=== PATIENT | female | born 1955 | race Caucasian/White ===

== ENCOUNTER 2017-09-28 03:12 | Inpatient (IN) | payer MEDICARE, MEDICAID ==
[2017-09-28] MEDS ORDERED: Acetaminophen 650 MG Supp RECTAL ONE (03:44)
--- NOTE | 2017-09-28 03:50 | EDM.PDOC ---
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, MR, kyphoscoliosis, staisis edema/legs, GERD, functionally blind with cataracts b/l, hypothyroid, postmenopausal, SK R cheek, progressibve flexion c-spine, flexion contractures hands and knees, hypotension , DJD, femur fx with deformity, osteoporosis, seizures, acne, septic shock PSH: T&A meds: vit E, MVI, omeprazole 20 mg, carb/levo 25/100 2.5 QID, divalproex 125 3 caps qid, amitriptyline 10 mg 2 tabs qhs, levothyr 75 qd, Z-Berhane x 5d 09/23 to for bronchitis, mucinex ER 600 mg bid for bronchitis, )2 2 l/min NC qhs all: nka PCP Kanwla Bacon [employer] - Related Data Allergies Allergy/AdvReac Type Severity Reaction Status Date / Time No Known Allergies Allergy Verified 09/28/17 03:59 Home Meds: Home Meds Bisacodyl [Dulcolax] 10 mg RC Q72H PRN 12/11/15 [History] Divalproex Sodium [Depakote Sprinkle] 375 mg PO QID 12/11/15 [History] Levothyroxine 75 mcg PO BEDTIME 12/11/15 [History] Multivitamins with Iron [Daily Nery with Iron] 1 tab PO DAILY 12/11/15 [History] Omeprazole 20 mg PO ACBREAKFAST 12/11/15 [History] Vitamin E 400 units PO DAILY 12/11/15 [History] Carbidopa/Levodopa [Carbidopa-Levodopa 25-100 Tab] 2.5 tab PO QID 02/04/16 [ History] Acetaminophen 2 tab PO Q4H PRN 09/28/17 [History] Dextromethorphan/guaiFENesin [Robitussin DM] 10 mg PO Q4H PRN 09/28/17 [History] Nystatin [Nystatin Crm] 15 gm TOP BID PRN 09/28/17 [History] guaiFENesin [Mucinex] 600 mg PO BID 09/28/17 [History] Past Medical History HEENT History: Reports: Cataract, Other (See Below) Other HEENT History: Functionally blind with cataracts, mild perioral dematitis , gingivitis. Cardiovascular History: Reports: Other (See Below) Other Cardiovascular History: Stasis Edema/Legs Respiratory History: Reports: Pneumonia, Recurrent, Other (See Below) Other Respiratory History: History of aspiration pneumonia. Gastrointestinal History: Reports: GERD, Other (See Below) Other Gastrointestinal History: History of positive stool guaiac, septic shock, possible small bowl obstruction, GI bleed, mild duodenitis, possible small bowel obstruction. 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: Reports: Other (See Below) Other OB/BYN History: Post Menopausal Musculoskeletal History: Reports: Other (See Below) Other Musculoskeletal History: Kyphoscoliosis, Right Thoracic Scoliosis, 1/4 Inch Right Leg Discrepency, Mild Pes Planus, Progressive Flexic C-Spine, Flexic contractures of hands and feet, S/O left hand fracture Neurological History: Reports: Seizure Psychiatric History: Reports: Other (See Below) Other Psychiatric History: Profound ID, disruptive D/O, Organic Affective D/O, Sleep/Wake D/O, Complex Partial Seizure D/O, Mild Microcephaly Endocrine/Metabolic History: Reports: Hypothyroidism Hematologic History: Reports: None Dermatologic History: Reports: Other (See Below) Other Dermatologic History: Seborrheic Keratosis Right Cheek, Acne - Infectious Disease History Infectious Disease History: Reports: Other (See Below) Other Infectious Disease History: patient unable to answer questions - Past Surgical History HEENT Surgical History: Reports: Oral Surgery, Other (See Below) Social & Family History - Family History Family Medical History: Unobtainable - Tobacco Use Smoking Status *Q: Never Smoker Second Hand Smoke Exposure: No - Alcohol Use Days Per Week of Alcohol Use: 0 - Recreational Drug Use Recreational Drug Use: No ED ROS GENERAL - Review of Systems Review Of Systems: See Below Constitutional: Reports: Fever HEENT: Reports: No Symptoms Respiratory: Reports: Cough Cardiovascular: Reports: No Symptoms Endocrine: Reports: No Symptoms GI/Abdominal: Reports: No Symptoms : Reports: No Symptoms Musculoskeletal: Reports: No Symptoms Skin: Reports: No Symptoms Neurological: Reports: No Symptoms Psychiatric: Reports: No Symptoms Hematologic/Lymphatic: Reports: No Symptoms Immunologic: Reports: No Symptoms ED EXAM, GENERAL - Physical Exam Exam: See Below Exam Limited By: Altered Mental Status General Appearance: WD/WN, Lethargic Nose: Normal Inspection, Normal Mucosa, No Blood Throat/Mouth: Normal Inspection, No Airway Compromise Head: Atraumatic, Normocephalic Neck: Normal Inspection, Supple, Non-Tender Respiratory/Chest: No Respiratory Distress, Lungs Clear, Normal Breath Sounds, No Accessory Muscle Use Cardiovascular: Regular Rate, Rhythm, No Edema, No Gallop, No JVD, No Rub, Other (2/6 MARCELO at [facility]) GI/Abdominal: Soft, Non-Tender, No Organomegaly, No Distention Extremities: Non-Tender, No Pedal Edema, Other (flexion contraction wrists b/l, red across MCPs c/w hands in mouth) Skin Exam: Warm, Dry, Intact Course - Vital Signs Last Recorded V/S: Last Vital Signs Temp 38.4 C H 09/28/17 03:20 Pulse 129 H 09/28/17 03:20 Resp 18 09/28/17 03:20 BP 121/75 09/28/17 03:20 Pulse Ox 96 09/28/17 03:25 - Orders/Labs/Meds Orders: Active Orders 24 hr Category Date Time Status Urinary Catheter Insertion [Insert Urinary Catheter] [ Care 09/28/17 03:45 Ordered OM.PC] Q24H Chest 1V Frontal [CR] Stat Exams 09/28/17 03:48 Ordered CULTURE BLOOD [BC] Urgent Lab 09/28/17 03:46 Ordered CULTURE BLOOD [BC] Urgent Lab 09/28/17 03:46 Ordered Blood Culture x2 Reflex Set [OM.PC] Urgent Oth 09/28/17 03:45 Ordered Labs: Laboratory Tests 09/28/17 09/28/17 09/28/17 Range/Units 03:50 04:05 04:05 WBC 12.0 (4.5-12.0) X10-3/uL RBC 5.04 (3.23-5.20) x10(6)uL Hgb 14.8 D (11.5-15.5) g/dL Hct 45.7 D (30.0-51.3) % MCV 90.7 (80-96) fL MCH 29.5 (27.7-33.6) pg MCHC 32.5 (32.2-35.4) g/dL RDW 14.7 (11.5-15.5) % Plt Count 254 (125-369) X10(3)uL MPV 7.7 (7.4-10.4) fL Neut % (Auto) 76.0 (46-82) % Lymph % (Auto) 16.5 (13-37) % [place] % (Auto) 7.2 (4-12) % Eos % (Auto) 0 L (1.0-5.0) % Baso % (Auto) 0 (0-2) % Neut # (Auto) 9.1 H (1.6-8.3) # Lymph # (Auto) 2.0 (0.6-5.0) # [place] # (Auto) 0.9 (0.0-1.3) # Eos # (Auto) 0.0 (0.0-0.8) # Baso # (Auto) 0.0 (0.0-0.2) # VBG pH (7.32-7.42) VBG pCO2 VBG pO2 VBG HCO3 mmol/L VBG O2 Saturation VBG Base Excess O2 Delivery Device Oxygen Flow Rate L Sodium 138 (135-145) mmol/L Potassium 3.7 (3.5-5.3) mmol/L Chloride 98 L (100-110) mmol/L Carbon Dioxide 25 (23-29) mmol/L BUN 41 H D (8-23) mg/dL Creatinine 1.0 (0.6-1.3) mg/dL Est Cr Clr Drug Dosing 43.45 mL/min Estimated GFR (MDRD) 56 L (>60) BUN/Creatinine Ratio 41.0 H (9-20) Glucose 124 H (80-116) mg/dL Lactic Acid (0.5-2.2) mmol/L Calcium 9.5 (8.6-10.2) mg/dL Total Bilirubin 0.6 (0.1-1.3) mg/dL AST 33 H (5-27) IU/L ALT 17 D (14-26) IU/L Alkaline Phosphatase 84 (56-112) IU/L C-Reactive Protein 1.2 H (0.0-1.0) mg/dL Total Protein 9.3 H (6.0-8.0) g/dL Albumin 4.0 (3.2-4.6) g/dL Globulin 5.3 g/dL Albumin/Globulin Ratio 0.8 Urine Color Yellow (YELLOW) Urine Appearance Clear (CLEAR) Urine pH 5.0 (5.0-6.5) Ur Specific [place] 1.025 (1.010-1.025) Urine Protein Negative (NEGATIVE) mg/dL Urine Glucose (UA) Normal (NEGATIVE) mg/dL Urine Ketones 15 H (NEGATIVE) mg/dL Urine Occult Blood Negative (NEGATIVE) Urine Nitrite Negative (NEGATIVE) Urine Bilirubin Negative (NEGATIVE) Urine Urobilinogen Normal (NEGATIVE) mg/dL Ur Leukocyte Esterase Negative (NEGATIVE) Urine RBC 0-5 (0) Urine WBC 0-5 (0) Ur Squamous Epith Cells Occasional (NS,R,O) Urine Bacteria Few H (NS) 09/28/17 09/28/17 Range/Units 04:05 04:05 WBC (4.5-12.0) X10-3/uL RBC (3.23-5.20) x10(6)uL Hgb (11.5-15.5) g/dL Hct (30.0-51.3) % MCV (80-96) fL MCH (27.7-33.6) pg MCHC (32.2-35.4) g/dL RDW (11.5-15.5) % Plt Count (125-369) X10(3)uL MPV (7.4-10.4) fL Neut % (Auto) (46-82) % Lymph % (Auto) (13-37) % [place] % (Auto) (4-12) % Eos % (Auto) (1.0-5.0) % Baso % (Auto) (0-2) % Neut # (Auto) (1.6-8.3) # Lymph # (Auto) (0.6-5.0) # [place] # (Auto) (0.0-1.3) # Eos # (Auto) (0.0-0.8) # Baso # (Auto) (0.0-0.2) # VBG pH 7.484 H (7.32-7.42) VBG pCO2 38.1 VBG pO2 132 VBG HCO3 29 mmol/L VBG O2 Saturation 99 VBG Base Excess 5.0 O2 Delivery Device Nasal cannula Oxygen Flow Rate 2 L Sodium (135-145) mmol/L Potassium (3.5-5.3) mmol/L Chloride (100-110) mmol/L Carbon Dioxide (23-29) mmol/L BUN (8-23) mg/dL Creatinine (0.6-1.3) mg/dL Est Cr Clr Drug Dosing mL/min Estimated GFR (MDRD) (>60) BUN/Creatinine Ratio (9-20) Glucose (80-116) mg/dL Lactic Acid 1.3 (0.5-2.2) mmol/L Calcium (8.6-10.2) mg/dL Total Bilirubin (0.1-1.3) mg/dL AST (5-27) IU/L ALT (14-26) IU/L Alkaline Phosphatase (56-112) IU/L C-Reactive Protein (0.0-1.0) mg/dL Total Protein (6.0-8.0) g/dL Albumin (3.2-4.6) g/dL Globulin g/dL Albumin/Globulin Ratio Urine Color (YELLOW) Urine Appearance (CLEAR) Urine pH (5.0-6.5) Ur Specific [place] (1.010-1.025) Urine Protein (NEGATIVE) mg/dL Urine Glucose (UA) (NEGATIVE) mg/dL Urine Ketones (NEGATIVE) mg/dL Urine Occult Blood (NEGATIVE) Urine Nitrite (NEGATIVE) Urine Bilirubin (NEGATIVE) Urine Urobilinogen (NEGATIVE) mg/dL Ur Leukocyte Esterase (NEGATIVE) Urine RBC (0) Urine WBC (0) Ur Squamous Epith Cells (NS,R,O) Urine Bacteria (NS) Meds: Medications Discontinued Medications Generic Name Dose Route Start Last Admin Trade Name Freq PRN Reason Stop Dose Admin Acetaminophen 650 mg 09/28/17 03:44 09/28/17 03:50 Tylenol RECTAL 09/28/17 03:45 650 mg NOW ONE Administration - Re-Assessments/Exams Free Text/Narrative Re-Assessment/Exam: 09/28/17 05:14 CxR with inc'd markings at RLL, however these appear old, is moderately dehydrated with BUN/creat 41/1.0 c/w 8/0.4 1.5y ago, CRP inc'd 1.2, urine concentrated with SG 1.025 and ketones 15. Pt with dehydration and persistent fever despite azithro. Nursing notes at home indicate fever and hypoxia x 5d, however PO 91% on RA tonight in ED and no retention of CO2 (pCO2 38 c/w 62 1.5y ago, serum CO2 25 now c/w 36 1.5y ago). Fever may be viral, pt does not appear acutely ill and it is not clear that there is a change in baseline now c/w the last 3d. However, dehydration is concerning and it is possible that pt may have aspirated. Will add ceftriaxone altho will defer on additional anaerobe coverage which is no longer routinely recommended for aspiration pneumonitis/ pneumonia. Departure - Departure Time of Disposition: 05:21 Disposition: Admitted As Inpatient 65 Condition: Fair Clinical Impression: Acute bronchitis, Dehydration, Ketonuria, Acute renal failure, Elevated C- reactive protein (CRP) - Discharge Information Referrals: Kanwal Bacon NP [Primary Care Provider] - - My Orders Last 24 Hours: My Active Orders 09/28/17 03:45 Urinary Catheter Insertion [Insert Urinary Catheter] [OM.PC] Q24H Blood Culture x2 Reflex Set [OM.PC] Urgent 09/28/17 03:46 CULTURE BLOOD [BC] Urgent CULTURE BLOOD [BC] Urgent 09/28/17 03:48 Chest 1V Frontal [CR] Stat - Assessment/Plan Last 24 Hours: My Active Orders 09/28/17 03:45 Urinary Catheter Insertion [Insert Urinary Catheter] [OM.PC] Q24H Blood Culture x2 Reflex Set [OM.PC] Urgent 09/28/17 03:46 CULTURE BLOOD [BC] Urgent CULTURE BLOOD [BC] Urgent 09/28/17 03:48 Chest 1V Frontal [CR] Stat
[2017-09-28] MEDS ORDERED: cefTRIAXone 1,000 MG in Sodium Chloride 0.9% 50 ML IV ONE (05:22)
[2017-09-28] MEDS ORDERED: Acetaminophen 650 MG Tab.ER PO PRN (06:52)
[2017-09-28] MEDS ORDERED: Sodium Chloride 0.45% with KCl 1,000 ML IV SCH (07:00)
[2017-09-28] MEDS: Sodium Chloride 0.45% with KCl 1,000 ML IV SCH ×2 (07:03→20:12)
[2017-09-28] MEDS ORDERED: Non-Formulary Medication 1 Each (Omeprazole [Omeprazole] 20 MG) PO SCH (07:30)
[2017-09-28] MEDS: Sodium Chloride 0.9% 10 ML Syringe FLUSH PRN (08:30)
[2017-09-28] MEDS ORDERED: Non-Formulary Medication 1 Each (Vitamin E [Vitamin E] 400 UNITS) PO SCH (09:00)
[2017-09-28] MEDS ORDERED: Vitamin E (dl-alpha-tocopherol acetate) 400 Unit Cap PO ONE (09:00)
[2017-09-28] MEDS ORDERED: Pantoprazole 40 MG Tab.CR PO ONE (09:45)
[2017-09-28] MEDS: Enoxaparin 30 MG/0.3 ML Syringe SUBCUT SCH (10:06)
[2017-09-28] MEDS: guaiFENesin 600 MG Tab.ER PO SCH ×2 (10:06→22:04)
[2017-09-28] MEDS: Divalproex Sodium Delayed-Release 125 MG Cap.Sprink PO SCH ×4 (10:07→22:00)
[2017-09-28] MEDS: Carbidopa/Levodopa 25-100 MG Tab PO SCH ×4 (10:10→21:59)
[2017-09-28] MEDS: Acetaminophen 325 MG Tab PO PRN (10:21)
[2017-09-28] MEDS ORDERED: Albuterol 0.083% 2.5 MG/3 ML Neb Soln NEB PRN (11:13)
[2017-09-28] MEDS ORDERED: Zolpidem 5 MG Tab PO PRN (11:13)
[2017-09-28] MEDS ORDERED: Bisacodyl 10 MG Supp RECTAL PRN (11:52)
--- NOTE | 2017-09-28 13:59 | PCM.HP ---
H&P History of Present Illness - General Date of Service: 09/28/17 Admit Problem/Dx: Admission Diagnosis/Problem Admission Diagnosis/Problem Acute pneumonia Pleasant 62-year-old female currently manic care in a detention for several years secondary to cognitive delay. She is nonverbal, unable to feed herself, nonambulatory. Staff noted she was having elevated temperatures up to 100 101 Fahrenheit. Taken to outpatient clinic due to cough and congestion started on azithromycin which she did complete 5 day course. Her status did not improve. She continued to decline with regards to alertness, oral intake and was at one time found unresponsive with some sort of evidence of possible aspiration. She does have a known history of frequently sticking her fingers down her throat and chewing on her hands and fingers. This could give her predisposition for type of aspiration. Certainly with her history of epilepsy this was a concern as well. She was given IV hydration and started on IV antibiotics appropriately. Laboratory values have been obtained and reviewed. She still remains lethargic this morning but is cooperative with my examination and quite pleasant. Likes to grab my stethoscope and make sure and at times gets agitated with use of the stethoscope. She is easily calmed. I do not have any staff currently present in order to assess her baseline but will be getting a hold of them regarding the above presentation. Home Meds prior to admission: Bisacodyl [Dulcolax] 10 mg RC Q72H PRN 12/11/15 [History] Divalproex Sodium [Depakote Sprinkle] 375 mg PO QID 12/11/15 [History] Levothyroxine 75 mcg PO BEDTIME 12/11/15 [History] Multivitamins with Iron [Daily Nery with Iron] 1 tab PO DAILY 12/11/15 [History] Omeprazole 20 mg PO ACBREAKFAST 12/11/15 [History] Vitamin E 400 units PO DAILY 12/11/15 [History] Carbidopa/Levodopa [Carbidopa-Levodopa 25-100 Tab] 2.5 tab PO QID 02/04/16 [ History] Acetaminophen 2 tab PO Q4H PRN 09/28/17 [History] Dextromethorphan/guaiFENesin [Robitussin DM] 10 mg PO Q4H PRN 09/28/17 [History] Nystatin [Nystatin Crm] 15 gm TOP BID PRN 09/28/17 [History] guaiFENesin [Mucinex] 600 mg PO BID 09/28/17 [History] - Related Data Allergies/Adverse Reactions: Allergies Allergy/AdvReac Type Severity Reaction Status Date / Time No Known Allergies Allergy Verified 09/28/17 03:59 Home Medications: Home Meds Bisacodyl [Dulcolax] 10 mg RC Q72H PRN 12/11/15 [History] Divalproex Sodium [Depakote Sprinkle] 375 mg PO QID 12/11/15 [History] Levothyroxine 75 mcg PO BEDTIME 12/11/15 [History] Multivitamins with Iron [Daily Nery with Iron] 1 tab PO DAILY 12/11/15 [History] Omeprazole 20 mg PO ACBREAKFAST 12/11/15 [History] Vitamin E 400 units PO DAILY 12/11/15 [History] Carbidopa/Levodopa [Carbidopa-Levodopa 25-100 Tab] 2.5 tab PO QID 02/04/16 [ History] Dextromethorphan/guaiFENesin [Robitussin DM] 10 ml PO Q4H PRN 09/28/17 [History] Nystatin [Nystatin Crm] 1 applic TOP BID PRN 09/28/17 [History] Amitriptyline [Elavil] 20 mg PO BEDTIME 09/29/17 [History] Acetaminophen [Tylenol] 650 mg PO Q4H PRN tablet 10/01/17 [Rx] Amoxicillin/Clavulanate K [Augmentin 500-125 MG] 1 tab PO Q8H 4 Days tablet [Rx] Magnesium Hydroxide [Milk of Magnesia] 30 ml PO BID 5 Days cup 10/01/17 [Rx] guaiFENesin [Mucinex] 600 mg PO BID tab.er 10/01/17 [Rx] Past Medical History HEENT History: Reports: Cataract, Other (See Below) Other HEENT History: Functionally blind with cataracts, mild perioral dematitis , gingivitis. Cardiovascular History: Reports: Other (See Below) Other Cardiovascular History: Stasis Edema/Legs Respiratory History: Reports: Pneumonia, Recurrent, Other (See Below) Other Respiratory History: History of aspiration pneumonia. Gastrointestinal History: Reports: GERD, Other (See Below) Other Gastrointestinal History: History of positive stool guaiac, septic shock, possible small bowl obstruction, GI bleed, mild duodenitis, possible small bowel obstruction. Genitourinary History: Reports: UTI, Recurrent [employer]OR [employer] History: Reports: Other (See Below) Other OB/BYN History: Post Menopausal Musculoskeletal History: Reports: Other (See Below) Other Musculoskeletal History: Kyphoscoliosis, Right Thoracic Scoliosis, 1/4 Inch Right Leg Discrepency, Mild Pes Planus, Progressive Flexic C-Spine, Flexic contractures of hands and feet, S/O left hand fracture Neurological History: Reports: Seizure Psychiatric History: Reports: Other (See Below) Other Psychiatric History: Profound ID, disruptive D/O, Organic Affective D/O, Sleep/Wake D/O, Complex Partial Seizure D/O, Mild Microcephaly Endocrine/Metabolic History: Reports: Hypothyroidism Hematologic History: Reports: None Other Hematologic History: Mild leukocytosis. Dermatologic History: Reports: Other (See Below) Other Dermatologic History: Seborrheic Keratosis Right Cheek, Acne - Infectious Disease History Infectious Disease History: Reports: Other (See Below) Other Infectious Disease History: patient unable to answer questions - Past Surgical History HEENT Surgical History: Reports: Oral Surgery, Other (See Below) Social & Family History - Family History Family Medical History: Unobtainable HEENT: Reports: None Cardiac: Reports: None Respiratory: Reports: None GI: Reports: None : Reports: None OBGYN: Reports: None Musculoskeletal: Reports: None Neurological: Reports: None Psychiatric: Reports: Learning Disability, Other (See Below) Other Psychiatric Family History: SEIZURE DISORDER Endocrine/Metabolic: Reports: Hypothyroidism Hematologic: Reports: None Immunologic: Reports: None Dermatologic: Reports: None Oncologic: Reports: None - Tobacco Use Smoking Status *Q: Never Smoker Second Hand Smoke Exposure: No - Caffeine Use Caffeine Use: Reports: None - Alcohol Use Days Per Week of Alcohol Use: 0 - Recreational Drug Use Recreational Drug Use: No H&P Review of Systems - Review of Systems: Review Of Systems: ROS reveals no pertinent complaints other than HPI. Exam - Exam Exam: See Below - Vital Signs Vital Signs: Last Vital Signs Temp 99.2 F 09/28/17 08:30 Pulse 100 09/28/17 08:30 Resp 24 H 09/28/17 08:30 BP 130/70 09/28/17 08:30 Pulse Ox 95 09/28/17 08:30 Weight: 47.582 kg - Exam Quality Assessment: Supplemental Oxygen (chornic in 2l at night via nc.), DVT Prophylaxis General: Cooperative, Lethargic HEENT: PERRLA. No: Mucosa Moist & [place] Neck: Supple, Trachea Midline. No: Lymphadenopathy Lungs: Decreased Breath Sounds, Rhonchi (right and left lower) Cardiovascular: Regular Rate, Regular Rhythm GI/Abdominal Exam: Distended, Guarding, Abnormal Bowel Sounds (deminished throughout but present). No: Rigid (Female) Exam: Normal External Exam Rectal (Female) Exam: Normal Rectal Tone Back Exam: Normal Inspection Extremities: Normal Capillary Refill Skin: No: Rash Psychiatric: Agitated - Patient Data Lab Results Last 24 hrs: Laboratory Tests 09/28/17 09/28/17 09/28/17 Range/Units 03:50 04:05 04:05 WBC 12.0 (4.5-12.0) X10-3/uL RBC 5.04 (3.23-5.20) x10(6)uL Hgb 14.8 D (11.5-15.5) g/dL Hct 45.7 D (30.0-51.3) % MCV 90.7 (80-96) fL MCH 29.5 (27.7-33.6) pg MCHC 32.5 (32.2-35.4) g/dL RDW 14.7 (11.5-15.5) % Plt Count 254 (125-369) X10(3)uL MPV 7.7 (7.4-10.4) fL Neut % (Auto) 76.0 (46-82) % Lymph % (Auto) 16.5 (13-37) % Gray % (Auto) 7.2 (4-12) % Eos % (Auto) 0 L (1.0-5.0) % Baso % (Auto) 0 (0-2) % Neut # (Auto) 9.1 H (1.6-8.3) # Lymph # (Auto) 2.0 (0.6-5.0) # Gray # (Auto) 0.9 (0.0-1.3) # Eos # (Auto) 0.0 (0.0-0.8) # Baso # (Auto) 0.0 (0.0-0.2) # Add Manual Diff Neutrophils % (Manual) (46-82) % Lymphocytes % (Manual) (13-37) % Monocytes % (Manual) (4-12) % Eosinophils % (Manual) (0-5) % VBG pH (7.32-7.42) VBG pCO2 VBG pO2 VBG HCO3 mmol/L VBG O2 Saturation VBG Base Excess O2 Delivery Device Oxygen Flow Rate L Sodium 138 (135-145) mmol/L Potassium 3.7 (3.5-5.3) mmol/L Chloride 98 L (100-110) mmol/L Carbon Dioxide 25 (23-29) mmol/L BUN 41 H D (8-23) mg/dL Creatinine 1.0 (0.6-1.3) mg/dL Est Cr Clr Drug Dosing 43.45 mL/min Estimated GFR (MDRD) 56 L (>60) BUN/Creatinine Ratio 41.0 H (9-20) Glucose 124 H (80-116) mg/dL Lactic Acid (0.5-2.2) mmol/L Calcium 9.5 (8.6-10.2) mg/dL Total Bilirubin 0.6 (0.1-1.3) mg/dL AST 33 H (5-27) IU/L ALT 17 D (14-26) IU/L Alkaline Phosphatase 84 (56-112) IU/L C-Reactive Protein 1.2 H (0.0-1.0) mg/dL Total Protein 9.3 H (6.0-8.0) g/dL Albumin 4.0 (3.2-4.6) g/dL Globulin 5.3 g/dL Albumin/Globulin Ratio 0.8 Urine Color Yellow (YELLOW) Urine Appearance Clear (CLEAR) Urine pH 5.0 (5.0-6.5) Ur Specific [place] 1.025 (1.010-1.025) Urine Protein Negative (NEGATIVE) mg/dL Urine Glucose (UA) Normal (NEGATIVE) mg/dL Urine Ketones 15 H (NEGATIVE) mg/dL Urine Occult Blood Negative (NEGATIVE) Urine Nitrite Negative (NEGATIVE) Urine Bilirubin Negative (NEGATIVE) Urine Urobilinogen Normal (NEGATIVE) mg/dL Ur Leukocyte Esterase Negative (NEGATIVE) Urine RBC 0-5 (0) Urine WBC 0-5 (0) Ur Squamous Epith Cells Occasional (NS,R,O) Urine Bacteria Few H (NS) 09/28/17 09/28/17 09/29/17 Range/Units 04:05 04:05 06:55 WBC 6.7 (4.5-12.0) X10-3/uL RBC 3.85 (3.23-5.20) x10(6)uL Hgb 11.7 D (11.5-15.5) g/dL Hct 35.4 D (30.0-51.3) % MCV 91.9 (80-96) fL MCH 30.5 (27.7-33.6) pg MCHC 33.1 (32.2-35.4) g/dL RDW 14.6 (11.5-15.5) % Plt Count 182 (125-369) X10(3)uL MPV 7.4 (7.4-10.4) fL Neut % (Auto) (46-82) % Lymph % (Auto) (13-37) % Gray % (Auto) (4-12) % Eos % (Auto) (1.0-5.0) % Baso % (Auto) (0-2) % Neut # (Auto) (1.6-8.3) # Lymph # (Auto) (0.6-5.0) # Gray # (Auto) (0.0-1.3) # Eos # (Auto) (0.0-0.8) # Baso # (Auto) (0.0-0.2) # Add Manual Diff Yes Neutrophils % (Manual) 51 (46-82) % Lymphocytes % (Manual) 37 (13-37) % Monocytes % (Manual) 11 (4-12) % Eosinophils % (Manual) 1 (0-5) % VBG pH 7.484 H (7.32-7.42) VBG pCO2 38.1 VBG pO2 132 VBG HCO3 29 mmol/L VBG O2 Saturation 99 VBG Base Excess 5.0 O2 Delivery Device Nasal cannula Oxygen Flow Rate 2 L Sodium (135-145) mmol/L Potassium (3.5-5.3) mmol/L Chloride (100-110) mmol/L Carbon Dioxide (23-29) mmol/L BUN (8-23) mg/dL Creatinine (0.6-1.3) mg/dL Est Cr Clr Drug Dosing mL/min Estimated GFR (MDRD) (>60) BUN/Creatinine Ratio (9-20) Glucose (80-116) mg/dL Lactic Acid 1.3 (0.5-2.2) mmol/L Calcium (8.6-10.2) mg/dL Total Bilirubin (0.1-1.3) mg/dL AST (5-27) IU/L ALT (14-26) IU/L Alkaline Phosphatase (56-112) IU/L C-Reactive Protein (0.0-1.0) mg/dL Total Protein (6.0-8.0) g/dL Albumin (3.2-4.6) g/dL Globulin g/dL Albumin/Globulin Ratio Urine Color (YELLOW) Urine Appearance (CLEAR) Urine pH (5.0-6.5) Ur Specific [place] (1.010-1.025) Urine Protein (NEGATIVE) mg/dL Urine Glucose (UA) (NEGATIVE) mg/dL Urine Ketones (NEGATIVE) mg/dL Urine Occult Blood (NEGATIVE) Urine Nitrite (NEGATIVE) Urine Bilirubin (NEGATIVE) Urine Urobilinogen (NEGATIVE) mg/dL Ur Leukocyte Esterase (NEGATIVE) Urine RBC (0) Urine WBC (0) Ur Squamous Epith Cells (NS,R,O) Urine Bacteria (NS) Result Diagrams: 10/01/17 06:05 10/01/17 06:05 Willie Results Last 24 hrs: Microbiology 09/28/17 12:45 Influenza Type A Antigen Screen - Final Nasopharyngeal Swab - Nare, Right NEGATIVE INFLUENZA A VIRUS AG Influenza Type B Antigen Screen - Final NEGATIVE INFLUENZA B VIRUS AG *Q Meaningful Use (ADM) - VTE *Q VTE Criteria *Q: - Stroke *Q Stroke Criteria *Q: - AMI *Q AMI Criteria *Q: - Problem List (1) Aspiration pneumonia SNOMED Code(s): 251069523 ICD Code: J69.0 - PNEUMONITIS DUE TO INHALATION OF FOOD AND VOMIT Status: Suspected Qualifiers: Aspiration pneumonia type: due to vomit (2) Acute bronchitis SNOMED Code(s): 00223842 ICD Code: J20.9 - ACUTE BRONCHITIS, UNSPECIFIED Status: Acute (3) Dehydration SNOMED Code(s): 18204189 ICD Code: E86.0 - DEHYDRATION Status: Acute (4) Acute renal insufficiency SNOMED Code(s): 208437915 ICD Code: N28.9 - DISORDER OF KIDNEY AND URETER, UNSPECIFIED Status: Acute (5) Elevated C-reactive protein (CRP) SNOMED Code(s): 743464760 ICD Code: R79.82 - ELEVATED C-REACTIVE PROTEIN (CRP) Status: Acute (6) Ketonuria SNOMED Code(s): 103348305 ICD Code: R82.4 - ACETONURIA Status: Acute (7) DNI (do not intubate) SNOMED Code(s): 881895098 ICD Code: Z78.9 - OTHER SPECIFIED HEALTH STATUS Status: Acute (8) Lives in detention SNOMED Code(s): 151590807 ICD Code: Z59.3 - PROBLEMS RELATED TO LIVING IN RESIDENTIAL INSTITUTION Status: Chronic (9) Mental retardation SNOMED Code(s): 90261504 ICD Code: F79 - UNSPECIFIED INTELLECTUAL DISABILITIES Status: Chronic (10) Hypothyroidism SNOMED Code(s): 43090803 ICD Code: E03.9 - HYPOTHYROIDISM, UNSPECIFIED Status: Chronic Problem Details: Stable (11) Parkinson's disease SNOMED Code(s): 09378944 ICD Code: G20 - PARKINSON'S DISEASE Status: Chronic (12) Intermittent explosive disorder SNOMED Code(s): 10820274 ICD Code: [id number] - Status: Chronic (13) Seizure disorder SNOMED Code(s): 735555150 ICD Code: G40.909 - EPILEPSY, UNSP, NOT INTRACTABLE, WITHOUT STATUS EPILEPTICUS Status: Chronic (14) DNR (do not resuscitate) Status: Chronic Problem List Initiated/Reviewed/Updated: Yes Orders Last 24hrs: Active Orders 24 hr Category Date Time Status Aspiration Precautions [RC] ASDIRECTED Care 09/28/17 13:57 Ordered Bedrest Bedside Commode [RC] ASDIRECTED Care 09/28/17 11:13 Active Height and Weight [RC] DAILY Care 09/28/17 11:13 Active Intake and Output [RC] Q4H Care 09/28/17 11:15 Active Notify Provider Vital Signs [RC] ASDIRECTED Care 09/28/17 11:15 Active Oxygen Therapy Adult [Oxygen Therapy, ED] [RC] Care 09/28/17 03:45 Active ASDIRECTED Oxygen Therapy [RC] PRN Care 09/28/17 06:40 Active RT Aerosol Therapy [RC] ASDIRECTED Care 09/28/17 11:19 Active Urinary Catheter Assessment [RC] QSHIFT Care 09/28/17 11:13 Active VTE/DVT Education [RC] Per Unit Routine Care 09/28/17 06:40 Active Vital Signs [RC] Q4H Care 09/28/17 06:40 Active Consult to Work Order Detailer [CONS] Routine Cons 09/28/17 11:13 Active Respiratory Care Assess and Treatment [CONS] Routine Cons 09/28/17 11:13 Active Mechanical Soft Diet [DIET] Diet 09/28/17 Breakfast Active BASIC METABOLIC PANEL,BMP [CHEM] AM Lab 09/30/17 05:11 Ordered BASIC METABOLIC PANEL,BMP [CHEM] AM Lab 10/01/17 05:11 Ordered BASIC METABOLIC PANEL,BMP [CHEM] AM Lab 10/02/17 05:11 Ordered BASIC METABOLIC PANEL,BMP [CHEM] AM Lab 10/03/17 05:11 Ordered CBC WITH AUTO DIFF [HEME] DAILY Lab 09/29/17 06:00 Ordered CBC WITH AUTO DIFF [HEME] DAILY Lab 09/30/17 06:00 Ordered CBC WITH AUTO DIFF [HEME] DAILY Lab 10/01/17 06:00 Ordered CBC WITH AUTO DIFF [HEME] DAILY Lab 10/02/17 06:00 Ordered CBC WITH AUTO DIFF [HEME] DAILY Lab 10/03/17 06:00 Ordered Acetaminophen [Tylenol Arthritis Pain] Med 09/28/17 06:52 Pending 650 mg PO Q4HR PRN Acetaminophen [Tylenol] Med 09/28/17 06:52 Active 650 mg PO Q4H PRN Albuterol [Proventil Neb Soln] Med 09/28/17 11:13 Active 2.5 mg NEB Q2H PRN Bisacodyl [Dulcolax] Med 09/28/17 11:52 Active 10 mg RECTAL Q72H PRN Carbidopa/Levodopa [Sinemet 25-100 mg] Med 09/28/17 09:00 Active 2.5 tab PO QID Divalproex Sodium [Depakote Sprinkle] Med 09/28/17 09:00 Active 375 mg PO QID Enoxaparin [Lovenox] Med 09/28/17 09:00 Active 30 mg SUBCUT DAILY Levothyroxine Med 09/28/17 21:00 Active 75 mcg PO BEDTIME Multivitamins with Iron [Daily Nery with Iron] Med 09/29/17 09:00 Active 1 tab PO DAILY Pantoprazole [ProTONIX] Med 09/29/17 07:30 Active 40 mg PO ACBREAKFAST Sodium Chloride 0.9% [Saline Flush] Med 09/28/17 10:22 Active 10 ml FLUSH ASDIRECTED PRN Vitamin E [Vitamin E] Med 09/28/17 09:00 Active 400 units PO DAILY Zolpidem [Ambien] Med 09/28/17 11:13 Active 5 mg PO BEDTIME PRN cefTRIAXone [Rocephin] 1,000 mg Med 09/29/17 07:00 Active Sodium Chloride 0.9% [Normal Saline] 50 ml IV Q24H guaiFENesin [Mucinex] Med 09/28/17 09:00 Active 600 mg PO BID Blood Culture x2 Reflex Set [OM.PC] Urgent Oth 09/28/17 11:14 Ordered Give supplemental Oxygen PRN [COMM] Routine Oth 09/28/17 11:14 Ordered Seizure Precautions [OM.PC] Routine Oth 09/28/17 13:57 Ordered Resuscitation Status Routine Resus Stat 09/28/17 06:40 Ordered Medication Orders Acetaminophen (Tylenol Arthritis Pain) 650 mg PO Q4HR PRN PRN Reason: Fever Stop: 10/03/17 06:00 Acetaminophen (Tylenol) 650 mg PO Q4H PRN PRN Reason: Fever Last Admin: 09/28/17 10:21 Dose: 650 mg Albuterol (Proventil Neb Soln) 2.5 mg NEB Q2H PRN PRN Reason: Shortness Of Breath/wheezing Bisacodyl (Dulcolax) 10 mg RECTAL Q72H PRN PRN Reason: Constipation Carbidopa/Levodopa (Sinemet 25-100 Mg) 2.5 tab PO QID [facility] Last Admin: 09/28/17 13:38 Dose: 2.5 tab Admin: 09/28/17 10:10 Dose: 2.5 tab Divalproex Sodium (Depakote Sprinkle) 375 mg PO QID [facility] Last Admin: 09/28/17 13:39 Dose: 375 mg Admin: 09/28/17 10:07 Dose: 375 mg Enoxaparin Sodium (Lovenox) 30 mg SUBCUT DAILY [facility] Last Admin: 09/28/17 10:06 Dose: 30 mg Guaifenesin (Mucinex) 600 mg PO BID [facility] Last Admin: 09/28/17 10:06 Dose: 600 mg Potassium Chloride/Sodium Chloride (1/2 Ns With 20 Meq Kcl) 1,000 mls @ 75 mls/ hr IV ASDIRECTED [facility] Last Admin: 09/28/17 07:03 Dose: 75 mls/hr Ceftriaxone Sodium 1,000 mg/ (Sodium Chloride) 50 mls @ 100 mls/hr IV Q24H [facility] Levothyroxine Sodium (Levothyroxine) 75 mcg PO BEDTIME [facility] Non-Formulary Medication (Multivitamins With Iron [Daily Nery With Iron]) 1 tab PO DAILY [facility] Non-Formulary Medication (Vitamin E [Vitamin E]) 400 units PO DAILY [facility] Last Admin: 09/28/17 10:06 Dose: 400 units Pantoprazole Sodium (Protonix) 40 mg PO ACBREAKFAST [facility] Sodium Chloride (Saline Flush) 10 ml FLUSH ASDIRECTED PRN PRN Reason: IV Use Last Admin: 09/28/17 08:30 Dose: 10 ml Zolpidem Tartrate (Ambien) 5 mg PO BEDTIME PRN PRN Reason: Sleep Assessment/Plan Comment:: Plan get her hydrated, treat pneumonia appropriately. Continue Rocephin. Monitor intake and output. We'll try to get a urine specimen for culture. Influenza swabs are negative. Respiratory for O2 monitoring and ABGs. We'll need to consider some sort of covering barrier as she may pull her IV out. We' ll have aspiration and seizure precautions. Remove her back panel padder to the nurses station for closer monitoring. Repeat a chest x-ray once hydrated. Continue home medications as she is continuing to take orals. We'll see how her abdominal exam changes with hydration as well. May need to consider abdominal films. Anticipate discharge in the next 48-72 hours pending improvement with above treatment plan.
[2017-09-28] MEDS: Levothyroxine 75 MCG Tab PO SCH (22:04)
[2017-09-29] MEDS: LORazepam 2 MG/ML MDV IVPUSH PRN (00:39)
[2017-09-29] MEDS ORDERED: cefTRIAXone 1,000 MG in Sodium Chloride 0.9% 50 ML IV SCH (07:00)
[2017-09-29] MEDS: Enoxaparin 30 MG/0.3 ML Syringe SUBCUT SCH (09:19)
[2017-09-29] MEDS: Multivitamins with Iron/Calcium/Folic Acid/Minerals Tab PO SCH (09:19)
[2017-09-29] MEDS: Carbidopa/Levodopa 25-100 MG Tab PO SCH ×4 (09:19→21:27)
[2017-09-29] MEDS: Divalproex Sodium Delayed-Release 125 MG Cap.Sprink PO SCH ×4 (09:20→21:25)
[2017-09-29] MEDS: Pantoprazole 40 MG Tab.CR PO SCH (09:20)
[2017-09-29] MEDS: guaiFENesin 600 MG Tab.ER PO SCH ×2 (09:21→21:26)
[2017-09-29] MEDS: Vitamin E (dl-alpha-tocopherol acetate) 400 Unit Cap PO SCH (09:21)
[2017-09-29] MEDS: Sodium Chloride 0.45% with KCl 1,000 ML IV SCH (10:21)
--- NOTE | 2017-09-29 11:05 | CR ---
INDICATION: Fever. CHEST: AP portable upright view of the chest 09/28/2017, compared with 2015 and 02/19/2016, revealed an appearance of a rounded density in the area of the right hilum. Etiology is indeterminate. The possibility of a neoplastic process cannot be excluded. Finding may simply represent a vessel on end, which should be correlated clinically. Additional chest x-ray with angulation off the true AP position - to the right and possibly left, may be helpful for further evaluation, as well as CT. There are some parenchymal changes at the left lung base, possibly with some minimal pleural changes. Atelectasis, pneumonia, and fibrosis may be present, possibly minimal pleuritis. Certainly, there appears to be fibrosis since the appearance is very similar to 01/28/2016 examination. The heart did not appear grossly enlarged. A moderately severe dextroconvex rotoscoliosis of the thoracic spine is noted. IMPRESSION: 1. Parenchymal and possibly minimal pleural changes at the left lung base may represent fibrosis. The possibility of atelectasis and pneumonia with pleuritis cannot be excluded in that area. 2. Nodular density approximately 1.5 cm perihilar on the right of questionable etiology could represent a vessel on end or more likely a nodular mass. Follow- up recommended. [facility]
--- NOTE | 2017-09-29 11:09 | CR ---
INDICATION: Question bowel obstruction. ABDOMEN: Supine and two decubitus views of the abdomen were obtained portable, and revealed a moderately large amount of stool scattered about the colon, but especially in the area of the rectum, raising question of a fecal impaction. A definite mechanically obstructive process due to the impaction is not visible at this time, since no definite air-fluid levels are seen. However, the possibility of fecal impaction with impending obstruction or intermittent obstruction, cannot be excluded. Dextroconcave rotoscoliosis of the lumbar spine is moderately severe. No gross organomegaly or mass lesions were identified. IMPRESSION: Cannot exclude a fecal impaction, although no gross air-fluid levels or gross distention of the bowel is identified at this time. [facility]
--- NOTE | 2017-09-29 12:57 | PCM.PN ---
- General Info Date of Service: 09/29/17 Functional Status: Reports: Tolerating Diet (minimal. no vomiting), Urinating ( incontinent but making more urine. no sample collected yet.) - Review of Systems Systems Review Comment:: Afebrile overnight, no fluctuations in vital signs or concerns from nursing. She 's had no bowel movements. She does continue to get somewhat agitated and at times combative. - Patient Data Vitals - Most Recent: Last Vital Signs Temp 98.0 F 09/29/17 11:00 Pulse 69 09/29/17 11:00 Resp 24 H 09/29/17 11:00 BP 119/68 09/29/17 11:00 Pulse Ox 96 09/29/17 11:00 Weight - Most Recent: 49.623 kg I&O - Last 24 Hours: Intake & Output 09/28/17 09/29/17 22:59 06:59 Intake Total 0 Output Total 0 Balance 0 Lab Results Last 24 Hours: Laboratory Results - last 24 hr 09/29/17 Range/Units 06:55 WBC 6.7 (4.5-12.0) X10-3/uL RBC 3.85 (3.23-5.20) x10(6)uL Hgb 11.7 D (11.5-15.5) g/dL Hct 35.4 D (30.0-51.3) % MCV 91.9 (80-96) fL MCH 30.5 (27.7-33.6) pg MCHC 33.1 (32.2-35.4) g/dL RDW 14.6 (11.5-15.5) % Plt Count 182 (125-369) X10(3)uL MPV 7.4 (7.4-10.4) fL Add Manual Diff Yes Neutrophils % (Manual) 51 (46-82) % Lymphocytes % (Manual) 37 (13-37) % Monocytes % (Manual) 11 (4-12) % Eosinophils % (Manual) 1 (0-5) % Willie Results Last 24 Hours: Microbiology 09/28/17 12:45 Influenza Type A Antigen Screen - Final Nasopharyngeal Swab - Nare, Right NEGATIVE INFLUENZA A VIRUS AG Influenza Type B Antigen Screen - Final NEGATIVE INFLUENZA B VIRUS AG Med Orders - Current: Current Medications Acetaminophen (Tylenol) 650 mg PO Q4H PRN PRN Reason: Fever Last Admin: 09/28/17 10:21 Dose: 650 mg Albuterol (Proventil Neb Soln) 2.5 mg NEB Q2H PRN PRN Reason: Shortness Of Breath/wheezing Last Admin: 09/28/17 14:28 Dose: 2.5 mg Bisacodyl (Dulcolax) 10 mg RECTAL Q72H PRN PRN Reason: Constipation Carbidopa/Levodopa (Sinemet 25-100 Mg) 2.5 tab PO QID [facility] Last Admin: 09/29/17 09:19 Dose: 2.5 tab Divalproex Sodium (Depakote Sprinkle) 375 mg PO QID [facility] Last Admin: 09/29/17 09:20 Dose: 375 mg Enoxaparin Sodium (Lovenox) 30 mg SUBCUT DAILY [facility] Last Admin: 09/29/17 09:19 Dose: 30 mg Guaifenesin (Mucinex) 600 mg PO BID [facility] Last Admin: 09/29/17 09:21 Dose: 600 mg Potassium Chloride/Sodium Chloride (1/2 Ns With 20 Meq Kcl) 1,000 mls @ 75 mls/ hr IV ASDIRECTED [facility] Last Admin: 09/29/17 10:21 Dose: 75 mls/hr Ceftriaxone Sodium 1,000 mg/ (Sodium Chloride) 50 mls @ 100 mls/hr IV Q24H [facility] Last Admin: 09/29/17 06:41 Dose: 100 mls/hr Levothyroxine Sodium (Levothyroxine) 75 mcg PO BEDTIME [facility] Last Admin: 09/28/17 22:04 Dose: 75 mcg Lorazepam (Ativan) 0.5 mg IVPUSH Q6H PRN PRN Reason: restlessness;aggitation. Last Admin: 09/29/17 00:39 Dose: 0.5 mg Multivitamins/Minerals (Thera M Plus) 1 tab PO DAILY [facility] Last Admin: 09/29/17 09:19 Dose: 1 tab Pantoprazole Sodium (Protonix) 40 mg PO ACBREAKFAST [facility] Last Admin: 09/29/17 09:20 Dose: 40 mg Sodium Chloride (Saline Flush) 10 ml FLUSH ASDIRECTED PRN PRN Reason: IV Use Last Admin: 09/28/17 08:30 Dose: 10 ml Vitamin E (Vitamin E) 400 units PO DAILY [facility] Last Admin: 09/29/17 09:21 Dose: 400 units Discontinued Medications Acetaminophen (Tylenol) 650 mg RECTAL NOW ONE Stop: 09/28/17 03:45 Last Admin: 09/28/17 03:50 Dose: 650 mg Ceftriaxone Sodium 1,000 mg/ (Sodium Chloride) 50 mls @ 100 mls/hr IV ONETIME ONE Stop: 09/28/17 05:51 Last Admin: 09/28/17 06:09 Dose: 100 mls/hr Potassium Chloride/Sodium Chloride (1/2 Ns With 20 Meq Kcl) 1,000 mls @ 75 mls/ hr IV ASDIRECTED [facility] Non-Formulary Medication (Omeprazole [Omeprazole]) 20 mg PO ACBREAKFAST [facility] Last Admin: 09/28/17 11:16 Dose: Not Given Non-Formulary Medication (Vitamin E [Vitamin E]) 400 units PO DAILY [facility] Last Admin: 09/28/17 10:06 Dose: 400 units Pantoprazole Sodium (Protonix) 40 mg PO ONETIME ONE Stop: 09/28/17 09:46 Last Admin: 09/28/17 10:06 Dose: 40 mg Vitamin E (Vitamin E) 400 units PO .STK-MED ONE Stop: 09/28/17 09:01 Zolpidem Tartrate (Ambien) 5 mg PO BEDTIME PRN PRN Reason: Sleep - Exam Quality Assessment: Supplemental Oxygen, DVT Prophylaxis General: Cooperative (for the most part. two people needed to assess properly.) , Lethargic HEENT: Pupils Reactive Neck: Supple Lungs: Decreased Breath Sounds, Rhonchi (bilateral bases minimal). No: Wheezing Cardiovascular: Regular Rate, Regular Rhythm GI/Abdominal Exam: Distended, Abnormal Bowel Sounds (much more reduced and acts as if guarding.) Extremities: No: Pedal Edema Skin: No: Rash Neurological: No New Focal Deficit Psy/Mental Status: Anxious, Agitated - Problem List Review Problem List Initiated/Reviewed/Updated: Yes - My Orders Last 24 Hours: My Active Orders 09/28/17 13:57 Aspiration Precautions [RC] ASDIRECTED Seizure Precautions [OM.PC] Routine 09/28/17 16:20 LORazepam [Ativan] 0.5 mg IVPUSH Q6H PRN 09/29/17 11:13 CULTURE URINE [RM] Routine UA W/MICROSCOPIC [URIN] Routine - Assessment Assessment:: (1) Aspiration pneumonia SNOMED Code(s): 899513961 ICD Code: J69.0 - PNEUMONITIS DUE TO INHALATION OF FOOD AND VOMIT Status: Suspected Qualifiers: Aspiration pneumonia type: due to vomit (2) Acute bronchitis SNOMED Code(s): 40038880 ICD Code: J20.9 - ACUTE BRONCHITIS, UNSPECIFIED Status: Acute (3) Dehydration SNOMED Code(s): 01404634 ICD Code: E86.0 - DEHYDRATION Status: Acute (4) Acute renal insufficiency SNOMED Code(s): 860723833 ICD Code: N28.9 - DISORDER OF KIDNEY AND URETER, UNSPECIFIED Status: Acute (5) Elevated C-reactive protein (CRP) SNOMED Code(s): 508059546 ICD Code: R79.82 - ELEVATED C-REACTIVE PROTEIN (CRP) Status: Acute (6) Ketonuria SNOMED Code(s): 258682954 ICD Code: R82.4 - ACETONURIA Status: Acute (7) DNI (do not intubate) SNOMED Code(s): 404309423 ICD Code: Z78.9 - OTHER SPECIFIED HEALTH STATUS Status: Acute (8) Lives in care home SNOMED Code(s): 865351473 ICD Code: Z59.3 - PROBLEMS RELATED TO LIVING IN RESIDENTIAL INSTITUTION Status: Chronic (9) Mental retardation SNOMED Code(s): 87184590 ICD Code: F79 - UNSPECIFIED INTELLECTUAL DISABILITIES Status: Chronic (10) Hypothyroidism SNOMED Code(s): 85139833 ICD Code: E03.9 - HYPOTHYROIDISM, UNSPECIFIED Status: Chronic Problem Details: Stable (11) Parkinson's disease SNOMED Code(s): 46743068 ICD Code: G20 - PARKINSON'S DISEASE Status: Chronic (12) Intermittent explosive disorder SNOMED Code(s): 10050751 ICD Code: QMU5801 - Status: Chronic (13) Seizure disorder SNOMED Code(s): 081288136 ICD Code: G40.909 - EPILEPSY, UNSP, NOT INTRACTABLE, WITHOUT STATUS EPILEPTICUS Status: Chronic (14) DNR (do not resuscitate) Status: Chronic Problem List Initiated/Reviewed/Updated: Yes - Plan Plan:: We'll continue with hydration. Repeat chest x-ray. Continue IV antibiotics until afebrile 48 hours. Still trying to get a urine culture. Will get repeat chest x-ray flat and left lateral decubitus of the abdomen to rule out ileus obstruction which could have been responsible for nausea vomiting possible aspiration. This will be quite difficult due to her anxiety and intermittent agitation Sobo and add IV lorazepam intermittently for agitation/restlessness and also to be given 30 minutes prior to any procedures or imaging. Renal status improving. All other cares to continue at this time. Anticipate discharge within the next 48-72 hours pending above.
[2017-09-29] MEDS: Levothyroxine 75 MCG Tab PO SCH (21:22)
[2017-09-29] MEDS: Acetaminophen 325 MG Tab PO PRN (21:30)
[2017-09-30] MEDS: cefTRIAXone 1,000 MG VIAL IVPUSH SCH (06:25)
[2017-09-30] MEDS: LORazepam 2 MG/ML MDV IVPUSH PRN (07:55)
[2017-09-30] MEDS: Pantoprazole 40 MG Tab.CR PO SCH (08:01)
[2017-09-30] MEDS: Divalproex Sodium Delayed-Release 125 MG Cap.Sprink PO SCH ×4 (08:22→20:15)
[2017-09-30] MEDS: guaiFENesin 600 MG Tab.ER PO SCH ×2 (08:23→20:15)
[2017-09-30] MEDS: Carbidopa/Levodopa 25-100 MG Tab PO SCH ×4 (08:23→20:15)
[2017-09-30] MEDS: Multivitamins with Iron/Calcium/Folic Acid/Minerals Tab PO SCH (08:24)
[2017-09-30] MEDS: Vitamin E (dl-alpha-tocopherol acetate) 400 Unit Cap PO SCH (08:24)
[2017-09-30] MEDS: Enoxaparin 30 MG/0.3 ML Syringe SUBCUT SCH (08:25)
[2017-09-30] MEDS: D5 1/2 NS w/ 20 mEq/L KCl 1,000 ML IV SCH ×2 (09:57)
--- NOTE | 2017-09-30 13:33 | PCM.PN ---
- General Info Date of Service: 09/30/17 Subjective Update: Nursing without concerns overnight. Functional Status: Reports: Tolerating Diet, Urinating. Denies: New Symptoms - Review of Systems General: Denies: Fever Pulmonary: Reports: Cough. Denies: Wheezing Gastrointestinal: Denies: Vomiting Genitourinary: Reports: Incontinence Skin: Denies: Cyanosis, Rash Psychiatric: Reports: Anxiety, Agitation - Patient Data Vitals - Most Recent: Last Vital Signs Temp 97.5 F 09/30/17 12:00 Pulse 69 09/30/17 12:00 Resp 16 09/30/17 12:00 BP 125/57 L 09/30/17 12:00 Pulse Ox 100 09/30/17 12:00 Weight - Most Recent: 51.528 kg I&O - Last 24 Hours: Intake & Output 09/29/17 09/30/17 09/30/17 22:59 06:59 14:59 Intake Total 340 2058 Output Total 0 Balance 340 2058 Lab Results Last 24 Hours: Laboratory Results - last 24 hr 09/30/17 09/30/17 Range/Units 06:40 06:40 WBC 6.5 (4.5-12.0) X10-3/uL RBC 3.68 (3.23-5.20) x10(6)uL Hgb 11.1 L (11.5-15.5) g/dL Hct 33.7 (30.0-51.3) % MCV 91.5 (80-96) fL MCH 30.0 (27.7-33.6) pg MCHC 32.8 (32.2-35.4) g/dL RDW 14.3 (11.5-15.5) % Plt Count 187 (125-369) X10(3)uL MPV 7.7 (7.4-10.4) fL Neut % (Auto) 47.7 (46-82) % Lymph % (Auto) 35.6 (13-37) % [place] % (Auto) 13.3 H (4-12) % Eos % (Auto) 3 (1.0-5.0) % Baso % (Auto) 1 (0-2) % Neut # (Auto) 3.1 (1.6-8.3) # Lymph # (Auto) 2.3 (0.6-5.0) # [place] # (Auto) 0.9 (0.0-1.3) # Eos # (Auto) 0.2 (0.0-0.8) # Baso # (Auto) 0.0 (0.0-0.2) # Sodium 137 (135-145) mmol/L Potassium 4.3 (3.5-5.3) mmol/L Chloride 105 D (100-110) mmol/L Carbon Dioxide 26 (23-29) mmol/L BUN 15 D (8-23) mg/dL Creatinine 0.4 L (0.6-1.3) mg/dL Est Cr Clr Drug Dosing 108.63 mL/min Estimated GFR (MDRD) > 60 (>60) BUN/Creatinine Ratio 37.5 H (9-20) Glucose 108 (80-116) mg/dL Calcium 8.5 L (8.6-10.2) mg/dL Willie Results Last 24 Hours: Microbiology 09/29/17 12:50 Urine Culture - Preliminary Urine, Quick Cath (In-Out) No Growth Med Orders - Current: Current Medications Acetaminophen (Tylenol) 650 mg PO Q4H PRN PRN Reason: Fever Last Admin: 09/29/17 21:30 Dose: 650 mg Albuterol (Proventil Neb Soln) 2.5 mg NEB Q2H PRN PRN Reason: Shortness Of Breath/wheezing Last Admin: 09/28/17 14:28 Dose: 2.5 mg Bisacodyl (Dulcolax) 10 mg RECTAL Q72H PRN PRN Reason: Constipation Carbidopa/Levodopa (Sinemet 25-100 Mg) 2.5 tab PO QID [facility] Last Admin: 09/30/17 08:23 Dose: 2.5 tab Ceftriaxone Sodium (Rocephin) 1,000 mg IVPUSH Q24H [facility] Last Admin: 09/30/17 06:25 Dose: 1,000 mg Divalproex Sodium (Depakote Sprinkle) 375 mg PO QID [facility] Last Admin: 09/30/17 08:22 Dose: 375 mg Enoxaparin Sodium (Lovenox) 30 mg SUBCUT DAILY [facility] Last Admin: 09/30/17 08:25 Dose: 30 mg Guaifenesin (Mucinex) 600 mg PO BID [facility] Last Admin: 09/30/17 08:23 Dose: 600 mg Potassium Chloride/Dextrose/Sod Cl (D5 1/2 Ns W/ 20 Meq/L Kcl) 1,000 mls @ 50 mls/hr IV ASDIRECTED [facility] Last Admin: 09/30/17 09:57 Dose: 50 mls/hr Levothyroxine Sodium (Levothyroxine) 75 mcg PO BEDTIME [facility] Last Admin: 09/29/17 21:22 Dose: 75 mcg Lorazepam (Ativan) 0.5 mg IVPUSH Q6H PRN PRN Reason: restlessness;aggitation. Last Admin: 09/30/17 07:55 Dose: 0.5 mg Multivitamins/Minerals (Thera M Plus) 1 tab PO DAILY [facility] Last Admin: 09/30/17 08:24 Dose: 1 tab Pantoprazole Sodium (Protonix) 40 mg PO ACBREAKFAST [facility] Last Admin: 09/30/17 08:01 Dose: 40 mg Sodium Chloride (Saline Flush) 10 ml FLUSH ASDIRECTED PRN PRN Reason: IV Use Last Admin: 09/28/17 08:30 Dose: 10 ml Vitamin E (Vitamin E) 400 units PO DAILY [facility] Last Admin: 09/30/17 08:24 Dose: 400 units Discontinued Medications Acetaminophen (Tylenol) 650 mg RECTAL NOW ONE Stop: 09/28/17 03:45 Last Admin: 09/28/17 03:50 Dose: 650 mg Ceftriaxone Sodium 1,000 mg/ (Sodium Chloride) 50 mls @ 100 mls/hr IV ONETIME ONE Stop: 09/28/17 05:51 Last Admin: 09/28/17 06:09 Dose: 100 mls/hr Potassium Chloride/Sodium Chloride (1/2 Ns With 20 Meq Kcl) 1,000 mls @ 75 mls/ hr IV ASDIRECTED [facility] Last Admin: 09/29/17 10:21 Dose: 75 mls/hr Ceftriaxone Sodium 1,000 mg/ (Sodium Chloride) 50 mls @ 100 mls/hr IV Q24H [facility] Last Admin: 09/29/17 06:41 Dose: 100 mls/hr Potassium Chloride/Sodium Chloride (1/2 Ns With 20 Meq Kcl) 1,000 mls @ 75 mls/ hr IV ASDIRECTED [facility] Non-Formulary Medication (Omeprazole [Omeprazole]) 20 mg PO ACBREAKFAST [facility] Last Admin: 09/28/17 11:16 Dose: Not Given Non-Formulary Medication (Vitamin E [Vitamin E]) 400 units PO DAILY [facility] Last Admin: 09/28/17 10:06 Dose: 400 units Pantoprazole Sodium (Protonix) 40 mg PO ONETIME ONE Stop: 09/28/17 09:46 Last Admin: 09/28/17 10:06 Dose: 40 mg Vitamin E (Vitamin E) 400 units PO .STK-MED ONE Stop: 09/28/17 09:01 Zolpidem Tartrate (Ambien) 5 mg PO BEDTIME PRN PRN Reason: Sleep - Exam Quality Assessment: DVT Prophylaxis General: Lethargic HEENT: Pupils Reactive Neck: Supple Lungs: Decreased Breath Sounds, Rales. No: Rhonchi, Wheezing Cardiovascular: Regular Rate, Regular Rhythm GI/Abdominal Exam: Distended, Abnormal Bowel Sounds (deminished). No: Rigid Extremities: Pedal Edema (trace to 1+) Skin: Warm Neurological: No New Focal Deficit Physical Findings Comments:: JODIE was performed along with soapsuds enema did show a large amount of stool in the rectal vault. She was able to Valsalva and evacuate the rectum for a large amount of soft stool. No BRBR. No melena. No fissures or hemorrhoids. No mass palpated. Do believe this will help move things along better. - Problem List & Annotations (1) Fecal impaction in rectum SNOMED Code(s): 80296774 Code(s): K56.41 - FECAL IMPACTION Status: Acute - Problem List Review Problem List Initiated/Reviewed/Updated: Yes - My Orders Last 24 Hours: My Active Orders 09/29/17 12:50 CULTURE URINE [RM] Routine 09/29/17 14:30 D5 1/2 NS w/ 20 mEq/L KCl 1,000 ml IV ASDIRECTED 09/30/17 06:00 cefTRIAXone [Rocephin] 1,000 mg IVPUSH Q24H 09/30/17 13:27 Enema [RC] ASDIRECTED - Assessment Assessment:: Assessment:: (1) Aspiration pneumonia SNOMED Code(s): 406570189 ICD Code: J69.0 - PNEUMONITIS DUE TO INHALATION OF FOOD AND VOMIT Status: Suspected Qualifiers: Aspiration pneumonia type: due to vomit (2) Acute bronchitis SNOMED Code(s): 39916630 ICD Code: J20.9 - ACUTE BRONCHITIS, UNSPECIFIED Status: Acute (3) Dehydration SNOMED Code(s): 21773310 ICD Code: E86.0 - DEHYDRATION Status: Acute (4) Acute renal insufficiency SNOMED Code(s): 350204155 ICD Code: N28.9 - DISORDER OF KIDNEY AND URETER, UNSPECIFIED Status: Acute (5) Elevated C-reactive protein (CRP) SNOMED Code(s): 890543765 ICD Code: R79.82 - ELEVATED C-REACTIVE PROTEIN (CRP) Status: Acute (6) Ketonuria SNOMED Code(s): 981832329 ICD Code: R82.4 - ACETONURIA Status: Acute (7) DNI (do not intubate) SNOMED Code(s): 304530434 ICD Code: Z78.9 - OTHER SPECIFIED HEALTH STATUS Status: Acute (8) [facility] SNOMED Code(s): 269532422 ICD Code: Z59.3 - PROBLEMS RELATED TO LIVING IN RESIDENTIAL INSTITUTION Status: Chronic (9) Mental retardation SNOMED Code(s): 32109586 ICD Code: F79 - UNSPECIFIED INTELLECTUAL DISABILITIES Status: Chronic (10) Hypothyroidism SNOMED Code(s): 30016974 ICD Code: E03.9 - HYPOTHYROIDISM, UNSPECIFIED Status: Chronic Problem Details: Stable (11) Parkinson's disease SNOMED Code(s): 35096565 ICD Code: G20 - PARKINSON'S DISEASE Status: Chronic (12) Intermittent explosive disorder SNOMED Code(s): 78323141 ICD Code: FKG2857 - Status: Chronic (13) Seizure disorder SNOMED Code(s): 635013482 ICD Code: G40.909 - EPILEPSY, UNSP, NOT INTRACTABLE, WITHOUT STATUS EPILEPTICUS Status: Chronic (14) DNR (do not resuscitate) Status: Chronic Problem List Initiated/Reviewed/Updated: Yes - Plan Plan:: Repeat films in the morning. chemical and Hematologic studies are improving. Vitals along with intake output improving. She did have a large clear urine output during exam. We'll convert her over to orals if she does well overnight and consider discharge within the next 24-48 hours. I will of course have one of her caregivers come over to assess her status with regards to her usual baseline to confirm that she is in fact improved and ready for discharge.
[2017-09-30] MEDS ORDERED: Furosemide 40 MG/4 ML VIAL IVPUSH ONE (17:36)
[2017-09-30] MEDS: Sodium Chloride 0.9% 10 ML Syringe FLUSH PRN (18:31)
[2017-09-30] MEDS: Levothyroxine 75 MCG Tab PO SCH (20:15)
[2017-09-30] MEDS: Magnesium Hydroxide 400 MG/5 ML Susp 30 ML Cup PO SCH (20:15)
[2017-10-01] MEDS: Acetaminophen 325 MG Tab PO PRN (00:25)
[2017-10-01] MEDS: cefTRIAXone 1,000 MG VIAL IVPUSH SCH (05:41)
[2017-10-01] MEDS: Sodium Chloride 0.9% 10 ML Syringe FLUSH PRN (05:45)
[2017-10-01] MEDS: Pantoprazole 40 MG Tab.CR PO SCH (07:07)
[2017-10-01 07:50] VITALS: BP 144/83
[2017-10-01] MEDS: Divalproex Sodium Delayed-Release 125 MG Cap.Sprink PO SCH ×2 (08:31→12:55)
[2017-10-01] MEDS: Magnesium Hydroxide 400 MG/5 ML Susp 30 ML Cup PO SCH (08:33)
[2017-10-01] MEDS: Enoxaparin 30 MG/0.3 ML Syringe SUBCUT SCH (08:33)
[2017-10-01] MEDS: guaiFENesin 600 MG Tab.ER PO SCH (08:33)
[2017-10-01] MEDS: Multivitamins with Iron/Calcium/Folic Acid/Minerals Tab PO SCH (08:34)
[2017-10-01] MEDS: Carbidopa/Levodopa 25-100 MG Tab PO SCH (08:34)
[2017-10-01] MEDS: Vitamin E (dl-alpha-tocopherol acetate) 400 Unit Cap PO SCH (08:35)
--- NOTE | 2017-10-01 10:55 | CR ---
INDICATION: Low oxygen saturations. CHEST: An AP upright portable view of the chest 09/30/2017 was compared with and continued to reveal a 12-mm nodular density in the perihilar area on the right. This would be suspicious for a neoplastic process or possibly an early granuloma. It was not present on older studies such as 01/28/2016. It is difficult to exclude an area of pneumonia at the left lower lobe posteromedially. Atelectasis could also be present in that area. Fibrosis would also be a consideration with this appearance at the left lower lobe. The heart did not appear grossly enlarged, but it appears slightly prominent. This is emphasized by the AP positioning and poor inspiration. Severe dextroconvex scoliosis of the thoracic spine is again noted. IMPRESSION: 1. Possible apparent nodule in the perihilar area on the right could represent an early granuloma or a neoplasm. 2. ASHD. 3. Parenchymal changes at the left lower lobe. Fibrosis versus atelectasis and pneumonia. MTDD
--- NOTE | 2017-10-01 11:03 | CR ---
INDICATION: Follow-up pulmonary edema/pneumonia. ABDOMEN SERIES WITH CHEST: CHEST: An AP portable upright view of the chest obtained sitting in bed again revealed a 12-mm nodular density in the perihilar area on the right in the mid lung field. This would have to be considered to be neoplastic until proven otherwise, but may represent an early granuloma. Parenchymal changes are again noted at the left lower lobe and appear unchanged from the previous study. It may represent fibrosis, although pneumonia and atelectasis cannot be excluded in that area. No definite evidence of CHF is seen. The heart did not appear grossly enlarged. Dextroconvex scoliosis is again noted. IMPRESSION: Stable chest. Multiple findings as noted above. ABDOMEN: Supine and decubitus views of the abdomen were obtained, 10/01/2017, and compared with 09/29/2017. The amount of stool in the rectum is slightly decreased. Little overall change in the appearance of the bowel gas pattern is noted with no definite free air or definite obstructive process identified. Dextroconcave scoliosis of the upper middle lumbar spine is again noted. No definite organomegaly, mass lesions, or pathologic calcifications were seen. IMPRESSION: There appears to be slightly less stool in the area of the rectum. There remains a fairly large bolus there, however, which should be correlated clinically as to the possibility of a partially obstructive impaction. MTDD
--- NOTE | 2017-10-01 11:16 | PCM.DCSUM1 ---
Discharge Summary - Hospital Course Free Text/Narrative:: 62-year-old female admitted [facility] after concern for aspiration pneumonia, febrile illness, treated for bronchitis outpatient however not improving. Found to have bilateral lower lobe pneumonia acute renal insufficiency due to dehydration, lethargy, as well as fecal impaction. She was treated with IV antibiotics and has been afebrile greater than 48 hours. Repeat films of the chest and abdomen show improvement. This is secondary to hydration. She did a point show evidence of some fluid overload which was corrected with a dose of IV Lasix with good urine output. She has improved her overall affect and activity level. O2 saturations have been acceptable. Abdomen is much improved with regards to bowel sounds and no longer distended. She has had no episodes of vomiting. One of her caregivers has come over from the [facility] to also give us their opinion and assessment for which they state she is back to her baseline and agree that she is ready to come home on oral antibiotics as well as a prescribed bowel regimen. Signs and symptoms were worsening condition were discussed with the caregivers. She will follow-up on an outpatient basis with PCP. All questions were answered and she will be discharged to home. Home Meds prior to admission: Bisacodyl [Dulcolax] 10 mg RC Q72H PRN 12/11/15 [History] Divalproex Sodium [Depakote Sprinkle] 375 mg PO QID 12/11/15 [History] Levothyroxine 75 mcg PO BEDTIME 12/11/15 [History] Multivitamins with Iron [Daily Nery with Iron] 1 tab PO DAILY 12/11/15 [History] Omeprazole 20 mg PO ACBREAKFAST 12/11/15 [History] Vitamin E 400 units PO DAILY 12/11/15 [History] Carbidopa/Levodopa [Carbidopa-Levodopa 25-100 Tab] 2.5 tab PO QID 02/04/16 [ History] Acetaminophen 2 tab PO Q4H PRN 09/28/17 [History] Dextromethorphan/guaiFENesin [Robitussin DM] 10 mg PO Q4H PRN 09/28/17 [History] Nystatin [Nystatin Crm] 15 gm TOP BID PRN 09/28/17 [History] guaiFENesin [Mucinex] 600 mg PO BID 09/28/17 [History] - Related Data Allergies/Adverse Reactions: Allergies Allergy/AdvReac Type Severity Reaction Status Date / Time No Known Allergies Allergy Verified 09/28/17 03:59 - Discharge Data Discharge Date: 10/01/17 Discharge Disposition: DC/Tfer to Intermediate Care 62 Condition: Good - Discharge Diagnosis/Problem(s) (1) Aspiration pneumonia SNOMED Code(s): 653355764 ICD Code: J69.0 - PNEUMONITIS DUE TO INHALATION OF FOOD AND VOMIT Status: Suspected Qualifiers: Aspiration pneumonia type: due to vomit (2) Acute bronchitis SNOMED Code(s): 58653794 ICD Code: J20.9 - ACUTE BRONCHITIS, UNSPECIFIED Status: Acute (3) Dehydration SNOMED Code(s): 09529444 ICD Code: E86.0 - DEHYDRATION Status: Acute (4) Acute renal insufficiency SNOMED Code(s): 208620194 ICD Code: N28.9 - DISORDER OF KIDNEY AND URETER, UNSPECIFIED Status: Acute (5) Elevated C-reactive protein (CRP) SNOMED Code(s): 259084114 ICD Code: R79.82 - ELEVATED C-REACTIVE PROTEIN (CRP) Status: Acute (6) Fecal impaction in rectum SNOMED Code(s): 88024728 ICD Code: K56.41 - FECAL IMPACTION Status: Acute (7) Ketonuria SNOMED Code(s): 344932910 ICD Code: R82.4 - ACETONURIA Status: Acute (8) Hypothyroidism SNOMED Code(s): 37490550 ICD Code: E03.9 - HYPOTHYROIDISM, UNSPECIFIED Status: Chronic Problem Details: Stable (9) Lives in [facility] SNOMED Code(s): 540431601 ICD Code: Z59.3 - PROBLEMS RELATED TO LIVING IN RESIDENTIAL INSTITUTION Status: Chronic (10) Mental retardation SNOMED Code(s): 95893120 ICD Code: F79 - UNSPECIFIED INTELLECTUAL DISABILITIES Status: Chronic (11) Parkinson's disease SNOMED Code(s): 52352518 ICD Code: G20 - PARKINSON'S DISEASE Status: Chronic (12) Intermittent explosive disorder SNOMED Code(s): 70988457 ICD Code: EML1505 - Status: Chronic (13) Seizure disorder SNOMED Code(s): 145667752 ICD Code: G40.909 - EPILEPSY, UNSP, NOT INTRACTABLE, WITHOUT STATUS EPILEPTICUS Status: Chronic (14) DNR (do not resuscitate) Status: Chronic (15) DNI (do not intubate) SNOMED Code(s): 058356310 ICD Code: Z78.9 - OTHER SPECIFIED HEALTH STATUS Status: Acute - Patient Summary/Data Consults: Consultations 09/28/17 11:13 Consult to Mandrel Cleaner [CONS] Routine Comment: Physician Instructions: discharge planning Respiratory Care Assess and Treatment [CONS] Routine Comment: Physician Instructions: - Patient Instructions Diet: Pureed Activity: As Tolerated Activity, Other: elevate head of bed at night. aspiration percautions. Notify Provider of: Fever, Nausea and/or Vomiting - Discharge Plan Prescriptions/Med Rec: Amoxicillin/Clavulanate K [Augmentin 500-125 MG] 1 tab PO Q8H 4 Days tablet Home Medications: Home Meds Bisacodyl [Dulcolax] 10 mg RC Q72H PRN 12/11/15 [History] Divalproex Sodium [Depakote Sprinkle] 375 mg PO QID 12/11/15 [History] Levothyroxine 75 mcg PO BEDTIME 12/11/15 [History] Multivitamins with Iron [Daily Nery with Iron] 1 tab PO DAILY 12/11/15 [History] Omeprazole 20 mg PO ACBREAKFAST 12/11/15 [History] Vitamin E 400 units PO DAILY 12/11/15 [History] Carbidopa/Levodopa [Carbidopa-Levodopa 25-100 Tab] 2.5 tab PO QID 02/04/16 [ History] Dextromethorphan/guaiFENesin [Robitussin DM] 10 ml PO Q4H PRN 09/28/17 [History] Nystatin [Nystatin Crm] 1 applic TOP BID PRN 09/28/17 [History] Amitriptyline [Elavil] 20 mg PO BEDTIME 09/29/17 [History] Acetaminophen [Tylenol] 650 mg PO Q4H PRN tablet 10/01/17 [Rx] Amoxicillin/Clavulanate K [Augmentin 500-125 MG] 1 tab PO Q8H 4 Days tablet [Rx] Magnesium Hydroxide [Milk of Magnesia] 30 ml PO BID 5 Days cup 10/01/17 [Rx] guaiFENesin [Mucinex] 600 mg PO BID tab.er 10/01/17 [Rx] Referrals: Kanwal Bacon, [facility] [employer] [Primary Care Provider] - (to be seen by pcp in 2 wks and again in 6-8 wks for repeat cxr (right mid chest nodule) and med rec. ) - Discharge Summary/Plan Comment DC Time >30 min.: Yes Discharge Summary/Plan Comment: please see above as well as med rec for outpt comparison. - General Info Functional Status: Reports: Tolerating Diet, Urinating. Denies: New Symptoms - Review of Systems Pulmonary: Reports: Cough. Denies: Wheezing Gastrointestinal: Denies: Diarrhea, Vomiting Genitourinary: Denies: Hematuria Skin: Denies: Rash Neurological: Denies: Seizure, Tremors Psychiatric: Reports: Anxiety, Agitation (only with exams.) - Patient Data Vitals - Most Recent: Last Vital Signs Temp 97.8 F 10/01/17 07:49 Pulse 74 10/01/17 07:49 Resp 18 10/01/17 07:49 BP 144/83 H 10/01/17 07:49 Pulse Ox 96 10/01/17 07:49 Weight - Most Recent: 49.527 kg I&O - Last 24 hours: Intake & Output 09/30/17 10/01/17 10/01/17 22:59 06:59 14:59 Intake Total 710 200 125 Balance 710 200 125 Lab Results - Last 24 hrs: Laboratory Tests 09/28/17 09/28/17 09/28/17 Range/Units 03:50 04:05 04:05 WBC 12.0 (4.5-12.0) X10-3/uL RBC 5.04 (3.23-5.20) x10(6)uL Hgb 14.8 D (11.5-15.5) g/dL Hct 45.7 D (30.0-51.3) % MCV 90.7 (80-96) fL MCH 29.5 (27.7-33.6) pg MCHC 32.5 (32.2-35.4) g/dL RDW 14.7 (11.5-15.5) % Plt Count 254 (125-369) X10(3)uL MPV 7.7 (7.4-10.4) fL Neut % (Auto) 76.0 (46-82) % Lymph % (Auto) 16.5 (13-37) % [place] % (Auto) 7.2 (4-12) % Eos % (Auto) 0 L (1.0-5.0) % Baso % (Auto) 0 (0-2) % Neut # (Auto) 9.1 H (1.6-8.3) # Lymph # (Auto) 2.0 (0.6-5.0) # [place] # (Auto) 0.9 (0.0-1.3) # Eos # (Auto) 0.0 (0.0-0.8) # Baso # (Auto) 0.0 (0.0-0.2) # Add Manual Diff Neutrophils % (Manual) (46-82) % Lymphocytes % (Manual) (13-37) % Monocytes % (Manual) (4-12) % Eosinophils % (Manual) (0-5) % VBG pH (7.32-7.42) VBG pCO2 VBG pO2 VBG HCO3 mmol/L VBG O2 Saturation VBG Base Excess O2 Delivery Device Oxygen Flow Rate L Sodium 138 (135-145) mmol/L Potassium 3.7 (3.5-5.3) mmol/L Chloride 98 L (100-110) mmol/L Carbon Dioxide 25 (23-29) mmol/L BUN 41 H D (8-23) mg/dL Creatinine 1.0 (0.6-1.3) mg/dL Est Cr Clr Drug Dosing 43.45 mL/min Estimated GFR (MDRD) 56 L (>60) BUN/Creatinine Ratio 41.0 H (9-20) Glucose 124 H (80-116) mg/dL Lactic Acid (0.5-2.2) mmol/L Calcium 9.5 (8.6-10.2) mg/dL Total Bilirubin 0.6 (0.1-1.3) mg/dL AST 33 H (5-27) IU/L ALT 17 D (14-26) IU/L Alkaline Phosphatase 84 (56-112) IU/L C-Reactive Protein 1.2 H (0.0-1.0) mg/dL Total Protein 9.3 H (6.0-8.0) g/dL Albumin 4.0 (3.2-4.6) g/dL Globulin 5.3 g/dL Albumin/Globulin Ratio 0.8 Urine Color Yellow (YELLOW) Urine Appearance Clear (CLEAR) Urine pH 5.0 (5.0-6.5) Ur Specific Mobile 1.025 (1.010-1.025) Urine Protein Negative (NEGATIVE) mg/dL Urine Glucose (UA) Normal (NEGATIVE) mg/dL Urine Ketones 15 H (NEGATIVE) mg/dL Urine Occult Blood Negative (NEGATIVE) Urine Nitrite Negative (NEGATIVE) Urine Bilirubin Negative (NEGATIVE) Urine Urobilinogen Normal (NEGATIVE) mg/dL Ur Leukocyte Esterase Negative (NEGATIVE) Urine RBC 0-5 (0) Urine WBC 0-5 (0) Ur Squamous Epith Cells Occasional (NS,R,O) Urine Bacteria Few H (NS) 09/28/17 09/28/17 09/29/17 Range/Units 04:05 04:05 06:55 WBC 6.7 (4.5-12.0) X10-3/uL RBC 3.85 (3.23-5.20) x10(6)uL Hgb 11.7 D (11.5-15.5) g/dL Hct 35.4 D (30.0-51.3) % MCV 91.9 (80-96) fL MCH 30.5 (27.7-33.6) pg MCHC 33.1 (32.2-35.4) g/dL RDW 14.6 (11.5-15.5) % Plt Count 182 (125-369) X10(3)uL MPV 7.4 (7.4-10.4) fL Neut % (Auto) (46-82) % Lymph % (Auto) (13-37) % [place] % (Auto) (4-12) % Eos % (Auto) (1.0-5.0) % Baso % (Auto) (0-2) % Neut # (Auto) (1.6-8.3) # Lymph # (Auto) (0.6-5.0) # [place] # (Auto) (0.0-1.3) # Eos # (Auto) (0.0-0.8) # Baso # (Auto) (0.0-0.2) # Add Manual Diff Yes Neutrophils % (Manual) 51 (46-82) % Lymphocytes % (Manual) 37 (13-37) % Monocytes % (Manual) 11 (4-12) % Eosinophils % (Manual) 1 (0-5) % VBG pH 7.484 H (7.32-7.42) VBG pCO2 38.1 VBG pO2 132 VBG HCO3 29 mmol/L VBG O2 Saturation 99 VBG Base Excess 5.0 O2 Delivery Device Nasal cannula Oxygen Flow Rate 2 L Sodium (135-145) mmol/L Potassium (3.5-5.3) mmol/L Chloride (100-110) mmol/L Carbon Dioxide (23-29) mmol/L BUN (8-23) mg/dL Creatinine (0.6-1.3) mg/dL Est Cr Clr Drug Dosing mL/min Estimated GFR (MDRD) (>60) BUN/Creatinine Ratio (9-20) Glucose (80-116) mg/dL Lactic Acid 1.3 (0.5-2.2) mmol/L Calcium (8.6-10.2) mg/dL Total Bilirubin (0.1-1.3) mg/dL AST (5-27) IU/L ALT (14-26) IU/L Alkaline Phosphatase (56-112) IU/L C-Reactive Protein (0.0-1.0) mg/dL Total Protein (6.0-8.0) g/dL Albumin (3.2-4.6) g/dL Globulin g/dL Albumin/Globulin Ratio Urine Color (YELLOW) Urine Appearance (CLEAR) Urine pH (5.0-6.5) Ur Specific Mobile (1.010-1.025) Urine Protein (NEGATIVE) mg/dL Urine Glucose (UA) (NEGATIVE) mg/dL Urine Ketones (NEGATIVE) mg/dL Urine Occult Blood (NEGATIVE) Urine Nitrite (NEGATIVE) Urine Bilirubin (NEGATIVE) Urine Urobilinogen (NEGATIVE) mg/dL Ur Leukocyte Esterase (NEGATIVE) Urine RBC (0) Urine WBC (0) Ur Squamous Epith Cells (NS,R,O) Urine Bacteria (NS) 09/29/17 09/30/17 09/30/17 Range/Units 12:50 06:40 06:40 WBC 6.5 (4.5-12.0) X10-3/uL RBC 3.68 (3.23-5.20) x10(6)uL Hgb 11.1 L (11.5-15.5) g/dL Hct 33.7 (30.0-51.3) % MCV 91.5 (80-96) fL MCH 30.0 (27.7-33.6) pg MCHC 32.8 (32.2-35.4) g/dL RDW 14.3 (11.5-15.5) % Plt Count 187 (125-369) X10(3)uL MPV 7.7 (7.4-10.4) fL Neut % (Auto) 47.7 (46-82) % Lymph % (Auto) 35.6 (13-37) % [place] % (Auto) 13.3 H (4-12) % Eos % (Auto) 3 (1.0-5.0) % Baso % (Auto) 1 (0-2) % Neut # (Auto) 3.1 (1.6-8.3) # Lymph # (Auto) 2.3 (0.6-5.0) # [place] # (Auto) 0.9 (0.0-1.3) # Eos # (Auto) 0.2 (0.0-0.8) # Baso # (Auto) 0.0 (0.0-0.2) # Add Manual Diff Neutrophils % (Manual) (46-82) % Lymphocytes % (Manual) (13-37) % Monocytes % (Manual) (4-12) % Eosinophils % (Manual) (0-5) % VBG pH (7.32-7.42) VBG pCO2 VBG pO2 VBG HCO3 mmol/L VBG O2 Saturation VBG Base Excess O2 Delivery Device Oxygen Flow Rate L Sodium 137 (135-145) mmol/L Potassium 4.3 (3.5-5.3) mmol/L Chloride 105 D (100-110) mmol/L Carbon Dioxide 26 (23-29) mmol/L BUN 15 D (8-23) mg/dL Creatinine 0.4 L (0.6-1.3) mg/dL Est Cr Clr Drug Dosing 108.63 mL/min Estimated GFR (MDRD) > 60 (>60) BUN/Creatinine Ratio 37.5 H (9-20) Glucose 108 (80-116) mg/dL Lactic Acid (0.5-2.2) mmol/L Calcium 8.5 L (8.6-10.2) mg/dL Total Bilirubin (0.1-1.3) mg/dL AST (5-27) IU/L ALT (14-26) IU/L Alkaline Phosphatase (56-112) IU/L C-Reactive Protein (0.0-1.0) mg/dL Total Protein (6.0-8.0) g/dL Albumin (3.2-4.6) g/dL Globulin g/dL Albumin/Globulin Ratio Urine Color Yellow (YELLOW) Urine Appearance Slightly cloudy (CLEAR) Urine pH 5.0 (5.0-6.5) Ur Specific Mobile 1.020 (1.010-1.025) Urine Protein Negative (NEGATIVE) mg/dL Urine Glucose (UA) Normal (NEGATIVE) mg/dL Urine Ketones 15 H (NEGATIVE) mg/dL Urine Occult Blood Large H (NEGATIVE) Urine Nitrite Negative (NEGATIVE) Urine Bilirubin Negative (NEGATIVE) Urine Urobilinogen Normal (NEGATIVE) mg/dL Ur Leukocyte Esterase Negative (NEGATIVE) Urine RBC 40-50 H (0) Urine WBC 0-5 (0) Ur Squamous Epith Cells Few H (NS,R,O) Urine Bacteria Few H (NS) 10/01/17 10/01/17 10/01/17 Range/Units 06:05 06:05 06:05 WBC 7.3 (4.5-12.0) X10-3/uL RBC 4.16 (3.23-5.20) x10(6)uL Hgb 12.1 (11.5-15.5) g/dL Hct 38.3 (30.0-51.3) % MCV 92.0 (80-96) fL MCH 29.1 (27.7-33.6) pg MCHC 31.7 L (32.2-35.4) g/dL RDW 14.3 (11.5-15.5) % Plt Count 212 (125-369) X10(3)uL MPV 8.1 (7.4-10.4) fL Neut % (Auto) 52.2 (46-82) % Lymph % (Auto) 31.1 (13-37) % [place] % (Auto) 13.7 H (4-12) % Eos % (Auto) 2 (1.0-5.0) % Baso % (Auto) 1 (0-2) % Neut # (Auto) 3.7 (1.6-8.3) # Lymph # (Auto) 2.3 (0.6-5.0) # [place] # (Auto) 1.0 (0.0-1.3) # Eos # (Auto) 0.2 (0.0-0.8) # Baso # (Auto) 0.1 (0.0-0.2) # Add Manual Diff Neutrophils % (Manual) (46-82) % Lymphocytes % (Manual) (13-37) % Monocytes % (Manual) (4-12) % Eosinophils % (Manual) (0-5) % VBG pH (7.32-7.42) VBG pCO2 VBG pO2 VBG HCO3 mmol/L VBG O2 Saturation VBG Base Excess O2 Delivery Device Oxygen Flow Rate L Sodium 139 (135-145) mmol/L Potassium 4.1 (3.5-5.3) mmol/L Chloride 99 L D (100-110) mmol/L Carbon Dioxide 33 H (23-29) mmol/L BUN 15 (8-23) mg/dL Creatinine 0.5 L (0.6-1.3) mg/dL Est Cr Clr Drug Dosing 86.90 mL/min Estimated GFR (MDRD) > 60 (>60) BUN/Creatinine Ratio 30.0 H (9-20) Glucose 95 (80-116) mg/dL Lactic Acid (0.5-2.2) mmol/L Calcium 9.0 (8.6-10.2) mg/dL Total Bilirubin (0.1-1.3) mg/dL AST (5-27) IU/L ALT (14-26) IU/L Alkaline Phosphatase (56-112) IU/L C-Reactive Protein < 0.5 (0.0-1.0) mg/dL Total Protein (6.0-8.0) g/dL Albumin (3.2-4.6) g/dL Globulin g/dL Albumin/Globulin Ratio Urine Color (YELLOW) Urine Appearance (CLEAR) Urine pH (5.0-6.5) Ur Specific Mobile (1.010-1.025) Urine Protein (NEGATIVE) mg/dL Urine Glucose (UA) (NEGATIVE) mg/dL Urine Ketones (NEGATIVE) mg/dL Urine Occult Blood (NEGATIVE) Urine Nitrite (NEGATIVE) Urine Bilirubin (NEGATIVE) Urine Urobilinogen (NEGATIVE) mg/dL Ur Leukocyte Esterase (NEGATIVE) Urine RBC (0) Urine WBC (0) Ur Squamous Epith Cells (NS,R,O) Urine Bacteria (NS) [facility] Results - Last 24 hrs: Microbiology 09/29/17 12:50 Urine Culture - Preliminary Urine, Quick Cath (In-Out) No Growth Med Orders - Current: Current Medications Amoxicillin/Clavulanate Potassium (Augmentin 500 Mg\125 Mg) 1 tab PO Q8H [facility] Stop: 10/03/17 08:01 Divalproex Sodium (Depakote Sprinkle) 375 mg PO QID [facility] Last Admin: 10/01/17 08:31 Dose: 375 mg Magnesium Hydroxide (Milk Of Magnesia) 30 ml PO BID [facility] Last Admin: 10/01/17 08:33 Dose: 30 ml Discontinued Medications Acetaminophen (Tylenol) 650 mg RECTAL NOW ONE Stop: 09/28/17 03:45 Last Admin: 09/28/17 03:50 Dose: 650 mg Acetaminophen (Tylenol) 650 mg PO Q4H PRN PRN Reason: Fever Last Admin: 09/29/17 21:30 Dose: 650 mg Albuterol (Proventil Neb Soln) 2.5 mg NEB Q2H PRN PRN Reason: Shortness Of Breath/wheezing Last Admin: 09/28/17 14:28 Dose: 2.5 mg Bisacodyl (Dulcolax) 10 mg RECTAL Q72H PRN PRN Reason: Constipation Carbidopa/Levodopa (Sinemet 25-100 Mg) 2.5 tab PO QID [facility] Last Admin: 10/01/17 08:34 Dose: 2.5 tab Ceftriaxone Sodium (Rocephin) 1,000 mg IVPUSH Q24H [facility] Last Admin: 10/01/17 05:41 Dose: 1,000 mg Enoxaparin Sodium (Lovenox) 30 mg SUBCUT DAILY [facility] Last Admin: 10/01/17 08:33 Dose: 30 mg Furosemide (Lasix) 40 mg IVPUSH NOW ONE Stop: 09/30/17 17:37 Last Admin: 09/30/17 18:21 Dose: 40 mg Guaifenesin (Mucinex) 600 mg PO BID [facility] Last Admin: 10/01/17 08:33 Dose: 600 mg Ceftriaxone Sodium 1,000 mg/ (Sodium Chloride) 50 mls @ 100 mls/hr IV ONETIME ONE Stop: 09/28/17 05:51 Last Admin: 09/28/17 06:09 Dose: 100 mls/hr Potassium Chloride/Sodium Chloride (1/2 Ns With 20 Meq Kcl) 1,000 mls @ 75 mls/ hr IV ASDIRECTED [facility] Last Admin: 09/29/17 10:21 Dose: 75 mls/hr Ceftriaxone Sodium 1,000 mg/ (Sodium Chloride) 50 mls @ 100 mls/hr IV Q24H [facility] Last Admin: 09/29/17 06:41 Dose: 100 mls/hr Potassium Chloride/Sodium Chloride (1/2 Ns With 20 Meq Kcl) 1,000 mls @ 75 mls/ hr IV ASDIRECTED [facility] Potassium Chloride/Dextrose/Sod Cl (D5 1/2 Ns W/ 20 Meq/L Kcl) 1,000 mls @ 50 mls/hr IV ASDIRECTED [facility] Last Admin: 09/30/17 09:57 Dose: 50 mls/hr Levothyroxine Sodium (Levothyroxine) 75 mcg PO BEDTIME [facility] Last Admin: 09/30/17 20:15 Dose: 75 mcg Lorazepam (Ativan) 0.5 mg IVPUSH Q6H PRN PRN Reason: restlessness;aggitation. Last Admin: 09/30/17 07:55 Dose: 0.5 mg Multivitamins/Minerals (Thera M Plus) 1 tab PO DAILY [facility] Last Admin: 10/01/17 08:34 Dose: 1 tab Non-Formulary Medication (Omeprazole [Omeprazole]) 20 mg PO ACBREAKFAST [facility] Last Admin: 09/28/17 11:16 Dose: Not Given Non-Formulary Medication (Vitamin E [Vitamin E]) 400 units PO DAILY [facility] Last Admin: 09/28/17 10:06 Dose: 400 units Pantoprazole Sodium (Protonix) 40 mg PO ACBREAKFAST [facility] Last Admin: 10/01/17 07:07 Dose: 40 mg Pantoprazole Sodium (Protonix) 40 mg PO ONETIME ONE Stop: 09/28/17 09:46 Last Admin: 09/28/17 10:06 Dose: 40 mg Sodium Chloride (Saline Flush) 10 ml FLUSH ASDIRECTED PRN PRN Reason: IV Use Last Admin: 10/01/17 05:45 Dose: 10 ml Vitamin E (Vitamin E) 400 units PO DAILY [facility] Last Admin: 10/01/17 08:35 Dose: 400 units Vitamin E (Vitamin E) 400 units PO .STK-MED ONE Stop: 09/28/17 09:01 Zolpidem Tartrate (Ambien) 5 mg PO BEDTIME PRN PRN Reason: Sleep - Exam Physical Findings Comments:: Quality Assessment: DVT Prophylaxis General: much more alert and smiling. HEENT: Pupils Reactive Neck: Supple Lungs: Decreased Breath Sounds, Rales bilat lower lobe, but improving aeration throughout. No: Rhonchi, Wheezing Cardiovascular: Regular Rate, Regular Rhythm GI/Abdominal Exam: no longer distended, normal bowel sounds throughout. No: Rigid Extremities: Pedal Edema trace Skin: Warm Neurological: No New Focal Deficit Physical Findings Comments:: *Q Meaningful Use (DIS) - VTE *Q VTE Criteria *Q: - Stroke *Q Stroke Criteria *Q: - AMI *Q AMI Criteria *Q:
[2017-10-02] MEDS ORDERED: Amoxicillin/Clavulanate K 500-125 MG Tab PO SCH (08:00)
== END 2017-10-01 13:11 | DRG 179 ==
LOC: FB.ED 03:12 → FB.MS 05:25
PROVIDERS: ADMIT Emergency Medicine; ATTEND Family Medicine
DX: J69.0 Pneumonitis due to inhalation of food and vomit (principal); J20.9 Acute bronchitis, unspecified; F79 Unspecified intellectual disabilities; E86.0 Dehydration; G40.909 Epilepsy, unspecified, not intractable, without status epilepticus; Z66 Do not resuscitate; E03.9 Hypothyroidism, unspecified; R79.82 Elevated C-reactive protein (CRP); R82.4 Acetonuria; G20 Parkinson's disease; K56.41 Fecal impaction; F41.9 Anxiety disorder, unspecified; R45.1 Restlessness and agitation; K21.9 Gastro-esophageal reflux disease without esophagitis; Z87.01 Personal history of pneumonia (recurrent); Z87.440 Personal history of urinary (tract) infections; N28.9 Disorder of kidney and ureter, unspecified
CPT/HCPCS: 36415; 71010; 80053; 81001; 82803; 83605; 85025; 86140; 87040 ×2; 99283; 99285; A9270; 74020; 74022; 80048; 87086; 87804; 94640; J0696; J1650; J1940; J2060; J3480; J7050

== ENCOUNTER 2017-10-13 06:43 | Observation (INO) | payer MEDICARE, MEDICAID ==
--- NOTE | 2017-10-13 07:38 | EDM.PDOC ---
ED HPI GENERAL MEDICAL PROBLEM - General Chief Complaint: Gastrointestinal Problem Stated Complaint: FEVER VOMITING Time Seen by Provider: 10/13/17 07:08 Source of Information: Reports: Patient, Family, RN History Limitations: Reports: Physical Impairment, Other (mental retardation) - History of Present Illness INITIAL COMMENTS - FREE TEXT/NARRATIVE: 62 y.o.w.f with a history of mental retardation, non ambulatory, came to the nurse with her caregiver due to N/V and a temp of 104 F. 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 Pt is not able to give a HPI due to her underlying medical issue. BP 146/ 82 pulse 117 temp 38.2 pulse ox 93 on RA Onset: Today Onset Date: 10/13/17 Onset Time: 06:00 Duration: Minutes:, Intermittent Location: Reports: Abdomen Quality: Reports: Ache, Dull Severity: Mild Improves with: Reports: Rest Worsens with: Reports: Eating Associated Symptoms: Reports: Fever/Chills (fever 104 F) - Related Data Allergies Allergy/AdvReac Type Severity Reaction Status Date / Time No Known Allergies Allergy Verified 10/13/17 07:07 Home Meds: Home Meds Bisacodyl [Dulcolax] 10 mg RC Q72H PRN 12/11/15 [History] Divalproex Sodium [Depakote Sprinkle] 375 mg PO QID 12/11/15 [History] Levothyroxine 75 mcg PO BEDTIME 12/11/15 [History] Multivitamins with Iron [Daily Nery with Iron] 1 tab PO DAILY 12/11/15 [History] Omeprazole 20 mg PO ACBREAKFAST 12/11/15 [History] Vitamin E 400 units PO DAILY 12/11/15 [History] Carbidopa/Levodopa [Carbidopa-Levodopa 25-100 Tab] 2.5 tab PO QID 02/04/16 [ History] Dextromethorphan/guaiFENesin [Robitussin DM] 10 ml PO Q4H PRN 09/28/17 [History] Nystatin [Nystatin Crm] 1 applic TOP BID PRN 09/28/17 [History] Amitriptyline [Elavil] 20 mg PO BEDTIME 09/29/17 [History] Acetaminophen [Tylenol] 650 mg PO Q4H PRN tablet 10/01/17 [Rx] Past Medical History HEENT History: Reports: Cataract, Other (See Below) Other HEENT History: Functionally blind with cataracts, mild perioral dematitis , gingivitis. Cardiovascular History: Reports: Other (See Below) Other Cardiovascular History: Stasis Edema/Legs Respiratory History: Reports: Pneumonia, Recurrent, Other (See Below) Other Respiratory History: History of aspiration pneumonia. Gastrointestinal History: Reports: GERD, Other (See Below) Other Gastrointestinal History: History of positive stool guaiac, septic shock, possible small bowl obstruction, GI bleed, mild duodenitis, possible small bowel obstruction. Genitourinary History: Reports: UTI, Recurrent DATA REVIEWER History: Reports: Other (See Below) Other OB/BYN History: Post Menopausal Musculoskeletal History: Reports: Other (See Below) Other Musculoskeletal History: Kyphoscoliosis, Right Thoracic Scoliosis, 1/4 Inch Right Leg Discrepency, Mild Pes Planus, Progressive Flexic C-Spine, Flexic contractures of hands and feet, S/O left hand fracture Neurological History: Reports: Seizure Psychiatric History: Reports: Other (See Below) Other Psychiatric History: Profound ID, disruptive D/O, Organic Affective D/O, Sleep/Wake D/O, Complex Partial Seizure D/O, Mild Microcephaly Endocrine/Metabolic History: Reports: Hypothyroidism Hematologic History: Reports: None Other Hematologic History: Mild leukocytosis. Dermatologic History: Reports: Other (See Below) Other Dermatologic History: Seborrheic Keratosis Right Cheek, Acne - Infectious Disease History Infectious Disease History: Reports: Other (See Below) Other Infectious Disease History: patient unable to answer questions - Past Surgical History HEENT Surgical History: Reports: Oral Surgery, Other (See Below) Social & Family History - Family History Family Medical History: Unobtainable HEENT: Reports: None Cardiac: Reports: None Respiratory: Reports: None GI: Reports: None : Reports: None OBGYN: Reports: None Musculoskeletal: Reports: None Neurological: Reports: None Psychiatric: Reports: Learning Disability, Other (See Below) Other Psychiatric Family History: SEIZURE DISORDER Endocrine/Metabolic: Reports: Hypothyroidism Hematologic: Reports: None Immunologic: Reports: None Dermatologic: Reports: None Other Dermatologic Family History: home resident, nonverbalgroup Oncologic: Reports: None - Tobacco Use Smoking Status *Q: Never Smoker Second Hand Smoke Exposure: No - Caffeine Use Caffeine Use: Reports: None - Alcohol Use Days Per Week of Alcohol Use: 0 - Recreational Drug Use Recreational Drug Use: No ED ROS GENERAL - Review of Systems Review Of Systems: Unable To Obtain ED EXAM, GI/ABD - Physical Exam Exam: See Below Exam Limited By: Physical Impairment General Appearance: Alert, Cachetic, Other (interm vomiting) Eyes: Bilateral: Normal Appearance Ears: Normal External Exam Nose: Normal Inspection, Normal Mucosa Throat/Mouth: Normal Lips, No Airway Compromise, Other (dry mucosal membrane) Head: Atraumatic, Normocephalic Neck: Normal Inspection, Supple, Non-Tender, Full Range of Motion Respiratory/Chest: No Respiratory Distress, Lungs Clear, Normal Breath Sounds ( with poor insp effort) Cardiovascular: Normal Peripheral Pulses, Regular Rate, Rhythm, No Edema, No Gallop GI/Abdominal Exam: Normal Bowel Sounds, Tender (mild epigastric tendeness) (Female) Exam: Deferred Rectal (Female) Exam: Deferred Back Exam: Normal Inspection, Full Range of Motion Extremities: Normal Inspection, Other (pt is nonambulatory, wheelchair bound) Neurological: Alert, CN II-XII Intact, Other (nonambulatory) Psychiatric: Normal Affect, Normal Mood Skin Exam: Warm, Dry, No Rash Lymphatic: No Adenopathy Course - Vital Signs Text/Narrative:: 62 y.o.w.f with a history of mental retardation, non ambulatory, came to the nurse with her caregiver due to N/V and a temp of 104 F. 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 Pt is not able to give a HPI due to her underlying medical issue. BP 146/ 82 pulse 117 temp 38.2 pulse ox 93 on RA PE: Thin 62 y.o.w.f with mental retardation, interm. vomiting temp improved Labs: Imaging: CXR NAD, official report is pending Labs: CBC was nl, Na 134 K 3.7 BUN 26 Cr 0.5 GFR > 60 Impression: Mental retardation, gastritis, dehydration Tx: NS, Zofran Protronix Reexam: Temp improved to 36.4 Pulse 75 pt was inititially keeping her water/ meds down but started vomiting again Consultation: Dr. Degroot, Hospitalist: Accepted the patient for admission. Plan: Admit to [facility] for obs. Last Recorded V/S: Last Vital Signs Temp 36.1 C 10/14/17 04:00 Pulse 83 10/14/17 04:00 Resp 18 10/14/17 04:00 BP 108/63 10/13/17 19:51 Pulse Ox 86 L 10/14/17 04:00 - Orders/Labs/Meds Orders: Medication Orders Carbidopa/Levodopa (Sinemet 25-100 Mg) 2.5 tab PO 1000,1300,1700,2000 [facility] Last Admin: 10/13/17 21:14 Dose: 2.5 tab Admin: 10/13/17 18:25 Dose: 2.5 tab Admin: 10/13/17 14:29 Dose: 2.5 tab Divalproex Sodium (Depakote Sprinkle) 375 mg PO 1000,1300,1700,2000 [facility] Last Admin: 10/13/17 21:11 Dose: 375 mg Admin: 10/13/17 17:15 Dose: 375 mg Admin: 10/13/17 14:29 Dose: 375 mg Docusate Sodium (Colace) 100 mg PO BID PRN PRN Reason: Constipation Enoxaparin Sodium (Lovenox) 30 mg SUBCUT Q24H [facility] Last Admin: 10/13/17 18:26 Dose: 30 mg Lactated Ringer's (Ringers, Lactated) 1,000 mls @ 125 mls/hr IV ASDIRECTED [facility] Last Admin: 10/14/17 05:47 Dose: 125 mls/hr Infusion: 10/14/17 05:23 Dose: 125 mls/hr Admin: 10/13/17 21:23 Dose: 125 mls/hr Infusion: 10/13/17 19:38 Dose: 125 mls/hr Admin: 10/13/17 11:38 Dose: 125 mls/hr Levofloxacin/Dextrose 500 mg/ (Premix) 100 mls @ 100 mls/hr IV Q24H [facility] Last Admin: 10/13/17 18:22 Dose: 100 mls/hr Ondansetron HCl (Zofran) 4 mg IV Q4H PRN PRN Reason: Nausea/Vomiting Sodium Chloride (Saline Flush) 10 ml FLUSH ASDIRECTED PRN PRN Reason: Keep Vein Open Last Admin: 10/13/17 07:54 Dose: 10 ml Labs: Laboratory Tests 10/13/17 10/13/17 Range/Units 08:02 08:02 WBC 8.9 (4.5-12.0) X10-3/uL RBC 4.14 (3.23-5.20) x10(6)uL Hgb 13.2 (11.5-15.5) g/dL Hct 37.8 (30.0-51.3) % MCV 91.5 (80-96) fL MCH 31.8 (27.7-33.6) pg MCHC 34.8 (32.2-35.4) g/dL RDW 14.2 (11.5-15.5) % Plt Count 284 (125-369) X10(3)uL MPV 8.2 (7.4-10.4) fL Add Manual Diff Yes Neutrophils % (Manual) 91 H (46-82) % Band Neutrophils % 2 (0-6) % Lymphocytes % (Manual) 4 L (13-37) % Monocytes % (Manual) 3 L (4-12) % Sodium 134 L (135-145) mmol/L Potassium 3.7 (3.5-5.3) mmol/L Chloride 98 L (100-110) mmol/L Carbon Dioxide 27 (23-29) mmol/L BUN 26 H D (8-23) mg/dL Creatinine 0.5 L (0.6-1.3) mg/dL Est Cr Clr Drug Dosing TNP Estimated GFR (MDRD) > 60 (>60) BUN/Creatinine Ratio 52.0 H (9-20) Glucose 147 H (80-116) mg/dL Calcium 8.9 (8.6-10.2) mg/dL NT-Pro-B Natriuret Pep 306 H (5-125) pg/mL Meds: Medications Generic Name Dose Route Start Last Admin Trade Name Freq PRN Reason Stop Dose Admin Carbidopa/Levodopa 2.5 tab 10/13/17 13:30 10/13/17 21:14 Sinemet 25-100 Mg PO 2.5 tab 1000,1300,1700,2000 [facility] Administration Divalproex Sodium 375 mg 10/13/17 13:30 10/13/17 21:11 Depakote Sprinkle PO 375 mg 1000,1300,1700,2000 [facility] Administration Docusate Sodium 100 mg 10/13/17 10:05 Colace PO BID PRN Constipation Enoxaparin Sodium 30 mg 10/13/17 17:45 10/13/17 18:26 Lovenox SUBCUT 30 mg Q24H [facility] Administration Lactated Ringer's 1,000 mls @ 125 mls/hr 10/13/17 10:15 10/14/17 05:47 Ringers, Lactated IV 125 mls/hr ASDIRECTED [facility] Administration Levofloxacin/Dextrose 500 mg/ 100 mls @ 100 mls/hr 10/13/17 17:45 10/13/17 18 :22 Premix IV 100 mls/hr Q24H [facility] Administration Ondansetron HCl 4 mg 10/13/17 10:05 Zofran IV Q4H PRN Nausea/Vomiting Sodium Chloride 10 ml 10/13/17 07:39 10/13/17 07:54 Saline Flush FLUSH 10 ml ASDIRECTED PRN Administration Keep Vein Open Discontinued Medications Generic Name Dose Route Start Last Admin Trade Name Freq PRN Reason Stop Dose Admin Haloperidol Lactate 2 mg 10/14/17 01:49 10/14/17 02:12 Haldol IM 10/14/17 01:50 2 mg ONETIME ONE Administration Sodium Chloride 1,000 mls @ 999 mls/hr 10/13/17 07:39 10/13/17 07:54 Normal Saline IV 10/13/17 08:39 999 mls/hr .BOLUS ONE Administration Promethazine HCl 12.5 mg/ 50.5 mls @ 200 mls/hr 10/13/17 09:45 10/13/17 10:02 Sodium Chloride IV 10/13/17 10:00 200 mls/hr ONETIME STA Administration Ondansetron HCl 8 mg 10/13/17 07:39 10/13/17 07:58 Zofran IVPUSH 10/13/17 07:40 8 mg ONETIME ONE Administration Pneumococcal Polyvalent Vaccine 0.5 ml 10/13/17 11:55 Pneumovax 23 IM 10/13/17 11:56 .ONCE ONE Departure - Departure Time of Disposition: 16:00 Disposition: Refer to Observation Condition: Fair Clinical Impression: Dehydration Gastritis Qualifiers: Chronicity: acute Gastritis bleeding: without bleeding - Discharge Information
[2017-10-13] MEDS ORDERED: Ondansetron 4 MG/2 ML SDV IVPUSH ONE (07:39)
[2017-10-13] MEDS ORDERED: Sodium Chloride 0.9% 1,000 ML IV ONE (07:39)
[2017-10-13] MEDS: Sodium Chloride 0.9% 10 ML Syringe FLUSH PRN (07:54)
[2017-10-13] MEDS ORDERED: Promethazine 12.5 MG in Sodium Chloride 0.9% 50 ML IV STA (09:45)
[2017-10-13] MEDS ORDERED: Ondansetron 4 MG/2 ML SDV IV PRN (10:05)
[2017-10-13] MEDS ORDERED: Docusate Sodium 100 MG Cap PO PRN (10:05)
[2017-10-13] MEDS: Lactated Ringers 1,000 ML IV SCH ×2 (11:38→21:23)
[2017-10-13] MEDS ORDERED: Pneumococcal Polyvalent-23 Vaccine 0.5 ML SDV IM ONE (11:55)
--- NOTE | 2017-10-13 13:28 | CR ---
INDICATION: Fever. COMPARISON: 10/01/2017. CHEST, AP UPRIGHT: Very poor inspiration. This accentuates the heart size and the pulmonary vasculature. There is some density retrocardiac region which suggests focal infiltrative process. This is similar to previous examination. Otherwise, no focal consolidative processes. Nodule lateral to the right hilum. Scoliotic curvature thoracic spine to the right and thoracolumbar spine to the left. IMPRESSION: 1. Poor inspiration. 2. Still feel that there are infiltrative changes in the left lung base retrocardiac region. Difficult to totally rule out some underlying failure, although this may just be accentuated vasculature due to the poor inspiration. 3. Nodular density is stable lateral to the right hilum. MTDD
[2017-10-13] MEDS: Carbidopa/Levodopa 25-100 MG Tab *PTOM PO SCH ×3 (14:29→21:14)
[2017-10-13] MEDS: DIVALPROEX SODIUM 125 MG PO SCH ×3 (14:29→21:11)
--- NOTE | 2017-10-13 17:39 | PCM.HP ---
H&P History of Present Illness - General Date of Service: 10/13/17 Admit Problem/Dx: Admission Diagnosis/Problem Admission Diagnosis/Problem Gastritis Source of Information: Old Records, Other (long-term staff) History Limitations: Reports: Altered Mental Status - History of Present Illness Initial Comments - Free Text/Narative: This is a 62-year-old female patient with severe mental retardation. She is at the senior care and they found her very lethargic today and had a fever. She vomited 1. So the prior to the ER and she was admitted for observation. There is no other history on her from her caregivers or anybody else. She has no diarrhea, cough that we know of. She was not eating and drinking well either. - Related Data Allergies/Adverse Reactions: Allergies Allergy/AdvReac Type Severity Reaction Status Date / Time No Known Allergies Allergy Verified 10/13/17 07:07 Home Medications: Home Meds Bisacodyl [Dulcolax] 10 mg RC Q72H PRN 12/11/15 [History] Divalproex Sodium [Depakote Sprinkle] 375 mg PO QID 12/11/15 [History] Levothyroxine 75 mcg PO BEDTIME 12/11/15 [History] Multivitamins with Iron [Daily Nery with Iron] 1 tab PO DAILY 12/11/15 [History] Omeprazole 20 mg PO ACBREAKFAST 12/11/15 [History] Vitamin E 400 units PO DAILY 12/11/15 [History] Carbidopa/Levodopa [Carbidopa-Levodopa 25-100 Tab] 2.5 tab PO QID 02/04/16 [ History] Dextromethorphan/guaiFENesin [Robitussin DM] 10 ml PO Q4H PRN 09/28/17 [History] Nystatin [Nystatin Crm] 1 applic TOP BID PRN 09/28/17 [History] Amitriptyline [Elavil] 20 mg PO BEDTIME 09/29/17 [History] Acetaminophen [Tylenol] 650 mg PO Q4H PRN tablet 10/01/17 [Rx] Past Medical History HEENT History: Reports: Cataract, Other (See Below) Other HEENT History: Functionally blind with cataracts, mild perioral dematitis , gingivitis. Cardiovascular History: Reports: Other (See Below) Other Cardiovascular History: Stasis Edema/Legs Respiratory History: Reports: Pneumonia, Recurrent, Other (See Below) Other Respiratory History: History of aspiration pneumonia. Gastrointestinal History: Reports: GERD, Other (See Below) Other Gastrointestinal History: History of positive stool guaiac, septic shock, possible small bowl obstruction, GI bleed, mild duodenitis, possible small bowel obstruction. 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: Other (See Below) Other OB/BYN History: Post Menopausal Musculoskeletal History: Reports: Other (See Below) Other Musculoskeletal History: Kyphoscoliosis, Right Thoracic Scoliosis, 1/4 Inch Right Leg Discrepency, Mild Pes Planus, Progressive Flexic C-Spine, Flexic contractures of hands and feet, S/O left hand fracture Neurological History: Reports: Seizure Psychiatric History: Reports: Other (See Below) Other Psychiatric History: Profound ID, disruptive D/O, Organic Affective D/O, Sleep/Wake D/O, Complex Partial Seizure D/O, Mild Microcephaly Endocrine/Metabolic History: Reports: Hypothyroidism Hematologic History: Reports: None Other Hematologic History: Mild leukocytosis. Dermatologic History: Reports: Other (See Below) Other Dermatologic History: Seborrheic Keratosis Right Cheek, Acne - Infectious Disease History Infectious Disease History: Reports: Other (See Below) Other Infectious Disease History: patient unable to answer questions - Past Surgical History HEENT Surgical History: Reports: Oral Surgery, Other (See Below) Social & Family History - Family History Family Medical History: Unobtainable HEENT: Reports: None Cardiac: Reports: None Respiratory: Reports: None GI: Reports: None : Reports: None OBGYN: Reports: None Musculoskeletal: Reports: None Neurological: Reports: None Psychiatric: Reports: Learning Disability, Other (See Below) Other Psychiatric Family History: SEIZURE DISORDER Endocrine/Metabolic: Reports: Hypothyroidism Hematologic: Reports: None Immunologic: Reports: None Dermatologic: Reports: None Other Dermatologic Family History: home resident, nonverbalgroup Oncologic: Reports: None - Tobacco Use Smoking Status *Q: Never Smoker Second Hand Smoke Exposure: No - Caffeine Use Caffeine Use: Reports: None - Alcohol Use Days Per Week of Alcohol Use: 0 - Recreational Drug Use Recreational Drug Use: No H&P Review of Systems - Review of Systems: Review Of Systems: Unable To Obtain Exam - Exam Exam: See Below - Vital Signs Vital Signs: Last Vital Signs Temp 98.0 F 10/13/17 15:59 Pulse 78 10/13/17 15:59 Resp 15 10/13/17 15:59 BP 155/76 H 10/13/17 15:59 Pulse Ox 92 L 10/13/17 15:59 Weight: 109 lb 14.4 oz - Exam General: Alert. No: Oriented, Cooperative, Mild Distress HEENT: Posterior Pharynx Clear, TMs Clear Neck: Supple, Trachea Midline Lungs: Clear to Auscultation, Normal Respiratory Effort. No: Crackles, Rales, Rhonchi Cardiovascular: Regular Rate, Regular Rhythm. No: Systolic Murmur GI/Abdominal Exam: Normal Bowel Sounds, Soft, Distended (Mild), Tender (Diffuse) Back Exam: Normal Inspection Extremities: No Pedal Edema Skin: Warm, Dry, Intact Neurological: Reflexes Equal Bilateral, Normal Tone. No: Normal Speech Neuro Extensive - Mental Status: Alert. No: Oriented x3, Normal Mood/Affect, Normal Cognition, Memory Intact Neuro Extensive - Motor, Sensory, Reflexes: No: Normal Gait Psychiatric: Alert. No: Normal Affect, Normal Mood - Patient Data Lab Results Last 24 hrs: Laboratory Results - last 24 hr 10/13/17 Range/Units 13:20 Urine Color Yellow (YELLOW) Urine Appearance Clear (CLEAR) Urine pH 6.5 (5.0-6.5) Ur Specific [place] 1.015 (1.010-1.025) Urine Protein Negative (NEGATIVE) mg/dL Urine Glucose (UA) Normal (NEGATIVE) mg/dL Urine Ketones 15 H (NEGATIVE) mg/dL Urine Occult Blood Negative (NEGATIVE) Urine Nitrite Negative (NEGATIVE) Urine Bilirubin Negative (NEGATIVE) Urine Urobilinogen Normal (NEGATIVE) mg/dL Ur Leukocyte Esterase Negative (NEGATIVE) Urine RBC 0-5 (0) Urine WBC 0-5 (0) Ur Squamous Epith Cells Few H (NS,R,O) Urine Bacteria Rare H (NS) Urine Mucus Few H (NS) Result Diagrams: 10/13/17 08:02 10/13/17 08:02 *Q Meaningful Use (ADM) - VTE *Q VTE Criteria *Q: - Stroke *Q Stroke Criteria *Q: - AMI *Q AMI Criteria *Q: - Problem List (1) Pneumonia SNOMED Code(s): 787049154 ICD Code: J18.9 - PNEUMONIA, UNSPECIFIED ORGANISM Status: Acute Current Visit: Yes Qualifiers: Laterality: left Lung location: lower lobe of lung (2) Palliative care status SNOMED Code(s): 958607859 ICD Code: Z51.5 - ENCOUNTER FOR PALLIATIVE CARE Status: Acute Current Visit: Yes (3) Dehydration SNOMED Code(s): 42809554 ICD Code: E86.0 - DEHYDRATION Status: Acute Current Visit: No (4) Lives in senior care SNOMED Code(s): 622065981 ICD Code: Z59.3 - PROBLEMS RELATED TO LIVING IN RESIDENTIAL INSTITUTION Status: Chronic Current Visit: No (5) Mental retardation SNOMED Code(s): 18913350 ICD Code: F79 - UNSPECIFIED INTELLECTUAL DISABILITIES Status: Chronic Current Visit: No (6) Seizure disorder SNOMED Code(s): 814775943 ICD Code: G40.909 - EPILEPSY, UNSP, NOT INTRACTABLE, WITHOUT STATUS EPILEPTICUS Status: Chronic Current Visit: No Problem List Initiated/Reviewed/Updated: Yes Orders Last 24hrs: Active Orders 24 hr Category Date Time Status Patient Status [ADT] Routine ADT 10/13/17 10:05 Active Oxygen Therapy [RC] 21 Care 10/13/17 10:05 Active Up With Assistance [RC] ASDIRECTED Care 10/13/17 10:05 Active Vital Signs [RC] 00,04,08,12,16,20 Care 10/13/17 10:05 Active Pureed Diet [DIET] Diet 10/13/17 Dinner Active Thickened Liquids [DIET] Diet 10/13/17 Dinner Active CBC WITH AUTO DIFF [HEME] AM Lab 10/14/17 05:11 Ordered COMPREHENSIVE METABOLIC PN,CMP [CHEM] AM Lab 10/14/17 05:11 Ordered CULTURE BLOOD [BC] Urgent Lab 10/13/17 17:33 Ordered CULTURE BLOOD [BC] Urgent Lab 10/13/17 17:33 Ordered CULTURE SPUTUM + SMEAR [RM] Routine Lab 10/13/17 17:32 Uncollected Carbidopa/Levodopa [Sinemet 25-100 mg] Med 10/13/17 13:30 Active 2.5 tab PO 1000,1300,1700,2000 Divalproex Sodium [Depakote Sprinkle] Med 10/13/17 13:30 Active 375 mg PO 1000,1300,1700,2000 Docusate Sodium [Colace] Med 10/13/17 10:05 Active 100 mg PO BID PRN Enoxaparin [Lovenox] Med 10/13/17 17:45 Ordered 30 mg SUBCUT Q24H Lactated Ringers [Ringers, Lactated] 1,000 ml [facility] 10/13/17 10:15 Active IV ASDIRECTED Levofloxacin/Dextrose 5%-Water [Levaquin in D5W 500 MG/ Med 10/13/17 17:45 Ordered 100 ML] 500 mg Premix Bag 1 bag IV Q24H Ondansetron [Zofran] Med 10/13/17 10:05 Active 4 mg IV Q4H PRN Blood Culture x2 Reflex Set [OM.PC] Urgent Oth 10/13/17 17:33 Ordered Resuscitation Status Routine Resus Stat 10/13/17 10:05 Ordered Medication Orders Carbidopa/Levodopa (Sinemet 25-100 Mg) 2.5 tab PO 1000,1300,1700,2000 [facility] Last Admin: 10/13/17 14:29 Dose: 2.5 tab Divalproex Sodium (Depakote Sprinkle) 375 mg PO 1000,1300,1700,2000 [facility] Last Admin: 10/13/17 17:15 Dose: 375 mg Admin: 10/13/17 14:29 Dose: 375 mg Docusate Sodium (Colace) 100 mg PO BID PRN PRN Reason: Constipation Enoxaparin Sodium (Lovenox) 30 mg SUBCUT Q24H [facility] Lactated Ringer's (Ringers, Lactated) 1,000 mls @ 125 mls/hr IV ASDIRECTED [facility] Last Admin: 10/13/17 11:38 Dose: 125 mls/hr Levofloxacin/Dextrose 500 mg/ (Premix) 100 mls @ 100 mls/hr IV Q24H [facility] Ondansetron HCl (Zofran) 4 mg IV Q4H PRN PRN Reason: Nausea/Vomiting Sodium Chloride (Saline Flush) 10 ml FLUSH ASDIRECTED PRN PRN Reason: Keep Vein Open Last Admin: 10/13/17 07:54 Dose: 10 ml Assessment/Plan Comment:: 1. Admit for observation. 2. IV fluids. 3. Lovenox 30 mg subcutaneous today. 4. Regular diet. 5. Blood cultures 2, sputum cultures. 6. Levaquin 500 mg IV once a day. 7. Up in chair as per staff.
[2017-10-13] MEDS: Levofloxacin/Dextrose 5%-Water 500 MG in Premix Bag 1 BAG IV SCH (18:22)
[2017-10-13] MEDS: Enoxaparin 30 MG/0.3 ML Syringe SUBCUT SCH (18:26)
[2017-10-14] MEDS ORDERED: Haloperidol Lactate 5 MG/ML SDV IM ONE (01:49)
[2017-10-14] MEDS: Lactated Ringers 1,000 ML IV SCH (05:47)
[2017-10-14] MEDS ORDERED: guaiFENesin/Dextromethorphan 100-10 MG/5 ML Soln 5 ML Cup PO PRN (09:28)
[2017-10-14] MEDS ORDERED: Bisacodyl 10 MG Supp RECTAL PRN (09:28)
[2017-10-14] MEDS ORDERED: Nystatin Crm 15 GM Tube TOP PRN (09:28)
[2017-10-14] MEDS ORDERED: Acetaminophen 325 MG Tab PO PRN (09:28)
--- NOTE | 2017-10-14 09:28 | PCM.PN ---
- General Info Date of Service: 10/14/17 Admission Dx/Problem (Free Text): Patient is alert when I speak to her. She is nonverbal normally. His report that she's had no fever, is eating well. Having problems awaiting and had to catheter last night. - Patient Data Vitals - Most Recent: Last Vital Signs Temp 97.0 F 10/14/17 04:00 Pulse 83 10/14/17 04:00 Resp 18 10/14/17 04:00 BP 108/63 10/13/17 19:51 Pulse Ox 86 L 10/14/17 04:00 Weight - Most Recent: 109 lb 14.4 oz I&O - Last 24 Hours: Intake & Output 10/13/17 10/14/17 10/14/17 22:59 06:59 14:59 Intake Total 1250 1014 Output Total 550 Balance 1250 464 Lab Results Last 24 Hours: Laboratory Results - last 24 hr 10/13/17 10/14/17 10/14/17 Range/Units 13:20 06:33 06:33 WBC 5.6 (4.5-12.0) X10-3/uL RBC 3.37 (3.23-5.20) x10(6)uL Hgb 10.4 L (11.5-15.5) g/dL Hct 30.8 (30.0-51.3) % MCV 91.4 (80-96) fL MCH 30.7 (27.7-33.6) pg MCHC 33.6 (32.2-35.4) g/dL RDW 14.5 (11.5-15.5) % Plt Count 150 (125-369) X10(3)uL MPV 8.6 (7.4-10.4) fL Neut % (Auto) 51.5 (46-82) % Lymph % (Auto) 37.2 H (13-37) % [place] % (Auto) 10.1 (4-12) % Eos % (Auto) 0 L (1.0-5.0) % Baso % (Auto) 1 (0-2) % Neut # (Auto) 2.8 (1.6-8.3) # Lymph # (Auto) 2.1 (0.6-5.0) # [place] # (Auto) 0.6 (0.0-1.3) # Eos # (Auto) 0.0 (0.0-0.8) # Baso # (Auto) 0.1 (0.0-0.2) # Sodium 140 (135-145) mmol/L Potassium 3.8 (3.5-5.3) mmol/L Chloride 104 (100-110) mmol/L Carbon Dioxide 31 (21-32) mmol/L BUN 19 H (7-18) mg/dL Creatinine 0.5 L (0.55-1.02) mg/dL Est Cr Clr Drug Dosing 86.90 mL/min Estimated GFR (MDRD) > 60 (>60) BUN/Creatinine Ratio 38.0 H (9-20) Glucose 87 (80-116) mg/dL Calcium 8.3 L (8.6-10.2) mg/dL Total Bilirubin 0.2 (0.1-1.3) mg/dL AST 21 (5-25) IU/L ALT 9 L (12-36) U/L Alkaline Phosphatase 71 (56-112) IU/L Total Protein 5.8 L (6.0-8.0) g/dL Albumin 2.4 L (3.2-4.6) g/dL Globulin 3.4 g/dL Albumin/Globulin Ratio 0.7 Urine Color Yellow (YELLOW) Urine Appearance Clear (CLEAR) Urine pH 6.5 (5.0-6.5) Ur Specific [place] 1.015 (1.010-1.025) Urine Protein Negative (NEGATIVE) mg/dL Urine Glucose (UA) Normal (NEGATIVE) mg/dL Urine Ketones 15 H (NEGATIVE) mg/dL Urine Occult Blood Negative (NEGATIVE) Urine Nitrite Negative (NEGATIVE) Urine Bilirubin Negative (NEGATIVE) Urine Urobilinogen Normal (NEGATIVE) mg/dL Ur Leukocyte Esterase Negative (NEGATIVE) Urine RBC 0-5 (0) Urine WBC 0-5 (0) Ur Squamous Epith Cells Few H (NS,R,O) Urine Bacteria Rare H (NS) Urine Mucus Few H (NS) Med Orders - Current: Current Medications Carbidopa/Levodopa (Sinemet 25-100 Mg) 2.5 tab PO 1000,1300,1700,2000 [facility] Last Admin: 10/13/17 21:14 Dose: 2.5 tab Divalproex Sodium (Depakote Sprinkle) 375 mg PO 1000,1300,1700,2000 [facility] Last Admin: 10/13/17 21:11 Dose: 375 mg Docusate Sodium (Colace) 100 mg PO BID PRN PRN Reason: Constipation Enoxaparin Sodium (Lovenox) 30 mg SUBCUT Q24H [facility] Last Admin: 10/13/17 18:26 Dose: 30 mg Lactated Ringer's (Ringers, Lactated) 1,000 mls @ 125 mls/hr IV ASDIRECTED [facility] Last Admin: 10/14/17 05:47 Dose: 125 mls/hr Levofloxacin/Dextrose 500 mg/ (Premix) 100 mls @ 100 mls/hr IV Q24H [facility] Last Admin: 10/13/17 18:22 Dose: 100 mls/hr Ondansetron HCl (Zofran) 4 mg IV Q4H PRN PRN Reason: Nausea/Vomiting Sodium Chloride (Saline Flush) 10 ml FLUSH ASDIRECTED PRN PRN Reason: Keep Vein Open Last Admin: 10/13/17 07:54 Dose: 10 ml Discontinued Medications Haloperidol Lactate (Haldol) 2 mg IM ONETIME ONE Stop: 10/14/17 01:50 Last Admin: 10/14/17 02:12 Dose: 2 mg Sodium Chloride (Normal Saline) 1,000 mls @ 999 mls/hr IV .BOLUS ONE Stop: 10/13/17 08:39 Last Admin: 10/13/17 07:54 Dose: 999 mls/hr Promethazine HCl 12.5 mg/ (Sodium Chloride) 50.5 mls @ 200 mls/hr IV ONETIME STA Stop: 10/13/17 10:00 Last Admin: 10/13/17 10:02 Dose: 200 mls/hr Ondansetron HCl (Zofran) 8 mg IVPUSH ONETIME ONE Stop: 10/13/17 07:40 Last Admin: 10/13/17 07:58 Dose: 8 mg Pneumococcal Polyvalent Vaccine (Pneumovax 23) 0.5 ml IM .ONCE ONE Stop: 10/13/17 11:56 - Exam General: Alert, Cooperative. No: Oriented Lungs: Clear to Auscultation, Normal Respiratory Effort. No: Crackles, Rales, Rhonchi Cardiovascular: Regular Rate, Regular Rhythm, No Murmurs GI/Abdominal Exam: No Distention Extremities: No Pedal Edema - Problem List & Annotations (1) Pneumonia SNOMED Code(s): 787326866 Code(s): J18.9 - PNEUMONIA, UNSPECIFIED ORGANISM Status: Acute Current Visit: Yes Qualifiers: Laterality: left Lung location: lower lobe of lung (2) Palliative care status SNOMED Code(s): 357480866 Code(s): Z51.5 - ENCOUNTER FOR PALLIATIVE CARE Status: Acute Current Visit: Yes (3) Dehydration SNOMED Code(s): 16858005 Code(s): E86.0 - DEHYDRATION Status: Acute Current Visit: Yes (4) [facility] SNOMED Code(s): 169045792 Code(s): Z59.3 - PROBLEMS RELATED TO LIVING IN RESIDENTIAL INSTITUTION Status: Chronic Current Visit: No (5) Mental retardation SNOMED Code(s): 51023150 Code(s): F79 - UNSPECIFIED INTELLECTUAL DISABILITIES Status: Chronic Current Visit: No (6) Seizure disorder SNOMED Code(s): 312965177 Code(s): G40.909 - EPILEPSY, UNSP, NOT INTRACTABLE, WITHOUT STATUS EPILEPTICUS Status: Chronic Current Visit: No - Problem List Review Problem List Initiated/Reviewed/Updated: Yes - My Orders Last 24 Hours: My Active Orders 10/13/17 13:30 Carbidopa/Levodopa [Sinemet 25-100 mg] 2.5 tab PO 1000,1300,1700,2000 Divalproex Sodium [Depakote Sprinkle] 375 mg PO 1000,1300,1700,2000 10/13/17 17:32 CULTURE SPUTUM + SMEAR [RM] Routine 10/13/17 17:33 Blood Culture x2 Reflex Set [OM.PC] Urgent 10/13/17 17:45 Enoxaparin [Lovenox] 30 mg SUBCUT Q24H Levofloxacin/Dextrose 5%-Water [Levaquin in D5W 500 MG/100 ML] 500 mg Premix Bag 1 bag IV Q24H 10/13/17 18:10 CULTURE BLOOD [BC] Urgent 10/13/17 18:15 CULTURE BLOOD [BC] Urgent 10/13/17 Dinner Pureed Diet [DIET] Thickened Liquids [DIET] - Plan Plan:: 1. 1. DC IV fluids and saline lock IV. 2. Up in the chair 3. Continue to observe her urination and behavior. 4. Continue observation care
[2017-10-14] MEDS ORDERED: Carbidopa/Levodopa 25-100 MG Tab PO SCH (13:00)
[2017-10-14] MEDS ORDERED: Divalproex Sodium Delayed-Release 125 MG Cap.Sprink PO SCH (13:00)
[2017-10-14] MEDS: IRON PO SCH (13:04)
[2017-10-14] MEDS: MULTIVITAMIN PO SCH (13:04)
[2017-10-14] MEDS: Carbidopa/Levodopa 25-100 MG Tab *PTOM PO SCH ×3 (13:04→21:32)
[2017-10-14] MEDS: DIVALPROEX SODIUM 125 MG PO SCH ×3 (13:04→21:32)
[2017-10-14] MEDS: OMEPRAZOLE 20MG *PTOM PO SCH (13:04)
[2017-10-14] MEDS: VITAMIN E 400 UNIT PO SCH (13:05)
[2017-10-14] MEDS: Sodium Chloride 0.9% 10 ML Syringe FLUSH PRN (14:07)
[2017-10-14] MEDS ORDERED: Dextrose 5%-0.45% NaCl 1,000 ML IV SCH (17:45)
[2017-10-14] MEDS: Levofloxacin/Dextrose 5%-Water 500 MG in Premix Bag 1 BAG IV SCH (18:46)
[2017-10-14] MEDS: Enoxaparin 30 MG/0.3 ML Syringe SUBCUT SCH (18:47)
[2017-10-14] MEDS ORDERED: Levothyroxine 75 MCG Tab *PTOM PO SCH (21:00)
[2017-10-14] MEDS ORDERED: Amitriptyline 10 MG Tab *PTOM PO SCH (21:00)
[2017-10-15] MEDS: OMEPRAZOLE 20MG *PTOM PO SCH (07:08)
[2017-10-15 07:44] VITALS: BP 121/82
[2017-10-15] MEDS: MULTIVITAMIN PO SCH (08:31)
[2017-10-15] MEDS: IRON PO SCH (08:31)
[2017-10-15] MEDS: VITAMIN E 400 UNIT PO SCH (08:32)
--- NOTE | 2017-10-15 09:25 | PCM.PN ---
- General Info Date of Service: 10/15/17 Admission Dx/Problem (Free Text): Not able to get subjective from this patient because of her mental deficits. Nurses report she is alert not coughing and eating - Patient Data Vitals - Most Recent: Last Vital Signs Temp 97.1 F 10/15/17 07:35 Pulse 70 10/15/17 07:35 Resp 18 10/15/17 07:35 BP 121/82 10/15/17 07:35 Pulse Ox 95 10/15/17 07:35 Weight - Most Recent: 109 lb 14.4 oz I&O - Last 24 Hours: Intake & Output 10/14/17 10/15/17 10/15/17 22:59 06:59 14:59 Intake Total 375 745 Balance 375 745 Willie Results Last 24 Hours: Microbiology 10/13/17 18:15 Aerobic Blood Culture - Preliminary Blood - Venous - Lab Draw NO GROWTH AFTER 1 DAY Anaerobic Blood Culture - Preliminary NO GROWTH AFTER 1 DAY 10/13/17 18:10 Aerobic Blood Culture - Preliminary Blood - Venous NO GROWTH AFTER 1 DAY Anaerobic Blood Culture - Preliminary NO GROWTH AFTER 1 DAY Med Orders - Current: Current Medications Acetaminophen (Tylenol) 650 mg PO Q4H PRN PRN Reason: fever >100.4F; discomfort Amitriptyline HCl (Elavil) 20 mg PO BEDTIME [facility] Last Admin: 10/14/17 21:32 Dose: 20 mg Bisacodyl (Dulcolax) 10 mg RECTAL Q72H PRN PRN Reason: Constipation Carbidopa/Levodopa (Sinemet 25-100 Mg) 2.5 tab PO 1000,1300,1700,2000 [facility] Last Admin: 10/14/17 21:32 Dose: 2.5 tab Divalproex Sodium (Depakote Sprinkle) 375 mg PO 1000,1300,1700,2000 [facility] Last Admin: 10/14/17 21:32 Dose: 375 mg Docusate Sodium (Colace) 100 mg PO BID PRN PRN Reason: Constipation Enoxaparin Sodium (Lovenox) 30 mg SUBCUT Q24H [facility] Last Admin: 10/14/17 18:47 Dose: 30 mg Guaifenesin/Phenylephrine HCl (Robitussin Dm) 10 ml PO Q4H PRN PRN Reason: Cough Levofloxacin/Dextrose 500 mg/ (Premix) 100 mls @ 100 mls/hr IV Q24H [facility] Last Admin: 10/14/17 18:46 Dose: 100 mls/hr Dextrose/Sodium Chloride (Dextrose 5%-1/2 Ns) 1,000 mls @ 100 mls/hr IV ASDIRECTED [facility] Last Admin: 10/15/17 06:09 Dose: 100 mls/hr Levothyroxine Sodium (Levothyroxine) 75 mcg PO BEDTIME [facility] Last Admin: 10/14/17 21:32 Dose: 75 mcg Multivitamin W/Iron (*Ptom) 1 tab PO DAILY [facility] Last Admin: 10/15/17 08:31 Dose: 1 tab Omeprazole 20mg * (Ptom) 0 mg PO ACBREAKFAST [facility] Last Admin: 10/15/17 07:08 Dose: 20 mg Vitamin E 400 Units 0 units PO DAILY [facility] Last Admin: 10/15/17 08:32 Dose: 400 units Nystatin (Nystatin Crm) 0 gm TOP BID PRN PRN Reason: Rash Ondansetron HCl (Zofran) 4 mg IV Q4H PRN PRN Reason: Nausea/Vomiting Sodium Chloride (Saline Flush) 10 ml FLUSH ASDIRECTED PRN PRN Reason: Keep Vein Open Last Admin: 10/14/17 14:07 Dose: 10 ml Discontinued Medications Haloperidol Lactate (Haldol) 2 mg IM ONETIME ONE Stop: 10/14/17 01:50 Last Admin: 10/14/17 02:12 Dose: 2 mg Sodium Chloride (Normal Saline) 1,000 mls @ 999 mls/hr IV .BOLUS ONE Stop: 10/13/17 08:39 Last Admin: 10/13/17 07:54 Dose: 999 mls/hr Promethazine HCl 12.5 mg/ (Sodium Chloride) 50.5 mls @ 200 mls/hr IV ONETIME STA Stop: 10/13/17 10:00 Last Admin: 10/13/17 10:02 Dose: 200 mls/hr Lactated Ringer's (Ringers, Lactated) 1,000 mls @ 125 mls/hr IV ASDIRECTED [facility] Last Admin: 10/14/17 05:47 Dose: 125 mls/hr Ondansetron HCl (Zofran) 8 mg IVPUSH ONETIME ONE Stop: 10/13/17 07:40 Last Admin: 10/13/17 07:58 Dose: 8 mg Pneumococcal Polyvalent Vaccine (Pneumovax 23) 0.5 ml IM .ONCE ONE Stop: 10/13/17 11:56 - Exam General: Alert, Cooperative. No: Oriented Lungs: Clear to Auscultation, Normal Respiratory Effort. No: Crackles, Rales, Rhonchi Cardiovascular: Regular Rate, Regular Rhythm, No Murmurs Extremities: No Pedal Edema - Problem List & Annotations (1) Pneumonia SNOMED Code(s): 473376033 Code(s): J18.9 - PNEUMONIA, UNSPECIFIED ORGANISM Status: Acute Current Visit: Yes Qualifiers: Laterality: left Lung location: lower lobe of lung (2) Palliative care status SNOMED Code(s): 106184790 Code(s): Z51.5 - ENCOUNTER FOR PALLIATIVE CARE Status: Acute Current Visit: Yes (3) Dehydration SNOMED Code(s): 42539381 Code(s): E86.0 - DEHYDRATION Status: Acute Current Visit: Yes (4) Lives in correction SNOMED Code(s): 875412222 Code(s): Z59.3 - PROBLEMS RELATED TO LIVING IN RESIDENTIAL INSTITUTION Status: Chronic Current Visit: No (5) Mental retardation SNOMED Code(s): 58598583 Code(s): F79 - UNSPECIFIED INTELLECTUAL DISABILITIES Status: Chronic Current Visit: No (6) Seizure disorder SNOMED Code(s): 464057901 Code(s): G40.909 - EPILEPSY, UNSP, NOT INTRACTABLE, WITHOUT STATUS EPILEPTICUS Status: Chronic Current Visit: No - Problem List Review Problem List Initiated/Reviewed/Updated: Yes - My Orders Last 24 Hours: My Active Orders 10/14/17 09:28 Activity as Tolerated [RC] .Routine Acetaminophen [Tylenol] 650 mg PO Q4H PRN Bisacodyl [Dulcolax] 10 mg RECTAL Q72H PRN Dextromethorphan/guaiFENesin [Robitussin DM] 10 ml PO Q4H PRN Nystatin [Nystatin Crm] 0 gm TOP BID PRN 10/14/17 10:00 Multivitamins with Iron [Daily Nery with Iron] 1 tab PO DAILY Omeprazole [Omeprazole] 0 mg PO ACBREAKFAST Vitamin E [Vitamin E] 0 units PO DAILY 10/14/17 17:45 Dextrose 5%-0.45% NaCl [Dextrose 5%-1/2 NS] 1,000 ml IV ASDIRECTED 10/14/17 21:00 Amitriptyline [Elavil] 20 mg PO BEDTIME Levothyroxine 75 mcg PO BEDTIME - Assessment Assessment:: 1. Discharge to home on oral Levaquin. - Plan Plan:: 1. 1. DC IV fluids and saline lock IV. 2. Up in the chair 3. Continue to observe her urination and behavior. 4. Continue observation care
--- NOTE | 2017-10-15 09:30 | PCM.DCSUM1 ---
Discharge Summary - Hospital Course Free Text/Narrative:: Hospital course-patient was admitted for observation. Start Levaquin 500 milligrams a day. Chest x-ray showed left lower lobe pneumonia. Patient had one episode when they tried to do a catheter to get a urine that she has some behaviors. Was given Haldol. After that she slept all day. Other than that she did well and she continued to eat and drink. No fevers and her account was normal. We'll discharge her home on Levaquin by mouth once a day for 8 days. Brief History: This is a 62-year-old female patient with severe mental retardation. [facility] and they found her very lethargic today and had a fever. She vomited 1. So the prior to the ER and she was admitted for observation. There is no other history on her from her caregivers or anybody else. She has no diarrhea, cough that we know of. She was not eating and drinking well either. - Discharge Data Discharge Date: 10/15/17 Discharge Disposition: [place] [facility] [id number] Condition: Fair - Discharge Diagnosis/Problem(s) (1) Pneumonia SNOMED Code(s): 283366087 ICD Code: J18.9 - PNEUMONIA, UNSPECIFIED ORGANISM Status: Acute Current Visit: Yes Qualifiers: Laterality: left Lung location: lower lobe of lung (2) Palliative care status SNOMED Code(s): 282067794 ICD Code: Z51.5 - ENCOUNTER FOR PALLIATIVE CARE Status: Acute Current Visit: Yes (3) Dehydration SNOMED Code(s): 82289358 ICD Code: E86.0 - DEHYDRATION Status: Acute Current Visit: Yes (4) Lives in detention SNOMED Code(s): 036367987 ICD Code: Z59.3 - PROBLEMS RELATED TO LIVING IN RESIDENTIAL INSTITUTION Status: Chronic Current Visit: No (5) Mental retardation SNOMED Code(s): 99664263 ICD Code: F79 - UNSPECIFIED INTELLECTUAL DISABILITIES Status: Chronic Current Visit: No (6) Seizure disorder SNOMED Code(s): 853555456 ICD Code: G40.909 - EPILEPSY, UNSP, NOT INTRACTABLE, WITHOUT STATUS EPILEPTICUS Status: Chronic Current Visit: No - Patient Instructions Diet: Regular Diet as Tolerated Activity: As Tolerated Driving: Do Not Drive Showering/Bathing: May Shower Notify Provider of: Fever, Nausea and/or Vomiting Other/Special Instructions: 1. Recheck with Minnie Taylor 7-10 days - Discharge Plan Prescriptions/Med Rec: Levofloxacin [Levaquin] 500 mg PO Q24H #8 tablet Home Medications: Home Meds Bisacodyl [Dulcolax] 10 mg RC Q72H PRN 12/11/15 [History] Divalproex Sodium [Depakote Sprinkle] 375 mg PO QID 12/11/15 [History] Levothyroxine 75 mcg PO BEDTIME 12/11/15 [History] Multivitamins with Iron [Daily Nery with Iron] 1 tab PO DAILY 12/11/15 [History] Omeprazole 20 mg PO ACBREAKFAST 12/11/15 [History] Vitamin E 400 units PO DAILY 12/11/15 [History] Carbidopa/Levodopa [Carbidopa-Levodopa 25-100 Tab] 2.5 tab PO QID 02/04/16 [ History] Dextromethorphan/guaiFENesin [Robitussin DM] 10 ml PO Q4H PRN 09/28/17 [History] Nystatin [Nystatin Crm] 1 applic TOP BID PRN 09/28/17 [History] Amitriptyline [Elavil] 20 mg PO BEDTIME 09/29/17 [History] Acetaminophen [Tylenol] 650 mg PO Q4H PRN tablet 10/01/17 [Rx] Levofloxacin [Levaquin] 500 mg PO Q24H #8 tablet 10/15/17 [Rx] Forms: ED Department Discharge Referrals: Kanwal Bacon, [facility] [Primary Care Provider] - - Discharge Summary/Plan Comment DC Time >30 min.: No - Patient Data Vitals - Most Recent: Last Vital Signs Temp 97.1 F 10/15/17 07:35 Pulse 70 10/15/17 07:35 Resp 18 10/15/17 07:35 BP 121/82 10/15/17 07:35 Pulse Ox 95 10/15/17 07:35 Weight - Most Recent: 109 lb 14.4 oz I&O - Last 24 hours: Intake & Output 10/14/17 10/15/17 10/15/17 22:59 06:59 14:59 Intake Total 375 745 Balance 375 745 [place] Results - Last 24 hrs: Microbiology 10/13/17 18:15 Aerobic Blood Culture - Preliminary Blood - Venous - Lab Draw NO GROWTH AFTER 1 DAY Anaerobic Blood Culture - Preliminary NO GROWTH AFTER 1 DAY 10/13/17 18:10 Aerobic Blood Culture - Preliminary Blood - Venous NO GROWTH AFTER 1 DAY Anaerobic Blood Culture - Preliminary NO GROWTH AFTER 1 DAY Med Orders - Current: Current Medications Acetaminophen (Tylenol) 650 mg PO Q4H PRN PRN Reason: fever >100.4F; discomfort Amitriptyline HCl (Elavil) 20 mg PO BEDTIME [facility] Last Admin: 10/14/17 21:32 Dose: 20 mg Bisacodyl (Dulcolax) 10 mg RECTAL Q72H PRN PRN Reason: Constipation Carbidopa/Levodopa (Sinemet 25-100 Mg) 2.5 tab PO 1000,1300,1700,2000 [facility] Last Admin: 10/14/17 21:32 Dose: 2.5 tab Divalproex Sodium (Depakote Sprinkle) 375 mg PO 1000,1300,1700,2000 [facility] Last Admin: 10/14/17 21:32 Dose: 375 mg Docusate Sodium (Colace) 100 mg PO BID PRN PRN Reason: Constipation Enoxaparin Sodium (Lovenox) 30 mg SUBCUT Q24H [facility] Last Admin: 10/14/17 18:47 Dose: 30 mg Guaifenesin/Phenylephrine HCl (Robitussin Dm) 10 ml PO Q4H PRN PRN Reason: Cough Levofloxacin/Dextrose 500 mg/ (Premix) 100 mls @ 100 mls/hr IV Q24H [facility] Last Admin: 10/14/17 18:46 Dose: 100 mls/hr Dextrose/Sodium Chloride (Dextrose 5%-1/2 Ns) 1,000 mls @ 100 mls/hr IV ASDIRECTED [facility] Last Admin: 10/15/17 06:09 Dose: 100 mls/hr Levothyroxine Sodium (Levothyroxine) 75 mcg PO BEDTIME [facility] Last Admin: 10/14/17 21:32 Dose: 75 mcg Multivitamin W/Iron (*Ptom) 1 tab PO DAILY [facility] Last Admin: 10/15/17 08:31 Dose: 1 tab Omeprazole 20mg * (Ptom) 0 mg PO ACBREAKFAST [facility] Last Admin: 10/15/17 07:08 Dose: 20 mg Vitamin E 400 Units 0 units PO DAILY [facility] Last Admin: 10/15/17 08:32 Dose: 400 units Nystatin (Nystatin Crm) 0 gm TOP BID PRN PRN Reason: Rash Ondansetron HCl (Zofran) 4 mg IV Q4H PRN PRN Reason: Nausea/Vomiting Sodium Chloride (Saline Flush) 10 ml FLUSH ASDIRECTED PRN PRN Reason: Keep Vein Open Last Admin: 10/14/17 14:07 Dose: 10 ml Discontinued Medications Haloperidol Lactate (Haldol) 2 mg IM ONETIME ONE Stop: 10/14/17 01:50 Last Admin: 10/14/17 02:12 Dose: 2 mg Sodium Chloride (Normal Saline) 1,000 mls @ 999 mls/hr IV .BOLUS ONE Stop: 10/13/17 08:39 Last Admin: 10/13/17 07:54 Dose: 999 mls/hr Promethazine HCl 12.5 mg/ (Sodium Chloride) 50.5 mls @ 200 mls/hr IV ONETIME STA Stop: 10/13/17 10:00 Last Admin: 10/13/17 10:02 Dose: 200 mls/hr Lactated Ringer's (Ringers, Lactated) 1,000 mls @ 125 mls/hr IV ASDIRECTED [facility] Last Admin: 10/14/17 05:47 Dose: 125 mls/hr Ondansetron HCl (Zofran) 8 mg IVPUSH ONETIME ONE Stop: 10/13/17 07:40 Last Admin: 10/13/17 07:58 Dose: 8 mg Pneumococcal Polyvalent Vaccine (Pneumovax 23) 0.5 ml IM .ONCE ONE Stop: 10/13/17 11:56 *Q Meaningful Use (DIS) - VTE *Q VTE Criteria *Q: - Stroke *Q Stroke Criteria *Q: - AMI *Q AMI Criteria *Q:
[2017-10-15] MEDS: DIVALPROEX SODIUM 125 MG PO SCH ×2 (10:34→16:59)
[2017-10-15] MEDS: Carbidopa/Levodopa 25-100 MG Tab *PTOM PO SCH ×2 (10:35→16:59)
== END 2017-10-15 13:45 ==
LOC: FB.ED 06:43 → UNDOADMOB 10:04 → FB.MS 10:04 → UNDODISOB 10-15 13:45
PROVIDERS: ADMIT Family Medicine; ATTEND Family Medicine
DX: J18.9 Pneumonia, unspecified organism (principal); F72 Severe intellectual disabilities; E86.0 Dehydration; G40.909 Epilepsy, unspecified, not intractable, without status epilepticus; H26.9 Unspecified cataract; L71.0 Perioral dermatitis; K05.10 Chronic gingivitis, plaque induced; L82.1 Other seborrheic keratosis; K21.9 Gastro-esophageal reflux disease without esophagitis; M41.9 Scoliosis, unspecified; E03.9 Hypothyroidism, unspecified; Z87.01 Personal history of pneumonia (recurrent); Z87.440 Personal history of urinary (tract) infections; Z79.899 Other long term (current) drug therapy
CPT/HCPCS: 36415; 71010; 80048; 80053; 81001; 83880; 85025; 87040; 96361; 96365; 96372; 96375; 99285; A9270; G0378; J1630; J1650; J1956; J2405; J2550; J7040; J7050; J7120; 96374; 99217; 99219; 99224; 99284

== ENCOUNTER 2017-12-21 10:05 | Inpatient (IN) | payer MEDICARE, MEDICAID ==
[2017-12-21] MEDS ORDERED: Albuterol/Ipratropium 3.0-0.5 MG/3 ML Neb Soln NEB ONE (10:24)
[2017-12-21] MEDS ORDERED: Docusate Sodium 100 MG Cap PO PRN (11:25)
[2017-12-21] MEDS ORDERED: Ondansetron 4 MG/2 ML SDV IV PRN (11:25)
[2017-12-21] MEDS ORDERED: Albuterol/Ipratropium 3.0-0.5 MG/3 ML Neb Soln INH PRN (11:25)
--- NOTE | 2017-12-21 11:25 | EDM.PDOC ---
ED HPI GENERAL MEDICAL PROBLEM - General Chief Complaint: Respiratory Problem Stated Complaint: LOW O2 SATS Time Seen by Provider: 12/21/17 10:05 Source of Information: Reports: Patient, RN, Other (caregiver) History Limitations: Reports: Altered Mental Status, Physical Impairment - History of Present Illness INITIAL COMMENTS - FREE TEXT/NARRATIVE: 62 y.o.w.f with H/O Mental retardation, H/O Pneumonia, came from long term to the ED [place] SOB, Pulse oc was 90 on 4 liters O2 by NC. Pt is lethargic , a poor historian and no Family is present. BP 117/73 Pulse 76 RR 16 Pulse ox 93 0n 4 liters. Temp 36.6 Onset: Gradual Onset Date: 12/26/17 Onset Time: 06:00 Duration: Day(s):, Getting Worse Location: Reports: Chest Quality: Reports: Same as Previous Episode Severity: Moderate - Related Data Allergies Allergy/AdvReac Type Severity Reaction Status Date / Time No Known Allergies Allergy Verified 10/13/17 07:07 Home Meds: Home Meds Bisacodyl [Dulcolax] 10 mg RC Q72H PRN 12/11/15 [History] Divalproex Sodium [Depakote Sprinkle] 375 mg PO QID 12/11/15 [History] Levothyroxine 75 mcg PO BEDTIME 12/11/15 [History] Multivitamins with Iron [Daily Nery with Iron] 1 tab PO DAILY 12/11/15 [History] Omeprazole 20 mg PO ACBREAKFAST 12/11/15 [History] Vitamin E 400 units PO DAILY 12/11/15 [History] Carbidopa/Levodopa [Carbidopa-Levodopa 25-100 Tab] 2.5 tab PO QID 02/04/16 [ History] Nystatin [Nystatin Crm] 1 applic TOP BID PRN 09/28/17 [History] Acetaminophen [Tylenol] 650 mg PO Q4H PRN tablet 10/01/17 [Rx] Petrolatum,White [Vaseline] 1 applic TOP DAILY PRN 12/21/17 [History] Petrolatum,White/Zinc Oxide [Sensi-Care Protective Ointment] 1 applic TOP DAILY PRN 12/21/17 [History] QUEtiapine Fumarate [Quetiapine Fumarate] 25 mg PO BEDTIME 12/21/17 [History] Past Medical History HEENT History: Reports: Cataract, Other (See Below) Other HEENT History: Functionally blind with cataracts, mild perioral dematitis , gingivitis. Cardiovascular History: Reports: Other (See Below) Other Cardiovascular History: Stasis Edema/Legs Respiratory History: Reports: Pneumonia, Recurrent, Other (See Below) Other Respiratory History: History of aspiration pneumonia. Gastrointestinal History: Reports: GERD, Other (See Below) Other Gastrointestinal History: History of positive stool guaiac, septic shock, possible small bowl obstruction, GI bleed, mild duodenitis, possible small bowel obstruction. 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 (See Below) Other OB/BYN History: Post Menopausal Musculoskeletal History: Reports: Other (See Below) Other Musculoskeletal History: Kyphoscoliosis, Right Thoracic Scoliosis, 1/4 Inch Right Leg Discrepency, Mild Pes Planus, Progressive Flexic C-Spine, Flexic contractures of hands and feet, S/O left hand fracture Neurological History: Reports: Seizure Psychiatric History: Reports: Other (See Below) Other Psychiatric History: Profound ID, disruptive D/O, Organic Affective D/O, Sleep/Wake D/O, Complex Partial Seizure D/O, Mild Microcephaly Endocrine/Metabolic History: Reports: Hypothyroidism Hematologic History: Reports: None Other Hematologic History: Mild leukocytosis. Dermatologic History: Reports: Other (See Below) Other Dermatologic History: Seborrheic Keratosis Right Cheek, Acne - Infectious Disease History Infectious Disease History: Reports: Other (See Below) Other Infectious Disease History: patient unable to answer questions - Past Surgical History HEENT Surgical History: Reports: Oral Surgery, Other (See Below) Social & Family History - Family History Family Medical History: Unobtainable HEENT: Reports: None Cardiac: Reports: None Respiratory: Reports: None GI: Reports: None : Reports: None OBGYN: Reports: None Musculoskeletal: Reports: None Neurological: Reports: None Psychiatric: Reports: Learning Disability, Other (See Below) Other Psychiatric Family History: SEIZURE DISORDER Endocrine/Metabolic: Reports: Hypothyroidism Hematologic: Reports: None Immunologic: Reports: None Dermatologic: Reports: None Other Dermatologic Family History: home resident, nonverbalgroup Oncologic: Reports: None - Tobacco Use Smoking Status *Q: Never Smoker Second Hand Smoke Exposure: No - Caffeine Use Caffeine Use: Reports: None - Alcohol Use Days Per Week of Alcohol Use: 0 - Recreational Drug Use Recreational Drug Use: No ED ROS GENERAL - Review of Systems Review Of Systems: Unable To Obtain ED EXAM, GENERAL - Physical Exam Exam: See Below Exam Limited By: Altered Mental Status General Appearance: WD/WN, Lethargic Eye Exam: Bilateral Eye: Normal Inspection Ears: Normal External Exam Ear Exam: Bilateral Ear: Auricle Normal Nose: Normal Inspection, Normal Mucosa Throat/Mouth: Normal Inspection, Normal Lips Head: Atraumatic, Normocephalic Neck: Normal Inspection, Supple, Non-Tender, Full Range of Motion Respiratory/Chest: Respiratory Distress, Decreased Breath Sounds, Rales, Rhonchi , Prolonged Expiration Cardiovascular: Normal Peripheral Pulses, Regular Rate, Rhythm Peripheral Pulses: 1+: Brachial (L) GI/Abdominal: Normal Bowel Sounds, Soft, Non-Tender (Female) Exam: Deferred Rectal (Female) Exam: Deferred Back Exam: Normal Inspection, Full Range of Motion Extremities: Normal Inspection, Non-Tender, No Pedal Edema, Normal Capillary Refill Neurological: Inattentive Psychiatric: Depressed Mood Skin Exam: Warm, Dry, Intact, Normal Color, No Rash Lymphatic: No Adenopathy Course - Vital Signs Text/Narrative:: 62 y.o.w.f with H/O Mental retardation, H/O Pneumonia, came from long term to the ED [place] of SOB, Pulse oc was 90 on 4 liters O2 by NC. Pt is lethargic , a poor historian and no Family is present. BP 117/73 Pulse 76 RR 16 Pulse ox 93 0n 4 liters. Temp 36.6 PE: [age] y.o.w.f in resp distress unattentive, H/O MR ImagingL CXR RML infilatrate Labs: WBC 16.5 Lactic acid 2.5 Na 131 BNP 954 Impression: RML pneymonia, Mental retartdation, DNR/DNI Tx: Levoquine, Duoneb Reexam: Improved Consultation: Dr. Hernandez: Accepted the patient for admission Plan: Admit to med/surge in patient Last Recorded V/S: Last Vital Signs Temp 35.6 C 12/21/17 12:35 Pulse 82 12/21/17 12:35 Resp 16 12/21/17 12:35 BP 117/83 12/21/17 12:35 Pulse Ox 93 L 12/21/17 12:35 - Orders/Labs/Meds Orders: Active Orders 24 hr Category Date Time Status RT Aerosol Therapy [RC] ASDIRECTED Care 12/21/17 10:25 Active Chest 1V Frontal [CR] Stat Exams 12/21/17 10:24 Taken CULTURE BLOOD [BC] Urgent Lab 12/21/17 11:05 Received CULTURE BLOOD [BC] Urgent Lab 12/21/17 11:10 Received Blood Culture x2 Reflex Set [OM.PC] Urgent Oth 12/21/17 10:56 Ordered Medication Orders Acetaminophen (Tylenol) 650 mg PO Q4H PRN PRN Reason: fever >100.4F; discomfort Albuterol/Ipratropium (Duoneb 3.0-0.5 Mg/3 Ml) 3 ml INH ONETIME PRN PRN Reason: Shortness Of Breath/wheezing Carbidopa/Levodopa (Sinemet 25-100 Mg) 2.5 tab PO QID [facility] Divalproex Sodium (Depakote Sprinkle) 375 mg PO QID [facility] Docusate Sodium (Colace) 100 mg PO BID PRN PRN Reason: Constipation Lactated Ringer's (Ringers, Lactated) 1,000 mls @ 125 mls/hr IV ASDIRECTED [facility] Last Admin: 12/21/17 12:14 Dose: 125 mls/hr Levofloxacin/Dextrose 500 mg/ (Premix) 100 mls @ 100 mls/hr IV Q24H [facility] Last Admin: 12/21/17 12:14 Dose: 100 mls/hr Clindamycin in 0.9 % Sod Chlor (Cleocin In Ns) 600 mg in 50 mls @ 100 mls/hr IV Q8H [facility] Last Admin: 12/21/17 14:26 Dose: 100 mls/hr Levothyroxine Sodium (Levothyroxine) 75 mcg PO BEDTIME [facility] Multivitamins (Thera) 1 each PO DAILY [facility] Non-Formulary Medication (Petrolatum,White/Zinc Oxide [Sensi-Care Protective Ointment]) 1 applic TOP DAILY PRN PRN Reason: Other Nystatin (Nystatin Crm) 0 gm TOP BID PRN PRN Reason: Rash Ondansetron HCl (Zofran) 4 mg IV Q4H PRN PRN Reason: Nausea/Vomiting Last Admin: 12/21/17 13:47 Dose: 4 mg Pantoprazole Sodium (Protonix) 40 mg PO ACBREAKFAST [facility] Petrolatum (Vaseline) 0 gm TOP DAILY PRN PRN Reason: Dryness Sodium Chloride (Saline Flush) 10 ml FLUSH ASDIRECTED PRN PRN Reason: Keep Vein Open Last Admin: 12/21/17 12:27 Dose: 10 ml Labs: Laboratory Tests 12/21/17 12/21/17 12/21/17 Range/Units 10:32 10:32 10:32 WBC 16.4 H (4.5-12.0) X10-3/uL RBC 4.36 (3.23-5.20) x10(6)uL Hgb 13.4 D (11.5-15.5) g/dL Hct 39.4 (30.0-51.3) % MCV 90.3 (80-96) fL MCH 30.7 (27.7-33.6) pg MCHC 34.0 (32.2-35.4) g/dL RDW 14.1 (11.5-15.5) % Plt Count 239 (125-369) X10(3)uL MPV 8.1 (7.4-10.4) fL Add Manual Diff Yes Neutrophils % (Manual) 71 (46-82) % Band Neutrophils % 6 (0-6) % Lymphocytes % (Manual) 7 L (13-37) % Monocytes % (Manual) 16 H (4-12) % Sodium 132 L (135-145) mmol/L Potassium 3.6 (3.5-5.3) mmol/L Chloride 93 L D (100-110) mmol/L Carbon Dioxide 28 (21-32) mmol/L BUN 29 H D (7-18) mg/dL Creatinine 0.9 (0.55-1.02) mg/dL Est Cr Clr Drug Dosing TNP Estimated GFR (MDRD) > 60 (>60) BUN/Creatinine Ratio 32.2 H (9-20) Glucose 154 H (80-116) mg/dL Lactic Acid (0.4-2.2) mmol/L Calcium 9.5 (8.6-10.2) mg/dL NT-Pro-B Natriuret Pep 916 H (<=125) pg/mL 02/04/18 Range/Units 11:10 WBC (4.5-12.0) X10-3/uL RBC (3.23-5.20) x10(6)uL Hgb (11.5-15.5) g/dL Hct (30.0-51.3) % MCV (80-96) fL MCH (27.7-33.6) pg MCHC (32.2-35.4) g/dL RDW (11.5-15.5) % Plt Count (125-369) X10(3)uL MPV (7.4-10.4) fL Add Manual Diff Neutrophils % (Manual) (46-82) % Band Neutrophils % (0-6) % Lymphocytes % (Manual) (13-37) % Monocytes % (Manual) (4-12) % Sodium (135-145) mmol/L Potassium (3.5-5.3) mmol/L Chloride (100-110) mmol/L Carbon Dioxide (21-32) mmol/L BUN (7-18) mg/dL Creatinine (0.55-1.02) mg/dL Est Cr Clr Drug Dosing Estimated GFR (MDRD) (>60) BUN/Creatinine Ratio (9-20) Glucose (80-116) mg/dL Lactic Acid 2.5 H (0.4-2.2) mmol/L Calcium (8.6-10.2) mg/dL NT-Pro-B Natriuret Pep (<=125) pg/mL Meds: Medications Generic Name Dose Route Start Last Admin Trade Name Freq PRN Reason Stop Dose Admin Acetaminophen 650 mg 12/21/17 11:32 Tylenol PO Q4H PRN fever >100.4F; discomfort Albuterol/Ipratropium 3 ml 12/21/17 11:25 Duoneb 3.0-0.5 Mg/3 Ml INH ONETIME PRN Shortness Of Breath/wheezing Carbidopa/Levodopa 2.5 tab 12/21/17 17:00 Sinemet 25-100 Mg PO QID [facility] Divalproex Sodium 375 mg 12/21/17 17:00 Depakote Sprinkle PO QID [facility] Docusate Sodium 100 mg 12/21/17 11:25 Colace PO BID PRN Constipation Lactated Ringer's 1,000 mls @ 125 mls/hr 12/21/17 11:30 12/21/17 12:14 Ringers, Lactated IV 125 mls/hr ASDIRECTED [facility] Administration Levofloxacin/Dextrose 500 mg/ 100 mls @ 100 mls/hr 12/21/17 11:30 12/21/17 12 :14 Premix IV 100 mls/hr Q24H [facility] Administration Clindamycin in 0.9 % Sod Chlor 600 mg in 50 mls @ 100 mls/hr 12/21/17 15:00 12/21/17 14:26 Cleocin In Ns IV 100 mls/hr Q8H [facility] Administration Levothyroxine Sodium 75 mcg 12/21/17 21:00 Levothyroxine PO BEDTIME [facility] Multivitamins 1 each 12/22/17 09:00 Thera PO DAILY [facility] Non-Formulary Medication 1 applic 12/21/17 13:27 Petrolatum,White/Zinc Oxide [Sensi-Care Protective Ointment] TOP DAILY PRN Other Nystatin 0 gm 12/21/17 13:27 Nystatin Crm TOP BID PRN Rash Ondansetron HCl 4 mg 12/21/17 11:25 12/21/17 13:47 Zofran IV 4 mg Q4H PRN Administration Nausea/Vomiting Pantoprazole Sodium 40 mg 12/22/17 07:30 Protonix PO ACBREAKFAST [facility] Petrolatum 0 gm 12/21/17 13:27 Vaseline TOP DAILY PRN Dryness Sodium Chloride 10 ml 12/21/17 11:25 12/21/17 12:27 Saline Flush FLUSH 10 ml ASDIRECTED PRN Administration Keep Vein Open Discontinued Medications Generic Name Dose Route Start Last Admin Trade Name Freq PRN Reason Stop Dose Admin Albuterol/Ipratropium 3 ml 12/21/17 10:24 12/21/17 10:47 Duoneb 3.0-0.5 Mg/3 Ml NEB 12/21/17 10:25 3 ml ONETIME ONE Administration Clindamycin Phosphate 600 mg/ 54 mls @ 150 mls/hr 12/21/17 13:30 Dextrose/Water IV Q8H [facility] Clindamycin Phosphate 600 mg/ 54 mls @ 162 mls/hr 12/21/17 14:00 Sodium Chloride IV Q8H [facility] Departure - Departure Time of Disposition: 11:25 Disposition: Admitted As Inpatient 65 Condition: Fair Clinical Impression: Pneumonia Qualifiers: Laterality: left Lung location: lower lobe of lung - Discharge Information - My Orders Last 24 Hours: My Active Orders 12/21/17 10:24 Chest 1V Frontal [CR] Stat 12/21/17 10:25 RT Aerosol Therapy [RC] ASDIRECTED 12/21/17 10:56 Blood Culture x2 Reflex Set [OM.PC] Urgent 12/21/17 11:05 CULTURE BLOOD [BC] Urgent 12/21/17 11:10 CULTURE BLOOD [BC] Urgent - Assessment/Plan Last 24 Hours: My Active Orders 12/21/17 10:24 Chest 1V Frontal [CR] Stat 12/21/17 10:25 RT Aerosol Therapy [RC] ASDIRECTED 12/21/17 10:56 Blood Culture x2 Reflex Set [OM.PC] Urgent 12/21/17 11:05 CULTURE BLOOD [BC] Urgent 12/21/17 11:10 CULTURE BLOOD [BC] Urgent
[2017-12-21] MEDS ORDERED: Levofloxacin/Dextrose 5%-Water 500 MG in Premix Bag 1 BAG IV SCH (11:30)
[2017-12-21] MEDS ORDERED: Acetaminophen 325 MG Tab PO PRN (11:32)
[2017-12-21] MEDS: Lactated Ringers 1,000 ML IV SCH ×2 (12:14→22:45)
[2017-12-21] MEDS: Sodium Chloride 0.9% 10 ML Syringe FLUSH PRN (12:27)
[2017-12-21] MEDS ORDERED: [UNRECOGNIZED DRUG - OTHER] TOP PRN (13:27)
[2017-12-21] MEDS ORDERED: PETROLATUM WHITE TOP PRN (13:27)
[2017-12-21] MEDS ORDERED: ZINC OXIDE TOP PRN (13:27)
[2017-12-21] MEDS ORDERED: Nystatin Crm 15 GM Tube TOP PRN (13:27)
[2017-12-21] MEDS ORDERED: Petrolatum,White Jelly 30 GM Tube TOP PRN (13:27)
[2017-12-21] MEDS ORDERED: Clindamycin Phosphate 600 MG in Dextrose 5% in Water 50 ML IV SCH ×2 (13:30)
--- NOTE | 2017-12-21 13:34 | PCM.HP ---
H&P History of Present Illness - General Date of Service: 12/21/17 Admit Problem/Dx: Admission Diagnosis/Problem Admission Diagnosis/Problem Pneumonia Source of Information: Old Records, RN Notes Reviewed, Other (Residential staff) - History of Present Illness Initial Comments - Free Text/Narative: Liane is 62 years old. She lives in a shelter. She was brought in this morning because of hypoxia and fever. Her caregiver found her pale hypoxic and tachycardia. Oxygenation was at 52%. Temperature 102.5.She has a history of GERD , and is not certain whether she aspirated.Suspected that she might have because the bed was not elevated overnight as per the norm. She's been admitted at least 3 times in last 6 months for the same reason. Last admission over .Also she doesn't contact with group members with influenza A,but just finished,about one week ago, Tamiflu for prophylaxis. She has a history of parkinsonism, seizures, and severe mental retardation,all stable. - Related Data Allergies/Adverse Reactions: Allergies Allergy/AdvReac Type Severity Reaction Status Date / Time No Known Allergies Allergy Verified 10/13/17 07:07 Home Medications: Home Meds Bisacodyl [Dulcolax] 10 mg RC Q72H PRN 12/11/15 [History] Divalproex Sodium [Depakote Sprinkle] 375 mg PO QID 12/11/15 [History] Levothyroxine 75 mcg PO BEDTIME 12/11/15 [History] Multivitamins with Iron [Daily Nery with Iron] 1 tab PO DAILY 12/11/15 [History] Omeprazole 20 mg PO ACBREAKFAST 12/11/15 [History] Vitamin E 400 units PO DAILY 12/11/15 [History] Carbidopa/Levodopa [Carbidopa-Levodopa 25-100 Tab] 2.5 tab PO QID 02/04/16 [ History] Nystatin [Nystatin Crm] 1 applic TOP BID PRN 09/28/17 [History] Acetaminophen [Tylenol] 650 mg PO Q4H PRN tablet 10/01/17 [Rx] Petrolatum,White [Vaseline] 1 applic TOP DAILY PRN 12/21/17 [History] Petrolatum,White/Zinc Oxide [Sensi-Care Protective Ointment] 1 applic TOP DAILY PRN 12/21/17 [History] QUEtiapine Fumarate [Quetiapine Fumarate] 25 mg PO BEDTIME 12/21/17 [History] Past Medical History HEENT History: Reports: Cataract, Other (See Below) Other HEENT History: Functionally blind with cataracts, mild perioral dematitis , gingivitis. Cardiovascular History: Reports: Other (See Below) Other Cardiovascular History: Stasis Edema/Legs Respiratory History: Reports: Pneumonia, Recurrent, Other (See Below) Other Respiratory History: History of aspiration pneumonia. Gastrointestinal History: Reports: GERD, Other (See Below) Other Gastrointestinal History: History of positive stool guaiac, septic shock, possible small bowl obstruction, GI bleed, mild duodenitis, possible small bowel obstruction. 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 (See Below) Other OB/BYN History: Post Menopausal Musculoskeletal History: Reports: Other (See Below) Other Musculoskeletal History: Kyphoscoliosis, Right Thoracic Scoliosis, 1/4 Inch Right Leg Discrepency, Mild Pes Planus, Progressive Flexic C-Spine, Flexic contractures of hands and feet, S/O left hand fracture Neurological History: Reports: Seizure Psychiatric History: Reports: Other (See Below) Other Psychiatric History: Profound ID, disruptive D/O, Organic Affective D/O, Sleep/Wake D/O, Complex Partial Seizure D/O, Mild Microcephaly Endocrine/Metabolic History: Reports: Hypothyroidism Hematologic History: Reports: None Other Hematologic History: Mild leukocytosis. Dermatologic History: Reports: Other (See Below) Other Dermatologic History: Seborrheic Keratosis Right Cheek, Acne - Infectious Disease History Infectious Disease History: Reports: Other (See Below) Other Infectious Disease History: patient unable to answer questions - Past Surgical History HEENT Surgical History: Reports: Oral Surgery, Other (See Below) Social & Family History - Family History Family Medical History: Unobtainable HEENT: Reports: None Cardiac: Reports: None Respiratory: Reports: None GI: Reports: None : Reports: None OBGYN: Reports: None Musculoskeletal: Reports: None Neurological: Reports: None Psychiatric: Reports: Learning Disability, Other (See Below) Other Psychiatric Family History: SEIZURE DISORDER Endocrine/Metabolic: Reports: Hypothyroidism Hematologic: Reports: None Immunologic: Reports: None Dermatologic: Reports: None Other Dermatologic Family History: home resident, nonverbalgroup Oncologic: Reports: None - Tobacco Use Smoking Status *Q: Never Smoker Second Hand Smoke Exposure: No - Caffeine Use Caffeine Use: Reports: Coffee - Alcohol Use Days Per Week of Alcohol Use: 0 - Recreational Drug Use Recreational Drug Use: No H&P Review of Systems - Review of Systems: Review Of Systems: ROS reveals no pertinent complaints other than HPI. Exam - Exam Exam: See Below - Vital Signs Vital Signs: Last Vital Signs Temp 96.1 F 12/21/17 12:35 Pulse 82 12/21/17 12:35 Resp 16 12/21/17 12:35 BP 117/83 12/21/17 12:35 Pulse Ox 93 L 12/21/17 12:35 Weight: 50.122 kg - Exam General: Alert HEENT: PERRLA Neck: Supple Lungs: Decreased Breath Sounds, Crackles, Rales Cardiovascular: Regular Rate GI/Abdominal Exam: Normal Bowel Sounds (Female) Exam: Deferred Rectal (Female) Exam: Deferred Skin: Warm Neurological: Cranial Nerves Intact Neuro Extensive - Mental Status: No: Oriented x3, Normal Cognition Neuro Extensive - Motor, Sensory, Reflexes: CN II-XII Intact Psychiatric: Alert, Labile Mood. No: Normal Mood - Patient Data Result Diagrams: 12/21/17 10:32 12/21/17 10:32 Imaging Impressions Last 24 hrs: CXR-? infiltrate on the left *Q Meaningful Use (ADM) - VTE *Q VTE Criteria *Q: - Stroke *Q Stroke Criteria *Q: - AMI *Q AMI Criteria *Q: - Problem List (1) Pneumonia SNOMED Code(s): 957030153 ICD Code: J18.9 - PNEUMONIA, UNSPECIFIED ORGANISM Status: Acute Current Visit: Yes Qualifiers: Laterality: left Lung location: lower lobe of lung (2) Dehydration SNOMED Code(s): 23804150 ICD Code: E86.0 - DEHYDRATION Status: Acute Current Visit: No (3) Palliative care status SNOMED Code(s): 354607455 ICD Code: Z51.5 - ENCOUNTER FOR PALLIATIVE CARE Status: Acute Current Visit: No (4) Hypothyroidism SNOMED Code(s): 56117855 ICD Code: E03.9 - HYPOTHYROIDISM, UNSPECIFIED Status: Chronic Current Visit: No Problem Details: Stable (5) Intermittent explosive disorder SNOMED Code(s): 12475314 ICD Code: [id number] - Status: Chronic Current Visit: No (6) Mental retardation SNOMED Code(s): 59164846 ICD Code: F79 - UNSPECIFIED INTELLECTUAL DISABILITIES Status: Chronic Current Visit: No (7) Parkinson's disease SNOMED Code(s): 95247565 ICD Code: G20 - PARKINSON'S DISEASE Status: Chronic Current Visit: No (8) Seizure disorder SNOMED Code(s): 285431168 ICD Code: G40.909 - EPILEPSY, UNSP, NOT INTRACTABLE, WITHOUT STATUS EPILEPTICUS Status: Chronic Current Visit: No (9) GERD (gastroesophageal reflux disease) SNOMED Code(s): 389804530 ICD Code: K21.9 - GASTRO-ESOPHAGEAL REFLUX DISEASE WITHOUT ESOPHAGITIS Status: Acute Current Visit: Yes Qualifiers: Esophagitis presence: esophagitis presence not specified Qualified Code(s) : K21.9 - Gastro-esophageal reflux disease without esophagitis Problem List Initiated/Reviewed/Updated: Yes Orders Last 24hrs: Active Orders 24 hr Category Date Time Status Head of Bed Elevation [RC] ASDIRECTED Care 12/21/17 11:31 Active CBC WITH AUTO DIFF [HEME] AM Lab 12/22/17 05:11 Ordered COMPREHENSIVE METABOLIC PN,CMP [CHEM] AM Lab 12/22/17 05:11 Ordered INFLUENZA A+B AG SCREEN [RM] Stat Lab 12/21/17 13:27 Uncollected Acetaminophen [Tylenol] Med 12/21/17 11:32 Active 650 mg PO Q4H PRN Carbidopa/Levodopa [Sinemet 25-100 mg] Med 12/21/17 17:00 Ordered 2.5 tab PO QID Clindamycin Phosphate [Cleocin] 600 mg Med 12/21/17 13:30 Ordered Dextrose 5% in Water 50 ml IV Q8H Divalproex Sodium [Depakote Sprinkle] Med 12/21/17 17:00 Ordered 375 mg PO QID Levofloxacin/Dextrose 5%-Water [Levaquin in D5W 500 MG/ Med 12/21/17 11:30 Active 100 ML] 500 mg Premix Bag 1 bag IV Q24H Levothyroxine Med 12/21/17 21:00 Ordered 75 mcg PO BEDTIME Multivitamins with Iron [Daily Nery with Iron] Med 12/22/17 09:00 Ordered 1 tab PO DAILY Nystatin [Nystatin Crm] Med 12/21/17 13:27 Ordered 1 applic TOP BID PRN Omeprazole [Omeprazole] Med 12/22/17 07:30 Ordered 20 mg PO ACBREAKFAST Petrolatum,White [Vaseline] Med 12/21/17 13:27 Ordered 1 applic TOP DAILY PRN Petrolatum,White/Zinc Oxide [Sensi-Care Protective Med 12/21/17 13:27 Ordered Ointment] 1 applic TOP DAILY PRN Medication Orders Acetaminophen (Tylenol) 650 mg PO Q4H PRN PRN Reason: fever >100.4F; discomfort Albuterol/Ipratropium (Duoneb 3.0-0.5 Mg/3 Ml) 3 ml INH ONETIME PRN PRN Reason: Shortness Of Breath/wheezing Carbidopa/Levodopa (Sinemet 25-100 Mg) 2.5 tab PO QID [facility] Docusate Sodium (Colace) 100 mg PO BID PRN PRN Reason: Constipation Lactated Ringer's (Ringers, Lactated) 1,000 mls @ 125 mls/hr IV ASDIRECTED [facility] Last Admin: 12/21/17 12:14 Dose: 125 mls/hr Levofloxacin/Dextrose 500 mg/ (Premix) 100 mls @ 100 mls/hr IV Q24H [facility] Last Admin: 12/21/17 12:14 Dose: 100 mls/hr Clindamycin Phosphate 600 mg/ (Dextrose/Water) 54 mls @ 150 mls/hr IV Q8H [facility] Ondansetron HCl (Zofran) 4 mg IV Q4H PRN PRN Reason: Nausea/Vomiting Sodium Chloride (Saline Flush) 10 ml FLUSH ASDIRECTED PRN PRN Reason: Keep Vein Open Last Admin: 12/21/17 12:27 Dose: 10 ml Assessment/Plan Comment:: I will start clindamycin in addition to Levaquin. Also IV fluid resuscitation, oxygen by nasal cannula as needed. I'll keep her nothing by mouth for now due to suspicion of aspiration, Except resume all her home medications. I'll repeat a CBC in the morning and an Influenza screen has been ordered, and so has blood cultures 2.
[2017-12-21] MEDS: Clindamycin in 0.9 % Sod Chlor 600 MG/50 ML BAG IV SCH ×2 (14:26→22:12)
[2017-12-21] MEDS: Carbidopa/Levodopa 25-100 MG Tab PO SCH ×2 (17:14→20:44)
[2017-12-21] MEDS: Divalproex Sodium Delayed-Release 125 MG Cap.Sprink PO SCH ×2 (17:14→20:43)
[2017-12-21] MEDS: Levothyroxine 75 MCG Tab PO SCH (20:44)
[2017-12-22] MEDS: Clindamycin in 0.9 % Sod Chlor 600 MG/50 ML BAG IV SCH (06:07)
[2017-12-22] MEDS: Pantoprazole 40 MG Tab.CR PO SCH ×2 (08:01→10:11)
[2017-12-22] MEDS: Carbidopa/Levodopa 25-100 MG Tab PO SCH ×5 (08:01→21:08)
[2017-12-22] MEDS: Multivitamins,Therapeutic Tab PO SCH ×2 (08:01→10:10)
[2017-12-22] MEDS: Divalproex Sodium Delayed-Release 125 MG Cap.Sprink PO SCH ×5 (08:01→21:08)
--- NOTE | 2017-12-22 08:49 | PCM.PN ---
- General Info Date of Service: 12/22/17 Admission Dx/Problem (Free Text): Admission Diagnosis/Problem Admission Diagnosis/Problem Pneumonia Subjective Update: Patient is still hypoxic (when not on oxygen)and has had constant coughing. No fevers been reported overnight. - Patient Data Vitals - Most Recent: Last Vital Signs Temp 97.4 F 12/22/17 08:00 Pulse 72 12/22/17 08:00 Resp 18 12/22/17 08:00 BP 103/79 12/22/17 08:00 Pulse Ox 90 L 12/22/17 08:25 Weight - Most Recent: 50.122 kg I&O - Last 24 Hours: Intake & Output 12/21/17 12/22/17 12/22/17 22:59 06:59 14:59 Intake Total 1100 892 Balance 1100 892 Lab Results Last 24 Hours: Laboratory Results - last 24 hr 12/22/17 12/22/17 Range/Units 06:30 06:30 WBC 18.6 H (4.5-12.0) X10-3/uL RBC 3.57 (3.23-5.20) x10(6)uL Hgb 11.0 L (11.5-15.5) g/dL Hct 32.4 (30.0-51.3) % MCV 91.0 (80-96) fL MCH 30.9 (27.7-33.6) pg MCHC 34.0 (32.2-35.4) g/dL RDW 14.1 (11.5-15.5) % Plt Count 181 (125-369) X10(3)uL MPV 7.9 (7.4-10.4) fL Add Manual Diff Yes Neutrophils % (Manual) 85 H (46-82) % Band Neutrophils % 4 (0-6) % Lymphocytes % (Manual) 7 L (13-37) % Monocytes % (Manual) 4 (4-12) % Sodium 134 L (135-145) mmol/L Potassium 4.1 (3.5-5.3) mmol/L Chloride 98 L D (100-110) mmol/L Carbon Dioxide 31 (21-32) mmol/L BUN 27 H (7-18) mg/dL Creatinine 0.5 L (0.55-1.02) mg/dL Est Cr Clr Drug Dosing 87.74 mL/min Estimated GFR (MDRD) > 60 (>60) BUN/Creatinine Ratio 54.0 H (9-20) Glucose 93 (80-116) mg/dL Calcium 9.2 (8.6-10.2) mg/dL Total Bilirubin 0.2 (0.1-1.3) mg/dL AST 44 H D (5-25) IU/L ALT 29 D (12-36) U/L Alkaline Phosphatase 64 (56-112) IU/L Total Protein 6.4 (6.0-8.0) g/dL Albumin 2.5 L (3.2-4.6) g/dL Globulin 3.9 g/dL Albumin/Globulin Ratio 0.6 Willie Results Last 24 Hours: Microbiology 12/21/17 13:50 Influenza Type A Antigen Screen - Final Nasopharyngeal Swab - Nare, Right NEGATIVE INFLUENZA A VIRUS AG Influenza Type B Antigen Screen - Final NEGATIVE INFLUENZA B VIRUS AG Med Orders - Current: Current Medications Acetaminophen (Tylenol) 650 mg PO Q4H PRN PRN Reason: fever >100.4F; discomfort Albuterol/Ipratropium (Duoneb 3.0-0.5 Mg/3 Ml) 3 ml INH ONETIME PRN PRN Reason: Shortness Of Breath/wheezing Last Admin: 12/22/17 08:24 Dose: 3 ml Carbidopa/Levodopa (Sinemet 25-100 Mg) 2.5 tab PO QID [facility] Last Admin: 12/22/17 08:01 Dose: Not Given Divalproex Sodium (Depakote Sprinkle) 375 mg PO QID [facility] Last Admin: 12/22/17 08:01 Dose: Not Given Docusate Sodium (Colace) 100 mg PO BID PRN PRN Reason: Constipation Lactated Ringer's (Ringers, Lactated) 1,000 mls @ 125 mls/hr IV ASDIRECTED [facility] Last Admin: 12/21/17 22:45 Dose: 125 mls/hr Ampicillin Sodium/Sulbactam (Sodium 3 gm/ Sodium Chloride) 100 mls @ 100 mls/ hr IV Q6HR [facility] Levothyroxine Sodium (Levothyroxine) 75 mcg PO BEDTIME [facility] Last Admin: 12/21/17 20:44 Dose: Not Given Multivitamins (Thera) 1 each PO DAILY [facility] Last Admin: 12/22/17 08:01 Dose: Not Given Non-Formulary Medication (Petrolatum,White/Zinc Oxide [Sensi-Care Protective Ointment]) 1 applic TOP DAILY PRN PRN Reason: Other Nystatin (Nystatin Crm) 0 gm TOP BID PRN PRN Reason: Rash Ondansetron HCl (Zofran) 4 mg IV Q4H PRN PRN Reason: Nausea/Vomiting Last Admin: 12/21/17 13:47 Dose: 4 mg Pantoprazole Sodium (Protonix) 40 mg PO ACBREAKFAST [facility] Last Admin: 12/22/17 08:01 Dose: Not Given Petrolatum (Vaseline) 0 gm TOP DAILY PRN PRN Reason: Dryness Sodium Chloride (Saline Flush) 10 ml FLUSH ASDIRECTED PRN PRN Reason: Keep Vein Open Last Admin: 12/21/17 12:27 Dose: 10 ml Discontinued Medications Albuterol/Ipratropium (Duoneb 3.0-0.5 Mg/3 Ml) 3 ml NEB ONETIME ONE Stop: 12/21/17 10:25 Last Admin: 12/21/17 10:47 Dose: 3 ml Levofloxacin/Dextrose 500 mg/ (Premix) 100 mls @ 100 mls/hr IV Q24H [facility] Last Admin: 12/21/17 12:14 Dose: 100 mls/hr Clindamycin Phosphate 600 mg/ (Dextrose/Water) 54 mls @ 150 mls/hr IV Q8H [facility] Last Admin: 12/21/17 23:34 Dose: Not Given Clindamycin Phosphate 600 mg/ (Sodium Chloride) 54 mls @ 162 mls/hr IV Q8H [facility] Last Admin: 12/21/17 23:36 Dose: Not Given Clindamycin in 0.9 % Sod Chlor (Cleocin In Ns) 600 mg in 50 mls @ 100 mls/hr IV Q8H [facility] Last Admin: 12/22/17 06:07 Dose: 100 mls/hr - Exam Quality Assessment: Supplemental Oxygen General: Alert, No Acute Distress. No: Oriented Neck: Supple Lungs: Clear to Auscultation (anteriorly) Extremities: No: Pedal Edema Skin: Warm Neurological: No New Focal Deficit - Problem List & Annotations (1) Hypoxia SNOMED Code(s): 219245396 Code(s): R09.02 - HYPOXEMIA Status: Acute Current Visit: Yes (2) Pneumonia SNOMED Code(s): 587615207 Code(s): J18.9 - PNEUMONIA, UNSPECIFIED ORGANISM Status: Acute Current Visit: Yes Qualifiers: Pneumonia type: aspiration pneumonia Laterality: left Lung location: lower lobe of lung (3) Dehydration SNOMED Code(s): 05515088 Code(s): E86.0 - DEHYDRATION Status: Acute Current Visit: No (4) Palliative care status SNOMED Code(s): 635182472 Code(s): Z51.5 - ENCOUNTER FOR PALLIATIVE CARE Status: Acute Current Visit: No (5) Hypothyroidism SNOMED Code(s): 70423195 Code(s): E03.9 - HYPOTHYROIDISM, UNSPECIFIED Status: Chronic Current Visit: No Annotation/Comment:: Stable (6) Intermittent explosive disorder SNOMED Code(s): 68815293 Code(s): ZCW2940 - Status: Chronic Current Visit: No (7) Mental retardation SNOMED Code(s): 67541693 Code(s): F79 - UNSPECIFIED INTELLECTUAL DISABILITIES Status: Chronic Current Visit: No (8) Parkinson's disease SNOMED Code(s): 61605663 Code(s): G20 - PARKINSON'S DISEASE Status: Chronic Current Visit: No (9) Seizure disorder SNOMED Code(s): 922879421 Code(s): G40.909 - EPILEPSY, UNSP, NOT INTRACTABLE, WITHOUT STATUS EPILEPTICUS Status: Chronic Current Visit: No (10) GERD (gastroesophageal reflux disease) SNOMED Code(s): 837287558 Code(s): K21.9 - GASTRO-ESOPHAGEAL REFLUX DISEASE WITHOUT ESOPHAGITIS Status: Acute Current Visit: Yes Qualifiers: Esophagitis presence: esophagitis presence not specified Qualified Code(s) : K21.9 - Gastro-esophageal reflux disease without esophagitis - Problem List Review Problem List Initiated/Reviewed/Updated: Yes - My Orders Last 24 Hours: My Active Orders 12/21/17 13:27 Nystatin [Nystatin Crm] 0 gm TOP BID PRN Petrolatum,White [Vaseline] 0 gm TOP DAILY PRN Petrolatum,White/Zinc Oxide [Sensi-Care Protective Ointment] 1 applic TOP DAILY PRN 12/21/17 17:00 Carbidopa/Levodopa [Sinemet 25-100 mg] 2.5 tab PO QID Divalproex Sodium [Depakote Sprinkle] 375 mg PO QID 12/21/17 21:00 Levothyroxine 75 mcg PO BEDTIME 12/22/17 07:30 Pantoprazole [ProTONIX] 40 mg PO ACBREAKFAST 12/22/17 08:44 D Dimer [D-DIMER QUANTITATIVE] [COAG] Routine 12/22/17 08:45 Ampicillin/Sulbactam Na [Unasyn] 3 gm Sodium Chloride 0.9% [Normal Saline] 100 ml IV Q6HR 12/22/17 09:00 Multivitamins,Therapeutic [Thera] 1 each PO DAILY 12/23/17 05:11 BASIC METABOLIC PANEL,BMP [CHEM] AM CBC WITH AUTO DIFF [HEME] AM PRO B-TYPE NATRIUR PEPT,BNPPRO [CHEM] DAILY - Plan Plan:: I have discontinued clindamycin and Levaquin in favor of Unasyn -for aspiration pneumonia. I'm also planning to obtain a BNP, a d-dimer today, and if this is high get a CT scan of the chest to r/o PE. We'll continue IV fluids at this time for rehydration and keep nothing by mouth except for Meds
[2017-12-22] MEDS: Lactated Ringers 1,000 ML IV SCH ×2 (10:40→21:15)
[2017-12-22] MEDS: Ampicillin/Sulbactam Na 3 GM in Sodium Chloride 0.9% 100 ML IV SCH ×3 (10:41→21:18)
--- NOTE | 2017-12-22 10:54 | CR ---
INDICATION: Short of breath. CHEST: An AP upright portable view of the chest, 12/21/2017, was compared with 10/13/2017 and 10/01/2017, again revealing a nodule perihilar on the right, unchanged in appearance. The heart did not appear enlarged. Severe dextroconvex rotoscoliosis of the thoracic spine is unchanged. Heavy markings are again noted at the left lung base and likely are fibrotic in nature, but do make it difficult to exclude patchy bronchopneumonia. No definite pulmonary vascular congestion is seen. IMPRESSION: 1. Cannot exclude pneumonia at the left lung base, although the appearance may be on the basis of fibrosis. 2. Scoliosis. 3. Stable nodule perihilar on the right. MTDD
[2017-12-22] MEDS: Levothyroxine 75 MCG Tab PO SCH (21:08)
[2017-12-23] MEDS: Ampicillin/Sulbactam Na 3 GM in Sodium Chloride 0.9% 100 ML IV SCH ×4 (03:28→20:55)
[2017-12-23] MEDS: Lactated Ringers 1,000 ML IV SCH (07:37)
[2017-12-23] MEDS: Pantoprazole 40 MG Tab.CR PO SCH (07:54)
--- NOTE | 2017-12-23 09:01 | PCM.PN ---
- General Info Date of Service: 12/23/17 Admission Dx/Problem (Free Text): Admission Diagnosis/Problem Admission Diagnosis/Problem Pneumonia Subjective Update: Patient is much better today. Off O2. No fevers been reported overnight. - Patient Data Vitals - Most Recent: Last Vital Signs Temp 99.1 F 12/23/17 01:00 Pulse 74 12/23/17 05:30 Resp 18 12/23/17 01:00 BP 141/81 H 12/23/17 05:30 Pulse Ox 100 12/23/17 07:58 Weight - Most Recent: 50.122 kg I&O - Last 24 Hours: Intake & Output 12/22/17 12/23/17 12/23/17 22:59 06:59 14:59 Intake Total 1485 1052 Balance 1485 1052 Lab Results Last 24 Hours: Laboratory Results - last 24 hr 12/22/17 12/23/17 12/23/17 Range/Units 06:30 06:20 06:20 WBC 11.3 (4.5-12.0) X10-3/uL RBC 3.71 (3.23-5.20) x10(6)uL Hgb 11.6 (11.5-15.5) g/dL Hct 33.8 (30.0-51.3) % MCV 91.2 (80-96) fL MCH 31.2 (27.7-33.6) pg MCHC 34.2 (32.2-35.4) g/dL RDW 14.2 (11.5-15.5) % Plt Count 154 (125-369) X10(3)uL MPV 8.1 (7.4-10.4) fL Neut % (Auto) 76.4 (46-82) % Lymph % (Auto) 15.8 (13-37) % [place] % (Auto) 7.2 (4-12) % Eos % (Auto) 0 L (1.0-5.0) % Baso % (Auto) 0 (0-2) % Neut # (Auto) 8.6 H (1.6-8.3) # Lymph # (Auto) 1.8 (0.6-5.0) # [place] # (Auto) 0.8 (0.0-1.3) # Eos # (Auto) 0.0 (0.0-0.8) # Baso # (Auto) 0.0 (0.0-0.2) # D-Dimer, Quantitative 322 (100-400) ng/mL Sodium 140 (135-145) mmol/L Potassium 3.8 (3.5-5.3) mmol/L Chloride 102 (100-110) mmol/L Carbon Dioxide 32 (21-32) mmol/L BUN 24 H (7-18) mg/dL Creatinine 0.5 L (0.55-1.02) mg/dL Est Cr Clr Drug Dosing 87.74 mL/min Estimated GFR (MDRD) > 60 (>60) BUN/Creatinine Ratio 48.0 H (9-20) Glucose 76 L (80-116) mg/dL Calcium 9.1 (8.6-10.2) mg/dL NT-Pro-B Natriuret Pep (<=125) pg/mL 12/23/17 Range/Units 06:20 WBC (4.5-12.0) X10-3/uL RBC (3.23-5.20) x10(6)uL Hgb (11.5-15.5) g/dL Hct (30.0-51.3) % MCV (80-96) fL MCH (27.7-33.6) pg MCHC (32.2-35.4) g/dL RDW (11.5-15.5) % Plt Count (125-369) X10(3)uL MPV (7.4-10.4) fL Neut % (Auto) (46-82) % Lymph % (Auto) (13-37) % [place] % (Auto) (4-12) % Eos % (Auto) (1.0-5.0) % Baso % (Auto) (0-2) % Neut # (Auto) (1.6-8.3) # Lymph # (Auto) (0.6-5.0) # [place] # (Auto) (0.0-1.3) # Eos # (Auto) (0.0-0.8) # Baso # (Auto) (0.0-0.2) # D-Dimer, Quantitative (100-400) ng/mL Sodium (135-145) mmol/L Potassium (3.5-5.3) mmol/L Chloride (100-110) mmol/L Carbon Dioxide (21-32) mmol/L BUN (7-18) mg/dL Creatinine (0.55-1.02) mg/dL Est Cr Clr Drug Dosing mL/min Estimated GFR (MDRD) (>60) BUN/Creatinine Ratio (9-20) Glucose (80-116) mg/dL Calcium (8.6-10.2) mg/dL NT-Pro-B Natriuret Pep 3652 H* (<=125) pg/mL Med Orders - Current: Current Medications Acetaminophen (Tylenol) 650 mg PO Q4H PRN PRN Reason: fever >100.4F; discomfort Albuterol/Ipratropium (Duoneb 3.0-0.5 Mg/3 Ml) 3 ml INH ONETIME PRN PRN Reason: Shortness Of Breath/wheezing Last Admin: 12/22/17 08:24 Dose: 3 ml Carbidopa/Levodopa (Sinemet 25-100 Mg) 2.5 tab PO QID [facility] Last Admin: 12/22/17 21:08 Dose: Not Given Divalproex Sodium (Depakote Sprinkle) 375 mg PO QID [facility] Last Admin: 12/22/17 21:08 Dose: Not Given Docusate Sodium (Colace) 100 mg PO BID PRN PRN Reason: Constipation Ampicillin Sodium/Sulbactam (Sodium 3 gm/ Sodium Chloride) 100 mls @ 100 mls/ hr IV Q6H [facility] Last Admin: 12/23/17 03:28 Dose: 100 mls/hr Levothyroxine Sodium (Levothyroxine) 75 mcg PO BEDTIME [facility] Last Admin: 12/22/17 21:08 Dose: Not Given Multivitamins (Thera) 1 each PO DAILY [facility] Last Admin: 12/22/17 10:10 Dose: 1 each Non-Formulary Medication (Petrolatum,White/Zinc Oxide [Sensi-Care Protective Ointment]) 1 applic TOP DAILY PRN PRN Reason: Other Nystatin (Nystatin Crm) 0 gm TOP BID PRN PRN Reason: Rash Ondansetron HCl (Zofran) 4 mg IV Q4H PRN PRN Reason: Nausea/Vomiting Last Admin: 12/21/17 13:47 Dose: 4 mg Pantoprazole Sodium (Protonix) 40 mg PO ACBREAKFAST [facility] Last Admin: 12/23/17 07:54 Dose: 40 mg Petrolatum (Vaseline) 0 gm TOP DAILY PRN PRN Reason: Dryness Sodium Chloride (Saline Flush) 10 ml FLUSH ASDIRECTED PRN PRN Reason: Keep Vein Open Last Admin: 12/21/17 12:27 Dose: 10 ml Discontinued Medications Albuterol/Ipratropium (Duoneb 3.0-0.5 Mg/3 Ml) 3 ml NEB ONETIME ONE Stop: 12/21/17 10:25 Last Admin: 12/21/17 10:47 Dose: 3 ml Lactated Ringer's (Ringers, Lactated) 1,000 mls @ 125 mls/hr IV ASDIRECTED [facility] Last Admin: 12/23/17 07:37 Dose: 125 mls/hr Levofloxacin/Dextrose 500 mg/ (Premix) 100 mls @ 100 mls/hr IV Q24H [facility] Last Admin: 12/21/17 12:14 Dose: 100 mls/hr Clindamycin Phosphate 600 mg/ (Dextrose/Water) 54 mls @ 150 mls/hr IV Q8H [facility] Last Admin: 12/21/17 23:34 Dose: Not Given Clindamycin Phosphate 600 mg/ (Sodium Chloride) 54 mls @ 162 mls/hr IV Q8H [facility] Last Admin: 12/21/17 23:36 Dose: Not Given Clindamycin in 0.9 % Sod Chlor (Cleocin In Ns) 600 mg in 50 mls @ 100 mls/hr IV Q8H [facility] Last Admin: 12/22/17 06:07 Dose: 100 mls/hr - Exam General: Alert HEENT: Pupils Equal Lungs: Clear to Auscultation Cardiovascular: Regular Rate - Problem List & Annotations (1) Hypoxia SNOMED Code(s): 762807422 Code(s): R09.02 - HYPOXEMIA Status: Acute Current Visit: Yes (2) Pneumonia SNOMED Code(s): 493566790 Code(s): J18.9 - PNEUMONIA, UNSPECIFIED ORGANISM Status: Acute Current Visit: Yes Qualifiers: Pneumonia type: aspiration pneumonia Laterality: left Lung location: lower lobe of lung (3) Dehydration SNOMED Code(s): 73936972 Code(s): E86.0 - DEHYDRATION Status: Acute Current Visit: No (4) Palliative care status SNOMED Code(s): 336752554 Code(s): Z51.5 - ENCOUNTER FOR PALLIATIVE CARE Status: Acute Current Visit: No (5) Hypothyroidism SNOMED Code(s): 23570169 Code(s): E03.9 - HYPOTHYROIDISM, UNSPECIFIED Status: Chronic Current Visit: No Annotation/Comment:: Stable (6) Intermittent explosive disorder SNOMED Code(s): 78213475 Code(s): EZB5407 - Status: Chronic Current Visit: No (7) Mental retardation SNOMED Code(s): 50881446 Code(s): F79 - UNSPECIFIED INTELLECTUAL DISABILITIES Status: Chronic Current Visit: No (8) Parkinson's disease SNOMED Code(s): 50226762 Code(s): G20 - PARKINSON'S DISEASE Status: Chronic Current Visit: No (9) Seizure disorder SNOMED Code(s): 098997951 Code(s): G40.909 - EPILEPSY, UNSP, NOT INTRACTABLE, WITHOUT STATUS EPILEPTICUS Status: Chronic Current Visit: No (10) GERD (gastroesophageal reflux disease) SNOMED Code(s): 134487151 Code(s): K21.9 - GASTRO-ESOPHAGEAL REFLUX DISEASE WITHOUT ESOPHAGITIS Status: Acute Current Visit: Yes Qualifiers: Esophagitis presence: esophagitis presence not specified Qualified Code(s) : K21.9 - Gastro-esophageal reflux disease without esophagitis - Problem List Review Problem List Initiated/Reviewed/Updated: Yes - My Orders Last 24 Hours: My Active Orders 12/22/17 09:00 Ampicillin/Sulbactam Na [Unasyn] 3 gm Sodium Chloride 0.9% [Normal Saline] 100 ml IV Q6H Multivitamins,Therapeutic [Thera] 1 each PO DAILY 12/23/17 Lunch Pureed Diet [DIET] 12/24/17 05:11 BASIC METABOLIC PANEL,BMP [CHEM] AM CBC WITH AUTO DIFF [HEME] AM - Plan Plan:: No evidence d-dimer was negative. She has shown marked improvement with Unasyn. I will discontinue IV fluids and encourage and advance her pured diet- usual diet. I plan for discharge tomorrow ,on Augmentin.
[2017-12-23] MEDS: Divalproex Sodium Delayed-Release 125 MG Cap.Sprink PO SCH ×4 (09:13→20:41)
[2017-12-23] MEDS: Carbidopa/Levodopa 25-100 MG Tab PO SCH ×4 (09:16→20:41)
[2017-12-23] MEDS: Levothyroxine 75 MCG Tab PO SCH (20:41)
[2017-12-23] MEDS: Sodium Chloride 0.9% 10 ML Syringe FLUSH PRN ×2 (20:52→22:00)
[2017-12-24] MEDS: Sodium Chloride 0.9% 10 ML Syringe FLUSH PRN ×4 (02:20→10:11)
[2017-12-24] MEDS: Ampicillin/Sulbactam Na 3 GM in Sodium Chloride 0.9% 100 ML IV SCH ×2 (03:09→08:51)
[2017-12-24 07:20] VITALS: BP 152/62
[2017-12-24] MEDS: Pantoprazole 40 MG Tab.CR PO SCH (07:36)
[2017-12-24] MEDS: Divalproex Sodium Delayed-Release 125 MG Cap.Sprink PO SCH (08:51)
[2017-12-24] MEDS: Carbidopa/Levodopa 25-100 MG Tab PO SCH (08:52)
--- NOTE | 2017-12-24 09:29 | PCM.PN ---
- General Info Date of Service: 12/24/17 Subjective Update: Patient is much better today she is off oxygen and Back to her baseline, in terms of mental status. There has been no reported fever, vomiting or aspiration Functional Status: Reports: Pain Controlled, Tolerating Diet - Review of Systems HEENT: Reports: Post Nasal Drip Pulmonary: Reports: No Symptoms Cardiovascular: Reports: No Symptoms - Patient Data Vitals - Most Recent: Last Vital Signs Temp 99.4 F 12/24/17 07:19 Pulse 76 12/24/17 07:19 Resp 20 12/24/17 07:19 BP 152/62 H 12/24/17 07:19 Pulse Ox 95 12/24/17 07:19 Weight - Most Recent: 50.122 kg I&O - Last 24 Hours: Intake & Output 12/23/17 12/24/17 12/24/17 22:59 06:59 14:59 Intake Total 221 100 Balance 221 100 Lab Results Last 24 Hours: Laboratory Results - last 24 hr 12/24/17 12/24/17 Range/Units 05:50 05:50 WBC 9.8 (4.5-12.0) X10-3/uL RBC 3.59 (3.23-5.20) x10(6)uL Hgb 11.0 L (11.5-15.5) g/dL Hct 33.0 (30.0-51.3) % MCV 91.8 (80-96) fL MCH 30.7 (27.7-33.6) pg MCHC 33.5 (32.2-35.4) g/dL RDW 14.5 (11.5-15.5) % Plt Count 157 (125-369) X10(3)uL MPV 8.7 (7.4-10.4) fL Neut % (Auto) 68.2 (46-82) % Lymph % (Auto) 21.9 (13-37) % [place] % (Auto) 8.8 (4-12) % Eos % (Auto) 1 (1.0-5.0) % Baso % (Auto) 1 (0-2) % Neut # (Auto) 6.6 (1.6-8.3) # Lymph # (Auto) 2.2 (0.6-5.0) # [place] # (Auto) 0.9 (0.0-1.3) # Eos # (Auto) 0.0 (0.0-0.8) # Baso # (Auto) 0.1 (0.0-0.2) # Sodium 142 (135-145) mmol/L Potassium 3.5 (3.5-5.3) mmol/L Chloride 104 (100-110) mmol/L Carbon Dioxide 32 (21-32) mmol/L BUN 13 D (7-18) mg/dL Creatinine 0.5 L (0.55-1.02) mg/dL Est Cr Clr Drug Dosing 87.74 mL/min Estimated GFR (MDRD) > 60 (>60) BUN/Creatinine Ratio 26.0 H (9-20) Glucose 88 (80-116) mg/dL Calcium 8.8 (8.6-10.2) mg/dL Med Orders - Current: Current Medications Acetaminophen (Tylenol) 650 mg PO Q4H PRN PRN Reason: fever >100.4F; discomfort Albuterol/Ipratropium (Duoneb 3.0-0.5 Mg/3 Ml) 3 ml INH ONETIME PRN PRN Reason: Shortness Of Breath/wheezing Last Admin: 12/22/17 08:24 Dose: 3 ml Carbidopa/Levodopa (Sinemet 25-100 Mg) 2.5 tab PO QID [facility] Last Admin: 12/24/17 08:52 Dose: 2.5 tab Divalproex Sodium (Depakote Sprinkle) 375 mg PO QID [facility] Last Admin: 12/24/17 08:51 Dose: 375 mg Docusate Sodium (Colace) 100 mg PO BID PRN PRN Reason: Constipation Ampicillin Sodium/Sulbactam (Sodium 3 gm/ Sodium Chloride) 100 mls @ 100 mls/ hr IV Q6H [facility] Last Admin: 12/24/17 08:51 Dose: 100 mls/hr Levothyroxine Sodium (Levothyroxine) 75 mcg PO BEDTIME [facility] Last Admin: 12/23/17 20:41 Dose: 75 mcg Multivitamins (Thera) 1 each PO DAILY [facility] Last Admin: 12/22/17 10:10 Dose: 1 each Nystatin (Nystatin Crm) 0 gm TOP BID PRN PRN Reason: Rash Ondansetron HCl (Zofran) 4 mg IV Q4H PRN PRN Reason: Nausea/Vomiting Last Admin: 12/21/17 13:47 Dose: 4 mg Pantoprazole Sodium (Protonix) 40 mg PO ACBREAKFAST [facility] Last Admin: 12/24/17 07:36 Dose: 40 mg Petrolatum (Vaseline) 0 gm TOP DAILY PRN PRN Reason: Dryness Sodium Chloride (Saline Flush) 10 ml FLUSH ASDIRECTED PRN PRN Reason: Keep Vein Open Last Admin: 12/24/17 04:20 Dose: 10 ml Discontinued Medications Albuterol/Ipratropium (Duoneb 3.0-0.5 Mg/3 Ml) 3 ml NEB ONETIME ONE Stop: 12/21/17 10:25 Last Admin: 12/21/17 10:47 Dose: 3 ml Lactated Ringer's (Ringers, Lactated) 1,000 mls @ 125 mls/hr IV ASDIRECTED [facility] Last Admin: 12/23/17 07:37 Dose: 125 mls/hr Levofloxacin/Dextrose 500 mg/ (Premix) 100 mls @ 100 mls/hr IV Q24H [facility] Last Admin: 12/21/17 12:14 Dose: 100 mls/hr Clindamycin Phosphate 600 mg/ (Dextrose/Water) 54 mls @ 150 mls/hr IV Q8H [facility] Last Admin: 12/21/17 23:34 Dose: Not Given Clindamycin Phosphate 600 mg/ (Sodium Chloride) 54 mls @ 162 mls/hr IV Q8H [facility] Last Admin: 12/21/17 23:36 Dose: Not Given Clindamycin in 0.9 % Sod Chlor (Cleocin In Ns) 600 mg in 50 mls @ 100 mls/hr IV Q8H [facility] Last Admin: 12/22/17 06:07 Dose: 100 mls/hr Non-Formulary Medication (Petrolatum,White/Zinc Oxide [Sensi-Care Protective Ointment]) 1 applic TOP DAILY PRN PRN Reason: Other - Exam Quality Assessment: No: Supplemental Oxygen General: Alert Lungs: Clear to Auscultation Cardiovascular: Regular Rate - Problem List & Annotations (1) Hypoxia SNOMED Code(s): 039928756 Code(s): R09.02 - HYPOXEMIA Status: Acute Current Visit: Yes (2) Pneumonia SNOMED Code(s): 750059538 Code(s): J18.9 - PNEUMONIA, UNSPECIFIED ORGANISM Status: Acute Current Visit: Yes Qualifiers: Pneumonia type: aspiration pneumonia Laterality: left Lung location: lower lobe of lung (3) Dehydration SNOMED Code(s): 33161397 Code(s): E86.0 - DEHYDRATION Status: Acute Current Visit: No (4) Palliative care status SNOMED Code(s): 516389766 Code(s): Z51.5 - ENCOUNTER FOR PALLIATIVE CARE Status: Acute Current Visit: No (5) Hypothyroidism SNOMED Code(s): 18424644 Code(s): E03.9 - HYPOTHYROIDISM, UNSPECIFIED Status: Chronic Current Visit: No Annotation/Comment:: Stable (6) Intermittent explosive disorder SNOMED Code(s): 51018425 Code(s): JAV3561 - Status: Chronic Current Visit: No (7) Mental retardation SNOMED Code(s): 66407173 Code(s): F79 - UNSPECIFIED INTELLECTUAL DISABILITIES Status: Chronic Current Visit: No (8) Parkinson's disease SNOMED Code(s): 64023662 Code(s): G20 - PARKINSON'S DISEASE Status: Chronic Current Visit: No (9) Seizure disorder SNOMED Code(s): 521135173 Code(s): G40.909 - EPILEPSY, UNSP, NOT INTRACTABLE, WITHOUT STATUS EPILEPTICUS Status: Chronic Current Visit: No (10) GERD (gastroesophageal reflux disease) SNOMED Code(s): 387025715 Code(s): K21.9 - GASTRO-ESOPHAGEAL REFLUX DISEASE WITHOUT ESOPHAGITIS Status: Acute Current Visit: Yes Qualifiers: Esophagitis presence: esophagitis presence not specified Qualified Code(s) : K21.9 - Gastro-esophageal reflux disease without esophagitis - Problem List Review Problem List Initiated/Reviewed/Updated: Yes - My Orders Last 24 Hours: My Active Orders 12/23/17 Lunch Pureed Diet [DIET] - Plan Plan:: Sodium has gone up to 150 I believe it's probably due to the normal saline and given when she first came in. I plan to discharge her home on Augmentin. F/U In the office within 1 week of discharge
--- NOTE | 2017-12-24 11:58 | DISCH ---
DISCHARGE DATE: 12/24/2017 REASON FOR ADMISSION: 1. Aspiration pneumonia. 2. Dehydration. 3. Mental retardation. 4. Hypothyroidism. 5. Parkinson disease. 6. GERD. 7. Seizure disorder. 8. Intermittent explosive disorder. DISCHARGE DIAGNOSES: 1. Aspiration pneumonia. 2. Dehydration. 3. Mental retardation. 4. Hypothyroidism. 5. Parkinson disease. 6. Gastroesophageal reflux disease. 7. Seizure disorder. 8. Intermittent explosive disorder. CONSULTATIONS: None. BRIEF HISTORY: This is a 62-year-old female who was admitted from the senior care because of hypoxia, cough, and initial white cell count of 16.4. A chest x- ray was suggestive of pneumonia. She was admitted initially on clindamycin and Rocephin, but later changed to Unasyn. She did very well. She was n.p.o. initially and also given IV fluids. She improved and was off oxygen 24 to 48 hours before discharge back to her baseline. She went home on Augmentin 875 mg b.i.d. for 1 week and will continue the regular home medications, none was changed. FOLLOWUP: Will see a physician in 1 week. Please note that I spent more than 35 minutes in the discharge of this patient. /[id number] JELLY/LANEY
== END 2017-12-24 11:10 | disposition home health service (06) | DRG 178 ==
LOC: FB.ED 10:05 → FB.MS 11:25
PROVIDERS: ADMIT Family Medicine; ATTEND Family Medicine
DX: J18.9 Pneumonia, unspecified organism (principal); J69.0 Pneumonitis due to inhalation of food and vomit; F72 Severe intellectual disabilities; E86.0 Dehydration; G20 Parkinson's disease; E03.9 Hypothyroidism, unspecified; Z66 Do not resuscitate; Z51.5 Encounter for palliative care; G40.909 Epilepsy, unspecified, not intractable, without status epilepticus; R06.02 Shortness of breath; F63.81 Intermittent explosive disorder; R50.9 Fever, unspecified; R09.02 Hypoxemia; Z87.440 Personal history of urinary (tract) infections; K21.9 Gastro-esophageal reflux disease without esophagitis; Z87.01 Personal history of pneumonia (recurrent)
CPT/HCPCS: 36415; 71045; 80048; 83605; 83880; 85025; 87040 ×2; 94640; 99283; J7620; 80053; 85379; 87804; A9270-GY; J0295; J1956; J2405; J3490; J7030; J7050; J7120

== ENCOUNTER 2018-11-30 15:50 | Inpatient (IN) | payer MEDICARE, MEDICAID ==
[2018-11-30] MEDS ORDERED: Acetaminophen 325 MG Tab PO PRN (15:54)
[2018-11-30] MEDS: Albuterol/Ipratropium 3.0-0.5 MG/3 ML Neb Soln NEB SCH ×2 (17:14→20:47)
--- NOTE | 2018-11-30 17:22 | PCM.HP ---
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 Over the last 5 days staff reported increasing shortness of breath, phlegm, and low- grade fevers. She normally uses oxygen at night but her sats have decreased during the day to where she is needed oxygen during the day as well. She has a history of recurrent aspiration pneumonia and was last hospitalized in August 2018 at which time she was treated with Levaquin. She's been more quiet making less noise and not eating well. When she presented to the clinic this morning she was evaluated and at that time mildly hypoxic on room air 88%. She had diminished lung sounds throughout and rhonchi on the left. She was given a prescription for oral Levaquin and sent home but this afternoon the provider was contacted saying that the patient's oxygenation had continued to decline and she was not taking by mouth intake and at that point I was contacted to admit the patient is a direct admission. The patient is DNR/comfort cares and no intubation per [facility] Code Status documentation. Past medical history: #1 history of recurrent aspiration pneumonia, most recent hospitalization in August 2018 here and treated with Levaquin #2 hypoxia nocturnally on oxygen 2 L #3 hypothyroidism #4 profound intellectual disability with mental retardation. #5 chronic gingivitis #6 parkinsonism #7 gastroesophageal reflux and history of peptic ulcer disease #8 history of seizures Social history: Patient is a nonsmoker, no alcohol use. She lives at a [facility]. Her primary care provider Kanwal Bacon from [facility]. Family history: Unable to be obtained as patient is nonverbal. She has a brother who is her power of energy attorney. - Related Data Allergies/Adverse Reactions: Allergies Allergy/AdvReac Type Severity Reaction Status Date / Time No Known Allergies Allergy Verified 09/04/18 21:02 Home Medications: Home Meds Divalproex Sodium [Depakote Sprinkle] 375 mg PO QID 12/11/15 [History] Levothyroxine 75 mcg PO BEDTIME 12/11/15 [History] Multivitamins with Iron [Daily Nery with Iron] 1 tab PO DAILY 12/11/15 [History] Omeprazole 20 mg PO ACBREAKFAST 12/11/15 [History] Vitamin E 400 units PO DAILY 12/11/15 [History] Carbidopa/Levodopa [Carbidopa-Levodopa 25-100 Tab] 2.5 tab PO QID 02/04/16 [ History] Nystatin [Nystatin Crm] 1 applic TOP DAILY 09/28/17 [History] Petrolatum,White/Zinc Oxide [Sensi-Care Protective Ointment] 1 applic TOP DAILY PRN 12/21/17 [History] Mirtazapine 7.5 mg PO QPM 09/05/18 [History] Polyethylene Glycol 3350 [Laxaclear] 17 gm PO DAILY 09/05/18 [History] Sennosides/Docusate Sodium [Senna Laxative Tablet] 1 tab PO DAILY 09/05/18 [ History] clonazePAM [Clonazepam] 1 mg PO BEDTIME 09/05/18 [History] Levofloxacin [Levaquin] 750 mg PO DAILY #5 tablet 09/07/18 [Rx] Past Medical History HEENT History: Reports: Cataract, Other (See Below) Other HEENT History: Functionally blind with cataracts, mild perioral dematitis , gingivitis. Cardiovascular History: Reports: Other (See Below) Other Cardiovascular History: Stasis Edema/Legs Respiratory History: Reports: Pneumonia, Recurrent, Other (See Below) Other Respiratory History: History of aspiration pneumonia. Gastrointestinal History: Reports: GERD, Other (See Below) Other Gastrointestinal History: History of positive stool guaiac, septic shock, possible small bowl obstruction, GI bleed, mild duodenitis, possible small bowel obstruction. Genitourinary History: Reports: Urinary Incontinence, UTI, Recurrent [employer] History: Reports: Other (See Below) Other OB/BYN History: Post Menopausal Musculoskeletal History: Reports: Other (See Below) Other Musculoskeletal History: Kyphoscoliosis, Right Thoracic Scoliosis, 1/4 Inch Right Leg Discrepency, Mild Pes Planus, Progressive Flexic C-Spine, Flexic contractures of hands and feet, S/O left hand fracture Neurological History: Reports: Seizure Psychiatric History: Reports: Other (See Below) Other Psychiatric History: Profound ID, disruptive D/O, Organic Affective D/O, Sleep/Wake D/O, Complex Partial Seizure D/O, Mild Microcephaly Endocrine/Metabolic History: Reports: Hypothyroidism Hematologic History: Reports: None Other Hematologic History: Mild leukocytosis. Dermatologic History: Reports: Other (See Below) Other Dermatologic History: Seborrheic Keratosis Right Cheek, Acne - Infectious Disease History Infectious Disease History: Reports: Other (See Below) Other Infectious Disease History: care advocate does not have this info - Past Surgical History HEENT Surgical History: Reports: Oral Surgery, Other (See Below) Social & Family History - Family History Family Medical History: Unobtainable HEENT: Reports: None Cardiac: Reports: None Respiratory: Reports: None GI: Reports: None : Reports: None OBGYN: Reports: None Musculoskeletal: Reports: None Neurological: Reports: None Psychiatric: Reports: Learning Disability, Other (See Below) Other Psychiatric Family History: SEIZURE DISORDER Endocrine/Metabolic: Reports: Hypothyroidism Hematologic: Reports: None Immunologic: Reports: None Dermatologic: Reports: None Other Dermatologic Family History: home resident, nonverbalgroup Oncologic: Reports: None - Caffeine Use Caffeine Use: Reports: None H&P Review of Systems - Review of Systems: Review Of Systems: ROS reveals no pertinent complaints other than HPI. Exam - Exam Exam: See Below - Exam General: Lethargic HEENT: PERRLA, EACs Clear, TMs Clear, Other (Unable to examine oropharynx. Large protruberant tongue.) Neck: Supple Lungs: Decreased Breath Sounds, Crackles, Rhonchi, Wheezing (has crackles in the right base and fine expiratory wheezing.) Cardiovascular: Regular Rate, Regular Rhythm, Normal S1, Normal S2 GI/Abdominal Exam: Normal Bowel Sounds, Soft, Non-Tender, No Distention Extremities: No Pedal Edema - Patient Data Lab Results Last 24 hrs: Labs are pending at this time. Result Diagrams: 11/30/18 17:15 11/30/18 17:15 Imaging Impressions Last 24 hrs: Chest x-ray to my reading shows a right lower lobe infiltrate, no evidence of fluid overload. - Problem List (1) Right lower lobe pneumonia SNOMED Code(s): 158238500 ICD Code: J18.1 - LOBAR PNEUMONIA, UNSPECIFIED ORGANISM Status: Acute Current Visit: Yes Problem Details: Likely aspiration given the patient's history. We'll start Zosyn IV. Continue aspiration precautions. DuoNeb's 4 times a day. (2) Hypothyroidism SNOMED Code(s): 69792866 ICD Code: E03.9 - HYPOTHYROIDISM, UNSPECIFIED Status: Chronic Current Visit: No Problem Details: Continue home meds. (3) Mental retardation SNOMED Code(s): 192558858 ICD Code: F79 - UNSPECIFIED INTELLECTUAL DISABILITIES Status: Chronic Current Visit: No Problem Details: Precautions. (4) Seizure disorder SNOMED Code(s): 575163968 ICD Code: G40.909 - EPILEPSY, UNSP, NOT INTRACTABLE, WITHOUT STATUS EPILEPTICUS Status: Chronic Current Visit: No Problem Details: Continue home meds. (5) DVT prophylaxis SNOMED Code(s): 788100556, 792040857 ICD Code: [id number] - Status: Acute Current Visit: Yes Problem Details: SCDs, lovenox. (6) Hyponatremia SNOMED Code(s): 38700122 ICD Code: E87.1 - HYPO-OSMOLALITY AND HYPONATREMIA Status: Acute Current Visit: Yes Problem Details: Unknown if acute or chronic. Gentle fluid resuscitation and recheck at midnight for adjustment of fluids. Problem List Initiated/Reviewed/Updated: Yes Orders Last 24hrs: Active Orders 24 hr Category Date Time Status Patient Status [ADT] Routine ADT 11/30/18 15:54 Active Height and Weight [RC] DAILY Care 11/30/18 15:54 Active Intake and Output [RC] QSHIFT Care 11/30/18 15:55 Active Notify Provider Vital Signs [RC] ASDIRECTED Care 11/30/18 15:55 Active Oxygen Therapy [RC] PRN Care 11/30/18 15:54 Active RT Aerosol Therapy [RC] ASDIRECTED Care 11/30/18 15:57 Active Up With Assistance [RC] ASDIRECTED Care 11/30/18 15:54 Active VTE/DVT Education [RC] Per Unit Routine Care 11/30/18 15:54 Active Vital Signs [RC] Q4H Care 11/30/18 15:54 Active Respiratory Care Assess and Treatment [CONS] Routine Cons 11/30/18 15:54 Active Chest 2V [CR] Stat Exams 11/30/18 15:54 Taken CBC WITH AUTO DIFF [HEME] Stat Lab 11/30/18 Ordered COMPREHENSIVE METABOLIC PN,CMP [CHEM] Stat Lab 11/30/18 Ordered Acetaminophen [Tylenol] Med 11/30/18 15:54 Active 650 mg PO Q4H PRN Albuterol/Ipratropium [DuoNeb 3.0-0.5 MG/3 ML] Med 11/30/18 16:00 Active 3 ml NEB QIDRT Enoxaparin [Lovenox] Med 11/30/18 16:15 Ordered 40 mg SUBCUT Q24H Piperacillin/Tazobactam [Zosyn] 3.375 gm Med 11/30/18 17:15 Ordered Sodium Chloride 0.9% [Normal Saline] 50 ml IV Q6H Saccharomyces Boulardii [Florastor] Med 11/30/18 21:00 Ordered 250 mg PO BID Sodium Chloride 0.9% [Saline Flush] Med 11/30/18 15:54 Active 10 ml FLUSH ASDIRECTED PRN Antiembolic Hose [OM.PC] Per Unit Routine Oth 11/30/18 15:56 Ordered Peripheral IV Insertion Adult [OM.PC] Routine Oth 11/30/18 15:54 Ordered Sequential Compression Device [OM.PC] Per Unit Routine Oth 11/30/18 15:56 Ordered Resuscitation Status Routine Resus Stat 11/30/18 15:54 Ordered Medication Orders Acetaminophen (Tylenol) 650 mg PO Q4H PRN PRN Reason: Pain (Mild 1-3)/fever Albuterol/Ipratropium (Duoneb 3.0-0.5 Mg/3 Ml) 3 ml NEB QIDRT [facility] Last Admin: 11/30/18 17:14 Dose: 3 ml Enoxaparin Sodium (Lovenox) 40 mg SUBCUT Q24H [facility] Piperacillin Sod/Tazobactam (Sod 3.375 gm/ Sodium Chloride) 50 mls @ 100 mls/ hr IV Q6H [facility] Saccharomyces Boulardii (Florastor) 250 mg PO BID [facility] Sodium Chloride (Saline Flush) 10 ml FLUSH ASDIRECTED PRN PRN Reason: Keep Vein Open Assessment/Plan Comment:: Per previously signed Code Status papers, DNR/Comfort measures. No intubation, no central lines, no pressors.
[2018-11-30] MEDS ORDERED: Sodium Chloride 0.9% 1,000 ML IV SCH (17:45)
[2018-11-30] MEDS: Piperacillin/Tazobactam 3.375 GM in Sodium Chloride 0.9% 50 ML IV SCH (18:00)
[2018-11-30] MEDS: Saccharomyces Boulardii (Probiotic) 250 MG Cap PO SCH (20:47)
[2018-11-30] MEDS: Enoxaparin 40 MG/0.4 ML Syringe SUBCUT SCH (20:47)
[2018-11-30] MEDS: Divalproex Sodium Delayed-Release 125 MG Cap.Sprink PO SCH (20:47)
[2018-11-30] MEDS: Carbidopa/Levodopa 25-100 MG Tab PO SCH (20:48)
[2018-11-30] MEDS: Levothyroxine 75 MCG Tab PO SCH (20:48)
[2018-11-30] MEDS: ClonazePAM 1 MG Tab PO SCH (20:48)
[2018-12-01] MEDS: Piperacillin/Tazobactam 3.375 GM in Sodium Chloride 0.9% 50 ML IV SCH ×5 (00:52→23:59)
[2018-12-01] MEDS: Albuterol/Ipratropium 3.0-0.5 MG/3 ML Neb Soln NEB SCH ×4 (07:07→20:13)
--- NOTE | 2018-12-01 08:43 | CR ---
INDICATION: Short of breath. CHEST TWO VIEWS: Frontal and lateral views of the chest were obtained 11/30/18 and compared with 12/21/17 and 10/13/17. The heart appears prominently but not grossly enlarged. There appears to be central infiltration which may be on the basis of acute pulmonary edema in a patient with CHF, as the pulmonary vasculature in the upper lung barbosa are slightly prominent. Findings may also be at least partly on the basis of aspiration pneumonia with some denser infiltrate and/or atelectasis at the right lower lung field. Linear atelectatic change and/or fibrosis is also seen at the left lower lobe. Dextroconvex scoliosis moderately severe is noted in the thoracic spine. Calcification is noted in the arch of the aorta. IMPRESSION: Cannot exclude pulmonary vascular congestion compatible with pulmonary edema. Pneumonia possibly due to aspiration would also be a consideration with this appearance as the findings are asymmetrical--more prominent on the right than left. Somewhat prominent upper lung field pulmonary vasculature does suggest pulmonary vascular congestion. MTDD
--- NOTE | 2018-12-01 10:45 | PCM.PN ---
- General Info Date of Service: 12/01/18 Subjective Update: Patient is a 63-year-old female from a local [place] [facility] with moderate mental retardation who is nonverbal currently on HD#2 for aspiration pneumonia and moderate hyponatremia. Responding well to Zosyn. Afebrile overnight. Vital signs been stable. White count trending down this morning. She's not had any cough. Very drowsy this morning but sounds like she doesn't normally get up this early at the [place] [facility]. Nonverbal so review of systems unable to be obtained from patient. Sodium 1 up from 123-127 at midnight and now is 126. IV fluids were locked this morning. - Patient Data Vitals - Most Recent: Last Vital Signs Temp 37.1 C 12/01/18 07:20 Pulse 90 12/01/18 07:20 Resp 20 12/01/18 07:20 BP 119/79 12/01/18 07:20 Pulse Ox 93 L 12/01/18 07:20 Weight - Most Recent: 61.416 kg I&O - Last 24 Hours: Intake & Output 11/30/18 12/01/18 12/01/18 22:59 06:59 14:59 Intake Total 467 863 80 Output Total 0 Balance 467 863 80 Lab Results Last 24 Hours: Laboratory Results - last 24 hr 11/30/18 11/30/18 12/01/18 Range/Units 17:15 17:15 00:20 WBC 16.9 H (4.5-12.0) X10-3/uL RBC 4.56 (3.23-5.20) x10(6)uL Hgb 13.6 (11.5-15.5) g/dL Hct 40.2 (30.0-51.3) % MCV 88.2 (80-96) fL MCH 29.7 (27.7-33.6) pg MCHC 33.7 (32.2-35.4) g/dL RDW 14.3 (11.5-15.5) % Plt Count 199 (125-369) X10(3)uL MPV 8.1 (7.4-10.4) fL Neut % (Auto) (46-82) % Lymph % (Auto) (13-37) % [place] % (Auto) (4-12) % Eos % (Auto) (1.0-5.0) % Baso % (Auto) (0-2) % Neut # (Auto) (1.6-8.3) # Lymph # (Auto) (0.6-5.0) # [place] # (Auto) (0.0-1.3) # Eos # (Auto) (0.0-0.8) # Baso # (Auto) (0.0-0.2) # Add Manual Diff Yes Neutrophils % (Manual) 82 (46-82) % Band Neutrophils % 2 (0-6) % Lymphocytes % (Manual) 8 L (13-37) % Monocytes % (Manual) 8 (4-12) % Sodium 123 L 127 L (135-145) mmol/L Potassium 3.9 (3.5-5.3) mmol/L Chloride 83 L* D (100-110) mmol/L Carbon Dioxide 32 (21-32) mmol/L BUN 18 (7-18) mg/dL Creatinine 0.6 (0.55-1.02) mg/dL Est Cr Clr Drug Dosing TNP Estimated GFR (MDRD) > 60 (>60) BUN/Creatinine Ratio 30.0 H (9-20) Glucose 85 (80-116) mg/dL Calcium 9.7 (8.6-10.2) mg/dL Total Bilirubin 0.3 (0.1-1.3) mg/dL AST 45 H D (5-25) IU/L ALT 14 D (12-36) U/L Alkaline Phosphatase 140 H (56-112) IU/L Total Protein 8.5 H (6.0-8.0) g/dL Albumin 2.7 L (3.2-4.6) g/dL Globulin 5.8 g/dL Albumin/Globulin Ratio 0.5 12/01/18 12/01/18 Range/Units 07:40 07:40 WBC 14.5 H (4.5-12.0) X10-3/uL RBC 4.20 (3.23-5.20) x10(6)uL Hgb 12.4 (11.5-15.5) g/dL Hct 37.8 (30.0-51.3) % MCV 90.0 (80-96) fL MCH 29.6 (27.7-33.6) pg MCHC 32.9 (32.2-35.4) g/dL RDW 14.6 (11.5-15.5) % Plt Count 209 (125-369) X10(3)uL MPV 7.8 (7.4-10.4) fL Neut % (Auto) 86.0 H (46-82) % Lymph % (Auto) 5.4 L (13-37) % [place] % (Auto) 8.5 (4-12) % Eos % (Auto) 0 L (1.0-5.0) % Baso % (Auto) 0 (0-2) % Neut # (Auto) 12.5 H (1.6-8.3) # Lymph # (Auto) 0.8 (0.6-5.0) # Sol[place] # (Auto) 1.2 (0.0-1.3) # Eos # (Auto) 0.0 (0.0-0.8) # Baso # (Auto) 0.0 (0.0-0.2) # Add Manual Diff Neutrophils % (Manual) (46-82) % Band Neutrophils % (0-6) % Lymphocytes % (Manual) (13-37) % Monocytes % (Manual) (4-12) % Sodium 126 L (135-145) mmol/L Potassium 4.3 (3.5-5.3) mmol/L Chloride 90 L D (100-110) mmol/L Carbon Dioxide 31 (21-32) mmol/L BUN 13 (7-18) mg/dL Creatinine 0.5 L (0.55-1.02) mg/dL Est Cr Clr Drug Dosing 94.03 Estimated GFR (MDRD) > 60 (>60) BUN/Creatinine Ratio 26.0 H (9-20) Glucose 91 (80-116) mg/dL Calcium 9.0 (8.6-10.2) mg/dL Total Bilirubin 0.3 (0.1-1.3) mg/dL AST 33 H D (5-25) IU/L ALT 10 L D (12-36) U/L Alkaline Phosphatase 116 H (56-112) IU/L Total Protein 7.2 (6.0-8.0) g/dL Albumin 2.2 L (3.2-4.6) g/dL Globulin 5.0 g/dL Albumin/Globulin Ratio 0.4 Med Orders - Current: Current Medications Acetaminophen (Tylenol) 650 mg PO Q4H PRN PRN Reason: Pain (Mild 1-3)/fever Albuterol/Ipratropium (Duoneb 3.0-0.5 Mg/3 Ml) 3 ml NEB QIDRT [facility] Last Admin: 12/01/18 07:07 Dose: 3 ml Carbidopa/Levodopa (Sinemet 25-100 Mg) 2.5 tab PO QID [facility] Last Admin: 11/30/18 20:48 Dose: 2.5 tab Clonazepam (Klonopin) 1 mg PO BEDTIME [facility] Last Admin: 11/30/18 20:48 Dose: 1 mg Divalproex Sodium (Depakote Sprinkle) 375 mg PO QID [facility] Last Admin: 11/30/18 20:47 Dose: 375 mg Enoxaparin Sodium (Lovenox) 40 mg SUBCUT Q24H [facility] Last Admin: 11/30/18 20:47 Dose: 40 mg Piperacillin Sod/Tazobactam (Sod 3.375 gm/ Sodium Chloride) 50 mls @ 100 mls/ hr IV Q6H [facility] Last Admin: 12/01/18 05:27 Dose: 100 mls/hr Sodium Chloride (Normal Saline) 1,000 mls @ 100 mls/hr IV ASDIRECTED [facility] Last Admin: 12/01/18 04:14 Dose: 100 mls/hr Sodium Chloride (Normal Saline) 1,000 mls @ 50 mls/hr IV ASDIRECTED [facility] Levothyroxine Sodium (Levothyroxine) 75 mcg PO BEDTIME [facility] Last Admin: 11/30/18 20:48 Dose: 75 mcg Mirtazapine (Remeron) 7.5 mg PO QPM [facility] Pantoprazole Sodium (Protonix) 40 mg PO ACBREAKFAST [facility] Polyethylene Glycol (Miralax) 17 gm PO DAILY [facility] Saccharomyces Boulardii (Florastor) 250 mg PO BID [facility] Last Admin: 11/30/18 20:47 Dose: 250 mg Senna/Docusate Sodium (Senna Plus) 1 tab PO DAILY [facility] Sodium Chloride (Saline Flush) 10 ml FLUSH ASDIRECTED PRN PRN Reason: Keep Vein Open - Exam General: Sedated HEENT: Pupils Equal, Pupils Reactive, EOMI Neck: Supple Lungs: Decreased Breath Sounds, Crackles (Improved from yesterday), Wheezing ( Occasional wheeze) Cardiovascular: Regular Rate, Regular Rhythm, No Murmurs GI/Abdominal Exam: Normal Bowel Sounds, Soft, Non-Tender, No Distention Extremities: No Pedal Edema - Problem List & Annotations (1) Right lower lobe pneumonia SNOMED Code(s): 532265300 Code(s): J18.1 - LOBAR PNEUMONIA, UNSPECIFIED ORGANISM Status: Acute Current Visit: Yes Annotation/Comment:: Likely aspiration given the patient's history. On Zosyn IV. Continue aspiration precautions. DuoNeb's 4 times a day. (2) Hyponatremia SNOMED Code(s): 15182929 Code(s): E87.1 - HYPO-OSMOLALITY AND HYPONATREMIA Status: Acute Current Visit: Yes Annotation/Comment:: Suspect secondary to hypovolemia. Patient's sodium up for over the last 12 hours. Restart IV fluids as the patient is not taking good by mouth intake at 50 mL per hour and recheck at 3 PM. (3) Hypothyroidism SNOMED Code(s): 92682969 Code(s): E03.9 - HYPOTHYROIDISM, UNSPECIFIED Status: Chronic Current Visit: No Annotation/Comment:: Continue home meds. (4) Mental retardation SNOMED Code(s): 274842899 Code(s): F79 - UNSPECIFIED INTELLECTUAL DISABILITIES Status: Chronic Current Visit: No Annotation/Comment:: Precautions. (5) Seizure disorder SNOMED Code(s): 838628292 Code(s): G40.909 - EPILEPSY, UNSP, NOT INTRACTABLE, WITHOUT STATUS EPILEPTICUS Status: Chronic Current Visit: No Annotation/Comment:: Continue home meds. (6) DVT prophylaxis SNOMED Code(s): 306534162, 834418299 Code(s): VJO7062 - Status: Acute Current Visit: Yes Annotation/Comment :: SCDs, lovenox. - Problem List Review Problem List Initiated/Reviewed/Updated: Yes - My Orders Last 24 Hours: My Active Orders 11/30/18 15:54 Patient Status [ADT] Routine Height and Weight [RC] 06 Oxygen Therapy [RC] PRN Up With Assistance [RC] ASDIRECTED Vital Signs [RC] 00,04,08,12,16,20 Respiratory Care Assess and Treatment [CONS] Routine Acetaminophen [Tylenol] 650 mg PO Q4H PRN Sodium Chloride 0.9% [Saline Flush] 10 ml FLUSH ASDIRECTED PRN Peripheral IV Insertion Adult [OM.PC] Routine Resuscitation Status Routine 11/30/18 15:55 Intake and Output [RC] 06,, Notify Provider Vital Signs [RC] ASDIRECTED 11/30/18 15:56 Antiembolic Hose [OM.PC] Per Unit Routine Sequential Compression Device [OM.PC] Per Unit Routine 11/30/18 15:57 RT Aerosol Therapy [RC] ASDIRECTED 11/30/18 16:00 Albuterol/Ipratropium [DuoNeb 3.0-0.5 MG/3 ML] 3 ml NEB QIDRT 11/30/18 17:45 Sodium Chloride 0.9% [Normal Saline] 1,000 ml IV ASDIRECTED 11/30/18 18:00 Piperacillin/Tazobactam [Zosyn] 3.375 gm Sodium Chloride 0.9% [Normal Saline] 50 ml IV Q6H 11/30/18 20:00 Enoxaparin [Lovenox] 40 mg SUBCUT Q24H 11/30/18 21:00 Carbidopa/Levodopa [Sinemet 25-100 mg] 2.5 tab PO QID ClonazePAM [KlonoPIN] 1 mg PO BEDTIME Divalproex Sodium [Depakote Sprinkle] 375 mg PO QID Levothyroxine 75 mcg PO BEDTIME Saccharomyces Boulardii [Florastor] 250 mg PO BID 12/01/18 07:30 Pantoprazole [ProTONIX] 40 mg PO ACBREAKFAST 12/01/18 09:00 Docusate Sodium/Sennosides [Senna Plus] 1 tab PO DAILY Polyethylene Glycol 3350 [MiraLAX] 17 gm PO DAILY 12/01/18 09:15 Sodium Chloride 0.9% [Normal Saline] 1,000 ml IV ASDIRECTED 12/01/18 17:00 Mirtazapine [Remeron] 7.5 mg PO QPM 12/01/18 Breakfast Pureed Diet [DIET] 12/01/18 Lunch Pureed Diet [DIET] - Plan Plan:: Per previously signed Code Status papers, DNR/Comfort measures. No intubation, no central lines, no pressors.
[2018-12-01] MEDS: Morphine 2 MG/ML Syringe IVPUSH PRN ×2 (11:35→12:35)
[2018-12-01] MEDS: Sodium Chloride 0.9% 10 ML Syringe FLUSH PRN ×4 (11:35→18:46)
--- NOTE | 2018-12-01 11:43 | CR ---
INDICATION: Short of breath, question aspiration. CHEST: AP upright view of the chest was obtained 12-01-18 and was compared with 11-30-18 and 12-21-17 again revealing infiltration bilaterally more prominently on the right with somewhat elevated right hemidiaphragm at least partly anatomic. Pneumonia and pleuritis could be present possibly on the basis of aspiration. The possibility of acute pulmonary edema in a patient with CHF is felt to be slightly less likely but cannot be excluded. Little interval change or new acute process was seen although slightly increased infiltrate may be present at the right lung base. The report was called to Dr. Cheek at 1115 hours. [facility]
[2018-12-01] MEDS ORDERED: Morphine 2 MG/ML Syringe IVPUSH SCH (14:30)
[2018-12-01] MEDS: Divalproex Sodium Delayed-Release 125 MG Cap.Sprink PO SCH ×3 (14:34→20:12)
[2018-12-01] MEDS: Pantoprazole 40 MG Tab.CR PO SCH (14:34)
[2018-12-01] MEDS: Saccharomyces Boulardii (Probiotic) 250 MG Cap PO SCH ×2 (14:35→20:12)
[2018-12-01] MEDS: Carbidopa/Levodopa 25-100 MG Tab PO SCH ×3 (14:35→20:13)
[2018-12-01] MEDS: Polyethylene Glycol 3350 Powder 17 GM Packet PO SCH (14:35)
[2018-12-01] MEDS: Mirtazapine 15 MG Tab PO SCH (18:01)
[2018-12-01] MEDS: Enoxaparin 40 MG/0.4 ML Syringe SUBCUT SCH (19:35)
[2018-12-01] MEDS: Levothyroxine 75 MCG Tab PO SCH (20:12)
[2018-12-01] MEDS: ClonazePAM 1 MG Tab PO SCH (20:12)
[2018-12-02] MEDS: LORazepam 2 MG/ML SDV IVPUSH PRN ×2 (01:47→11:42)
[2018-12-02] MEDS: Morphine 2 MG/ML Syringe IVPUSH PRN ×4 (03:55→22:25)
[2018-12-02] MEDS: Piperacillin/Tazobactam 3.375 GM in Sodium Chloride 0.9% 50 ML IV SCH ×3 (06:00→18:03)
[2018-12-02] MEDS: Albuterol/Ipratropium 3.0-0.5 MG/3 ML Neb Soln NEB SCH ×4 (07:03→22:25)
[2018-12-02] MEDS: Pantoprazole 40 MG Tab.CR PO SCH (07:12)
--- NOTE | 2018-12-02 08:44 | PCM.PN ---
- General Info Date of Service: 12/02/18 Subjective Update: Patient is a 63-year-old female from a local long term with moderate mental retardation who is nonverbal currently on HD#3 for aspiration pneumonia and moderate hyponatremia. Patient had severe episode of aspiration on either saliva or stomach contents yesterday (had not eaten yet) about 1050. She became severely tachypneic, dyspneic and hypoxic. Large amounts of phlegm and mucous were suctioned. CXR showed worsening infiltrate. She was given morphine for comfort and status improved. She had a comfortable night and vs/ labs have improved. Not rousable this am. - Patient Data Vitals - Most Recent: Last Vital Signs Temp 37.1 C 12/02/18 07:22 Pulse 102 H 12/02/18 07:22 Resp 20 12/02/18 07:22 BP 109/64 12/02/18 07:22 Pulse Ox 90 L 12/02/18 07:22 Weight - Most Recent: 60.838 kg I&O - Last 24 Hours: Intake & Output 12/01/18 12/02/18 12/02/18 22:59 06:59 14:59 Intake Total 50 Balance 50 Lab Results Last 24 Hours: Laboratory Results - last 24 hr 12/02/18 12/02/18 Range/Units 06:20 06:20 WBC 12.7 H (4.5-12.0) X10-3/uL RBC 4.04 (3.23-5.20) x10(6)uL Hgb 11.8 (11.5-15.5) g/dL Hct 36.2 (30.0-51.3) % MCV 89.7 (80-96) fL MCH 29.2 (27.7-33.6) pg MCHC 32.5 (32.2-35.4) g/dL RDW 14.8 (11.5-15.5) % Plt Count 236 (125-369) X10(3)uL MPV 7.7 (7.4-10.4) fL Neut % (Auto) 80.3 (46-82) % Lymph % (Auto) 7.9 L (13-37) % Thayer % (Auto) 11.4 (4-12) % Eos % (Auto) 0 L (1.0-5.0) % Baso % (Auto) 0 (0-2) % Neut # (Auto) 10.2 H (1.6-8.3) # Lymph # (Auto) 1.0 (0.6-5.0) # Thayer # (Auto) 1.4 H (0.0-1.3) # Eos # (Auto) 0.0 (0.0-0.8) # Baso # (Auto) 0.0 (0.0-0.2) # Sodium 132 L (135-145) mmol/L Potassium 4.4 (3.5-5.3) mmol/L Chloride 93 L (100-110) mmol/L Carbon Dioxide 37 H (21-32) mmol/L BUN 18 (7-18) mg/dL Creatinine 0.5 L (0.55-1.02) mg/dL Est Cr Clr Drug Dosing 94.03 mL/min Estimated GFR (MDRD) > 60 (>60) BUN/Creatinine Ratio 36.0 H (9-20) Glucose 83 (80-116) mg/dL Calcium 9.3 (8.6-10.2) mg/dL Total Bilirubin 0.3 (0.1-1.3) mg/dL AST 26 H D (5-25) IU/L ALT 27 D (12-36) U/L Alkaline Phosphatase 118 H (56-112) IU/L Total Protein 7.1 (6.0-8.0) g/dL Albumin 2.2 L (3.2-4.6) g/dL Globulin 4.9 g/dL Albumin/Globulin Ratio 0.5 Med Orders - Current: Current Medications Acetaminophen (Tylenol) 650 mg PO Q4H PRN PRN Reason: Pain (Mild 1-3)/fever Albuterol/Ipratropium (Duoneb 3.0-0.5 Mg/3 Ml) 3 ml NEB QIDRT [facility] Last Admin: 12/02/18 07:03 Dose: 3 ml Carbidopa/Levodopa (Sinemet 25-100 Mg) 2.5 tab PO QID [facility] Last Admin: 12/01/18 20:13 Dose: Not Given Clonazepam (Klonopin) 1 mg PO BEDTIME [facility] Last Admin: 12/01/18 20:12 Dose: Not Given Divalproex Sodium (Depakote Sprinkle) 375 mg PO QID [facility] Last Admin: 12/01/18 20:12 Dose: Not Given Enoxaparin Sodium (Lovenox) 40 mg SUBCUT Q24H [facility] Last Admin: 12/01/18 19:35 Dose: 40 mg Piperacillin Sod/Tazobactam (Sod 3.375 gm/ Sodium Chloride) 50 mls @ 100 mls/ hr IV Q6H [facility] Last Admin: 12/02/18 06:00 Dose: 100 mls/hr Sodium Chloride (Normal Saline) 1,000 mls @ 100 mls/hr IV ASDIRECTED [facility] Last Admin: 12/01/18 04:14 Dose: 100 mls/hr Sodium Chloride (Normal Saline) 1,000 mls @ 50 mls/hr IV ASDIRECTED [facility] Levothyroxine Sodium (Levothyroxine) 75 mcg PO BEDTIME [facility] Last Admin: 12/01/18 20:12 Dose: Not Given Lorazepam (Ativan) 1 mg IVPUSH Q4H PRN PRN Reason: agitation, SOB Last Admin: 12/02/18 01:47 Dose: 1 mg Mirtazapine (Remeron) 7.5 mg PO QPM [facility] Last Admin: 12/01/18 18:01 Dose: Not Given Morphine Sulfate (Morphine) 2 mg IVPUSH Q30M PRN PRN Reason: Shortness of Breath Last Admin: 12/02/18 03:55 Dose: 2 mg Pantoprazole Sodium (Protonix) 40 mg PO ACBREAKFAST [facility] Last Admin: 12/02/18 07:12 Dose: Not Given Polyethylene Glycol (Miralax) 17 gm PO DAILY [facility] Last Admin: 12/01/18 14:35 Dose: Not Given Saccharomyces Boulardii (Florastor) 250 mg PO BID [facility] Last Admin: 12/01/18 20:12 Dose: Not Given Senna/Docusate Sodium (Senna Plus) 1 tab PO DAILY [facility] Last Admin: 12/01/18 14:35 Dose: Not Given Sodium Chloride (Saline Flush) 10 ml FLUSH ASDIRECTED PRN PRN Reason: Keep Vein Open Last Admin: 12/01/18 18:46 Dose: 10 ml Discontinued Medications Morphine Sulfate (Morphine) 1 mg IVPUSH Q1H PRN PRN Reason: Shortness of Breath Last Admin: 12/01/18 12:35 Dose: 1 mg Morphine Sulfate (Morphine) 2 mg IVPUSH Q30M [facility] - Exam General: Sedated, Lethargic Lungs: Decreased Breath Sounds, Rhonchi (throughout, more diminished on the right than left.), Wheezing Cardiovascular: Regular Rate, Regular Rhythm, No Murmurs, Tachycardia ( intermittently) GI/Abdominal Exam: Normal Bowel Sounds, Soft, Non-Tender, No Distention Extremities: No Pedal Edema - Problem List & Annotations (1) Right lower lobe pneumonia SNOMED Code(s): 212930220 Code(s): J18.1 - LOBAR PNEUMONIA, UNSPECIFIED ORGANISM Status: Acute Current Visit: Yes Annotation/Comment:: With second episode of significant aspiration at 1050 on 12/02/18. Patient's situation is tenuous given continued aspiration on an empty stomach with last meal being > 16 hours. On discussion with POA, comfort care is paramount. Continue IV abx for now, NS, and palliative measures with comfort being first priority. (2) Hyponatremia SNOMED Code(s): 55920099 Code(s): E87.1 - HYPO-OSMOLALITY AND HYPONATREMIA Status: Acute Current Visit: Yes Annotation/Comment:: Now resolved with resolution of hypovolemia. (3) Hypothyroidism SNOMED Code(s): 05274811 Code(s): E03.9 - HYPOTHYROIDISM, UNSPECIFIED Status: Chronic Current Visit: No Annotation/Comment:: Continue home meds as able to take PO. (4) Mental retardation SNOMED Code(s): 516823503 Code(s): F79 - UNSPECIFIED INTELLECTUAL DISABILITIES Status: Chronic Current Visit: No Annotation/Comment:: Precautions. (5) Seizure disorder SNOMED Code(s): 560746714 Code(s): G40.909 - EPILEPSY, UNSP, NOT INTRACTABLE, WITHOUT STATUS EPILEPTICUS Status: Chronic Current Visit: No Annotation/Comment:: Continue home meds as able to take PO. (6) DVT prophylaxis SNOMED Code(s): 506413149, 903499285 Code(s): ZPF0707 - Status: Acute Current Visit: Yes Annotation/Comment :: SCDs, lovenox. (7) Palliative care status SNOMED Code(s): 131845986 Code(s): Z51.5 - ENCOUNTER FOR PALLIATIVE CARE Status: Acute Current Visit: No Annotation/Comment:: Morphine for air hunger. Ativan for restlessness/agitation. Monitor and if patient fails to improve, consider discontinuation of aggressive measures. - Problem List Review Problem List Initiated/Reviewed/Updated: Yes - My Orders Last 24 Hours: My Active Orders 12/01/18 09:00 Docusate Sodium/Sennosides [Senna Plus] 1 tab PO DAILY Polyethylene Glycol 3350 [MiraLAX] 17 gm PO DAILY 12/01/18 09:15 Sodium Chloride 0.9% [Normal Saline] 1,000 ml IV ASDIRECTED 12/01/18 14:21 LORazepam [Ativan] 1 mg IVPUSH Q4H PRN 12/01/18 14:30 Morphine 2 mg IVPUSH Q30M PRN 12/01/18 17:00 Mirtazapine [Remeron] 7.5 mg PO QPM 12/01/18 Lunch Pureed Diet [DIET] - Plan Plan:: Per previously signed Code Status papers, DNR/Comfort measures. No intubation, no central lines, no pressors.
[2018-12-02] MEDS ORDERED: Albuterol 0.083% 2.5 MG/3 ML Neb Soln NEB PRN (09:05)
[2018-12-02] MEDS: Divalproex Sodium Delayed-Release 125 MG Cap.Sprink PO SCH ×4 (10:18→21:26)
[2018-12-02] MEDS: Polyethylene Glycol 3350 Powder 17 GM Packet PO SCH (10:21)
[2018-12-02] MEDS: Carbidopa/Levodopa 25-100 MG Tab PO SCH ×4 (10:21→21:30)
[2018-12-02] MEDS: Saccharomyces Boulardii (Probiotic) 250 MG Cap PO SCH ×2 (10:21→21:27)
[2018-12-02] MEDS: Sodium Chloride 0.9% 1,000 ML IV SCH (10:26)
[2018-12-02] MEDS: Mirtazapine 15 MG Tab PO SCH (17:05)
[2018-12-02] MEDS: Enoxaparin 40 MG/0.4 ML Syringe SUBCUT SCH (20:04)
[2018-12-02] MEDS: ClonazePAM 1 MG Tab PO SCH (21:27)
[2018-12-02] MEDS: Levothyroxine 75 MCG Tab PO SCH (21:28)
[2018-12-03] MEDS: Piperacillin/Tazobactam 3.375 GM in Sodium Chloride 0.9% 50 ML IV SCH ×5 (00:35→23:54)
[2018-12-03] MEDS: Albuterol/Ipratropium 3.0-0.5 MG/3 ML Neb Soln NEB SCH ×4 (07:13→21:28)
[2018-12-03] MEDS: Sodium Chloride 0.9% 1,000 ML IV SCH (07:27)
--- NOTE | 2018-12-03 08:07 | PCM.PN ---
- General Info Date of Service: 12/03/18 Subjective Update: Patient is a 63-year-old female [place] a local jail with moderate mental retardation who is nonverbal currently on HD#4 for aspiration pneumonia and moderate hyponatremia, now resolved. Patient had a quiet night. Is awake this am. Wet cough. On 10L NRB mask. Does not appear in any distress. - Patient Data Vitals - Most Recent: Last Vital Signs Temp 36.6 C 12/03/18 04:00 Pulse 111 H 12/03/18 07:16 Resp 18 12/03/18 04:00 BP 117/78 12/03/18 04:00 Pulse Ox 93 L 12/03/18 07:42 Weight - Most Recent: 60.509 kg I&O - Last 24 Hours: Intake & Output 12/02/18 12/03/18 12/03/18 22:59 06:59 14:59 Intake Total 400 400 Balance 400 400 Med Orders - Current: Current Medications Acetaminophen (Tylenol) 650 mg PO Q4H PRN PRN Reason: Pain (Mild 1-3)/fever Albuterol (Proventil Neb Soln) 2.5 mg NEB Q2H PRN PRN Reason: Shortness of Breath Albuterol/Ipratropium (Duoneb 3.0-0.5 Mg/3 Ml) 3 ml NEB QIDRT [facility] Last Admin: 12/03/18 07:13 Dose: 3 ml Carbidopa/Levodopa (Sinemet 25-100 Mg) 2.5 tab PO QID [facility] Last Admin: 12/02/18 21:30 Dose: Not Given Clonazepam (Klonopin) 1 mg PO BEDTIME [facility] Last Admin: 12/02/18 21:27 Dose: Not Given Divalproex Sodium (Depakote Sprinkle) 375 mg PO QID [facility] Last Admin: 12/02/18 21:26 Dose: Not Given Enoxaparin Sodium (Lovenox) 40 mg SUBCUT Q24H [facility] Last Admin: 12/02/18 20:04 Dose: 40 mg Piperacillin Sod/Tazobactam (Sod 3.375 gm/ Sodium Chloride) 50 mls @ 100 mls/ hr IV Q6H [facility] Last Admin: 12/03/18 06:05 Dose: 100 mls/hr Sodium Chloride (Normal Saline) 1,000 mls @ 50 mls/hr IV ASDIRECTED [facility] Last Admin: 12/03/18 07:27 Dose: 50 mls/hr Levothyroxine Sodium (Levothyroxine) 75 mcg PO BEDTIME [facility] Last Admin: 12/02/18 21:28 Dose: Not Given Lorazepam (Ativan) 1 mg IVPUSH Q4H PRN PRN Reason: agitation, SOB Last Admin: 12/02/18 11:42 Dose: 1 mg Mirtazapine (Remeron) 7.5 mg PO QPM [facility] Last Admin: 12/02/18 17:05 Dose: Not Given Morphine Sulfate (Morphine) 2 mg IVPUSH Q30M PRN PRN Reason: Shortness of Breath Last Admin: 12/02/18 22:25 Dose: 2 mg Pantoprazole Sodium (Protonix) 40 mg PO ACBREAKFAST [facility] Last Admin: 12/02/18 07:12 Dose: Not Given Polyethylene Glycol (Miralax) 17 gm PO DAILY [facility] Last Admin: 12/02/18 10:21 Dose: Not Given Saccharomyces Boulardii (Florastor) 250 mg PO BID [facility] Last Admin: 12/02/18 21:27 Dose: Not Given Senna/Docusate Sodium (Senna Plus) 1 tab PO DAILY [facility] Last Admin: 12/02/18 10:21 Dose: Not Given Sodium Chloride (Saline Flush) 10 ml FLUSH ASDIRECTED PRN PRN Reason: Keep Vein Open Last Admin: 12/01/18 18:46 Dose: 10 ml Discontinued Medications Sodium Chloride (Normal Saline) 1,000 mls @ 100 mls/hr IV ASDIRECTED [facility] Last Admin: 12/01/18 04:14 Dose: 100 mls/hr Morphine Sulfate (Morphine) 1 mg IVPUSH Q1H PRN PRN Reason: Shortness of Breath Last Admin: 12/01/18 12:35 Dose: 1 mg Morphine Sulfate (Morphine) 2 mg IVPUSH Q30M [facility] - Exam General: Other (Eyes are open looking around intermittently. Patient nonverbal at baseline.) Neck: Supple Lungs: Decreased Breath Sounds, Crackles, Rhonchi, Wheezing GI/Abdominal Exam: Normal Bowel Sounds, Soft, Non-Tender, No Distention Extremities: No Pedal Edema - Problem List & Annotations (1) Right lower lobe pneumonia SNOMED Code(s): 104595352 Code(s): J18.1 - LOBAR PNEUMONIA, UNSPECIFIED ORGANISM Status: Acute Current Visit: Yes Annotation/Comment:: Has had a total of three aspiration events since admission. Continues on zosyn and maintenance IVF. Has been unable to take anything by mouth since the night of admission. Continues with ativan, morphine for easing respiratory distress. Discussed at length with POA yesterday (Jules Gerber) that the patient is unlikely to survive this hospitalization. [facility] to [facility] surrounded by people who know her. Jules and his feel strongly that Liane should remain in the hospital on IV antibiotics until she passes to " give her a chance." In asking about what they see as a reasonable timeline, they feel at least 2 weeks would be reasonable. (2) Hyponatremia SNOMED Code(s): 58322786 Code(s): E87.1 - HYPO-OSMOLALITY AND HYPONATREMIA Status: Acute Current Visit: Yes Annotation/Comment:: Now resolved with resolution of hypovolemia. (3) Hypothyroidism SNOMED Code(s): 56044827 Code(s): E03.9 - HYPOTHYROIDISM, UNSPECIFIED Status: Chronic Current Visit: No Annotation/Comment:: Continue home meds as able to take PO. (4) Mental retardation SNOMED Code(s): 199542389 Code(s): F79 - UNSPECIFIED INTELLECTUAL DISABILITIES Status: Chronic Current Visit: No Annotation/Comment:: Precautions. (5) Seizure disorder SNOMED Code(s): 856136967 Code(s): G40.909 - EPILEPSY, UNSP, NOT INTRACTABLE, WITHOUT STATUS EPILEPTICUS Status: Chronic Current Visit: No Annotation/Comment:: Unable to take PO. Receiving intermittent ativan which will provide seizure prophylaxis. (6) DVT prophylaxis SNOMED Code(s): 370973856, 170435721 Code(s): GOO1234 - Status: Acute Current Visit: Yes Annotation/Comment :: SCDs, lovenox. (7) Palliative care status SNOMED Code(s): 999067292 Code(s): Z51.5 - ENCOUNTER FOR PALLIATIVE CARE Status: Acute Current Visit: No Annotation/Comment:: Morphine for air hunger. Ativan for restlessness/agitation. - Problem List Review Problem List Initiated/Reviewed/Updated: Yes - My Orders Last 24 Hours: My Active Orders 12/02/18 09:05 RT Aerosol Therapy [RC] ASDIRECTED Albuterol [Proventil Neb Soln] 2.5 mg NEB Q2H PRN - Plan Plan:: Per previously signed Code Status papers, DNR/Comfort measures. No intubation, no central lines, no pressors.
[2018-12-03] MEDS: Pantoprazole 40 MG Tab.CR PO SCH (08:27)
[2018-12-03] MEDS: Divalproex Sodium Delayed-Release 125 MG Cap.Sprink PO SCH ×4 (08:28→20:47)
[2018-12-03] MEDS: Carbidopa/Levodopa 25-100 MG Tab PO SCH ×4 (08:31→20:55)
[2018-12-03] MEDS: Saccharomyces Boulardii (Probiotic) 250 MG Cap PO SCH ×2 (08:32→20:52)
[2018-12-03] MEDS: Polyethylene Glycol 3350 Powder 17 GM Packet PO SCH (08:47)
[2018-12-03] MEDS: Morphine 2 MG/ML Syringe IVPUSH PRN ×2 (16:14→21:40)
[2018-12-03] MEDS: Mirtazapine 15 MG Tab PO SCH (17:41)
[2018-12-03] MEDS: Enoxaparin 40 MG/0.4 ML Syringe SUBCUT SCH (20:20)
[2018-12-03] MEDS: ClonazePAM 1 MG Tab PO SCH (20:53)
[2018-12-03] MEDS: Levothyroxine 75 MCG Tab PO SCH (20:53)
[2018-12-04] MEDS: Sodium Chloride 0.9% 1,000 ML IV SCH (04:29)
[2018-12-04] MEDS: Piperacillin/Tazobactam 3.375 GM in Sodium Chloride 0.9% 50 ML IV SCH ×4 (05:26→23:54)
[2018-12-04] MEDS: Albuterol/Ipratropium 3.0-0.5 MG/3 ML Neb Soln NEB SCH ×4 (07:05→20:28)
[2018-12-04] MEDS: Pantoprazole 40 MG Tab.CR PO SCH (08:17)
[2018-12-04] MEDS: Divalproex Sodium Delayed-Release 125 MG Cap.Sprink PO SCH ×4 (08:17→20:28)
[2018-12-04] MEDS: Saccharomyces Boulardii (Probiotic) 250 MG Cap PO SCH ×2 (08:17→20:28)
[2018-12-04] MEDS: Carbidopa/Levodopa 25-100 MG Tab PO SCH ×4 (08:17→20:29)
[2018-12-04] MEDS: Polyethylene Glycol 3350 Powder 17 GM Packet PO SCH (08:18)
--- NOTE | 2018-12-04 10:25 | PCM.PN ---
- General Info Date of Service: 12/04/18 Subjective Update: Liane is much better. Oxygenation is around 8 L she is more alert and eating at least 57-7 5% of her diet. There has been no fever. She does have some bronchospasm and coughing spells Functional Status: Reports: Tolerating Diet - Review of Systems General: Reports: No Symptoms HEENT: Reports: No Symptoms Pulmonary: Reports: Cough Cardiovascular: Reports: No Symptoms - Patient Data Vitals - Most Recent: Last Vital Signs Temp 96.2 F 12/04/18 04:00 Pulse 88 12/04/18 04:00 Resp 20 12/04/18 04:00 BP 129/78 12/04/18 04:00 Pulse Ox 95 12/04/18 04:00 Weight - Most Recent: 60.192 kg I&O - Last 24 Hours: Intake & Output 12/03/18 12/04/18 12/04/18 22:59 06:59 14:59 Intake Total 387 425 Balance 387 425 Lab Results Last 24 Hours: Laboratory Results - last 24 hr 12/04/18 12/04/18 Range/Units 06:15 06:15 WBC 6.0 (4.5-12.0) X10-3/uL RBC 3.96 (3.23-5.20) x10(6)uL Hgb 11.8 (11.5-15.5) g/dL Hct 36.3 (30.0-51.3) % MCV 91.6 (80-96) fL MCH 29.9 (27.7-33.6) pg MCHC 32.6 (32.2-35.4) g/dL RDW 14.7 (11.5-15.5) % Plt Count 416 H (125-369) X10(3)uL MPV 7.1 L (7.4-10.4) fL Add Manual Diff Yes Neutrophils % (Manual) 48 (46-82) % Band Neutrophils % 5 (0-6) % Lymphocytes % (Manual) 35 (13-37) % Monocytes % (Manual) 9 (4-12) % Eosinophils % (Manual) 3 (0-5) % Hypochromasia Moderate H Poikilocytosis Moderate H Stomatocytes Moderate H Sodium 145 D (135-145) mmol/L Potassium 3.7 (3.5-5.3) mmol/L Chloride 104 D (100-110) mmol/L Carbon Dioxide 43 H* (21-32) mmol/L BUN 8 D (7-18) mg/dL Creatinine 0.5 L (0.55-1.02) mg/dL Est Cr Clr Drug Dosing 94.03 mL/min Estimated GFR (MDRD) > 60 (>60) BUN/Creatinine Ratio 16.0 (9-20) Glucose 102 (80-116) mg/dL Calcium 9.2 (8.6-10.2) mg/dL Med Orders - Current: Current Medications Acetaminophen (Tylenol) 650 mg PO Q4H PRN PRN Reason: Pain (Mild 1-3)/fever Albuterol (Proventil Neb Soln) 2.5 mg NEB Q2H PRN PRN Reason: Shortness of Breath Albuterol/Ipratropium (Duoneb 3.0-0.5 Mg/3 Ml) 3 ml NEB QIDRT [facility] Last Admin: 12/04/18 07:05 Dose: 3 ml Carbidopa/Levodopa (Sinemet 25-100 Mg) 2.5 tab PO QID [facility] Last Admin: 12/04/18 08:17 Dose: 2.5 tab Clonazepam (Klonopin) 1 mg PO BEDTIME [facility] Last Admin: 12/03/18 20:53 Dose: 1 mg Divalproex Sodium (Depakote Sprinkle) 375 mg PO QID [facility] Last Admin: 12/04/18 08:17 Dose: 375 mg Enoxaparin Sodium (Lovenox) 40 mg SUBCUT Q24H [facility] Last Admin: 12/03/18 20:20 Dose: 40 mg Piperacillin Sod/Tazobactam (Sod 3.375 gm/ Sodium Chloride) 50 mls @ 100 mls/ hr IV Q6H [facility] Last Admin: 12/04/18 05:26 Dose: 100 mls/hr Levothyroxine Sodium (Levothyroxine) 75 mcg PO BEDTIME [facility] Last Admin: 12/03/18 20:53 Dose: 75 mcg Lorazepam (Ativan) 1 mg IVPUSH Q4H PRN PRN Reason: agitation, SOB Last Admin: 12/02/18 11:42 Dose: 1 mg Mirtazapine (Remeron) 7.5 mg PO QPM [facility] Last Admin: 12/03/18 17:41 Dose: 7.5 mg Morphine Sulfate (Morphine) 2 mg IVPUSH Q30M PRN PRN Reason: Shortness of Breath Last Admin: 12/03/18 21:40 Dose: 2 mg Pantoprazole Sodium (Protonix) 40 mg PO ACBREAKFAST [facility] Last Admin: 12/04/18 08:17 Dose: 40 mg Polyethylene Glycol (Miralax) 17 gm PO DAILY [facility] Last Admin: 12/04/18 08:18 Dose: Not Given Saccharomyces Boulardii (Florastor) 250 mg PO BID [facility] Last Admin: 12/04/18 08:17 Dose: 250 mg Senna/Docusate Sodium (Senna Plus) 1 tab PO DAILY [facility] Last Admin: 12/04/18 08:17 Dose: 1 tab Sodium Chloride (Saline Flush) 10 ml FLUSH ASDIRECTED PRN PRN Reason: Keep Vein Open Last Admin: 12/01/18 18:46 Dose: 10 ml Discontinued Medications Sodium Chloride (Normal Saline) 1,000 mls @ 100 mls/hr IV ASDIRECTED [facility] Last Admin: 12/01/18 04:14 Dose: 100 mls/hr Sodium Chloride (Normal Saline) 1,000 mls @ 50 mls/hr IV ASDIRECTED [facility] Last Admin: 12/04/18 04:29 Dose: 50 mls/hr Morphine Sulfate (Morphine) 1 mg IVPUSH Q1H PRN PRN Reason: Shortness of Breath Last Admin: 12/01/18 12:35 Dose: 1 mg Morphine Sulfate (Morphine) 2 mg IVPUSH Q30M [facility] - Exam Quality Assessment: Supplemental Oxygen General: Alert Lungs: Normal Respiratory Effort, Crackles Cardiovascular: Regular Rate - Problem List & Annotations (1) Right lower lobe pneumonia SNOMED Code(s): 520561299 Code(s): J18.1 - LOBAR PNEUMONIA, UNSPECIFIED ORGANISM Status: Acute Current Visit: Yes Qualifiers: Pneumonia type: aspiration pneumonia Annotation/Comment:: Has had a total of three aspiration events since admission. Continues on zosyn and maintenance IVF. Has been unable to take anything by mouth since the night of admission. Continues with ativan, morphine for easing respiratory distress. Discussed at length with POA yesterday (Jules Gerber) that the patient is unlikely to survive this hospitalization. We could send her back to the shelter with hospice to pass away surrounded by people who know her. Jules and his feel strongly that Liane should remain in the hospital on IV antibiotics until she passes to " give her a chance." In asking about what they see as a reasonable timeline, they feel at least 2 weeks would be reasonable. (2) DNI (do not intubate) SNOMED Code(s): 299082604 Code(s): Z78.9 - OTHER SPECIFIED HEALTH STATUS Status: Acute Current Visit: No (3) GERD (gastroesophageal reflux disease) SNOMED Code(s): 146739316 Code(s): K21.9 - GASTRO-ESOPHAGEAL REFLUX DISEASE WITHOUT ESOPHAGITIS Status: Acute Current Visit: No Qualifiers: Esophagitis presence: esophagitis presence not specified (4) Hypoxia SNOMED Code(s): 078332262 Code(s): R09.02 - HYPOXEMIA Status: Acute Current Visit: No (5) Lives in shelter SNOMED Code(s): 082059113 Code(s): Z59.3 - PROBLEMS RELATED TO LIVING IN RESIDENTIAL INSTITUTION Status: Chronic Current Visit: No (6) Mental retardation SNOMED Code(s): 069443180 Code(s): F79 - UNSPECIFIED INTELLECTUAL DISABILITIES Status: Chronic Current Visit: No Annotation/Comment:: Precautions. - Problem List Review Problem List Initiated/Reviewed/Updated: Yes - My Orders Last 24 Hours: My Active Orders 12/04/18 10:18 CXR [Chest 1V Frontal] [CR] Routine 12/05/18 05:11 BASIC METABOLIC PANEL,BMP [CHEM] AM CBC WITH AUTO DIFF [HEME] AM 12/05/18 06:00 PRO B-TYPE NATRIUR PEPT,BNPPRO [CHEM] DAILY - Plan Plan:: Oxygenation is improved, and she is eating better. I've recommended to discontinue IV fluids continued IV Zosyn repeat labs in the morning. I also did a chest x-ray today,will see how it looks
--- NOTE | 2018-12-04 12:17 | CR ---
INDICATION: Cough. CHEST ONE VIEW: AP portable upright view of the chest 12/04/18 was compared with 11/30/18 and 12/01/18. The heart size is difficult to evaluated due rotation. It appears to be at the upper limits of normal to normal in size. Severe dextroconvex scoliosis of the thoracic spine is noted. At the right hilum there is an appearance of a nodular density, which was not definitely visualized on the previous examinations. Etiology is indeterminate. This nodular appears to be stable compared with previous study of 09/28/2017, and likely is of benign origin. May represent granuloma. Infiltration is noted in the lung bases and midlung field on the right, which may be on the basis of pneumonia with probable pleuritis on the right since the costophrenic angle is blunted. No definite CHF is seen at this time. There may be a minimal decrease in infiltration in the midlung field on the right and at the right lung base. This is difficult to determine however with the change in rotation of the chest. IMPRESSION: 1. Bilateral bibasilar infiltration and midlung field infiltration on the right, likely on the basis of pneumonia with pleuritis on the right. Findings may be slightly improved compared with the previous study. 2. 1.5 cm nodular density perihilar on the right unchanged compared with 2016, likely benign. 3. Severe dextroconvex scoliosis. 4. ASD aorta. MTDD
[2018-12-04] MEDS: Mirtazapine 15 MG Tab PO SCH (16:54)
[2018-12-04] MEDS: Enoxaparin 40 MG/0.4 ML Syringe SUBCUT SCH (19:42)
[2018-12-04] MEDS: Levothyroxine 75 MCG Tab PO SCH (20:29)
[2018-12-04] MEDS: ClonazePAM 1 MG Tab PO SCH (20:29)
[2018-12-04] MEDS: LORazepam 2 MG/ML SDV IVPUSH PRN (23:51)
[2018-12-05] MEDS: Sodium Chloride 0.9% 10 ML Syringe FLUSH PRN ×3 (00:18→18:08)
[2018-12-05] MEDS: Piperacillin/Tazobactam 3.375 GM in Sodium Chloride 0.9% 50 ML IV SCH ×3 (05:19→17:59)
[2018-12-05] MEDS: Albuterol/Ipratropium 3.0-0.5 MG/3 ML Neb Soln NEB SCH ×4 (07:05→20:32)
[2018-12-05] MEDS: Pantoprazole 40 MG Tab.CR PO SCH (07:34)
--- NOTE | 2018-12-05 09:02 | PCM.PN ---
- General Info Date of Service: 12/05/18 Subjective Update: Liane is much better. Oxygenation need is around 2 L now ,and she is more alert and eating at least 57-7 5% of her diet. There has been no fever. She does have some bronchospasm and coughing spells - Review of Systems Genitourinary: Reports: No Symptoms Musculoskeletal: Reports: No Symptoms - Patient Data Vitals - Most Recent: Last Vital Signs Temp 99.6 F 12/05/18 00:00 Pulse 93 12/05/18 00:00 Resp 21 H 12/05/18 00:00 BP 118/95 H 12/05/18 00:00 Pulse Ox 89 L 12/05/18 00:00 Weight - Most Recent: 59.466 kg I&O - Last 24 Hours: Intake & Output 12/04/18 12/05/18 12/05/18 22:59 06:59 14:59 Intake Total 200 143 Balance 200 143 Lab Results Last 24 Hours: Laboratory Results - last 24 hr 12/05/18 12/05/18 12/05/18 Range/Units 06:30 06:30 06:30 WBC 7.0 (4.5-12.0) X10-3/uL RBC 3.84 (3.23-5.20) x10(6)uL Hgb 11.4 L (11.5-15.5) g/dL Hct 35.0 (30.0-51.3) % MCV 91.1 (80-96) fL MCH 29.7 (27.7-33.6) pg MCHC 32.6 (32.2-35.4) g/dL RDW 15.0 (11.5-15.5) % Plt Count 488 H (125-369) X10(3)uL MPV 6.8 L (7.4-10.4) fL Neut % (Auto) 53.6 (46-82) % Lymph % (Auto) 25.0 (13-37) % [place] % (Auto) 19.4 H (4-12) % Eos % (Auto) 2 (1.0-5.0) % Baso % (Auto) 0 (0-2) % Neut # (Auto) 3.7 (1.6-8.3) # Lymph # (Auto) 1.8 (0.6-5.0) # [place] # (Auto) 1.4 H (0.0-1.3) # Eos # (Auto) 0.1 (0.0-0.8) # Baso # (Auto) 0.0 (0.0-0.2) # Sodium 153 H (135-145) mmol/L Potassium 3.2 L (3.5-5.3) mmol/L Chloride 106 (100-110) mmol/L Carbon Dioxide > 45 H* (21-32) mmol/L BUN 5 L (7-18) mg/dL Creatinine 0.5 L (0.55-1.02) mg/dL Est Cr Clr Drug Dosing 94.03 mL/min Estimated GFR (MDRD) > 60 (>60) BUN/Creatinine Ratio 10.0 (9-20) Glucose 92 (80-116) mg/dL Calcium 9.6 (8.6-10.2) mg/dL NT-Pro-B Natriuret Pep 3470 H* (<=125) pg/mL Med Orders - Current: Current Medications Acetaminophen (Tylenol) 650 mg PO Q4H PRN PRN Reason: Pain (Mild 1-3)/fever Albuterol (Proventil Neb Soln) 2.5 mg NEB Q2H PRN PRN Reason: Shortness of Breath Albuterol/Ipratropium (Duoneb 3.0-0.5 Mg/3 Ml) 3 ml NEB QIDRT [facility] Last Admin: 12/05/18 07:05 Dose: 3 ml Carbidopa/Levodopa (Sinemet 25-100 Mg) 2.5 tab PO QID [facility] Last Admin: 12/04/18 20:29 Dose: 2.5 tab Clonazepam (Klonopin) 1 mg PO BEDTIME [facility] Last Admin: 12/04/18 20:29 Dose: 1 mg Divalproex Sodium (Depakote Sprinkle) 375 mg PO QID [facility] Last Admin: 12/04/18 20:28 Dose: 375 mg Enoxaparin Sodium (Lovenox) 40 mg SUBCUT Q24H [facility] Last Admin: 12/04/18 19:42 Dose: 40 mg Piperacillin Sod/Tazobactam (Sod 3.375 gm/ Sodium Chloride) 50 mls @ 100 mls/ hr IV Q6H [facility] Last Admin: 12/05/18 05:19 Dose: 100 mls/hr Levothyroxine Sodium (Levothyroxine) 75 mcg PO BEDTIME [facility] Last Admin: 12/04/18 20:29 Dose: 75 mcg Lorazepam (Ativan) 1 mg IVPUSH Q4H PRN PRN Reason: agitation, SOB Last Admin: 12/04/18 23:51 Dose: 1 mg Mirtazapine (Remeron) 7.5 mg PO QPM [facility] Last Admin: 12/04/18 16:54 Dose: 7.5 mg Morphine Sulfate (Morphine) 2 mg IVPUSH Q30M PRN PRN Reason: Shortness of Breath Last Admin: 12/03/18 21:40 Dose: 2 mg Pantoprazole Sodium (Protonix) 40 mg PO ACBREAKFAST [facility] Last Admin: 12/05/18 07:34 Dose: 40 mg Polyethylene Glycol (Miralax) 17 gm PO DAILY [facility] Last Admin: 12/04/18 08:18 Dose: Not Given Saccharomyces Boulardii (Florastor) 250 mg PO BID [facility] Last Admin: 12/04/18 20:28 Dose: 250 mg Senna/Docusate Sodium (Senna Plus) 1 tab PO DAILY [facility] Last Admin: 12/04/18 08:17 Dose: 1 tab Sodium Chloride (Saline Flush) 10 ml FLUSH ASDIRECTED PRN PRN Reason: Keep Vein Open Last Admin: 12/05/18 00:18 Dose: 10 ml Discontinued Medications Sodium Chloride (Normal Saline) 1,000 mls @ 100 mls/hr IV ASDIRECTED [facility] Last Admin: 12/01/18 04:14 Dose: 100 mls/hr Sodium Chloride (Normal Saline) 1,000 mls @ 50 mls/hr IV ASDIRECTED [facility] Last Admin: 12/04/18 04:29 Dose: 50 mls/hr Morphine Sulfate (Morphine) 1 mg IVPUSH Q1H PRN PRN Reason: Shortness of Breath Last Admin: 12/01/18 12:35 Dose: 1 mg Morphine Sulfate (Morphine) 2 mg IVPUSH Q30M [facility] - Exam Quality Assessment: Supplemental Oxygen General: Alert, Oriented HEENT: Pupils Equal Neck: Supple Lungs: Clear to Auscultation Cardiovascular: Regular Rate - Problem List & Annotations (1) Right lower lobe pneumonia SNOMED Code(s): 573717683 Code(s): J18.1 - LOBAR PNEUMONIA, UNSPECIFIED ORGANISM Status: Acute Current Visit: Yes Qualifiers: Pneumonia type: aspiration pneumonia Annotation/Comment:: Has had a total of three aspiration events since admission. Continues on zosyn and maintenance IVF. Has been unable to take anything by mouth since the night of admission. Continues with ativan, morphine for easing respiratory distress. Discussed at length with POA yesterday (Jules Gerber) that the patient is unlikely to survive this hospitalization. We could send her back to the intermediate with hospice to pass away surrounded by people who know her. Jules and his feel strongly that Liane should remain in the hospital on IV antibiotics until she passes to " give her a chance." In asking about what they see as a reasonable timeline, they feel at least 2 weeks would be reasonable. (2) DNI (do not intubate) SNOMED Code(s): 138438141 Code(s): Z78.9 - OTHER SPECIFIED HEALTH STATUS Status: Acute Current Visit: No (3) GERD (gastroesophageal reflux disease) SNOMED Code(s): 576236536 Code(s): K21.9 - GASTRO-ESOPHAGEAL REFLUX DISEASE WITHOUT ESOPHAGITIS Status: Acute Current Visit: No Qualifiers: Esophagitis presence: esophagitis presence not specified (4) Hypoxia SNOMED Code(s): 682276701 Code(s): R09.02 - HYPOXEMIA Status: Acute Current Visit: No (5) Lives in intermediate SNOMED Code(s): 957140604 Code(s): Z59.3 - PROBLEMS RELATED TO LIVING IN RESIDENTIAL INSTITUTION Status: Chronic Current Visit: No (6) Mental retardation SNOMED Code(s): 287418378 Code(s): F79 - UNSPECIFIED INTELLECTUAL DISABILITIES Status: Chronic Current Visit: No Annotation/Comment:: Precautions. (7) Hypernatremia SNOMED Code(s): 97137250 Code(s): E87.0 - HYPEROSMOLALITY AND HYPERNATREMIA Status: Acute Current Visit: Yes - Problem List Review Problem List Initiated/Reviewed/Updated: Yes - Plan Plan:: Oxygenation is improved, and she is eating better. I've recommended to discontinue IV fluids continued IV Zosyn repeat labs in the morning. The sodium is pro due to recent IVF . I also did a chest x-ray yesterday,it looks looks slightly better.
[2018-12-05] MEDS: Divalproex Sodium Delayed-Release 125 MG Cap.Sprink PO SCH ×4 (09:04→20:36)
[2018-12-05] MEDS: Saccharomyces Boulardii (Probiotic) 250 MG Cap PO SCH ×2 (09:05→20:37)
[2018-12-05] MEDS: Polyethylene Glycol 3350 Powder 17 GM Packet PO SCH (09:05)
[2018-12-05] MEDS: Carbidopa/Levodopa 25-100 MG Tab PO SCH ×4 (09:06→20:39)
[2018-12-05] MEDS: Mirtazapine 15 MG Tab PO SCH (17:44)
[2018-12-05] MEDS: Enoxaparin 40 MG/0.4 ML Syringe SUBCUT SCH (19:52)
[2018-12-05] MEDS: Levothyroxine 75 MCG Tab PO SCH (20:38)
[2018-12-05] MEDS: ClonazePAM 1 MG Tab PO SCH (20:42)
[2018-12-06] MEDS: Piperacillin/Tazobactam 3.375 GM in Sodium Chloride 0.9% 50 ML IV SCH ×5 (00:08→23:31)
[2018-12-06] MEDS: LORazepam 2 MG/ML SDV IVPUSH PRN (00:44)
[2018-12-06] MEDS: Sodium Chloride 0.9% 10 ML Syringe FLUSH PRN ×5 (00:44→20:35)
[2018-12-06] MEDS: Albuterol/Ipratropium 3.0-0.5 MG/3 ML Neb Soln NEB SCH ×4 (07:04→20:15)
[2018-12-06] MEDS ORDERED: Pantoprazole 40 MG Tab.CR PO ONE (08:00)
[2018-12-06] MEDS: Divalproex Sodium Delayed-Release 125 MG Cap.Sprink PO SCH ×4 (08:26→20:15)
[2018-12-06] MEDS: Polyethylene Glycol 3350 Powder 17 GM Packet PO SCH (08:26)
[2018-12-06] MEDS: Saccharomyces Boulardii (Probiotic) 250 MG Cap PO SCH ×2 (08:26→20:16)
[2018-12-06] MEDS: Carbidopa/Levodopa 25-100 MG Tab PO SCH ×4 (08:26→20:16)
--- NOTE | 2018-12-06 09:04 | PCM.PN ---
- General Info Date of Service: 12/06/18 Subjective Update: Liane is much better. Oxygenation need is around 2 L now ,and she is more alert and eating at least 57-7 5% of her diet. There has been no fever. She does have some bronchospasm and coughing spells Functional Status: Reports: Pain Controlled - Review of Systems General: Reports: No Symptoms Pulmonary: Reports: Cough Cardiovascular: Reports: No Symptoms Gastrointestinal: Reports: No Symptoms - Patient Data Vitals - Most Recent: Last Vital Signs Temp 98.9 F 12/06/18 04:00 Pulse 98 12/06/18 04:00 Resp 20 12/06/18 04:00 BP 161/71 H 12/06/18 04:00 Pulse Ox 94 L 12/06/18 04:00 Weight - Most Recent: 59.466 kg I&O - Last 24 Hours: Intake & Output 12/05/18 12/06/18 12/06/18 22:59 06:59 14:59 Intake Total 950 50 Balance 950 50 Lab Results Last 24 Hours: Laboratory Results - last 24 hr 12/06/18 Range/Units 06:20 Sodium 154 H (135-145) mmol/L Potassium 3.4 L (3.5-5.3) mmol/L Chloride 106 (100-110) mmol/L Carbon Dioxide > 45 H* (21-32) mmol/L BUN 6 L (7-18) mg/dL Creatinine 0.6 (0.55-1.02) mg/dL Est Cr Clr Drug Dosing 78.36 mL/min Estimated GFR (MDRD) > 60 (>60) BUN/Creatinine Ratio 10.0 (9-20) Glucose 90 (80-116) mg/dL Calcium 9.1 (8.6-10.2) mg/dL Med Orders - Current: Current Medications Acetaminophen (Tylenol) 650 mg PO Q4H PRN PRN Reason: Pain (Mild 1-3)/fever Albuterol (Proventil Neb Soln) 2.5 mg NEB Q2H PRN PRN Reason: Shortness of Breath Albuterol/Ipratropium (Duoneb 3.0-0.5 Mg/3 Ml) 3 ml NEB QIDRT [facility] Last Admin: 12/06/18 07:04 Dose: 3 ml Carbidopa/Levodopa (Sinemet 25-100 Mg) 2.5 tab PO QID [facility] Last Admin: 12/06/18 08:26 Dose: 2.5 tab Clonazepam (Klonopin) 1 mg PO BEDTIME [facility] Last Admin: 12/05/18 20:42 Dose: 1 mg Divalproex Sodium (Depakote Sprinkle) 375 mg PO QID [facility] Last Admin: 12/06/18 08:26 Dose: 375 mg Enoxaparin Sodium (Lovenox) 40 mg SUBCUT Q24H [facility] Last Admin: 12/05/18 19:52 Dose: 40 mg Furosemide (Lasix) 20 mg IVPUSH BID [facility] Piperacillin Sod/Tazobactam (Sod 3.375 gm/ Sodium Chloride) 50 mls @ 100 mls/ hr IV Q6H [facility] Last Admin: 12/06/18 05:59 Dose: 100 mls/hr Levothyroxine Sodium (Levothyroxine) 75 mcg PO BEDTIME [facility] Last Admin: 12/05/18 20:38 Dose: 75 mcg Lorazepam (Ativan) 1 mg IVPUSH Q4H PRN PRN Reason: agitation, SOB Last Admin: 12/06/18 00:44 Dose: 1 mg Mirtazapine (Remeron) 7.5 mg PO QPM [facility] Last Admin: 12/05/18 17:44 Dose: 7.5 mg Morphine Sulfate (Morphine) 2 mg IVPUSH Q30M PRN PRN Reason: Shortness of Breath Last Admin: 12/03/18 21:40 Dose: 2 mg Pantoprazole Sodium (Protonix) 40 mg PO DAILY@0700 [facility] Polyethylene Glycol (Miralax) 17 gm PO DAILY [facility] Last Admin: 12/06/18 08:26 Dose: 17 gm Saccharomyces Boulardii (Florastor) 250 mg PO BID [facility] Last Admin: 12/06/18 08:26 Dose: 250 mg Senna/Docusate Sodium (Senna Plus) 1 tab PO DAILY [facility] Last Admin: 12/06/18 08:26 Dose: 1 tab Sodium Chloride (Saline Flush) 10 ml FLUSH ASDIRECTED PRN PRN Reason: Keep Vein Open Last Admin: 12/06/18 00:44 Dose: 10 ml Discontinued Medications Sodium Chloride (Normal Saline) 1,000 mls @ 100 mls/hr IV ASDIRECTED [facility] Last Admin: 12/01/18 04:14 Dose: 100 mls/hr Sodium Chloride (Normal Saline) 1,000 mls @ 50 mls/hr IV ASDIRECTED [facility] Last Admin: 12/04/18 04:29 Dose: 50 mls/hr Morphine Sulfate (Morphine) 1 mg IVPUSH Q1H PRN PRN Reason: Shortness of Breath Last Admin: 12/01/18 12:35 Dose: 1 mg Morphine Sulfate (Morphine) 2 mg IVPUSH Q30M [facility] Pantoprazole Sodium (Protonix) 40 mg PO ACBREAKFAST [facility] Last Admin: 12/05/18 07:34 Dose: 40 mg Pantoprazole Sodium (Protonix) 40 mg PO ONETIME ONE Stop: 12/06/18 08:01 Last Admin: 12/06/18 08:26 Dose: 40 mg - Exam Quality Assessment: Supplemental Oxygen General: No: Alert HEENT: Pupils Equal Neck: Supple Lungs: Normal Respiratory Effort Cardiovascular: Regular Rate - Problem List & Annotations (1) Right lower lobe pneumonia SNOMED Code(s): 602592425 Code(s): J18.1 - LOBAR PNEUMONIA, UNSPECIFIED ORGANISM Status: Acute Current Visit: Yes Qualifiers: Pneumonia type: aspiration pneumonia Annotation/Comment:: Has had a total of three aspiration events since admission. Continues on zosyn and maintenance IVF. Has been unable to take anything by mouth since the night of admission. Continues with ativan, morphine for easing respiratory distress. Discussed at length with POA yesterday (Jules Gerber) that the patient is unlikely to survive this hospitalization. We could send her back to the assisted with hospice to pass away surrounded by people who know her. Jules and his feel strongly that Liane should remain in the hospital on IV antibiotics until she passes to " give her a chance." In asking about what they see as a reasonable timeline, they feel at least 2 weeks would be reasonable. (2) DNI (do not intubate) SNOMED Code(s): 325613268 Code(s): Z78.9 - OTHER SPECIFIED HEALTH STATUS Status: Acute Current Visit: No (3) GERD (gastroesophageal reflux disease) SNOMED Code(s): 773274665 Code(s): K21.9 - GASTRO-ESOPHAGEAL REFLUX DISEASE WITHOUT ESOPHAGITIS Status: Acute Current Visit: No Qualifiers: Esophagitis presence: esophagitis presence not specified (4) Hypoxia SNOMED Code(s): 808799167 Code(s): R09.02 - HYPOXEMIA Status: Acute Current Visit: No (5) Lives in assisted SNOMED Code(s): 912313175 Code(s): Z59.3 - PROBLEMS RELATED TO LIVING IN RESIDENTIAL INSTITUTION Status: Chronic Current Visit: No (6) Mental retardation SNOMED Code(s): 440186346 Code(s): F79 - UNSPECIFIED INTELLECTUAL DISABILITIES Status: Chronic Current Visit: No Annotation/Comment:: Precautions. (7) Hypernatremia SNOMED Code(s): 65445411 Code(s): E87.0 - HYPEROSMOLALITY AND HYPERNATREMIA Status: Acute Current Visit: Yes - Problem List Review Problem List Initiated/Reviewed/Updated: Yes - My Orders Last 24 Hours: My Active Orders 12/06/18 09:15 Furosemide [Lasix] 20 mg IVPUSH BID 12/07/18 05:11 BASIC METABOLIC PANEL,BMP [CHEM] AM - Plan Plan:: Continue Oxygen supplementation, and add lasix today. repat Labs in AM
[2018-12-06] MEDS: Pantoprazole 40 MG Tab.CR PO SCH (10:26)
[2018-12-06] MEDS: Furosemide 20 MG/2 ML VIAL IVPUSH SCH ×2 (11:00→20:16)
[2018-12-06] MEDS: Mirtazapine 15 MG Tab PO SCH (16:42)
[2018-12-06] MEDS: Enoxaparin 40 MG/0.4 ML Syringe SUBCUT SCH (19:37)
[2018-12-06] MEDS: Levothyroxine 75 MCG Tab PO SCH (20:16)
[2018-12-06] MEDS: ClonazePAM 1 MG Tab PO SCH (20:16)
[2018-12-07] MEDS: Sodium Chloride 0.9% 10 ML Syringe FLUSH PRN ×11 (00:04→20:27)
[2018-12-07] MEDS: Morphine 2 MG/ML Syringe IVPUSH PRN (02:45)
[2018-12-07] MEDS: LORazepam 2 MG/ML SDV IVPUSH PRN ×2 (03:05→20:25)
[2018-12-07] MEDS: Piperacillin/Tazobactam 3.375 GM in Sodium Chloride 0.9% 50 ML IV SCH ×3 (05:58→19:29)
[2018-12-07] MEDS: Pantoprazole 40 MG Tab.CR PO SCH (07:02)
[2018-12-07] MEDS: Albuterol/Ipratropium 3.0-0.5 MG/3 ML Neb Soln NEB SCH ×4 (07:16→20:02)
--- NOTE | 2018-12-07 08:55 | PCM.PN ---
- General Info Date of Service: 12/07/18 Subjective Update: Liane had a fever last night, and she still has hypoxia especially when she lays flat.Still coughs a lot - Review of Systems General: Reports: Fever HEENT: Reports: No Symptoms Pulmonary: Reports: Cough Cardiovascular: Reports: No Symptoms Gastrointestinal: Reports: No Symptoms - Patient Data Vitals - Most Recent: Last Vital Signs Temp 98 F 12/07/18 08:00 Pulse 84 12/07/18 08:00 Resp 14 12/07/18 08:00 BP 102/58 L 12/07/18 08:00 Pulse Ox 96 12/07/18 08:00 Weight - Most Recent: 57.606 kg I&O - Last 24 Hours: Intake & Output 12/06/18 12/07/18 12/07/18 22:59 06:59 14:59 Intake Total 550 80 Balance 550 80 Lab Results Last 24 Hours: Laboratory Results - last 24 hr 12/07/18 Range/Units 06:50 Sodium 154 H (135-145) mmol/L Potassium 3.4 L (3.5-5.3) mmol/L Chloride 106 (100-110) mmol/L Carbon Dioxide > 45 H* (21-32) mmol/L BUN 11 (7-18) mg/dL Creatinine 1.0 (0.55-1.02) mg/dL Est Cr Clr Drug Dosing 47.01 mL/min Estimated GFR (MDRD) 56 L (>60) BUN/Creatinine Ratio 11.0 (9-20) Glucose 92 (80-116) mg/dL Calcium 9.2 (8.6-10.2) mg/dL Med Orders - Current: Current Medications Acetaminophen (Tylenol) 650 mg PO Q4H PRN PRN Reason: Pain (Mild 1-3)/fever Last Admin: 12/07/18 02:35 Dose: 650 mg Albuterol (Proventil Neb Soln) 2.5 mg NEB Q2H PRN PRN Reason: Shortness of Breath Last Admin: 12/07/18 03:10 Dose: 2.5 mg Albuterol/Ipratropium (Duoneb 3.0-0.5 Mg/3 Ml) 3 ml NEB QIDRT [facility] Last Admin: 12/07/18 07:16 Dose: 3 ml Carbidopa/Levodopa (Sinemet 25-100 Mg) 2.5 tab PO QID [facility] Last Admin: 12/06/18 20:16 Dose: 2.5 tab Clonazepam (Klonopin) 1 mg PO BEDTIME [facility] Last Admin: 12/06/18 20:16 Dose: 1 mg Divalproex Sodium (Depakote Sprinkle) 375 mg PO QID [facility] Last Admin: 12/06/18 20:15 Dose: 375 mg Enoxaparin Sodium (Lovenox) 40 mg SUBCUT Q24H [facility] Last Admin: 12/06/18 19:37 Dose: 40 mg Furosemide (Lasix) 20 mg IVPUSH BID [facility] Last Admin: 12/06/18 20:16 Dose: 20 mg Piperacillin Sod/Tazobactam (Sod 3.375 gm/ Sodium Chloride) 50 mls @ 100 mls/ hr IV Q6H [facility] Last Admin: 12/07/18 05:58 Dose: 100 mls/hr Levofloxacin/Dextrose 500 mg/ (Premix) 100 mls @ 100 mls/hr IV ONETIME ONE Stop: 12/07/18 09:59 Vancomycin HCl 1 gm/ Sodium (Chloride) 250 mls @ 167 mls/hr IV Q24H [facility] Levofloxacin/Dextrose (Levaquin In D5w 250 Mg/50 Ml) 50 mls @ 50 mls/hr IV Q24H [facility] Levothyroxine Sodium (Levothyroxine) 75 mcg PO BEDTIME [facility] Last Admin: 12/06/18 20:16 Dose: 75 mcg Lorazepam (Ativan) 1 mg IVPUSH Q4H PRN PRN Reason: agitation, SOB Last Admin: 12/07/18 03:05 Dose: 1 mg Mirtazapine (Remeron) 7.5 mg PO QPM [facility] Last Admin: 12/06/18 16:42 Dose: 7.5 mg Morphine Sulfate (Morphine) 2 mg IVPUSH Q30M PRN PRN Reason: Shortness of Breath Last Admin: 12/07/18 02:45 Dose: 2 mg Pantoprazole Sodium (Protonix) 40 mg PO DAILY@0700 [facility] Last Admin: 12/07/18 07:02 Dose: Not Given Polyethylene Glycol (Miralax) 17 gm PO DAILY [facility] Last Admin: 12/06/18 08:26 Dose: 17 gm Saccharomyces Boulardii (Florastor) 250 mg PO BID [facility] Last Admin: 12/06/18 20:16 Dose: 250 mg Senna/Docusate Sodium (Senna Plus) 1 tab PO DAILY [facility] Last Admin: 12/06/18 08:26 Dose: 1 tab Sodium Chloride (Saline Flush) 10 ml FLUSH ASDIRECTED PRN PRN Reason: Keep Vein Open Last Admin: 12/07/18 06:34 Dose: 10 ml Vancomycin HCl (Pharmacy To Dose - Vancomycin) 1 dose .XX ASDIRECTED [facility] Discontinued Medications Sodium Chloride (Normal Saline) 1,000 mls @ 100 mls/hr IV ASDIRECTED [facility] Last Admin: 12/01/18 04:14 Dose: 100 mls/hr Sodium Chloride (Normal Saline) 1,000 mls @ 50 mls/hr IV ASDIRECTED [facility] Last Admin: 12/04/18 04:29 Dose: 50 mls/hr Morphine Sulfate (Morphine) 1 mg IVPUSH Q1H PRN PRN Reason: Shortness of Breath Last Admin: 12/01/18 12:35 Dose: 1 mg Morphine Sulfate (Morphine) 2 mg IVPUSH Q30M [facility] Pantoprazole Sodium (Protonix) 40 mg PO ACBREAKFAST [facility] Last Admin: 12/06/18 10:26 Dose: Not Given Pantoprazole Sodium (Protonix) 40 mg PO ONETIME ONE Stop: 12/06/18 08:01 Last Admin: 12/06/18 08:26 Dose: 40 mg - Exam Quality Assessment: Supplemental Oxygen General: No Acute Distress Neck: Supple Lungs: Crackles Cardiovascular: Regular Rate - Problem List & Annotations (1) Right lower lobe pneumonia SNOMED Code(s): 200286553 Code(s): J18.1 - LOBAR PNEUMONIA, UNSPECIFIED ORGANISM Status: Acute Current Visit: Yes Qualifiers: Pneumonia type: aspiration pneumonia Annotation/Comment:: Has had a total of three aspiration events since admission. Continues on zosyn and maintenance IVF. Has been unable to take anything by mouth since the night of admission. Continues with ativan, morphine for easing respiratory distress. Discussed at length with POA yesterday (Jules Gerber) that the patient is unlikely to survive this hospitalization. We could send her back to the snf with hospice to pass away surrounded by people who know her. Jules and his feel strongly that Liane should remain in the hospital on IV antibiotics until she passes to " give her a chance." In asking about what they see as a reasonable timeline, they feel at least 2 weeks would be reasonable. (2) DNI (do not intubate) SNOMED Code(s): 494509973 Code(s): Z78.9 - OTHER SPECIFIED HEALTH STATUS Status: Acute Current Visit: No (3) GERD (gastroesophageal reflux disease) SNOMED Code(s): 061098269 Code(s): K21.9 - GASTRO-ESOPHAGEAL REFLUX DISEASE WITHOUT ESOPHAGITIS Status: Acute Current Visit: No Qualifiers: Esophagitis presence: esophagitis presence not specified (4) Hypoxia SNOMED Code(s): 629549101 Code(s): R09.02 - HYPOXEMIA Status: Acute Current Visit: No (5) Lives in snf SNOMED Code(s): 189612379 Code(s): Z59.3 - PROBLEMS RELATED TO LIVING IN RESIDENTIAL INSTITUTION Status: Chronic Current Visit: No (6) Mental retardation SNOMED Code(s): 185322878 Code(s): F79 - UNSPECIFIED INTELLECTUAL DISABILITIES Status: Chronic Current Visit: No Annotation/Comment:: Precautions. (7) Hypernatremia SNOMED Code(s): 11487429 Code(s): E87.0 - HYPEROSMOLALITY AND HYPERNATREMIA Status: Acute Current Visit: Yes - Problem List Review Problem List Initiated/Reviewed/Updated: Yes - My Orders Last 24 Hours: My Active Orders 12/06/18 09:15 Furosemide [Lasix] 20 mg IVPUSH BID 12/07/18 09:00 Levofloxacin/Dextrose 5%-Water [Levaquin in D5W 500 MG/100 ML] 500 mg Premix Bag 1 bag IV ONETIME Pharmacy to Dose - Vancomycin 1 dose .XX ASDIRECTED 12/07/18 11:00 Vancomycin 1 gm Sodium Chloride 0.9% [Normal Saline] 250 ml IV Q24H 12/08/18 05:11 CBC WITH AUTO DIFF [HEME] AM COMPREHENSIVE METABOLIC PN,CMP [CHEM] AM 12/08/18 09:00 Levofloxacin/Dextrose 5%-Water [Levaquin in D5W 250 MG/50 ML] 50 ml IV Q24H 12/10/18 09:30 Communication Order [RC] Click to Edit VANCOMYCIN TROUGH [CHEM] Timed - Plan Plan:: Sodium is still up, and she still continues to exhibit desaturation. The temperature concerns me, and my plan is to start triple therapy antibiotics, and the re assess in [address] of the chest then,if no improvement
[2018-12-07] MEDS ORDERED: Levofloxacin/Dextrose 5%-Water 500 MG in Premix Bag 1 BAG IV ONE (09:00)
[2018-12-07] MEDS: Furosemide 20 MG/2 ML VIAL IVPUSH SCH (10:47)
[2018-12-07] MEDS: Divalproex Sodium Delayed-Release 125 MG Cap.Sprink PO SCH ×4 (13:14→20:02)
[2018-12-07] MEDS: Saccharomyces Boulardii (Probiotic) 250 MG Cap PO SCH ×2 (13:14→20:02)
[2018-12-07] MEDS: Polyethylene Glycol 3350 Powder 17 GM Packet PO SCH (13:15)
[2018-12-07] MEDS: Carbidopa/Levodopa 25-100 MG Tab PO SCH ×4 (13:15→20:02)
[2018-12-07] MEDS: Mirtazapine 15 MG Tab PO SCH (17:08)
[2018-12-07] MEDS: Enoxaparin 40 MG/0.4 ML Syringe SUBCUT SCH (19:54)
[2018-12-07] MEDS: Levothyroxine 75 MCG Tab PO SCH (20:02)
[2018-12-07] MEDS: ClonazePAM 1 MG Tab PO SCH (20:04)
[2018-12-08] MEDS: Piperacillin/Tazobactam 3.375 GM in Sodium Chloride 0.9% 50 ML IV SCH ×4 (00:15→18:16)
[2018-12-08] MEDS: Pantoprazole 40 MG Tab.CR PO SCH (06:04)
[2018-12-08] MEDS: Sodium Chloride 0.9% 10 ML Syringe FLUSH PRN ×3 (06:19→19:09)
[2018-12-08] MEDS: Albuterol/Ipratropium 3.0-0.5 MG/3 ML Neb Soln NEB SCH ×4 (07:06→20:18)
--- NOTE | 2018-12-08 09:04 | PCM.PN ---
- General Info Date of Service: 12/08/18 Subjective Update: Liane jaime still has hypoxia especially when she lays flat.Still coughs a lot,and oxygen needs are increasing. Oral intake is hit and miss Functional Status: Denies: Tolerating Diet - Review of Systems Pulmonary: Reports: Cough Cardiovascular: Reports: No Symptoms Gastrointestinal: Reports: Difficulty Swallowing - Patient Data Vitals - Most Recent: Last Vital Signs Temp 97.8 F 12/08/18 04:20 Pulse 86 12/08/18 07:25 Resp 18 12/08/18 04:20 BP 127/63 12/08/18 04:20 Pulse Ox 91 L 12/08/18 04:20 Weight - Most Recent: 57.606 kg I&O - Last 24 Hours: Intake & Output 12/07/18 12/08/18 12/08/18 22:59 06:59 14:59 Intake Total 97 50 Balance 97 50 Lab Results Last 24 Hours: Laboratory Results - last 24 hr 12/08/18 12/08/18 Range/Units 06:22 06:22 WBC 4.0 L (4.5-12.0) X10-3/uL RBC 4.19 (3.23-5.20) x10(6)uL Hgb 12.2 (11.5-15.5) g/dL Hct 38.1 (30.0-51.3) % MCV 91.0 (80-96) fL MCH 29.1 (27.7-33.6) pg MCHC 32.0 L (32.2-35.4) g/dL RDW 15.5 (11.5-15.5) % Plt Count 530 H (125-369) X10(3)uL MPV 6.6 L (7.4-10.4) fL Add Manual Diff Yes Neutrophils % (Manual) 29 L (46-82) % Band Neutrophils % 1 (0-6) % Lymphocytes % (Manual) 51 H (13-37) % Monocytes % (Manual) 16 H (4-12) % Eosinophils % (Manual) 3 (0-5) % Sodium 153 H (135-145) mmol/L Potassium 3.5 (3.5-5.3) mmol/L Chloride 108 (100-110) mmol/L Carbon Dioxide > 45 H* (21-32) mmol/L BUN 19 H (7-18) mg/dL Creatinine 0.8 (0.55-1.02) mg/dL Est Cr Clr Drug Dosing 58.77 mL/min Estimated GFR (MDRD) > 60 (>60) BUN/Creatinine Ratio 23.8 H (9-20) Glucose 93 (80-116) mg/dL Calcium 9.3 (8.6-10.2) mg/dL Total Bilirubin 0.3 (0.1-1.3) mg/dL AST 18 D (5-25) IU/L ALT < 6 L D (12-36) U/L Alkaline Phosphatase 97 (56-112) IU/L Total Protein 6.9 (6.0-8.0) g/dL Albumin 2.2 L (3.2-4.6) g/dL Globulin 4.7 g/dL Albumin/Globulin Ratio 0.5 Med Orders - Current: Current Medications Acetaminophen (Tylenol) 650 mg PO Q4H PRN PRN Reason: Pain (Mild 1-3)/fever Last Admin: 12/07/18 02:35 Dose: 650 mg Albuterol (Proventil Neb Soln) 2.5 mg NEB Q2H PRN PRN Reason: Shortness of Breath Last Admin: 12/07/18 03:10 Dose: 2.5 mg Albuterol/Ipratropium (Duoneb 3.0-0.5 Mg/3 Ml) 3 ml NEB QIDRT [facility] Last Admin: 12/08/18 07:06 Dose: 3 ml Carbidopa/Levodopa (Sinemet 25-100 Mg) 2.5 tab PO QID [facility] Last Admin: 12/07/18 20:02 Dose: 2.5 tab Clonazepam (Klonopin) 1 mg PO BEDTIME [facility] Last Admin: 12/07/18 20:04 Dose: 1 mg Divalproex Sodium (Depakote Sprinkle) 375 mg PO QID [facility] Last Admin: 12/07/18 20:02 Dose: 375 mg Enoxaparin Sodium (Lovenox) 40 mg SUBCUT Q24H [facility] Last Admin: 12/07/18 19:54 Dose: 40 mg Piperacillin Sod/Tazobactam (Sod 3.375 gm/ Sodium Chloride) 50 mls @ 100 mls/ hr IV Q6H [facility] Last Admin: 12/08/18 05:44 Dose: 100 mls/hr Vancomycin HCl 1 gm/ Sodium (Chloride) 250 mls @ 250 mls/hr IV Q24H [facility] Last Admin: 12/07/18 13:08 Dose: 250 mls/hr Levofloxacin/Dextrose (Levaquin In D5w 250 Mg/50 Ml) 50 mls @ 50 mls/hr IV Q24H [facility] Levothyroxine Sodium (Levothyroxine) 75 mcg PO BEDTIME [facility] Last Admin: 12/07/18 20:02 Dose: 75 mcg Lorazepam (Ativan) 1 mg IVPUSH Q4H PRN PRN Reason: agitation, SOB Last Admin: 12/07/18 20:25 Dose: 1 mg Mirtazapine (Remeron) 7.5 mg PO QPM [facility] Last Admin: 12/07/18 17:08 Dose: 7.5 mg Morphine Sulfate (Morphine) 2 mg IVPUSH Q30M PRN PRN Reason: Shortness of Breath Last Admin: 12/07/18 02:45 Dose: 2 mg Pantoprazole Sodium (Protonix) 40 mg PO DAILY@0700 [facility] Last Admin: 12/08/18 06:04 Dose: 40 mg Polyethylene Glycol (Miralax) 17 gm PO DAILY [facility] Last Admin: 12/07/18 13:15 Dose: Not Given Saccharomyces Boulardii (Florastor) 250 mg PO BID [facility] Last Admin: 12/07/18 20:02 Dose: 250 mg Senna/Docusate Sodium (Senna Plus) 1 tab PO DAILY [facility] Last Admin: 12/07/18 13:15 Dose: Not Given Sodium Chloride (Saline Flush) 10 ml FLUSH ASDIRECTED PRN PRN Reason: Keep Vein Open Last Admin: 12/08/18 06:19 Dose: 10 ml Vancomycin HCl (Pharmacy To Dose - Vancomycin) 1 dose .XX ASDIRECTED [facility] Discontinued Medications Furosemide (Lasix) 20 mg IVPUSH BID [facility] Last Admin: 12/07/18 10:47 Dose: Not Given Sodium Chloride (Normal Saline) 1,000 mls @ 100 mls/hr IV ASDIRECTED [facility] Last Admin: 12/01/18 04:14 Dose: 100 mls/hr Sodium Chloride (Normal Saline) 1,000 mls @ 50 mls/hr IV ASDIRECTED [facility] Last Admin: 12/04/18 04:29 Dose: 50 mls/hr Levofloxacin/Dextrose 500 mg/ (Premix) 100 mls @ 100 mls/hr IV ONETIME ONE Stop: 12/07/18 09:59 Last Admin: 12/07/18 09:44 Dose: 100 mls/hr Morphine Sulfate (Morphine) 1 mg IVPUSH Q1H PRN PRN Reason: Shortness of Breath Last Admin: 12/01/18 12:35 Dose: 1 mg Morphine Sulfate (Morphine) 2 mg IVPUSH Q30M [facility] Pantoprazole Sodium (Protonix) 40 mg PO ACBREAKFAST [facility] Last Admin: 12/06/18 10:26 Dose: Not Given Pantoprazole Sodium (Protonix) 40 mg PO ONETIME ONE Stop: 12/06/18 08:01 Last Admin: 12/06/18 08:26 Dose: 40 mg - Exam Quality Assessment: Supplemental Oxygen General: Alert Lungs: Clear to Auscultation Cardiovascular: Regular Rate - Problem List & Annotations (1) Right lower lobe pneumonia SNOMED Code(s): 096795025 Code(s): J18.1 - LOBAR PNEUMONIA, UNSPECIFIED ORGANISM Status: Acute Current Visit: Yes Qualifiers: Pneumonia type: aspiration pneumonia Annotation/Comment:: Has had a total of three aspiration events since admission. Continues on zosyn and maintenance IVF. Has been unable to take anything by mouth since the night of admission. Continues with ativan, morphine for easing respiratory distress. Discussed at length with POA yesterday (Jules Gerber) that the patient is unlikely to survive this hospitalization. We could send her back to the longterm with hospice to pass away surrounded by people who know her. Jules and his feel strongly that Liane should remain in the hospital on IV antibiotics until she passes to " give her a chance." In asking about what they see as a reasonable timeline, they feel at least 2 weeks would be reasonable. (2) DNI (do not intubate) SNOMED Code(s): 699362783 Code(s): Z78.9 - OTHER SPECIFIED HEALTH STATUS Status: Acute Current Visit: No (3) GERD (gastroesophageal reflux disease) SNOMED Code(s): 015075484 Code(s): K21.9 - GASTRO-ESOPHAGEAL REFLUX DISEASE WITHOUT ESOPHAGITIS Status: Acute Current Visit: No Qualifiers: Esophagitis presence: esophagitis presence not specified (4) Hypoxia SNOMED Code(s): 766860878 Code(s): R09.02 - HYPOXEMIA Status: Acute Current Visit: No (5) Lives in longterm SNOMED Code(s): 153781692 Code(s): Z59.3 - PROBLEMS RELATED TO LIVING IN RESIDENTIAL INSTITUTION Status: Chronic Current Visit: No (6) Mental retardation SNOMED Code(s): 358197168 Code(s): F79 - UNSPECIFIED INTELLECTUAL DISABILITIES Status: Chronic Current Visit: No Annotation/Comment:: Precautions. (7) Hypernatremia SNOMED Code(s): 22741168 Code(s): E87.0 - HYPEROSMOLALITY AND HYPERNATREMIA Status: Acute Current Visit: Yes - Problem List Review Problem List Initiated/Reviewed/Updated: Yes - My Orders Last 24 Hours: My Active Orders 12/07/18 09:00 Pharmacy to Dose - Vancomycin 1 dose .XX ASDIRECTED 12/07/18 11:00 Vancomycin 1 gm Sodium Chloride 0.9% [Normal Saline] 250 ml IV Q24H 12/08/18 09:00 Levofloxacin/Dextrose 5%-Water [Levaquin in D5W 250 MG/50 ML] 50 ml IV Q24H 12/08/18 09:02 Chest w Cont [CT] Routine 12/08/18 09:30 Communication Order [RC] ONETIME 12/10/18 09:30 Communication Order [RC] .1-24 VANCOMYCIN TROUGH [CHEM] Timed - Plan Plan:: I see no improvement despite triple antibiotic therapy. I did speak with Erick ,who wants us to continue treatment. Obtain CT of the chest for a evaluation and consideration of other causes of hypoxia
[2018-12-08] MEDS: Levofloxacin/Dextrose 5%-Water 50 ML IV SCH (09:30)
[2018-12-08] MEDS: Saccharomyces Boulardii (Probiotic) 250 MG Cap PO SCH ×2 (09:33→20:19)
[2018-12-08] MEDS: Divalproex Sodium Delayed-Release 125 MG Cap.Sprink PO SCH ×4 (09:33→20:18)
[2018-12-08] MEDS: Polyethylene Glycol 3350 Powder 17 GM Packet PO SCH (09:34)
[2018-12-08] MEDS: Carbidopa/Levodopa 25-100 MG Tab PO SCH ×4 (09:36→20:19)
[2018-12-08] MEDS ORDERED: Iopamidol 755 Mg/ML 75 ML Bottle IV ONE (13:12)
[2018-12-08] MEDS: Mirtazapine 15 MG Tab PO SCH (18:05)
[2018-12-08] MEDS: Enoxaparin 40 MG/0.4 ML Syringe SUBCUT SCH (19:31)
[2018-12-08] MEDS: Levothyroxine 75 MCG Tab PO SCH (20:19)
[2018-12-08] MEDS: ClonazePAM 1 MG Tab PO SCH (20:21)
[2018-12-09] MEDS: Piperacillin/Tazobactam 3.375 GM in Sodium Chloride 0.9% 50 ML IV SCH ×5 (00:20→23:59)
[2018-12-09] MEDS: Sodium Chloride 0.9% 10 ML Syringe FLUSH PRN ×4 (00:47→19:29)
[2018-12-09] MEDS: Albuterol/Ipratropium 3.0-0.5 MG/3 ML Neb Soln NEB SCH ×4 (07:05→20:20)
--- NOTE | 2018-12-09 07:22 | CT ---
INDICATION: Hypoxia. CT ANGIOGRAPHY OF THE CHEST: Spiral 1.25 mm axial sections were obtained through the chest with 75 mm of Isovue 370 at 2.5 mm per second with sagittal and coronal reconstructions 12-08-18 and compared with 02-19-16. Total exam DLP = 533.03 mGy-cm. Interstitial changes compatible with interstitial lung edema are present. Acute pulmonary edema may also be present to a mild degree. Pleural effusion of small to moderate size is noted on the right with consolidation or atelectasis at the right lower lobe. At the left lung base there is what appears to be a localized eventration posteriorly measuring approximately 15 x 23 mm in craniocaudad by anterior posterior diameter and approximately 37 mm transversely. Cranial to that eventration there is what appears to be atelectasis and/or infiltrate raising the question of pneumonia in that area also. A moderately severe to severe dextroconvex rotoscoliosis is noted of the thoracic spine. Degenerative hypertrophic changes are also noted off prevertebral bodies mostly anteriorly but also seen somewhat posterolaterally at all levels. There also appears to be infiltration extending into the right upper lobe in the right mid to upper lung field which may be on the basis of pneumonia and/or pulmonary edema. The heart did not appear significantly enlarged to very strongly suggest CHF, however, and pulmonary edema could also be on the basis of renal failure or fluid overload as well as other etiology such as aspiration pneumonia. Opacification of the arteries is less than ideal but reveal no evidence for pulmonary emboli on a fairly reliable basis. No mediastinal mass was identified. There is, however, noted mediastinal lymph adenopathy mostly at the aortopulmonary window level which appears to be fairly stable and is not specific. There is what appears to be residual from a previous abscess at the right lower lobe which is now calcified. IMPRESSION: 1. Bilateral infiltration is noted which may be on the basis of acute pulmonary edema. Since the heart is not grossly enlarged this could be on the basis of an acute myocardial event or possibly a non-cardiac process such as fluid over load or renal failure. Aspiration pneumonia would also be a consideration--correlate clinically. 2. Residual calcifying abscess right lower lobe slightly smaller in size than on the previous study with new calcification centrally. 3. Localized eventration at the left lung base again noted. 4. Post cholecystectomy. 5. Scoliosis and DJD thoracic spine. 6. ASD with relatively minimal aortic calcifications mostly in the arch of the aorta. Report was called to Dr. Hernandez at 1520 hours. [facility]
[2018-12-09] MEDS: Pantoprazole 40 MG Tab.CR PO SCH (07:37)
--- NOTE | 2018-12-09 08:14 | PCM.PN ---
- General Info Date of Service: 12/09/18 Subjective Update: Liane jaime still has hypoxia especially when she lays flat.Still coughs a lot,and oxygen needs are increasing. Oral intake is hit and miss Functional Status: Reports: Pain Controlled - Review of Systems General: Reports: No Symptoms HEENT: Reports: No Symptoms Pulmonary: Reports: Cough Cardiovascular: Reports: No Symptoms Gastrointestinal: Reports: No Symptoms - Patient Data Vitals - Most Recent: Last Vital Signs Temp 98 F 12/09/18 00:00 Pulse 88 12/09/18 04:00 Resp 20 12/09/18 04:00 BP 125/54 L 12/09/18 04:00 Pulse Ox 91 L 12/09/18 00:00 Weight - Most Recent: 58.105 kg I&O - Last 24 Hours: Intake & Output 12/08/18 12/09/18 12/09/18 22:59 06:59 14:59 Intake Total 525 100 Balance 525 100 Med Orders - Current: Current Medications Acetaminophen (Tylenol) 650 mg PO Q4H PRN PRN Reason: Pain (Mild 1-3)/fever Last Admin: 12/07/18 02:35 Dose: 650 mg Albuterol (Proventil Neb Soln) 2.5 mg NEB Q2H PRN PRN Reason: Shortness of Breath Last Admin: 12/07/18 03:10 Dose: 2.5 mg Albuterol/Ipratropium (Duoneb 3.0-0.5 Mg/3 Ml) 3 ml NEB QIDRT [facility] Last Admin: 12/09/18 07:05 Dose: 3 ml Carbidopa/Levodopa (Sinemet 25-100 Mg) 2.5 tab PO QID [facility] Last Admin: 12/08/18 20:19 Dose: 2.5 tab Clonazepam (Klonopin) 1 mg PO BEDTIME [facility] Last Admin: 12/08/18 20:21 Dose: 1 mg Divalproex Sodium (Depakote Sprinkle) 375 mg PO QID [facility] Last Admin: 12/08/18 20:18 Dose: 375 mg Enoxaparin Sodium (Lovenox) 40 mg SUBCUT Q24H [facility] Last Admin: 12/08/18 19:31 Dose: 40 mg Piperacillin Sod/Tazobactam (Sod 3.375 gm/ Sodium Chloride) 50 mls @ 100 mls/ hr IV Q6H [facility] Last Admin: 12/09/18 05:40 Dose: 100 mls/hr Vancomycin HCl 1 gm/ Sodium (Chloride) 250 mls @ 250 mls/hr IV Q24H [facility] Last Admin: 12/08/18 11:02 Dose: 250 mls/hr Levofloxacin/Dextrose (Levaquin In D5w 250 Mg/50 Ml) 50 mls @ 50 mls/hr IV Q24H [facility] Last Admin: 12/08/18 09:30 Dose: 50 mls/hr Levothyroxine Sodium (Levothyroxine) 75 mcg PO BEDTIME [facility] Last Admin: 12/08/18 20:19 Dose: 75 mcg Lorazepam (Ativan) 1 mg IVPUSH Q4H PRN PRN Reason: agitation, SOB Last Admin: 12/07/18 20:25 Dose: 1 mg Mirtazapine (Remeron) 7.5 mg PO QPM [facility] Last Admin: 12/08/18 18:05 Dose: 7.5 mg Morphine Sulfate (Morphine) 2 mg IVPUSH Q30M PRN PRN Reason: Shortness of Breath Last Admin: 12/07/18 02:45 Dose: 2 mg Pantoprazole Sodium (Protonix) 40 mg PO DAILY@0700 [facility] Last Admin: 12/09/18 07:37 Dose: 40 mg Polyethylene Glycol (Miralax) 17 gm PO DAILY [facility] Last Admin: 12/08/18 09:34 Dose: 17 gm Saccharomyces Boulardii (Florastor) 250 mg PO BID [facility] Last Admin: 12/08/18 20:19 Dose: 250 mg Senna/Docusate Sodium (Senna Plus) 1 tab PO DAILY [facility] Last Admin: 12/08/18 09:35 Dose: 1 tab Sodium Chloride (Saline Flush) 10 ml FLUSH ASDIRECTED PRN PRN Reason: Keep Vein Open Last Admin: 12/09/18 00:47 Dose: 10 ml Vancomycin HCl (Pharmacy To Dose - Vancomycin) 1 dose .XX ASDIRECTED [facility] Discontinued Medications Furosemide (Lasix) 20 mg IVPUSH BID [facility] Last Admin: 12/07/18 10:47 Dose: Not Given Sodium Chloride (Normal Saline) 1,000 mls @ 100 mls/hr IV ASDIRECTED [facility] Last Admin: 12/01/18 04:14 Dose: 100 mls/hr Sodium Chloride (Normal Saline) 1,000 mls @ 50 mls/hr IV ASDIRECTED [facility] Last Admin: 12/04/18 04:29 Dose: 50 mls/hr Levofloxacin/Dextrose 500 mg/ (Premix) 100 mls @ 100 mls/hr IV ONETIME ONE Stop: 12/07/18 09:59 Last Admin: 12/07/18 09:44 Dose: 100 mls/hr Iopamidol (Isovue-370 (76%)) 75 ml IV ONETIME ONE Stop: 12/08/18 13:13 Last Admin: 12/08/18 13:38 Dose: 75 ml Morphine Sulfate (Morphine) 1 mg IVPUSH Q1H PRN PRN Reason: Shortness of Breath Last Admin: 12/01/18 12:35 Dose: 1 mg Morphine Sulfate (Morphine) 2 mg IVPUSH Q30M [facility] Pantoprazole Sodium (Protonix) 40 mg PO ACBREAKFAST [facility] Last Admin: 12/06/18 10:26 Dose: Not Given Pantoprazole Sodium (Protonix) 40 mg PO ONETIME ONE Stop: 12/06/18 08:01 Last Admin: 12/06/18 08:26 Dose: 40 mg - Exam Quality Assessment: Supplemental Oxygen General: Alert Lungs: Crackles, Rales Cardiovascular: Regular Rate GI/Abdominal Exam: Normal Bowel Sounds - Problem List & Annotations (1) Right lower lobe pneumonia SNOMED Code(s): 090753531 Code(s): J18.1 - LOBAR PNEUMONIA, UNSPECIFIED ORGANISM Status: Acute Current Visit: Yes Qualifiers: Pneumonia type: aspiration pneumonia (2) DNI (do not intubate) SNOMED Code(s): 433881568 Code(s): Z78.9 - OTHER SPECIFIED HEALTH STATUS Status: Acute Current Visit: No (3) GERD (gastroesophageal reflux disease) SNOMED Code(s): 124065331 Code(s): K21.9 - GASTRO-ESOPHAGEAL REFLUX DISEASE WITHOUT ESOPHAGITIS Status: Acute Current Visit: No Qualifiers: Esophagitis presence: esophagitis presence not specified (4) Hypoxia SNOMED Code(s): 330073780 Code(s): R09.02 - HYPOXEMIA Status: Acute Current Visit: No (5) Lives in [facility] SNOMED Code(s): 401850097 Code(s): Z59.3 - PROBLEMS RELATED TO LIVING IN RESIDENTIAL INSTITUTION Status: Chronic Current Visit: No (6) Mental retardation SNOMED Code(s): 711216415 Code(s): F79 - UNSPECIFIED INTELLECTUAL DISABILITIES Status: Chronic Current Visit: No Annotation/Comment:: Precautions. (7) Hypernatremia SNOMED Code(s): 21844786 Code(s): E87.0 - HYPEROSMOLALITY AND HYPERNATREMIA Status: Acute Current Visit: Yes - Problem List Review Problem List Initiated/Reviewed/Updated: Yes - My Orders Last 24 Hours: My Active Orders 12/08/18 09:00 Levofloxacin/Dextrose 5%-Water [Levaquin in D5W 250 MG/50 ML] 50 ml IV Q24H 12/08/18 09:30 Communication Order [RC] ONETIME 12/09/18 14:00 Furosemide [Lasix] 20 mg PO BIDDIURETIC 12/10/18 05:11 BASIC METABOLIC PANEL,BMP [CHEM] AM CBC WITH AUTO DIFF [HEME] AM 12/10/18 09:30 Communication Order [RC] .1-24 VANCOMYCIN TROUGH [CHEM] Timed - Plan Plan:: CT showed continued pneumonia, and perhaps pulmonary edema. I will start oral Lasix, and repeat labs in morning. My plan is that tomorrow; she may be able to stop antibiotics and discuss disposition
[2018-12-09] MEDS: Divalproex Sodium Delayed-Release 125 MG Cap.Sprink PO SCH ×4 (09:18→20:20)
[2018-12-09] MEDS: Saccharomyces Boulardii (Probiotic) 250 MG Cap PO SCH ×2 (09:18→20:20)
[2018-12-09] MEDS: Furosemide 20 MG Tab PO SCH ×2 (09:19→17:01)
[2018-12-09] MEDS: Polyethylene Glycol 3350 Powder 17 GM Packet PO SCH ×2 (09:19→13:45)
[2018-12-09] MEDS: Carbidopa/Levodopa 25-100 MG Tab PO SCH ×4 (09:21→20:25)
[2018-12-09] MEDS: Omeprazole 20 MG Cap.CR PO SCH (09:31)
[2018-12-09] MEDS: Levofloxacin/Dextrose 5%-Water 50 ML IV SCH (09:38)
[2018-12-09] MEDS: Mirtazapine 15 MG Tab PO SCH (17:03)
[2018-12-09] MEDS: Enoxaparin 40 MG/0.4 ML Syringe SUBCUT SCH (19:24)
[2018-12-09] MEDS: Levothyroxine 75 MCG Tab PO SCH (20:21)
[2018-12-09] MEDS: ClonazePAM 1 MG Tab PO SCH (20:21)
[2018-12-10] MEDS: Sodium Chloride 0.9% 10 ML Syringe FLUSH PRN ×4 (00:35→09:50)
[2018-12-10] MEDS: Omeprazole 20 MG Cap.CR PO SCH (05:15)
[2018-12-10] MEDS: Piperacillin/Tazobactam 3.375 GM in Sodium Chloride 0.9% 50 ML IV SCH (05:16)
[2018-12-10] MEDS: Albuterol/Ipratropium 3.0-0.5 MG/3 ML Neb Soln NEB SCH ×4 (07:27→20:26)
[2018-12-10] MEDS: Furosemide 20 MG Tab PO SCH ×2 (08:11→13:36)
[2018-12-10] MEDS: Divalproex Sodium Delayed-Release 125 MG Cap.Sprink PO SCH ×4 (08:12→20:23)
[2018-12-10] MEDS: Saccharomyces Boulardii (Probiotic) 250 MG Cap PO SCH ×2 (08:12→20:24)
[2018-12-10] MEDS: Polyethylene Glycol 3350 Powder 17 GM Packet PO SCH (08:13)
[2018-12-10] MEDS: Carbidopa/Levodopa 25-100 MG Tab PO SCH ×4 (08:14→20:24)
[2018-12-10] MEDS: Levofloxacin/Dextrose 5%-Water 50 ML IV SCH (09:10)
--- NOTE | 2018-12-10 09:22 | PCM.PN ---
- General Info Date of Service: 12/10/18 Subjective Update: Liane jaime still has mild hypoxia especially when she lays flat.Cough is beter.last suction on Friday.,and oxygen needs are decreasing. Oral intake iis far better Functional Status: Reports: Pain Controlled - Review of Systems HEENT: Reports: No Symptoms Pulmonary: Reports: Cough Cardiovascular: Reports: No Symptoms Gastrointestinal: Reports: No Symptoms Genitourinary: Reports: No Symptoms - Patient Data Vitals - Most Recent: Last Vital Signs Temp 98.8 F 12/10/18 03:58 Pulse 82 12/10/18 07:40 Resp 21 H 12/10/18 03:58 BP 134/84 12/10/18 03:58 Pulse Ox 89 L 12/10/18 07:40 Weight - Most Recent: 58.105 kg I&O - Last 24 Hours: Intake & Output 12/09/18 12/10/18 12/10/18 22:59 06:59 14:59 Intake Total 600 175 Balance 600 175 Lab Results Last 24 Hours: Laboratory Results - last 24 hr 12/10/18 12/10/18 Range/Units 06:55 06:55 WBC 4.5 (4.5-12.0) X10-3/uL RBC 4.21 (3.23-5.20) x10(6)uL Hgb 12.3 (11.5-15.5) g/dL Hct 38.2 (30.0-51.3) % MCV 90.9 (80-96) fL MCH 29.1 (27.7-33.6) pg MCHC 32.1 L (32.2-35.4) g/dL RDW 16.0 H (11.5-15.5) % Plt Count 396 H (125-369) X10(3)uL MPV 7.2 L (7.4-10.4) fL Neut % (Auto) 39.7 L (46-82) % Lymph % (Auto) 36.0 (13-37) % [place] % (Auto) 12.2 H (4-12) % Eos % (Auto) 12 H (1.0-5.0) % Baso % (Auto) 0 (0-2) % Neut # (Auto) 1.8 (1.6-8.3) # Lymph # (Auto) 1.6 (0.6-5.0) # [place] # (Auto) 0.6 (0.0-1.3) # Eos # (Auto) 0.5 (0.0-0.8) # Baso # (Auto) 0.0 (0.0-0.2) # Sodium 152 H (135-145) mmol/L Potassium 3.6 (3.5-5.3) mmol/L Chloride 110 (100-110) mmol/L Carbon Dioxide 36 H (21-32) mmol/L BUN 18 (7-18) mg/dL Creatinine 0.7 (0.55-1.02) mg/dL Est Cr Clr Drug Dosing 67.16 mL/min Estimated GFR (MDRD) > 60 (>60) BUN/Creatinine Ratio 25.7 H (9-20) Glucose 99 (80-116) mg/dL Calcium 9.4 (8.6-10.2) mg/dL Med Orders - Current: Current Medications Acetaminophen (Tylenol) 650 mg PO Q4H PRN PRN Reason: Pain (Mild 1-3)/fever Last Admin: 12/07/18 02:35 Dose: 650 mg Albuterol (Proventil Neb Soln) 2.5 mg NEB Q2H PRN PRN Reason: Shortness of Breath Last Admin: 12/07/18 03:10 Dose: 2.5 mg Albuterol/Ipratropium (Duoneb 3.0-0.5 Mg/3 Ml) 3 ml NEB QIDRT [facility] Last Admin: 12/10/18 07:27 Dose: 3 ml Carbidopa/Levodopa (Sinemet 25-100 Mg) 2.5 tab PO QID [facility] Last Admin: 12/10/18 08:14 Dose: 2.5 tab Clonazepam (Klonopin) 1 mg PO BEDTIME [facility] Last Admin: 12/09/18 20:21 Dose: 1 mg Divalproex Sodium (Depakote Sprinkle) 375 mg PO QID [facility] Last Admin: 12/10/18 08:12 Dose: 375 mg Enoxaparin Sodium (Lovenox) 40 mg SUBCUT Q24H [facility] Last Admin: 12/09/18 19:24 Dose: 40 mg Furosemide (Lasix) 20 mg PO BIDDIURETIC [facility] Last Admin: 12/10/18 08:11 Dose: 20 mg Piperacillin Sod/Tazobactam (Sod 3.375 gm/ Sodium Chloride) 50 mls @ 100 mls/ hr IV Q6H [facility] Last Admin: 12/10/18 05:16 Dose: 100 mls/hr Vancomycin HCl 1 gm/ Sodium (Chloride) 250 mls @ 250 mls/hr IV Q24H [facility] Last Admin: 12/09/18 12:23 Dose: 250 mls/hr Levofloxacin/Dextrose (Levaquin In D5w 250 Mg/50 Ml) 50 mls @ 50 mls/hr IV Q24H [facility] Last Admin: 12/10/18 09:10 Dose: 50 mls/hr Levothyroxine Sodium (Levothyroxine) 75 mcg PO BEDTIME [facility] Last Admin: 12/09/18 20:21 Dose: 75 mcg Lorazepam (Ativan) 1 mg IVPUSH Q4H PRN PRN Reason: agitation, SOB Last Admin: 12/07/18 20:25 Dose: 1 mg Mirtazapine (Remeron) 7.5 mg PO QPM [facility] Last Admin: 12/09/18 17:03 Dose: 7.5 mg Morphine Sulfate (Morphine) 2 mg IVPUSH Q30M PRN PRN Reason: Shortness of Breath Last Admin: 12/07/18 02:45 Dose: 2 mg Omeprazole (Omeprazole) 20 mg PO DAILY@0600 [facility] Last Admin: 12/10/18 05:15 Dose: 20 mg Polyethylene Glycol (Miralax) 17 gm PO DAILY [facility] Last Admin: 12/10/18 08:13 Dose: 17 gm Saccharomyces Boulardii (Florastor) 250 mg PO BID [facility] Last Admin: 12/10/18 08:12 Dose: 250 mg Senna/Docusate Sodium (Senna Plus) 1 tab PO DAILY [facility] Last Admin: 12/10/18 08:13 Dose: 1 tab Sodium Chloride (Saline Flush) 10 ml FLUSH ASDIRECTED PRN PRN Reason: Keep Vein Open Last Admin: 12/10/18 05:50 Dose: 10 ml Vancomycin HCl (Pharmacy To Dose - Vancomycin) 1 dose .XX ASDIRECTED [facility] Discontinued Medications Furosemide (Lasix) 20 mg IVPUSH BID [facility] Last Admin: 12/07/18 10:47 Dose: Not Given Sodium Chloride (Normal Saline) 1,000 mls @ 100 mls/hr IV ASDIRECTED [facility] Last Admin: 12/01/18 04:14 Dose: 100 mls/hr Sodium Chloride (Normal Saline) 1,000 mls @ 50 mls/hr IV ASDIRECTED [facility] Last Admin: 12/04/18 04:29 Dose: 50 mls/hr Levofloxacin/Dextrose 500 mg/ (Premix) 100 mls @ 100 mls/hr IV ONETIME ONE Stop: 12/07/18 09:59 Last Admin: 12/07/18 09:44 Dose: 100 mls/hr Iopamidol (Isovue-370 (76%)) 75 ml IV ONETIME ONE Stop: 12/08/18 13:13 Last Admin: 12/08/18 13:38 Dose: 75 ml Morphine Sulfate (Morphine) 1 mg IVPUSH Q1H PRN PRN Reason: Shortness of Breath Last Admin: 12/01/18 12:35 Dose: 1 mg Morphine Sulfate (Morphine) 2 mg IVPUSH Q30M [facility] Pantoprazole Sodium (Protonix) 40 mg PO ACBREAKFAST [facility] Last Admin: 12/06/18 10:26 Dose: Not Given Pantoprazole Sodium (Protonix) 40 mg PO DAILY@0700 [facility] Last Admin: 12/09/18 07:37 Dose: 40 mg Pantoprazole Sodium (Protonix) 40 mg PO ONETIME ONE Stop: 12/06/18 08:01 Last Admin: 12/06/18 08:26 Dose: 40 mg - Exam Quality Assessment: No: Supplemental Oxygen General: Alert HEENT: Pupils Equal Lungs: Clear to Auscultation Cardiovascular: Regular Rate - Problem List & Annotations (1) Right lower lobe pneumonia SNOMED Code(s): 255671201 Code(s): J18.1 - LOBAR PNEUMONIA, UNSPECIFIED ORGANISM Status: Acute Current Visit: Yes Qualifiers: Pneumonia type: aspiration pneumonia (2) DNI (do not intubate) SNOMED Code(s): 347859113 Code(s): Z78.9 - OTHER SPECIFIED HEALTH STATUS Status: Acute Current Visit: No (3) GERD (gastroesophageal reflux disease) SNOMED Code(s): 084850317 Code(s): K21.9 - GASTRO-ESOPHAGEAL REFLUX DISEASE WITHOUT ESOPHAGITIS Status: Acute Current Visit: No Qualifiers: Esophagitis presence: esophagitis presence not specified (4) Hypoxia SNOMED Code(s): 052431946 Code(s): R09.02 - HYPOXEMIA Status: Acute Current Visit: No (5) Lives in alf SNOMED Code(s): 648437533 Code(s): Z59.3 - PROBLEMS RELATED TO LIVING IN RESIDENTIAL INSTITUTION Status: Chronic Current Visit: No (6) Mental retardation SNOMED Code(s): 404124667 Code(s): F79 - UNSPECIFIED INTELLECTUAL DISABILITIES Status: Chronic Current Visit: No Annotation/Comment:: Precautions. (7) Hypernatremia SNOMED Code(s): 10836143 Code(s): E87.0 - HYPEROSMOLALITY AND HYPERNATREMIA Status: Acute Current Visit: Yes - Problem List Review Problem List Initiated/Reviewed/Updated: Yes - My Orders Last 24 Hours: My Active Orders 12/09/18 09:00 Furosemide [Lasix] 20 mg PO BIDDIURETIC 12/09/18 09:30 Omeprazole 20 mg PO DAILY@0600 12/10/18 09:30 Communication Order [RC] .12-1012/11/18 05:11 BASIC METABOLIC PANEL,BMP [CHEM] AM CBC WITH AUTO DIFF [HEME] AM - Plan Plan:: I will switch meds to oral.Wean off O2. Consider Discharge tomorrow,back to [facility].
[2018-12-10] MEDS: Amoxicillin/Clavulanate K 875-125 MG Tab PO SCH ×2 (10:16→22:54)
[2018-12-10] MEDS: Mirtazapine 15 MG Tab PO SCH (17:31)
[2018-12-10] MEDS: Enoxaparin 40 MG/0.4 ML Syringe SUBCUT SCH (19:51)
[2018-12-10] MEDS: Levothyroxine 75 MCG Tab PO SCH (20:24)
[2018-12-10] MEDS: ClonazePAM 1 MG Tab PO SCH (20:26)
[2018-12-11 05:01] VITALS: BP 131/93
[2018-12-11] MEDS: Omeprazole 20 MG Cap.CR PO SCH (05:15)
[2018-12-11] MEDS: Albuterol/Ipratropium 3.0-0.5 MG/3 ML Neb Soln NEB SCH ×2 (07:20→10:58)
[2018-12-11] MEDS: Saccharomyces Boulardii (Probiotic) 250 MG Cap PO SCH (08:02)
[2018-12-11] MEDS: Divalproex Sodium Delayed-Release 125 MG Cap.Sprink PO SCH ×2 (08:02→12:22)
[2018-12-11] MEDS: Furosemide 20 MG Tab PO SCH (08:02)
[2018-12-11] MEDS: Carbidopa/Levodopa 25-100 MG Tab PO SCH ×2 (08:02→12:23)
[2018-12-11] MEDS: Polyethylene Glycol 3350 Powder 17 GM Packet PO SCH (08:03)
--- NOTE | 2018-12-11 08:08 | PCM.PN ---
- General Info Date of Service: 12/11/18 Admission Dx/Problem (Free Text): Patient sleeping and comfortable. Not require oxygen anymore. - Patient Data Vitals - Most Recent: Last Vital Signs Temp 98.4 F 12/11/18 03:50 Pulse 80 12/11/18 07:21 Resp 20 12/11/18 03:50 BP 131/93 H 12/11/18 03:50 Pulse Ox 88 L 12/11/18 07:21 Weight - Most Recent: 131 lb I&O - Last 24 Hours: Intake & Output 12/10/18 12/11/18 12/11/18 22:59 06:59 14:59 Intake Total 50 Output Total 0 Balance 50 Lab Results Last 24 Hours: Laboratory Results - last 24 hr 12/11/18 12/11/18 Range/Units 06:30 06:30 WBC 4.9 (4.5-12.0) X10-3/uL RBC 4.28 (3.23-5.20) x10(6)uL Hgb 12.5 (11.5-15.5) g/dL Hct 38.8 (30.0-51.3) % MCV 90.6 (80-96) fL MCH 29.3 (27.7-33.6) pg MCHC 32.3 (32.2-35.4) g/dL RDW 15.7 H (11.5-15.5) % Plt Count 364 (125-369) X10(3)uL MPV 7.4 (7.4-10.4) fL Neut % (Auto) 35.0 L (46-82) % Lymph % (Auto) 43.3 H (13-37) % [place] % (Auto) 10.6 (4-12) % Eos % (Auto) 11 H (1.0-5.0) % Baso % (Auto) 1 (0-2) % Neut # (Auto) 1.7 (1.6-8.3) # Lymph # (Auto) 2.2 (0.6-5.0) # [place] # (Auto) 0.5 (0.0-1.3) # Eos # (Auto) 0.5 (0.0-0.8) # Baso # (Auto) 0.0 (0.0-0.2) # Sodium 150 H (135-145) mmol/L Potassium 3.8 (3.5-5.3) mmol/L Chloride 109 (100-110) mmol/L Carbon Dioxide 38 H (21-32) mmol/L BUN 16 (7-18) mg/dL Creatinine 0.7 (0.55-1.02) mg/dL Est Cr Clr Drug Dosing 67.16 mL/min Estimated GFR (MDRD) > 60 (>60) BUN/Creatinine Ratio 22.9 H (9-20) Glucose 95 (80-116) mg/dL Calcium 9.0 (8.6-10.2) mg/dL Med Orders - Current: Current Medications Acetaminophen (Tylenol) 650 mg PO Q4H PRN PRN Reason: Pain (Mild 1-3)/fever Last Admin: 12/07/18 02:35 Dose: 650 mg Albuterol (Proventil Neb Soln) 2.5 mg NEB Q2H PRN PRN Reason: Shortness of Breath Last Admin: 12/07/18 03:10 Dose: 2.5 mg Albuterol/Ipratropium (Duoneb 3.0-0.5 Mg/3 Ml) 3 ml NEB QIDRT [facility] Last Admin: 12/11/18 07:20 Dose: 3 ml Amoxicillin/Clavulanate Potassium (Augmentin 875 Mg/125 Mg) 1 tab PO Q12H [facility] Last Admin: 12/10/18 22:54 Dose: 1 tab Carbidopa/Levodopa (Sinemet 25-100 Mg) 2.5 tab PO QID [facility] Last Admin: 12/11/18 08:02 Dose: 2.5 tab Clonazepam (Klonopin) 1 mg PO BEDTIME [facility] Last Admin: 12/10/18 20:26 Dose: 1 mg Divalproex Sodium (Depakote Sprinkle) 375 mg PO QID [facility] Last Admin: 12/11/18 08:02 Dose: 375 mg Enoxaparin Sodium (Lovenox) 40 mg SUBCUT Q24H [facility] Last Admin: 12/10/18 19:51 Dose: 40 mg Furosemide (Lasix) 20 mg PO BIDDIURETIC [facility] Last Admin: 12/11/18 08:02 Dose: 20 mg Levothyroxine Sodium (Levothyroxine) 75 mcg PO BEDTIME [facility] Last Admin: 12/10/18 20:24 Dose: 75 mcg Lorazepam (Ativan) 1 mg IVPUSH Q4H PRN PRN Reason: agitation, SOB Last Admin: 12/07/18 20:25 Dose: 1 mg Mirtazapine (Remeron) 7.5 mg PO QPM [facility] Last Admin: 12/10/18 17:31 Dose: 7.5 mg Morphine Sulfate (Morphine) 2 mg IVPUSH Q30M PRN PRN Reason: Shortness of Breath Last Admin: 12/07/18 02:45 Dose: 2 mg Omeprazole (Omeprazole) 20 mg PO DAILY@0600 [facility] Last Admin: 12/11/18 05:15 Dose: 20 mg Polyethylene Glycol (Miralax) 17 gm PO DAILY [facility] Last Admin: 12/11/18 08:03 Dose: Not Given Saccharomyces Boulardii (Florastor) 250 mg PO BID [facility] Last Admin: 12/11/18 08:02 Dose: 250 mg Senna/Docusate Sodium (Senna Plus) 1 tab PO DAILY [facility] Last Admin: 12/11/18 08:03 Dose: 1 tab Sodium Chloride (Saline Flush) 10 ml FLUSH ASDIRECTED PRN PRN Reason: Keep Vein Open Last Admin: 12/10/18 09:50 Dose: 10 ml Discontinued Medications Furosemide (Lasix) 20 mg IVPUSH BID [facility] Last Admin: 12/07/18 10:47 Dose: Not Given Piperacillin Sod/Tazobactam (Sod 3.375 gm/ Sodium Chloride) 50 mls @ 100 mls/ hr IV Q6H [facility] Last Admin: 12/10/18 05:16 Dose: 100 mls/hr Sodium Chloride (Normal Saline) 1,000 mls @ 100 mls/hr IV ASDIRECTED [facility] Last Admin: 12/01/18 04:14 Dose: 100 mls/hr Sodium Chloride (Normal Saline) 1,000 mls @ 50 mls/hr IV ASDIRECTED [facility] Last Admin: 12/04/18 04:29 Dose: 50 mls/hr Levofloxacin/Dextrose 500 mg/ (Premix) 100 mls @ 100 mls/hr IV ONETIME ONE Stop: 12/07/18 09:59 Last Admin: 12/07/18 09:44 Dose: 100 mls/hr Vancomycin HCl 1 gm/ Sodium (Chloride) 250 mls @ 250 mls/hr IV Q24H [facility] Last Admin: 12/09/18 12:23 Dose: 250 mls/hr Levofloxacin/Dextrose (Levaquin In D5w 250 Mg/50 Ml) 50 mls @ 50 mls/hr IV Q24H [facility] Last Admin: 12/10/18 09:10 Dose: 50 mls/hr Iopamidol (Isovue-370 (76%)) 75 ml IV ONETIME ONE Stop: 12/08/18 13:13 Last Admin: 12/08/18 13:38 Dose: 75 ml Morphine Sulfate (Morphine) 1 mg IVPUSH Q1H PRN PRN Reason: Shortness of Breath Last Admin: 12/01/18 12:35 Dose: 1 mg Morphine Sulfate (Morphine) 2 mg IVPUSH Q30M [facility] Pantoprazole Sodium (Protonix) 40 mg PO ACBREAKFAST [facility] Last Admin: 12/06/18 10:26 Dose: Not Given Pantoprazole Sodium (Protonix) 40 mg PO DAILY@0700 [facility] Last Admin: 12/09/18 07:37 Dose: 40 mg Pantoprazole Sodium (Protonix) 40 mg PO ONETIME ONE Stop: 12/06/18 08:01 Last Admin: 12/06/18 08:26 Dose: 40 mg Vancomycin HCl (Pharmacy To Dose - Vancomycin) 1 dose .XX ASDIRECTED [facility] - Exam General: Other (Sleeping) Neck: Supple Lungs: Clear to Auscultation, Normal Respiratory Effort - Problem List & Annotations (1) Hypernatremia SNOMED Code(s): 51133821 Code(s): E87.0 - HYPEROSMOLALITY AND HYPERNATREMIA Status: Acute Current Visit: Yes (2) Right lower lobe pneumonia SNOMED Code(s): 057390698 Code(s): J18.1 - LOBAR PNEUMONIA, UNSPECIFIED ORGANISM Status: Acute Current Visit: Yes Qualifiers: Pneumonia type: aspiration pneumonia - Problem List Review Problem List Initiated/Reviewed/Updated: Yes - Assessment Assessment:: Discharge to home on Augmentin for a week. Stop Lasix. - Plan Plan:: I will switch meds to oral.Wean off O2. Consider Discharge tomorrow,back to shelter.
--- NOTE | 2018-12-11 08:18 | PCM.DCSUM1 ---
Discharge Summary - Hospital Course Free Text/Narrative:: Patient is [facility] and was admitted for bilateral pneumonia was placed on Levaquin. Was very hypoxic and required 10 L of oxygen. She was doing so poorly she was considered for hospice. But she slowly improved. She required a little bit of Lasix couple times is a little bit of fluid overload but that improved with time also. Levaquin was continued and she was able finally to get off oxygen. Her white count remained normal through the whole stay. Her sodium was a little bit elevated which is chronic for her. Oxygenation improved where she can be on room air without any oxygen. She'll be discharged on Augmentin 875 twice a day for a week. Home health will be following her for assessment of her lungs, oxygenation. 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 Over the last 5 days staff reported increasing shortness of breath, phlegm , and low-grade fevers. She normally uses oxygen at night but her sats have decreased during the day to where she is needed oxygen during the day as well. She has a history of recurrent aspiration pneumonia and was last hospitalized in August 2018 at which time she was treated with Levaquin. She's been more quiet making less noise and not eating well. When she presented to the clinic this morning she was evaluated and at that time mildly hypoxic on room air 88%. She had diminished lung sounds throughout and rhonchi on the left. She was given a prescription for oral Levaquin and sent home but this afternoon the provider was contacted saying that the patient's oxygenation had continued to decline and she was not taking by mouth intake and at that point I was contacted to admit the patient is a direct admission. The patient is DNR/ comfort cares and no intubation per [facility] Code Status documentation. Diagnosis: Stroke: No - Discharge Data Discharge Date: 12/11/18 Discharge Disposition: Home, W Home Health Agency 06 Condition: Good - Discharge Diagnosis/Problem(s) (1) Hypernatremia SNOMED Code(s): 31613946 ICD Code: E87.0 - HYPEROSMOLALITY AND HYPERNATREMIA Status: Acute Current Visit: Yes (2) Right lower lobe pneumonia SNOMED Code(s): 594178013 ICD Code: J18.1 - LOBAR PNEUMONIA, UNSPECIFIED ORGANISM Status: Acute Current Visit: Yes Qualifiers: Pneumonia type: aspiration pneumonia - Patient Summary/Data Consults: Consultations 11/30/18 15:54 Respiratory Care Assess and Treatment [CONS] Routine Comment: Physician Instructions: - Patient Instructions Diet: Regular Diet as Tolerated Activity: As Tolerated Driving: Do Not Drive Showering/Bathing: May Shower Other/Special Instructions: 1. Recheck with Dr. Hernandez in 1 week. 2. Home health for med management to oxygen assessment - Discharge Plan Prescriptions/Med Rec: Amoxicillin/Clavulanate K [Augmentin 875-125 MG] 1 tab PO Q12H #17 tablet Home Medications: Home Meds Divalproex Sodium [Depakote Sprinkle] 375 mg PO QID 12/11/15 [History] Levothyroxine 75 mcg PO BEDTIME 12/11/15 [History] Multivitamins with Iron [Daily Nery with Iron] 1 tab PO DAILY 12/11/15 [History] Omeprazole 20 mg PO ACBREAKFAST 12/11/15 [History] Vitamin E 400 units PO DAILY 12/11/15 [History] Carbidopa/Levodopa [Carbidopa-Levodopa 25-100 Tab] 2.5 tab PO QID 02/04/16 [ History] Nystatin [Nystatin Crm] 1 applic TOP DAILY 09/28/17 [History] Petrolatum,White/Zinc Oxide [Sensi-Care Protective Ointment] 1 applic TOP DAILY PRN 12/21/17 [History] Mirtazapine 7.5 mg PO QPM 09/05/18 [History] Polyethylene Glycol 3350 [Laxaclear] 17 gm PO DAILY 09/05/18 [History] Sennosides/Docusate Sodium [Senna Laxative Tablet] 1 tab PO DAILY 09/05/18 [ History] clonazePAM [Clonazepam] 1 mg PO BEDTIME 09/05/18 [History] Amoxicillin/Clavulanate K [Augmentin 875-125 MG] 1 tab PO Q12H #17 tablet [Rx] - Discharge Summary/Plan Comment DC Time >30 min.: No - Patient Data Vitals - Most Recent: Last Vital Signs Temp 98.4 F 12/11/18 03:50 Pulse 80 12/11/18 07:21 Resp 20 12/11/18 03:50 BP 131/93 H 12/11/18 03:50 Pulse Ox 88 L 12/11/18 07:21 Weight - Most Recent: 131 lb I&O - Last 24 hours: Intake & Output 12/10/18 12/11/18 12/11/18 22:59 06:59 14:59 Intake Total 50 Output Total 0 Balance 50 Lab Results - Last 24 hrs: Laboratory Results - last 24 hr 12/11/18 12/11/18 Range/Units 06:30 06:30 WBC 4.9 (4.5-12.0) X10-3/uL RBC 4.28 (3.23-5.20) x10(6)uL Hgb 12.5 (11.5-15.5) g/dL Hct 38.8 (30.0-51.3) % MCV 90.6 (80-96) fL MCH 29.3 (27.7-33.6) pg MCHC 32.3 (32.2-35.4) g/dL RDW 15.7 H (11.5-15.5) % Plt Count 364 (125-369) X10(3)uL MPV 7.4 (7.4-10.4) fL Neut % (Auto) 35.0 L (46-82) % Lymph % (Auto) 43.3 H (13-37) % [place] % (Auto) 10.6 (4-12) % Eos % (Auto) 11 H (1.0-5.0) % Baso % (Auto) 1 (0-2) % Neut # (Auto) 1.7 (1.6-8.3) # Lymph # (Auto) 2.2 (0.6-5.0) # [place] # (Auto) 0.5 (0.0-1.3) # Eos # (Auto) 0.5 (0.0-0.8) # Baso # (Auto) 0.0 (0.0-0.2) # Sodium 150 H (135-145) mmol/L Potassium 3.8 (3.5-5.3) mmol/L Chloride 109 (100-110) mmol/L Carbon Dioxide 38 H (21-32) mmol/L BUN 16 (7-18) mg/dL Creatinine 0.7 (0.55-1.02) mg/dL Est Cr Clr Drug Dosing 67.16 mL/min Estimated GFR (MDRD) > 60 (>60) BUN/Creatinine Ratio 22.9 H (9-20) Glucose 95 (80-116) mg/dL Calcium 9.0 (8.6-10.2) mg/dL Med Orders - Current: Current Medications Acetaminophen (Tylenol) 650 mg PO Q4H PRN PRN Reason: Pain (Mild 1-3)/fever Last Admin: 12/07/18 02:35 Dose: 650 mg Albuterol (Proventil Neb Soln) 2.5 mg NEB Q2H PRN PRN Reason: Shortness of Breath Last Admin: 12/07/18 03:10 Dose: 2.5 mg Albuterol/Ipratropium (Duoneb 3.0-0.5 Mg/3 Ml) 3 ml NEB QIDRT [facility] Last Admin: 12/11/18 07:20 Dose: 3 ml Amoxicillin/Clavulanate Potassium (Augmentin 875 Mg/125 Mg) 1 tab PO Q12H [facility] Last Admin: 12/10/18 22:54 Dose: 1 tab Carbidopa/Levodopa (Sinemet 25-100 Mg) 2.5 tab PO QID [facility] Last Admin: 12/11/18 08:02 Dose: 2.5 tab Clonazepam (Klonopin) 1 mg PO BEDTIME [facility] Last Admin: 12/10/18 20:26 Dose: 1 mg Divalproex Sodium (Depakote Sprinkle) 375 mg PO QID [facility] Last Admin: 12/11/18 08:02 Dose: 375 mg Enoxaparin Sodium (Lovenox) 40 mg SUBCUT Q24H [facility] Last Admin: 12/10/18 19:51 Dose: 40 mg Furosemide (Lasix) 20 mg PO BIDDIURETIC [facility] Last Admin: 12/11/18 08:02 Dose: 20 mg Levothyroxine Sodium (Levothyroxine) 75 mcg PO BEDTIME [facility] Last Admin: 12/10/18 20:24 Dose: 75 mcg Lorazepam (Ativan) 1 mg IVPUSH Q4H PRN PRN Reason: agitation, SOB Last Admin: 12/07/18 20:25 Dose: 1 mg Mirtazapine (Remeron) 7.5 mg PO QPM [facility] Last Admin: 12/10/18 17:31 Dose: 7.5 mg Morphine Sulfate (Morphine) 2 mg IVPUSH Q30M PRN PRN Reason: Shortness of Breath Last Admin: 12/07/18 02:45 Dose: 2 mg Omeprazole (Omeprazole) 20 mg PO DAILY@0600 [facility] Last Admin: 12/11/18 05:15 Dose: 20 mg Polyethylene Glycol (Miralax) 17 gm PO DAILY [facility] Last Admin: 12/11/18 08:03 Dose: Not Given Saccharomyces Boulardii (Florastor) 250 mg PO BID [facility] Last Admin: 12/11/18 08:02 Dose: 250 mg Senna/Docusate Sodium (Senna Plus) 1 tab PO DAILY [facility] Last Admin: 12/11/18 08:03 Dose: 1 tab Sodium Chloride (Saline Flush) 10 ml FLUSH ASDIRECTED PRN PRN Reason: Keep Vein Open Last Admin: 12/10/18 09:50 Dose: 10 ml Discontinued Medications Furosemide (Lasix) 20 mg IVPUSH BID [facility] Last Admin: 12/07/18 10:47 Dose: Not Given Piperacillin Sod/Tazobactam (Sod 3.375 gm/ Sodium Chloride) 50 mls @ 100 mls/ hr IV Q6H [facility] Last Admin: 12/10/18 05:16 Dose: 100 mls/hr Sodium Chloride (Normal Saline) 1,000 mls @ 100 mls/hr IV ASDIRECTED [facility] Last Admin: 12/01/18 04:14 Dose: 100 mls/hr Sodium Chloride (Normal Saline) 1,000 mls @ 50 mls/hr IV ASDIRECTED [facility] Last Admin: 12/04/18 04:29 Dose: 50 mls/hr Levofloxacin/Dextrose 500 mg/ (Premix) 100 mls @ 100 mls/hr IV ONETIME ONE Stop: 12/07/18 09:59 Last Admin: 12/07/18 09:44 Dose: 100 mls/hr Vancomycin HCl 1 gm/ Sodium (Chloride) 250 mls @ 250 mls/hr IV Q24H [facility] Last Admin: 12/09/18 12:23 Dose: 250 mls/hr Levofloxacin/Dextrose (Levaquin In D5w 250 Mg/50 Ml) 50 mls @ 50 mls/hr IV Q24H [facility] Last Admin: 12/10/18 09:10 Dose: 50 mls/hr Iopamidol (Isovue-370 (76%)) 75 ml IV ONETIME ONE Stop: 12/08/18 13:13 Last Admin: 12/08/18 13:38 Dose: 75 ml Morphine Sulfate (Morphine) 1 mg IVPUSH Q1H PRN PRN Reason: Shortness of Breath Last Admin: 12/01/18 12:35 Dose: 1 mg Morphine Sulfate (Morphine) 2 mg IVPUSH Q30M [facility] Pantoprazole Sodium (Protonix) 40 mg PO ACBREAKFAST [facility] Last Admin: 12/06/18 10:26 Dose: Not Given Pantoprazole Sodium (Protonix) 40 mg PO DAILY@0700 [facility] Last Admin: 12/09/18 07:37 Dose: 40 mg Pantoprazole Sodium (Protonix) 40 mg PO ONETIME ONE Stop: 12/06/18 08:01 Last Admin: 12/06/18 08:26 Dose: 40 mg Vancomycin HCl (Pharmacy To Dose - Vancomycin) 1 dose .XX ASDIRECTED [facility]
[2018-12-11] MEDS: Amoxicillin/Clavulanate K 875-125 MG Tab PO SCH (12:22)
== END 2018-12-11 13:08 | disposition home health service (06) | DRG 178 ==
LOC: FB.MS 15:59
PROVIDERS: ADMIT Family Medicine; ATTEND Family Medicine
DX: J69.0 Pneumonitis due to inhalation of food and vomit (principal); E87.0 Hyperosmolality and hypernatremia; F73 Profound intellectual disabilities; Z51.5 Encounter for palliative care; Z66 Do not resuscitate; R06.03 Acute respiratory distress; F71 Moderate intellectual disabilities; E03.9 Hypothyroidism, unspecified; Z87.01 Personal history of pneumonia (recurrent); R09.02 Hypoxemia; Z99.81 Dependence on supplemental oxygen; K21.9 Gastro-esophageal reflux disease without esophagitis; G40.909 Epilepsy, unspecified, not intractable, without status epilepticus; Z87.11 Personal history of peptic ulcer disease
CPT/HCPCS: 36415; 71045; 71046; 71275; 80048; 80053; 83880; 84295; 85025; 94640; A9270-GY; J1650; J1940; J1956; J2060; J2270; J2543; J3370; J7030; J7050; J7620-GY; Q9967

== ENCOUNTER 2019-03-16 11:34 | Inpatient (IN) | payer MEDICARE, MEDICAID ==
[2019-03-16] MEDS ORDERED: Acetaminophen 325 MG Tab PO PRN (11:51)
[2019-03-16] MEDS ORDERED: Ondansetron 4 MG/2 ML SDV IV PRN (11:51)
[2019-03-16] MEDS: Sodium Chloride 0.9% 1,000 ML IV SCH ×2 (12:48→21:17)
[2019-03-16] MEDS: Piperacillin/Tazobactam 3.375 GM in Sodium Chloride 0.9% 50 ML IV SCH ×2 (12:49→18:02)
[2019-03-16] MEDS: methylPREDNISolone Sodium Succinate 40 MG/1 ML SDV IVPUSH SCH ×2 (12:51→21:03)
[2019-03-16] MEDS: Albuterol/Ipratropium 3.0-0.5 MG/3 ML Neb Soln NEB SCH ×3 (12:53→21:03)
--- NOTE | 2019-03-16 13:39 | CR ---
INDICATION: Cough, fever, dyspnea. CHEST: An AP upright view of the chest, 03/16/19, was compared with 12/04/18 and 12/01/18. There appears to be some infiltrate in the left lower lobe, compatible with pneumonia and/or fibrosis - was present in November also. Slightly heavy markings at the right lung base are likely fibrotic in nature. The heart remains enlarged. The aorta is tortuous and calcified. Moderately severe dextroconvex scoliosis of the thoracic spine is again noted. Elevated right hemidiaphragm is noted, likely on the basis of poor inspiration and anatomic variation. IMPRESSION: Cannot exclude pneumonia in the left lower lobe. MTDD
[2019-03-16] MEDS: Carbidopa/Levodopa 25-100 MG Tab PO SCH ×4 (13:46→21:02)
[2019-03-16] MEDS: Divalproex Sodium Delayed-Release 125 MG Cap.Sprink PO SCH ×4 (13:46→21:02)
[2019-03-16] MEDS: Enoxaparin 40 MG/0.4 ML Syringe SUBCUT SCH (14:18)
[2019-03-16] MEDS: Mirtazapine 15 MG Tab PO SCH (18:01)
[2019-03-16] MEDS: ClonazePAM 1 MG Tab PO SCH (21:03)
[2019-03-16] MEDS: Levothyroxine 75 MCG Tab PO SCH (21:04)
[2019-03-17] MEDS: Piperacillin/Tazobactam 3.375 GM in Sodium Chloride 0.9% 50 ML IV SCH ×4 (01:00→18:24)
[2019-03-17] MEDS: methylPREDNISolone Sodium Succinate 40 MG/1 ML SDV IVPUSH SCH ×3 (03:41→20:14)
[2019-03-17] MEDS: Sodium Chloride 0.9% 1,000 ML IV SCH ×3 (06:06→23:32)
[2019-03-17] MEDS: Albuterol/Ipratropium 3.0-0.5 MG/3 ML Neb Soln NEB SCH ×4 (06:38→20:14)
[2019-03-17] MEDS: Divalproex Sodium Delayed-Release 125 MG Cap.Sprink PO SCH ×4 (09:59→20:13)
[2019-03-17] MEDS: Carbidopa/Levodopa 25-100 MG Tab PO SCH ×4 (09:59→20:14)
--- NOTE | 2019-03-17 12:49 | HP ---
ADMISSION DATE: 03/16/2019 HISTORY OF PRESENT ILLNESS: Liane Gerber is a 63-year-old single female, a local [facility] resident, was seen by Kanwal Bacon PA-C at [facility]. Had been seen on 2 occasions, most recently today. Has been seen for complicated cough. Suspicion for aspiration pneumonia. Outpatient treatment was suggested. She was placed on levofloxacin 500 mg 1 p.o. daily. Increasing fatigue, lethargy, fever, low sats, dictated intervention and admission. ADMISSION MEDICATIONS: Include: 1. Levofloxacin 500 mg one p.o. daily. 2. Furosemide 20 mg one p.o. daily. 3. Klonopin 1 mg at bedtime. 4. MiraLAX 17 g one daily. 5. Multivitamin one daily. 6. Albuterol q.i.d. p.r.n. 7. Vitamin D 4000 units. 8. Senokot one p.o. daily. 9. Prilosec 20 mg one p.o. q.a.m. 10.Remeron 15 mg half tab at bedtime, sleep enhancement. 11.Levothyroxine 75 mcg one p.o. daily hypothyroidism. 12.Depakote 125 three capsules q.i.d. seizures. 13.Dulcolax suppository p.r.n. 14.Sinemet 25-100 two half tablets 4 times daily. ALLERGIES: No medication, environmental, or latex allergies. PAST MEDICAL HISTORY: Significant for dental extraction, remote tonsillectomy and adenoidectomy. CHRONIC ILLNESSES: Include microcephaly, profound mental retardation, disruptive behavior, history of seizures, affective disorder, and suspicion for Parkinson's along with profound intellectual disabilities. SOCIAL HISTORY: Lives at local [facility]. Nonsmoker. No alcohol. No illicit drug use. FAMILY HISTORY: Unavailable. REVIEW OF SYSTEMS: Other than symptoms above, the patient cannot provide information of past health. PHYSICAL EXAMINATION: VITAL SIGNS: 37.6, pulse 111, 148/71, 95% on 2 L per exam. GENERAL: Young lady, awake, alert, minimally cooperative, nonconversant. HEENT: Reveal funduscopic benign. Conjunctivae clear. Bright tympanic membranes. Clear nasal discharge. Mouth and oropharynx difficult exam. NECK: Benign. No adenopathy. No JVD. Thyroid small. CHEST: Diffuse wheezing. Coarse rhonchi at both bases. HEART: Occasional ectopy at 120. ABDOMEN: Benign. No hepatosplenomegaly. No surgical scars. PELVIC AND RECTAL: Deferred. EXTREMITIES: Well perfused. Moderate edema. ASSESSMENT: 1. Left lower lobe pneumonia. 2. Comorbid disease as described above. PLAN: Admission to hospital is indicated. We will use medications appropriate for aspiration pneumonia. Supplemental O2. Adequate fluids and hydration. Intervention and care as appropriate. /[id number] /LANEY
[2019-03-17] MEDS: Enoxaparin 40 MG/0.4 ML Syringe SUBCUT SCH (13:15)
--- NOTE | 2019-03-17 13:39 | PN ---
DATE SEEN: 03/17/2019 HISTORY OF PRESENT ILLNESS: Liane Gerber is a 63-year-old female, admitted with respiratory distress, suspicion for aspiration pneumonia, recurrent in nature. Had a difficult night. Saturations are staying comfortable. Intake of fluids, food, and medications have been reluctant. LABORATORY STUDIES: CBC noted on admission. Electrolytes reveal improvement of sodium from 123 to 128, chloride from 86 to 93, creatinine 0.6 to 0.5, BUN 11 to 14; glucose 130, 144; calcium 8.6. Blood cultures no growth. PHYSICAL EXAMINATION: VITAL SIGNS: 66.45 kg, pulse of 81, blood pressure 155/92, mean blood pressure 113, 93% on 2 L. GENERAL: Similar affect. Noncooperative. NECK: Benign. CHEST: Diffuse wheezing, decreased breath sounds, particularly left lower lobe. HEART: No ectopy or murmur. ABDOMEN: Benign. ASSESSMENT: 1. Pneumonia, aspiration likely. 2. Conflictual behaviors limiting intake of fluids and food. PLAN: Continue IV antibiotics and IV fluids, cooperative care and well being. Expectation for reasonable stay. Intake of fluids and food of concern, seizure medications intravenously under consideration. /[id number] /LANEY
[2019-03-17] MEDS: Mirtazapine 15 MG Tab PO SCH (18:20)
[2019-03-17] MEDS: Levothyroxine 75 MCG Tab PO SCH (20:14)
[2019-03-17] MEDS: ClonazePAM 1 MG Tab PO SCH (20:16)
[2019-03-18] MEDS: Piperacillin/Tazobactam 3.375 GM in Sodium Chloride 0.9% 50 ML IV SCH ×4 (00:52→17:28)
[2019-03-18] MEDS: methylPREDNISolone Sodium Succinate 40 MG/1 ML SDV IVPUSH SCH ×3 (03:23→20:36)
[2019-03-18] MEDS: Albuterol/Ipratropium 3.0-0.5 MG/3 ML Neb Soln NEB SCH ×4 (06:20→20:36)
[2019-03-18] MEDS: Sodium Chloride 0.9% 10 ML Syringe FLUSH PRN ×4 (08:40→20:38)
[2019-03-18] MEDS: Divalproex Sodium Delayed-Release 125 MG Cap.Sprink PO SCH ×4 (08:51→20:34)
[2019-03-18] MEDS: Carbidopa/Levodopa 25-100 MG Tab PO SCH ×4 (09:55→20:35)
--- NOTE | 2019-03-18 10:47 | PN ---
DATE SEEN: 03/18/2019 SUBJECTIVE: Liane Gerber is a 63-year-old female, resident [facility] admitted with complicated pneumonia. Radiographs revealed a left lower lobe pneumonia. Aspiration of clinical concern. MEDICATIONS: On board include Azactam 3.375 g q.6 hours. Other medications reviewed and appropriate. Lovenox on board. LABORATORY STUDIES: Microbiology, blood culture x48 hours negative. OBJECTIVE: VITAL SIGNS: 35.6, 91, 114/69, 16, 92% 2 L per exam. GENERAL: Noncommunicative but more alert. HEENT: Clear nasal discharge. Mouth and oropharynx, difficulty exam. NECK: Benign. No adenopathy. CHEST: Decreased breath sounds in left lower lobe distribution. HEART: No ectopy or murmur. ABDOMEN: Benign. ASSESSMENT: Left lower lobe pneumonia. PLAN: Continue IV antibiotics, longer rather than shorter given history of recurrence. Expectation through the and Friday. /[id number] /LANEY
[2019-03-18] MEDS: Enoxaparin 40 MG/0.4 ML Syringe SUBCUT SCH (14:25)
[2019-03-18] MEDS: Mirtazapine 15 MG Tab PO SCH (17:21)
[2019-03-18] MEDS: Levothyroxine 75 MCG Tab PO SCH (20:38)
[2019-03-18] MEDS: ClonazePAM 1 MG Tab PO SCH (20:40)
[2019-03-19] MEDS: Piperacillin/Tazobactam 3.375 GM in Sodium Chloride 0.9% 50 ML IV SCH ×4 (01:08→18:19)
[2019-03-19] MEDS: Sodium Chloride 0.9% 10 ML Syringe FLUSH PRN ×6 (01:37→21:17)
[2019-03-19] MEDS: methylPREDNISolone Sodium Succinate 40 MG/1 ML SDV IVPUSH SCH ×3 (04:57→21:15)
[2019-03-19] MEDS: Albuterol/Ipratropium 3.0-0.5 MG/3 ML Neb Soln NEB SCH ×4 (06:08→21:15)
--- NOTE | 2019-03-19 08:49 | PCM.PN ---
- General Info Date of Service: 03/19/19 Subjective Update: Patient is asleep comfortably. No report of fever, but still on nasal cannula oxygenation. Functional Status: Reports: Pain Controlled - Review of Systems General: Reports: No Symptoms Pulmonary: Reports: Cough Cardiovascular: Reports: No Symptoms Genitourinary: Reports: No Symptoms - Patient Data Vitals - Most Recent: Last Vital Signs Temp 96.3 F 03/19/19 08:46 Pulse 63 03/19/19 08:46 Resp 20 03/19/19 08:46 BP 110/54 L 03/19/19 08:46 Pulse Ox 86 L 03/19/19 08:46 Weight - Most Recent: 66.361 kg I&O - Last 24 Hours: Intake & Output 03/18/19 03/19/19 03/19/19 22:59 06:59 14:59 Intake Total 100 200 Balance 100 200 Lab Results Last 24 Hours: Laboratory Results - last 24 hr 03/18/19 03/18/19 Range/Units 09:04 09:04 WBC 4.6 (4.5-12.0) X10-3/uL RBC 4.11 (3.23-5.20) x10(6)uL Hgb 12.1 (11.5-15.5) g/dL Hct 36.9 (30.0-51.3) % MCV 89.8 (80-96) fL MCH 29.5 (27.7-33.6) pg MCHC 32.8 (32.2-35.4) g/dL RDW 15.2 (11.5-15.5) % Plt Count 367 (125-369) X10(3)uL MPV 7.4 (7.4-10.4) fL Neut % (Auto) 72.7 (46-82) % Lymph % (Auto) 19.0 (13-37) % Glasscock % (Auto) 6.7 (4-12) % Eos % (Auto) 0 L (1.0-5.0) % Baso % (Auto) 1 (0-2) % Neut # (Auto) 3.2 (1.6-8.3) # Lymph # (Auto) 0.9 (0.6-5.0) # Glasscock # (Auto) 0.3 (0.0-1.3) # Eos # (Auto) 0.0 (0.0-0.8) # Baso # (Auto) 0.1 (0.0-0.2) # Sodium 134 L (135-145) mmol/L Potassium 5.0 (3.5-5.3) mmol/L Chloride 98 L D (100-110) mmol/L Carbon Dioxide 32 (21-32) mmol/L BUN 20 H (7-18) mg/dL Creatinine 0.5 L (0.55-1.02) mg/dL Est Cr Clr Drug Dosing 94.03 mL/min Estimated GFR (MDRD) > 60 (>60) BUN/Creatinine Ratio 40.0 H (9-20) Glucose 155 H (80-116) mg/dL Calcium 8.6 (8.6-10.2) mg/dL Willie Results Last 24 Hours: Microbiology 03/16/19 12:15 Aerobic Blood Culture - Preliminary Blood - Venous NO GROWTH AFTER 2 DAYS Anaerobic Blood Culture - Preliminary NO GROWTH AFTER 2 DAYS 03/16/19 12:20 Aerobic Blood Culture - Preliminary Blood - Venous - Lab Draw NO GROWTH AFTER 2 DAYS Anaerobic Blood Culture - Preliminary NO GROWTH AFTER 2 DAYS Med Orders - Current: Current Medications Acetaminophen (Tylenol) 650 mg PO Q4H PRN PRN Reason: Pain (Mild 1-3)/fever Albuterol/Ipratropium (Duoneb 3.0-0.5 Mg/3 Ml) 3 ml NEB QIDRT [facility] Last Admin: 03/19/19 06:08 Dose: 3 ml Carbidopa/Levodopa (Sinemet 25-100 Mg) 2.5 tab PO 10,13,17,20 [facility] Last Admin: 03/18/19 20:35 Dose: 2.5 tab Clonazepam (Klonopin) 1 mg PO BEDTIME [facility] Last Admin: 03/18/19 20:40 Dose: 1 mg Divalproex Sodium (Depakote Sprinkle) 375 mg PO 09,12,16,20 [facility] Last Admin: 03/18/19 20:34 Dose: 375 mg Enoxaparin Sodium (Lovenox) 40 mg SUBCUT Q24H [facility] Last Admin: 03/18/19 14:25 Dose: 40 mg Furosemide (Lasix) 40 mg IVPUSH DAILY [facility] Piperacillin Sod/Tazobactam (Sod 3.375 gm/ Sodium Chloride) 50 mls @ 100 mls/ hr IV Q6H [facility] Last Admin: 03/19/19 06:08 Dose: 100 mls/hr Levothyroxine Sodium (Levothyroxine) 75 mcg PO BEDTIME [facility] Last Admin: 03/18/19 20:38 Dose: 75 mcg Methylprednisolone Sodium Succinate (Solu-Medrol) 40 mg IVPUSH Q8H [facility] Last Admin: 03/19/19 04:57 Dose: 40 mg Mirtazapine (Remeron) 7.5 mg PO 1800 [facility] Last Admin: 03/18/19 17:21 Dose: 7.5 mg Ondansetron HCl (Zofran) 4 mg IV Q4H PRN PRN Reason: Nausea/Vomiting Senna/Docusate Sodium (Senna Plus) 1 tab PO BID PRN PRN Reason: Constipation Sodium Chloride (Saline Flush) 10 ml FLUSH ASDIRECTED PRN PRN Reason: flush med Last Admin: 03/19/19 06:32 Dose: 10 ml Discontinued Medications Sodium Chloride (Normal Saline) 1,000 mls @ 125 mls/hr IV ASDIRECTED [facility] Last Admin: 03/17/19 23:32 Dose: 125 mls/hr - Exam Quality Assessment: Supplemental Oxygen General: Other (asleep) Neck: Supple Lungs: Crackles Cardiovascular: Regular Rate - Problem List & Annotations (1) Aspiration pneumonia SNOMED Code(s): 828639450 Code(s): J69.0 - PNEUMONITIS DUE TO INHALATION OF FOOD AND VOMIT Status: Suspected Current Visit: No (2) Hypoxia SNOMED Code(s): 173565259 Code(s): R09.02 - HYPOXEMIA Status: Acute Current Visit: Yes (3) Hyponatremia SNOMED Code(s): 43341492 Code(s): E87.1 - HYPO-OSMOLALITY AND HYPONATREMIA Status: Acute Current Visit: Yes (4) Palliative care encounter SNOMED Code(s): 084779015 Code(s): Z51.5 - ENCOUNTER FOR PALLIATIVE CARE Status: Acute Current Visit: Yes (5) [facility] SNOMED Code(s): 347013952 Code(s): Z59.3 - PROBLEMS RELATED TO LIVING IN RESIDENTIAL INSTITUTION Status: Chronic Current Visit: No (6) Mental retardation SNOMED Code(s): 171332600 Code(s): F79 - UNSPECIFIED INTELLECTUAL DISABILITIES Status: Chronic Current Visit: No Annotation/Comment:: Precautions. - Problem List Review Problem List Initiated/Reviewed/Updated: Yes - My Orders Last 24 Hours: My Active Orders 03/19/19 09:00 Furosemide [Lasix] 40 mg IVPUSH DAILY 03/20/19 05:11 BASIC METABOLIC PANEL,BMP [CHEM] AM CBC WITH AUTO DIFF [HEME] AM - Plan Plan:: It is possible that shows fluid overload. Along with Zosyn, recommended Lasix 40 mg once a day, and repeat labs in the morning. Wean off oxygen as needed.
[2019-03-19] MEDS: Divalproex Sodium Delayed-Release 125 MG Cap.Sprink PO SCH ×4 (09:05→21:13)
[2019-03-19] MEDS: Carbidopa/Levodopa 25-100 MG Tab PO SCH ×4 (09:06→21:14)
[2019-03-19] MEDS: Furosemide 40 MG/4 ML VIAL IVPUSH SCH (09:14)
[2019-03-19] MEDS: Enoxaparin 40 MG/0.4 ML Syringe SUBCUT SCH (13:36)
[2019-03-19] MEDS: Mirtazapine 15 MG Tab PO SCH (18:01)
[2019-03-19] MEDS: Levothyroxine 75 MCG Tab PO SCH (21:15)
[2019-03-19] MEDS: ClonazePAM 1 MG Tab PO SCH (21:15)
[2019-03-20] MEDS: Piperacillin/Tazobactam 3.375 GM in Sodium Chloride 0.9% 50 ML IV SCH ×4 (00:42→18:17)
[2019-03-20] MEDS: Sodium Chloride 0.9% 10 ML Syringe FLUSH PRN ×6 (01:17→20:45)
[2019-03-20] MEDS: methylPREDNISolone Sodium Succinate 40 MG/1 ML SDV IVPUSH SCH ×3 (04:07→20:27)
[2019-03-20] MEDS: Albuterol/Ipratropium 3.0-0.5 MG/3 ML Neb Soln NEB SCH ×4 (06:02→20:27)
--- NOTE | 2019-03-20 08:09 | PCM.PN ---
- General Info Date of Service: 03/20/19 Subjective Update: Sleeping comfortably. Oxygen needs less. No fever. Functional Status: Reports: Tolerating Diet - Review of Systems HEENT: Reports: No Symptoms Cardiovascular: Reports: No Symptoms Gastrointestinal: Reports: No Symptoms - Patient Data Vitals - Most Recent: Last Vital Signs Temp 96.5 F 03/20/19 04:00 Pulse 68 03/20/19 04:00 Resp 20 03/20/19 04:00 BP 126/64 03/20/19 04:00 Pulse Ox 95 03/20/19 04:00 Weight - Most Recent: 63.701 kg I&O - Last 24 Hours: Intake & Output 03/19/19 03/20/19 03/20/19 22:59 06:59 14:59 Intake Total 50 100 Balance 50 100 Lab Results Last 24 Hours: Laboratory Results - last 24 hr 03/20/19 03/20/19 Range/Units 06:05 06:05 WBC 5.1 (4.5-12.0) X10-3/uL RBC 4.16 (3.23-5.20) x10(6)uL Hgb 12.1 (11.5-15.5) g/dL Hct 37.2 (30.0-51.3) % MCV 89.6 (80-96) fL MCH 29.1 (27.7-33.6) pg MCHC 32.5 (32.2-35.4) g/dL RDW 15.5 (11.5-15.5) % Plt Count 455 H (125-369) X10(3)uL MPV 7.4 (7.4-10.4) fL Neut % (Auto) 66.4 (46-82) % Lymph % (Auto) 23.0 (13-37) % [place]racken % (Auto) 10.1 (4-12) % Eos % (Auto) 0 L (1.0-5.0) % Baso % (Auto) 0 (0-2) % Neut # (Auto) 3.4 (1.6-8.3) # Lymph # (Auto) 1.2 (0.6-5.0) # [place]racken # (Auto) 0.5 (0.0-1.3) # Eos # (Auto) 0.0 (0.0-0.8) # Baso # (Auto) 0.0 (0.0-0.2) # Sodium 141 (135-145) mmol/L Potassium 4.5 (3.5-5.3) mmol/L Chloride 100 (100-110) mmol/L Carbon Dioxide 43 H* (21-32) mmol/L BUN 19 H (7-18) mg/dL Creatinine 0.6 (0.55-1.02) mg/dL Est Cr Clr Drug Dosing 78.36 mL/min Estimated GFR (MDRD) > 60 (>60) BUN/Creatinine Ratio 31.7 H (9-20) Glucose 127 H (80-116) mg/dL Calcium 8.8 (8.6-10.2) mg/dL Willie Results Last 24 Hours: Microbiology 03/16/19 12:20 Aerobic Blood Culture - Preliminary Blood - Venous - Lab Draw NO GROWTH AFTER 3 DAYS Anaerobic Blood Culture - Preliminary NO GROWTH AFTER 3 DAYS 03/16/19 12:15 Aerobic Blood Culture - Preliminary Blood - Venous NO GROWTH AFTER 3 DAYS Anaerobic Blood Culture - Preliminary NO GROWTH AFTER 3 DAYS Med Orders - Current: Current Medications Acetaminophen (Tylenol) 650 mg PO Q4H PRN PRN Reason: Pain (Mild 1-3)/fever Albuterol/Ipratropium (Duoneb 3.0-0.5 Mg/3 Ml) 3 ml NEB QIDRT [facility] Last Admin: 03/20/19 06:02 Dose: 3 ml Carbidopa/Levodopa (Sinemet 25-100 Mg) 2.5 tab PO 10,13,17,20 [facility] Last Admin: 03/19/19 21:14 Dose: 2.5 tab Clonazepam (Klonopin) 1 mg PO BEDTIME [facility] Last Admin: 03/19/19 21:15 Dose: 1 mg Divalproex Sodium (Depakote Sprinkle) 375 mg PO 09,12,16,20 [facility] Last Admin: 03/19/19 21:13 Dose: 375 mg Enoxaparin Sodium (Lovenox) 40 mg SUBCUT Q24H [facility] Last Admin: 03/19/19 13:36 Dose: 40 mg Furosemide (Lasix) 40 mg IVPUSH DAILY [facility] Last Admin: 03/19/19 09:14 Dose: 40 mg Piperacillin Sod/Tazobactam (Sod 3.375 gm/ Sodium Chloride) 50 mls @ 100 mls/ hr IV Q6H [facility] Last Admin: 03/20/19 05:58 Dose: 100 mls/hr Levothyroxine Sodium (Levothyroxine) 75 mcg PO BEDTIME [facility] Last Admin: 03/19/19 21:15 Dose: 75 mcg Methylprednisolone Sodium Succinate (Solu-Medrol) 40 mg IVPUSH Q8H [facility] Last Admin: 03/20/19 04:07 Dose: 40 mg Mirtazapine (Remeron) 7.5 mg PO 1800 [facility] Last Admin: 03/19/19 18:01 Dose: 7.5 mg Ondansetron HCl (Zofran) 4 mg IV Q4H PRN PRN Reason: Nausea/Vomiting Senna/Docusate Sodium (Senna Plus) 1 tab PO BID PRN PRN Reason: Constipation Sodium Chloride (Saline Flush) 10 ml FLUSH ASDIRECTED PRN PRN Reason: flush med Last Admin: 03/20/19 06:34 Dose: 10 ml Discontinued Medications Sodium Chloride (Normal Saline) 1,000 mls @ 125 mls/hr IV ASDIRECTED [facility] Last Admin: 03/17/19 23:32 Dose: 125 mls/hr - Exam Quality Assessment: Supplemental Oxygen General: No Acute Distress Neck: Supple Lungs: Crackles Cardiovascular: Regular Rate - Problem List & Annotations (1) Aspiration pneumonia SNOMED Code(s): 175899957 Code(s): J69.0 - PNEUMONITIS DUE TO INHALATION OF FOOD AND VOMIT Status: Suspected Current Visit: No (2) Hypoxia SNOMED Code(s): 714178241 Code(s): R09.02 - HYPOXEMIA Status: Acute Current Visit: Yes (3) Hyponatremia SNOMED Code(s): 58804391 Code(s): E87.1 - HYPO-OSMOLALITY AND HYPONATREMIA Status: Acute Current Visit: Yes (4) Palliative care encounter SNOMED Code(s): 089640226 Code(s): Z51.5 - ENCOUNTER FOR PALLIATIVE CARE Status: Acute Current Visit: Yes (5) Lives in residential SNOMED Code(s): 736217653 Code(s): Z59.3 - PROBLEMS RELATED TO LIVING IN RESIDENTIAL INSTITUTION Status: Chronic Current Visit: No (6) Mental retardation SNOMED Code(s): 117947192 Code(s): F79 - UNSPECIFIED INTELLECTUAL DISABILITIES Status: Chronic Current Visit: No Annotation/Comment:: Precautions. - Problem List Review Problem List Initiated/Reviewed/Updated: Yes - My Orders Last 24 Hours: My Active Orders 03/19/19 09:00 Furosemide [Lasix] 40 mg IVPUSH DAILY - Plan Plan:: Continue Lasix 40 mg IV once a day, and repeat labs in the morning. Wean off oxygen as needed.
[2019-03-20] MEDS: Divalproex Sodium Delayed-Release 125 MG Cap.Sprink PO SCH ×4 (08:42→20:26)
[2019-03-20] MEDS: Furosemide 40 MG/4 ML VIAL IVPUSH SCH (08:43)
[2019-03-20] MEDS: Carbidopa/Levodopa 25-100 MG Tab PO SCH ×4 (08:59→20:26)
[2019-03-20] MEDS: Enoxaparin 40 MG/0.4 ML Syringe SUBCUT SCH (13:30)
[2019-03-20] MEDS: Mirtazapine 15 MG Tab PO SCH (18:10)
[2019-03-20] MEDS: Levothyroxine 75 MCG Tab PO SCH (20:28)
[2019-03-20] MEDS: ClonazePAM 1 MG Tab PO SCH (20:30)
[2019-03-21] MEDS: Piperacillin/Tazobactam 3.375 GM in Sodium Chloride 0.9% 50 ML IV SCH ×4 (00:09→17:26)
[2019-03-21] MEDS: Sodium Chloride 0.9% 10 ML Syringe FLUSH PRN ×5 (01:00→20:00)
[2019-03-21] MEDS: methylPREDNISolone Sodium Succinate 40 MG/1 ML SDV IVPUSH SCH ×3 (04:10→19:54)
[2019-03-21] MEDS: Albuterol/Ipratropium 3.0-0.5 MG/3 ML Neb Soln NEB SCH ×4 (06:22→20:36)
--- NOTE | 2019-03-21 08:18 | PCM.PN ---
- General Info Date of Service: 03/21/19 Subjective Update: Sleeping comfortably. Oxygen needs still significant. No fever. - Review of Systems General: Reports: No Symptoms Cardiovascular: Reports: No Symptoms Gastrointestinal: Reports: No Symptoms - Patient Data Vitals - Most Recent: Last Vital Signs Temp 98.0 F 03/21/19 04:00 Pulse 78 03/21/19 04:00 Resp 20 03/21/19 04:00 BP 144/78 H 03/21/19 04:00 Pulse Ox 93 L 03/21/19 04:00 Weight - Most Recent: 60.951 kg I&O - Last 24 Hours: Intake & Output 03/20/19 03/21/19 03/21/19 22:59 06:59 14:59 Intake Total 100 Balance 100 Willie Results Last 24 Hours: Microbiology 03/16/19 12:20 Aerobic Blood Culture - Preliminary Blood - Venous - Lab Draw NO GROWTH AFTER 4 DAYS Anaerobic Blood Culture - Preliminary NO GROWTH AFTER 4 DAYS 03/16/19 12:15 Aerobic Blood Culture - Preliminary Blood - Venous NO GROWTH AFTER 4 DAYS Anaerobic Blood Culture - Preliminary NO GROWTH AFTER 4 DAYS Med Orders - Current: Current Medications Acetaminophen (Tylenol) 650 mg PO Q4H PRN PRN Reason: Pain (Mild 1-3)/fever Albuterol/Ipratropium (Duoneb 3.0-0.5 Mg/3 Ml) 3 ml NEB QIDRT [facility] Last Admin: 03/21/19 06:22 Dose: 3 ml Carbidopa/Levodopa (Sinemet 25-100 Mg) 2.5 tab PO 10,13,17,20 [facility] Last Admin: 03/20/19 20:26 Dose: 2.5 tab Clonazepam (Klonopin) 1 mg PO BEDTIME [facility] Last Admin: 03/20/19 20:30 Dose: 1 mg Divalproex Sodium (Depakote Sprinkle) 375 mg PO 09,12,16,20 [facility] Last Admin: 03/20/19 20:26 Dose: 375 mg Enoxaparin Sodium (Lovenox) 40 mg SUBCUT Q24H [facility] Last Admin: 03/20/19 13:30 Dose: 40 mg Furosemide (Lasix) 40 mg IVPUSH DAILY [facility] Last Admin: 03/20/19 08:43 Dose: 40 mg Piperacillin Sod/Tazobactam (Sod 3.375 gm/ Sodium Chloride) 50 mls @ 100 mls/ hr IV Q6H [facility] Last Admin: 03/21/19 05:43 Dose: 100 mls/hr Levothyroxine Sodium (Levothyroxine) 75 mcg PO BEDTIME [facility] Last Admin: 03/20/19 20:28 Dose: 75 mcg Methylprednisolone Sodium Succinate (Solu-Medrol) 40 mg IVPUSH Q8H [facility] Last Admin: 03/21/19 04:10 Dose: 40 mg Mirtazapine (Remeron) 7.5 mg PO 1800 [facility] Last Admin: 03/20/19 18:10 Dose: 7.5 mg Ondansetron HCl (Zofran) 4 mg IV Q4H PRN PRN Reason: Nausea/Vomiting Senna/Docusate Sodium (Senna Plus) 1 tab PO BID PRN PRN Reason: Constipation Sodium Chloride (Saline Flush) 10 ml FLUSH ASDIRECTED PRN PRN Reason: flush med Last Admin: 03/21/19 05:49 Dose: 10 ml Discontinued Medications Sodium Chloride (Normal Saline) 1,000 mls @ 125 mls/hr IV ASDIRECTED [facility] Last Admin: 03/17/19 23:32 Dose: 125 mls/hr - Exam Quality Assessment: Supplemental Oxygen General: Alert HEENT: Pupils Equal Lungs: Crackles Cardiovascular: Regular Rate - Problem List & Annotations (1) Aspiration pneumonia SNOMED Code(s): 444170204 Code(s): J69.0 - PNEUMONITIS DUE TO INHALATION OF FOOD AND VOMIT Status: Suspected Current Visit: No (2) Hypoxia SNOMED Code(s): 968102372 Code(s): R09.02 - HYPOXEMIA Status: Acute Current Visit: Yes (3) Hyponatremia SNOMED Code(s): 37735993 Code(s): E87.1 - HYPO-OSMOLALITY AND HYPONATREMIA Status: Acute Current Visit: Yes (4) Palliative care encounter SNOMED Code(s): 762272494 Code(s): Z51.5 - ENCOUNTER FOR PALLIATIVE CARE Status: Acute Current Visit: Yes (5) Lives in nursing home SNOMED Code(s): 871328525 Code(s): Z59.3 - PROBLEMS RELATED TO LIVING IN RESIDENTIAL INSTITUTION Status: Chronic Current Visit: No (6) Mental retardation SNOMED Code(s): 221681161 Code(s): F79 - UNSPECIFIED INTELLECTUAL DISABILITIES Status: Chronic Current Visit: No Annotation/Comment:: Precautions. - Problem List Review Problem List Initiated/Reviewed/Updated: Yes - My Orders Last 24 Hours: My Active Orders 03/22/19 05:11 BASIC METABOLIC PANEL,BMP [CHEM] AM CBC WITH AUTO DIFF [HEME] AM PRO B-TYPE NATRIUR PEPT,BNPPRO [CHEM] DAILY - Plan Plan:: Continue Lasix 40 mg IV once a day, and repeat labs in the morning. Wean off oxygen as needed.Possible Discharge in AM,with home o2
[2019-03-21] MEDS: Divalproex Sodium Delayed-Release 125 MG Cap.Sprink PO SCH ×4 (09:10→19:55)
[2019-03-21] MEDS: Carbidopa/Levodopa 25-100 MG Tab PO SCH ×4 (09:16→19:55)
[2019-03-21] MEDS: Furosemide 40 MG/4 ML VIAL IVPUSH SCH (09:20)
[2019-03-21] MEDS: Enoxaparin 40 MG/0.4 ML Syringe SUBCUT SCH (13:57)
[2019-03-21] MEDS: Mirtazapine 15 MG Tab PO SCH (17:06)
[2019-03-21] MEDS: ClonazePAM 1 MG Tab PO SCH (20:36)
[2019-03-21] MEDS: Levothyroxine 75 MCG Tab PO SCH (20:37)
[2019-03-22] MEDS: Piperacillin/Tazobactam 3.375 GM in Sodium Chloride 0.9% 50 ML IV SCH ×3 (00:44→12:20)
[2019-03-22] MEDS: Sodium Chloride 0.9% 10 ML Syringe FLUSH PRN ×6 (00:45→09:12)
[2019-03-22] MEDS: methylPREDNISolone Sodium Succinate 40 MG/1 ML SDV IVPUSH SCH ×2 (04:22→12:27)
[2019-03-22] MEDS: Albuterol/Ipratropium 3.0-0.5 MG/3 ML Neb Soln NEB SCH ×2 (06:07→10:20)
--- NOTE | 2019-03-22 08:34 | PCM.PN ---
- General Info Date of Service: 03/22/19 Subjective Update: Sleeping comfortably. Oxygen needs still significant. No fever. Functional Status: Reports: Pain Controlled - Review of Systems HEENT: Reports: No Symptoms Pulmonary: Reports: No Symptoms Cardiovascular: Reports: No Symptoms - Patient Data Vitals - Most Recent: Last Vital Signs Temp 97.4 F 03/22/19 04:00 Pulse 64 03/22/19 04:00 Resp 16 03/22/19 04:00 BP 112/75 03/22/19 04:00 Pulse Ox 93 L 03/22/19 04:00 Weight - Most Recent: 61.292 kg I&O - Last 24 Hours: Intake & Output 03/21/19 03/22/19 03/22/19 22:59 06:59 14:59 Intake Total 100 50 50 Balance 100 50 50 Lab Results Last 24 Hours: Laboratory Results - last 24 hr 03/22/19 03/22/19 03/22/19 Range/Units 06:42 06:42 06:42 WBC 6.2 (4.5-12.0) X10-3/uL RBC 4.71 (3.23-5.20) x10(6)uL Hgb 13.3 (11.5-15.5) g/dL Hct 42.3 (30.0-51.3) % MCV 89.7 (80-96) fL MCH 28.3 (27.7-33.6) pg MCHC 31.5 L (32.2-35.4) g/dL RDW 15.8 H (11.5-15.5) % Plt Count 571 H (125-369) X10(3)uL MPV 7.2 L (7.4-10.4) fL Neut % (Auto) 73.0 (46-82) % Lymph % (Auto) 17.8 (13-37) % [place] % (Auto) 8.4 (4-12) % Eos % (Auto) 0 L (1.0-5.0) % Baso % (Auto) 1 (0-2) % Neut # (Auto) 4.6 (1.6-8.3) # Lymph # (Auto) 1.1 (0.6-5.0) # [place] # (Auto) 0.5 (0.0-1.3) # Eos # (Auto) 0.0 (0.0-0.8) # Baso # (Auto) 0.0 (0.0-0.2) # Sodium 143 (135-145) mmol/L Potassium 4.3 (3.5-5.3) mmol/L Chloride 98 L (100-110) mmol/L Carbon Dioxide 44 H* (21-32) mmol/L BUN 34 H D (7-18) mg/dL Creatinine 0.6 (0.55-1.02) mg/dL Est Cr Clr Drug Dosing 78.36 mL/min Estimated GFR (MDRD) > 60 (>60) BUN/Creatinine Ratio 56.7 H (9-20) Glucose 131 H (80-116) mg/dL Calcium 9.2 (8.6-10.2) mg/dL NT-Pro-B Natriuret Pep 770 H (<=125) pg/mL Willie Results Last 24 Hours: Microbiology 03/16/19 12:20 Aerobic Blood Culture - Final Blood - Venous - Lab Draw NO GROWTH AFTER 5 DAYS Anaerobic Blood Culture - Final NO GROWTH AFTER 5 DAYS 03/16/19 12:15 Aerobic Blood Culture - Final Blood - Venous NO GROWTH AFTER 5 DAYS Anaerobic Blood Culture - Final NO GROWTH AFTER 5 DAYS Med Orders - Current: Current Medications Acetaminophen (Tylenol) 650 mg PO Q4H PRN PRN Reason: Pain (Mild 1-3)/fever Albuterol/Ipratropium (Duoneb 3.0-0.5 Mg/3 Ml) 3 ml NEB QIDRT PENDING SALE TO [facility] Last Admin: 03/22/19 06:07 Dose: 3 ml Carbidopa/Levodopa (Sinemet 25-100 Mg) 2.5 tab PO ,,17,20 PENDING SALE TO [facility] Last Admin: 03/21/19 19:55 Dose: 2.5 tab Clonazepam (Klonopin) 1 mg PO BEDTIME PENDING SALE TO [facility] Last Admin: 03/21/19 20:36 Dose: 1 mg Divalproex Sodium (Depakote Sprinkle) 375 mg PO 09,12,16,20 PENDING SALE TO [facility] Last Admin: 03/21/19 19:55 Dose: 375 mg Enoxaparin Sodium (Lovenox) 40 mg SUBCUT Q24H PENDING SALE TO [facility] Last Admin: 03/21/19 13:57 Dose: 40 mg Furosemide (Lasix) 40 mg IVPUSH DAILY PENDING SALE TO [facility] Last Admin: 03/21/19 09:20 Dose: 40 mg Piperacillin Sod/Tazobactam (Sod 3.375 gm/ Sodium Chloride) 50 mls @ 100 mls/ hr IV Q6H PENDING SALE TO [facility] Last Admin: 03/22/19 06:30 Dose: 100 mls/hr Levothyroxine Sodium (Levothyroxine) 75 mcg PO BEDTIME PENDING SALE TO [facility] Last Admin: 03/21/19 20:37 Dose: 75 mcg Methylprednisolone Sodium Succinate (Solu-Medrol) 40 mg IVPUSH Q8H PENDING SALE TO [facility] Last Admin: 03/22/19 04:22 Dose: 40 mg Mirtazapine (Remeron) 7.5 mg PO 1800 PENDING SALE TO [facility] Last Admin: 03/21/19 17:06 Dose: 7.5 mg Ondansetron HCl (Zofran) 4 mg IV Q4H PRN PRN Reason: Nausea/Vomiting Senna/Docusate Sodium (Senna Plus) 1 tab PO BID PRN PRN Reason: Constipation Sodium Chloride (Saline Flush) 10 ml FLUSH ASDIRECTED PRN PRN Reason: flush med Last Admin: 03/22/19 06:07 Dose: 10 ml Discontinued Medications Sodium Chloride (Normal Saline) 1,000 mls @ 125 mls/hr IV ASDIRECTED PENDING SALE TO [facility] Last Admin: 03/17/19 23:32 Dose: 125 mls/hr - Exam Quality Assessment: Supplemental Oxygen General: Alert HEENT: Pupils Equal Neck: Supple Lungs: Crackles Extremities: Normal Inspection - Problem List & Annotations (1) Aspiration pneumonia SNOMED Code(s): 727247403 Code(s): J69.0 - PNEUMONITIS DUE TO INHALATION OF FOOD AND VOMIT Status: Suspected Current Visit: No Qualifiers: Aspiration pneumonia type: unspecified (2) Hypoxia SNOMED Code(s): 509150852 Code(s): R09.02 - HYPOXEMIA Status: Acute Current Visit: Yes (3) Hyponatremia SNOMED Code(s): 37707197 Code(s): E87.1 - HYPO-OSMOLALITY AND HYPONATREMIA Status: Acute Current Visit: Yes (4) Palliative care encounter SNOMED Code(s): 072022862 Code(s): Z51.5 - ENCOUNTER FOR PALLIATIVE CARE Status: Acute Current Visit: Yes (5) Lives in half-way SNOMED Code(s): 156652930 Code(s): Z59.3 - PROBLEMS RELATED TO LIVING IN RESIDENTIAL INSTITUTION Status: Chronic Current Visit: No (6) Mental retardation SNOMED Code(s): 768540156 Code(s): F79 - UNSPECIFIED INTELLECTUAL DISABILITIES Status: Chronic Current Visit: No Annotation/Comment:: Precautions. - Problem List Review Problem List Initiated/Reviewed/Updated: Yes - Plan Plan:: May return to half-way on Augmentin,Prednisone and lasix oral.Along with Home O2
[2019-03-22] MEDS: Divalproex Sodium Delayed-Release 125 MG Cap.Sprink PO SCH ×2 (09:01→12:52)
[2019-03-22] MEDS: Furosemide 40 MG/4 ML VIAL IVPUSH SCH (09:02)
[2019-03-22] MEDS: Carbidopa/Levodopa 25-100 MG Tab PO SCH ×2 (09:02→12:56)
--- NOTE | 2019-03-22 09:02 | DISCH ---
DISCHARGE DATE: 03/22/2019 REASON FOR ADMISSION: Pneumonia. SECONDARY DIAGNOSES: 1. Mental retardation. 2. Hypothyroidism. 3. Fluid retention. 4. Microcephaly. 5. Disruptive behavior. 6. Parkinson disease. DISCHARGE DIAGNOSIS: Pneumonia. CONSULTATIONS: None. BRIEF HISTORY: This is a 63-year-old female from [facility], who was seen at the clinic on the and had hypoxia and cough and on suspicion of pneumonia, was admitted. A chest x-ray revealed a left-sided pneumonia. She is usually high risk for aspiration. On that basis, she was started on Zosyn. She continued to need oxygenation. After I took over, first I started Lasix 40 mg a day for fluid overload. Her BNP was 700. She improved, but was unable to come off the oxygenation, going down to the 70s and 80s on room air. However, she was deemed back to her baseline in terms of her mental capabilities and as such I discharged her home on the on oral Augmentin 875 mg b.i.d. and prednisone 10 mg daily for 5 days. FOLLOWUP: She will see Kanwal Bacon in the clinic on Friday. I spent more than 35 minutes in the discharge of the patient. /[id number] JELLY/LANEY
[2019-03-22 12:32] VITALS: BP 120/66
[2019-03-22] MEDS: Enoxaparin 40 MG/0.4 ML Syringe SUBCUT SCH (13:33)
== END 2019-03-22 15:33 | disposition home health service (06) | DRG 178 ==
LOC: FB.MS 11:34
PROVIDERS: ADMIT Family Medicine; ATTEND Family Medicine
DX: J69.0 Pneumonitis due to inhalation of food and vomit (principal); F73 Profound intellectual disabilities; E87.1 Hypo-osmolality and hyponatremia; E03.9 Hypothyroidism, unspecified; Q02 Microcephaly; G20 Parkinson's disease; R60.9 Edema, unspecified; R09.02 Hypoxemia; Z79.890 Hormone replacement therapy; Z79.899 Other long term (current) drug therapy; Z51.5 Encounter for palliative care
CPT/HCPCS: 36415; 71045; 80048; 83880; 85025; 85651; 87040; 94640; A9270-GY; J1650; J1940; J2543; J2920; J7030; J7050; J7620-GY

== ENCOUNTER 2020-01-27 09:27 | Inpatient (IN) | payer MEDICARE, MEDICAID ==
[2020-01-27] MEDS ORDERED: cefTRIAXone 1 GM in Sodium Chloride 0.9% 50 ML IV SCH (11:45)
[2020-01-27] MEDS ORDERED: Azithromycin 500 MG in Sodium Chloride 0.9% 250 ML IV ONE ×4 (12:00)
[2020-01-27] MEDS ORDERED: Bisacodyl 10 MG Supp RECTAL PRN (12:06)
[2020-01-27] MEDS ORDERED: Albuterol 0.083% 2.5 MG/3 ML Neb Soln INH PRN (12:06)
--- NOTE | 2020-01-27 12:21 | PCM.HP.2 ---
H&P History of Present Illness - General Date of Service: 01/27/20 Admit Problem/Dx: Admission Diagnosis/Problem Admission Diagnosis/Problem Dehydration Source of Information: Other (Attendant) History Limitations: Reports: Altered Mental Status - History of Present Illness Initial Comments - Free Text/Narative: This is a 64-year-old detention patient was normally nonverbal came to see Kanwal Bacon because she is very sleepy, not responsive started vomiting last night and have a fever. They don't report any diarrhea, belly pain, runny nose or cough. She's had many admissions for pneumonia. Someone else in the detention just was hospitalized for pneumonia which presented as abdominal pain and vomiting. Patient cannot give me any history. - Related Data Allergies/Adverse Reactions: Allergies Allergy/AdvReac Type Severity Reaction Status Date / Time No Known Allergies Allergy Verified 11/30/18 18:42 Home Medications: Home Meds Divalproex Sodium [Depakote Sprinkle] 375 mg PO 10,,17,20 12/11/15 [History] Levothyroxine 75 mcg PO BEDTIME 12/11/15 [History] Multivitamin with Iron [Daily Nery with Iron] 1 tab PO DAILY 12/11/15 [History] Omeprazole 20 mg PO ACBREAKFAST 12/11/15 [History] Vitamin E 400 units PO DAILY 12/11/15 [History] Carbidopa/Levodopa [Carbidopa-Levodopa 25-100 Tab] 2.5 tab PO 10,13,17,20 [History] Nystatin [Nystatin Crm] 1 applic TOP BID 09/28/17 [History] Mirtazapine 7.5 mg PO 1800 09/05/18 [History] Polyethylene Glycol 3350 [Laxaclear] 17 gm PO DAILY 09/05/18 [History] Sennosides/Docusate Sodium [Senna Laxative Tablet] 1 tab PO DAILY 09/05/18 [ History] Albuterol [Proventil Neb Soln] 2.5 mg INH QID PRN 03/16/19 [History] bisacodyL [Dulcolax] 10 mg RC DAILY PRN 03/16/19 [History] clonazePAM [Klonopin] 1 mg PO BEDTIME 03/16/19 [History] Furosemide [Lasix] 20 mg PO DAILY #30 tab 03/22/19 [Rx] Petrolatum,White [Vaseline White Petroleum] 1 applic TOP DAILY PRN 01/27/20 [ History] Petrolatum,White/Zinc Oxide [Sensi-Care Protective Ointment] 1 applic TOP DAILY 01/27/20 [History] Past Medical History HEENT History: Reports: Cataract, Other (See Below) Other HEENT History: Functionally blind with cataracts. Mild perioral dematitis. Gingivitis. Cardiovascular History: Reports: Other (See Below) Other Cardiovascular History: Stasis edema legs. Respiratory History: Reports: Pneumonia, Recurrent, Other (See Below) Other Respiratory History: History of aspiration pneumonia. Gastrointestinal History: Reports: GERD, Other (See Below) Other Gastrointestinal History: History of positive stool guaiac, septic shock, possible small bowl obstruction, GI bleed, mild duodenitis, possible small bowel obstruction. 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 Musculoskeletal History: Reports: Other (See Below) Other Musculoskeletal History: Kyphoscoliosis. Right thoracic scoliosis. 1/4 inch right leg discrepency. Mild pes planus. Progressive Flexic C-Spine. Flexic contractures of hands and feet. S/P left hand fracture. 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 Mild microcephaly. Endocrine/Metabolic History: Reports: Hypothyroidism Hematologic History: Reports: Other (See Below) Other Hematologic History: Mild leukocytosis. Dermatologic History: Reports: Other (See Below) Other Dermatologic History: Seborrheic keratosis right cheek. Acne. 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 Endocrine/Metabolic: Reports: Hypothyroidism Hematologic: Reports: None Immunologic: Reports: None Dermatologic: Reports: None Other Dermatologic Family History: home resident, nonverbalgroup Oncologic: Reports: None - Caffeine Use Caffeine Use: Reports: Coffee H&P Review of Systems - Review of Systems: Review Of Systems: See Below General: Reports: ROS unobtainable Exam - Exam Exam: See Below - Exam General: Lethargic. No: Alert, Oriented HEENT: Posterior Pharynx Clear, TMs Clear Neck: Trachea Midline, Lymphadenopathy Lungs: Normal Respiratory Effort, Decreased Breath Sounds. No: Crackles, Rales , Rhonchi Cardiovascular: Regular Rate, Regular Rhythm. No: Tachycardia, Systolic Murmur GI/Abdominal Exam: Normal Bowel Sounds, Soft, Non-Tender Back Exam: Normal Inspection Extremities: Non-Tender, No Pedal Edema Skin: Dry, Intact Neurological: Normal Tone Neuro Extensive - Motor, Sensory, Reflexes: No: Normal Gait Psychiatric: No: Alert - Problem List (1) Vomiting SNOMED Code(s): 480365295 ICD Code: R11.10 - VOMITING, UNSPECIFIED Status: Acute Current Visit: Yes (2) Decreased level of consciousness SNOMED Code(s): 429357184 ICD Code: R40.4 - TRANSIENT ALTERATION OF AWARENESS Status: Acute Current Visit: Yes (3) Dehydration SNOMED Code(s): 42578710 ICD Code: E86.0 - DEHYDRATION Status: Acute Current Visit: No (4) Palliative care status SNOMED Code(s): 245917176 ICD Code: Z51.5 - ENCOUNTER FOR PALLIATIVE CARE Status: Acute Current Visit: No Problem Details: Morphine for air hunger. Ativan for restlessness/ agitation. (5) Lives in detention SNOMED Code(s): 302012675 ICD Code: Z59.3 - PROBLEMS RELATED TO LIVING IN RESIDENTIAL INSTITUTION Status: Chronic Current Visit: No (6) Mental retardation SNOMED Code(s): 523280475 ICD Code: F79 - UNSPECIFIED INTELLECTUAL DISABILITIES Status: Chronic Current Visit: No Problem Details: Precautions. (7) Decreased level of consciousness SNOMED Code(s): 360309089 ICD Code: R40.4 - TRANSIENT ALTERATION OF AWARENESS Status: Acute Current Visit: Yes Problem List Initiated/Reviewed/Updated: Yes Orders Last 24hrs: Active Orders 24 hr Category Date Time Status Patient Status [ADT] Routine ADT 01/27/20 12:03 Active Height and Weight [RC] DAILY Care 01/27/20 12:03 Active Intake and Output [RC] QSHIFT Care 01/27/20 12:04 Active Oxygen Therapy [RC] PRN Care 01/27/20 12:03 Active Up to Chair [RC] ASDIRECTED Care 01/27/20 12:03 Active VTE/DVT Education [RC] Per Unit Routine Care 01/27/20 12:03 Active Vital Signs [RC] Q4H Care 01/27/20 12:03 Active Clear Liquid Diet [DIET] Diet 01/27/20 Lunch Active Chest 2V [CR] Routine Exams 01/27/20 11:29 Taken CBC WITH AUTO DIFF [HEME] Routine Lab 01/27/20 11:31 Ordered COMPREHENSIVE METABOLIC PN,CMP [CHEM] Routine Lab 01/27/20 11:31 Ordered CULTURE BLOOD [BC] Routine Lab 01/27/20 11:31 Ordered CULTURE BLOOD [BC] Routine Lab 01/27/20 11:32 Ordered LACTIC ACID [CHEM] Routine Lab 01/27/20 11:32 Ordered UA W/MICROSCOPIC [URIN] Routine Lab 01/27/20 11:32 Ordered Albuterol [Proventil Neb Soln] Med 01/27/20 12:06 Ordered 2.5 mg INH QID PRN Azithromycin [Zithromax] 500 mg Med 01/27/20 12:00 Active Sodium Chloride 0.9% [Normal Saline] 250 ml IV ONETIME Carbidopa/Levodopa [Sinemet 25-100 mg] Med 01/27/20 13:00 Ordered 2.5 tab PO 10,13,17,20 ClonazePAM [KlonoPIN] Med 01/27/20 21:00 Ordered 1 mg PO BEDTIME Divalproex Sodium [Depakote Sprinkle] Med 01/27/20 13:00 Ordered 375 mg PO 10,13,17,20 Docusate Sodium/Sennosides [Senna Plus] Med 01/28/20 09:00 Ordered 1 tab PO DAILY Enoxaparin [Lovenox] Med 01/27/20 12:15 Ordered 40 mg SUBCUT Q24H Levothyroxine Med 01/27/20 21:00 Ordered 75 mcg PO BEDTIME Mirtazapine [Remeron] Med 01/27/20 18:00 Ordered 7.5 mg PO 1800 Multivitamin with Iron [Daily Nery with Iron] Med 01/28/20 09:00 Ordered 1 tab PO DAILY Nystatin [Nystatin Crm] Med 01/27/20 21:00 Ordered DOSE gm TOP BID Omeprazole [Omeprazole] Med 01/28/20 07:30 Ordered 20 mg PO ACBREAKFAST Petrolatum,White [Vaseline White Petroleum] Med 01/27/20 12:06 Ordered 1 applic TOP DAILY PRN Petrolatum,White/Zinc Oxide [Sensi-Care Protective Med 01/28/20 09:00 Ordered Ointment] 1 applic TOP DAILY Sodium Chloride 0.9% [Normal Saline] 1,000 ml Med 01/27/20 12:15 Active IV ASDIRECTED Sodium Chloride 0.9% [Saline Flush] Med 01/27/20 12:03 Active 10 ml FLUSH ASDIRECTED PRN Vitamin E [Vitamin E] Med 01/28/20 09:00 Ordered 400 units PO DAILY bisacodyL [Dulcolax] Med 01/27/20 12:06 Ordered 10 mg RECTAL DAILY PRN cefTRIAXone [Rocephin] Med 01/27/20 11:45 Active 1 gm IVPUSH Q24H polyethylene glycoL 3350 [MiraLAX] Med 01/28/20 09:00 Ordered 17 gm PO DAILY Peripheral IV Insertion Adult [OM.PC] Routine Oth 01/27/20 12:03 Ordered Sequential Compression Device [OM.PC] Per Unit Routine Oth 01/27/20 12:05 Ordered Resuscitation Status Routine Resus Stat 01/27/20 12:03 Ordered Medication Orders Albuterol (Proventil Neb Soln) 2.5 mg INH QID PRN PRN Reason: SOB/WHEEZING/COUGH Bisacodyl (Dulcolax) 10 mg RECTAL DAILY PRN PRN Reason: Constipation Carbidopa/Levodopa (Sinemet 25-100 Mg) 2.5 tab PO 10,13,17,20 SARAI Ceftriaxone Sodium (Rocephin) 1 gm IVPUSH Q24H SARAI Clonazepam (Klonopin) 1 mg PO BEDTIME SARAI Divalproex Sodium (Depakote Sprinkle) 375 mg PO 10,13,17,20 SARAI Enoxaparin Sodium (Lovenox) 40 mg SUBCUT Q24H SARAI Azithromycin 500 mg/ Sodium (Chloride) 250 mls @ 250 mls/hr IV ONETIME ONE Stop: 01/27/20 12:59 Sodium Chloride (Normal Saline) 1,000 mls @ 125 mls/hr IV ASDIRECTED SARAI Levothyroxine Sodium (Levothyroxine) 75 mcg PO BEDTIME SARAI Mirtazapine (Remeron) 7.5 mg PO 1800 SARAI Non-Formulary Medication (Multivitamin With Iron [Daily Nery With Iron]) 1 tab PO DAILY SARAI Non-Formulary Medication (Omeprazole [Omeprazole]) 20 mg PO ACBREAKFAST SARAI Non-Formulary Medication (Petrolatum,White [Vaseline White Petroleum]) 1 applic TOP DAILY PRN PRN Reason: Other Non-Formulary Medication (Petrolatum,White/Zinc Oxide [Sensi-Care Protective Ointment]) 1 applic TOP DAILY SARAI Non-Formulary Medication (Vitamin E [Vitamin E]) 400 units PO DAILY SARAI Nystatin (Nystatin Crm) gm TOP BID SARAI Polyethylene Glycol (Miralax) 17 gm PO DAILY SARAI Senna/Docusate Sodium (Senna Plus) 1 tab PO DAILY SARAI Sodium Chloride (Saline Flush) 10 ml FLUSH ASDIRECTED PRN PRN Reason: Keep Vein Open Assessment/Plan Comment:: 1. Admit to observation. 2. She is a DNR according to the staff. 3. VTE prophylaxis with SCD/Lovenox 4. Because of exposure to ammonia and having many pneumonia spells in the past and started on Rocephin and Zithromax IV 5. Clear liquid 6. CBC, lactic acid, CMP, blood cultures 2, UA 7. Up in chair 8. IV fluids normal saline at 1 25 mL an hour 9. I restarted most her home meds and she has nebulizers to be used. 10. Oxygen to keep sats greater than 90%. - Mortality Measure Prognosis:: Good
[2020-01-27] MEDS: cefTRIAXone 1 GM Vial IVPUSH SCH (12:35)
[2020-01-27] MEDS: Sodium Chloride 0.9% 1,000 ML IV SCH (12:35)
--- NOTE | 2020-01-27 13:04 | CR ---
INDICATION: Fever, cough. CHEST, 2 VIEWS: Portable AP upright and lateral views of the chest, 01/27/20, were compared with 03/16/19 and 12/04/18. The heart appears somewhat enlarged. There appears to be some infiltrate in the left lower lobe, possibly some linear atelectasis also. Pleuritis cannot be excluded in that area. No other definite active infiltrate or effusion was identified. Dextroconvex rotoscoliosis of severe nature is noted. The heart did not appear grossly enlarged but was prominent. It is emphasized by poor inspiration. IMPRESSION: There is continued evidence of pneumonia and some atelectasis at the left lower lobe. Report was called to Dr. Degroot at 1254 hours. [facility]
[2020-01-27] MEDS: Enoxaparin 40 MG/0.4 ML Syringe SUBCUT SCH (14:09)
[2020-01-27] MEDS: Carbidopa/Levodopa 25-100 MG Tab PO SCH ×3 (14:09→21:35)
[2020-01-27] MEDS: Divalproex Sodium Delayed-Release 125 MG Cap.Sprink PO SCH ×3 (14:09→21:35)
[2020-01-27] MEDS ORDERED: Mirtazapine 15 MG Tab PO SCH (18:00)
[2020-01-27] MEDS ORDERED: Nystatin Crm 15 GM Tube TOP PRN (21:00)
[2020-01-27] MEDS: Levothyroxine 75 MCG Tab PO SCH (21:36)
[2020-01-27] MEDS: ClonazePAM 1 MG Tab PO SCH (21:39)
[2020-01-28] MEDS: Sodium Chloride 0.9% 1,000 ML IV SCH ×3 (00:41→17:52)
[2020-01-28] MEDS ORDERED: [UNRECOGNIZED DRUG - OTHER] TOP SCH (09:00)
[2020-01-28] MEDS ORDERED: Polyethylene Glycol 3350 Powder 238 GM Bot PO SCH (09:00)
[2020-01-28] MEDS ORDERED: PETROLATUM WHITE TOP SCH (09:00)
[2020-01-28] MEDS ORDERED: ZINC OXIDE TOP SCH (09:00)
[2020-01-28] MEDS ORDERED: MULTIVITAMIN WITH IRON PO SCH (09:00)
--- NOTE | 2020-01-28 09:03 | PCM.PN ---
- General Info Date of Service: 01/28/20 Admission Dx/Problem (Free Text): Patient is sleeping, is nonverbal. On home oxygen at 2L, weight is up 7 lbs from admission, reported by nursing to be edematous in her legs. Incontinent of bowel and bladder which is not new. Ran a temp last evening. - Patient Data Vitals - Most Recent: Last Vital Signs Temp 98.1 F 01/28/20 03:37 Pulse 87 01/28/20 03:37 Resp 16 01/28/20 03:37 BP 127/43 L 01/28/20 03:37 Pulse Ox 100 01/28/20 03:37 Weight - Most Recent: 154 lb 8 oz I&O - Last 24 Hours: Intake & Output 01/27/20 01/28/20 01/28/20 22:59 06:59 14:59 Intake Total 1042 838 Balance 1042 838 Lab Results Last 24 Hours: Laboratory Results - last 24 hr 01/27/20 01/27/20 01/27/20 Range/Units 12:10 12:10 12:10 WBC 13.8 H (4.5-12.0) X10-3/uL RBC 4.62 (3.23-5.20) x10(6)uL Hgb 14.1 (11.5-15.5) g/dL Hct 42.2 (30.0-51.3) % MCV 91.4 (80-96) fL MCH 30.6 (27.7-33.6) pg MCHC 33.5 (32.2-35.4) g/dL RDW 13.3 (11.5-15.5) % Plt Count 269 (125-369) X10(3)uL MPV 7.5 (7.4-10.4) fL Add Manual Diff Yes Neutrophils % (Manual) 69 (46-82) % Band Neutrophils % 15 H* (0-6) % Lymphocytes % (Manual) 6 L (13-37) % Monocytes % (Manual) 10 (4-12) % Sodium 133 L D (135-145) mmol/L Potassium 4.4 (3.5-5.3) mmol/L Chloride 92 L D (100-110) mmol/L Carbon Dioxide 35 H (21-32) mmol/L BUN 14 D (7-18) mg/dL Creatinine 0.6 (0.55-1.02) mg/dL Est Cr Clr Drug Dosing TNP Estimated GFR (MDRD) > 60 (>60) BUN/Creatinine Ratio 23.3 H (9-20) Glucose 117 H (80-116) mg/dL Lactic Acid 3.0 H* (0.4-2.0) mmol/L Calcium 8.8 (8.6-10.2) mg/dL Total Bilirubin 0.3 (0.1-1.3) mg/dL AST 28 H D (5-25) IU/L ALT 24 D (12-36) U/L Alkaline Phosphatase 101 (56-112) IU/L Total Protein 7.7 (6.0-8.0) g/dL Albumin 2.9 L (3.2-4.6) g/dL Globulin 4.8 g/dL Albumin/Globulin Ratio 0.6 Urine Color (YELLOW) Urine Appearance (CLEAR) Urine pH (5.0-6.5) Ur Specific [place] (1.010-1.025) Urine Protein (NEGATIVE) mg/dL Urine Glucose (UA) (NORMAL) mg/dL Urine Ketones (NEGATIVE) mg/dL Urine Occult Blood (NEGATIVE) Urine Nitrite (NEGATIVE) Urine Bilirubin (NEGATIVE) Urine Urobilinogen (NEGATIVE) mg/dL Ur Leukocyte Esterase (NEGATIVE) Urine RBC (0-5) Urine WBC (0-5) Ur Squamous Epith Cells (NS,R,O) Urine Bacteria (NS) Fine Granular Casts (NS) Urine Mucus (NS) 01/27/20 01/27/20 01/28/20 Range/Units 14:51 17:33 06:20 WBC 12.0 (4.5-12.0) X10-3/uL RBC 3.66 (3.23-5.20) x10(6)uL Hgb 11.4 L (11.5-15.5) g/dL Hct 33.6 (30.0-51.3) % MCV 91.8 (80-96) fL MCH 31.1 (27.7-33.6) pg MCHC 33.8 (32.2-35.4) g/dL RDW 13.2 (11.5-15.5) % Plt Count 219 (125-369) X10(3)uL MPV 7.7 (7.4-10.4) fL Add Manual Diff Yes Neutrophils % (Manual) 69 (46-82) % Band Neutrophils % 8 H (0-6) % Lymphocytes % (Manual) 17 (13-37) % Monocytes % (Manual) 6 (4-12) % Sodium (135-145) mmol/L Potassium (3.5-5.3) mmol/L Chloride (100-110) mmol/L Carbon Dioxide (21-32) mmol/L BUN (7-18) mg/dL Creatinine (0.55-1.02) mg/dL Est Cr Clr Drug Dosing Estimated GFR (MDRD) (>60) BUN/Creatinine Ratio (9-20) Glucose (80-116) mg/dL Lactic Acid 1.2 (0.4-2.0) mmol/L Calcium (8.6-10.2) mg/dL Total Bilirubin (0.1-1.3) mg/dL AST (5-25) IU/L ALT (12-36) U/L Alkaline Phosphatase (56-112) IU/L Total Protein (6.0-8.0) g/dL Albumin (3.2-4.6) g/dL Globulin g/dL Albumin/Globulin Ratio Urine Color Yellow (YELLOW) Urine Appearance Clear (CLEAR) Urine pH 7.0 H (5.0-6.5) Ur Specific [place] 1.010 (1.010-1.025) Urine Protein Trace (NEGATIVE) mg/dL Urine Glucose (UA) Normal (NORMAL) mg/dL Urine Ketones 15 H (NEGATIVE) mg/dL Urine Occult Blood Moderate H (NEGATIVE) Urine Nitrite Negative (NEGATIVE) Urine Bilirubin Small H (NEGATIVE) Urine Urobilinogen 4 H (NEGATIVE) mg/dL Ur Leukocyte Esterase Small H (NEGATIVE) Urine RBC 5-10 H (0-5) Urine WBC 0-5 (0-5) Ur Squamous Epith Cells Few H (NS,R,O) Urine Bacteria Few H (NS) Fine Granular Casts Rare H (NS) Urine Mucus Moderate H (NS) 01/28/20 Range/Units 06:20 WBC (4.5-12.0) X10-3/uL RBC (3.23-5.20) x10(6)uL Hgb (11.5-15.5) g/dL Hct (30.0-51.3) % MCV (80-96) fL MCH (27.7-33.6) pg MCHC (32.2-35.4) g/dL RDW (11.5-15.5) % Plt Count (125-369) X10(3)uL MPV (7.4-10.4) fL Add Manual Diff Neutrophils % (Manual) (46-82) % Band Neutrophils % (0-6) % Lymphocytes % (Manual) (13-37) % Monocytes % (Manual) (4-12) % Sodium 135 (135-145) mmol/L Potassium 4.4 (3.5-5.3) mmol/L Chloride 98 L D (100-110) mmol/L Carbon Dioxide 34 H (21-32) mmol/L BUN 12 (7-18) mg/dL Creatinine 0.4 L (0.55-1.02) mg/dL Est Cr Clr Drug Dosing TNP Estimated GFR (MDRD) > 60 (>60) BUN/Creatinine Ratio 30.0 H (9-20) Glucose 74 L (80-116) mg/dL Lactic Acid (0.4-2.0) mmol/L Calcium 8.0 L (8.6-10.2) mg/dL Total Bilirubin (0.1-1.3) mg/dL AST (5-25) IU/L ALT (12-36) U/L Alkaline Phosphatase (56-112) IU/L Total Protein (6.0-8.0) g/dL Albumin (3.2-4.6) g/dL Globulin g/dL Albumin/Globulin Ratio Urine Color (YELLOW) Urine Appearance (CLEAR) Urine pH (5.0-6.5) Ur Specific [place] (1.010-1.025) Urine Protein (NEGATIVE) mg/dL Urine Glucose (UA) (NORMAL) mg/dL Urine Ketones (NEGATIVE) mg/dL Urine Occult Blood (NEGATIVE) Urine Nitrite (NEGATIVE) Urine Bilirubin (NEGATIVE) Urine Urobilinogen (NEGATIVE) mg/dL Ur Leukocyte Esterase (NEGATIVE) Urine RBC (0-5) Urine WBC (0-5) Ur Squamous Epith Cells (NS,R,O) Urine Bacteria (NS) Fine Granular Casts (NS) Urine Mucus (NS) Willie Results Last 24 Hours: Microbiology 01/27/20 14:53 Influenza Type A Antigen Screen - Final Nasal, Right NEGATIVE INFLUENZA A VIRUS AG REFERENCE RANGE: NEGATIVE Influenza Type B Antigen Screen - Final NEGATIVE INFLUENZA B VIRUS AG REFERENCE RANGE: NEGATIVE Med Orders - Current: Current Medications Albuterol (Proventil Neb Soln) 2.5 mg INH QID PRN PRN Reason: SOB/WHEEZING/COUGH Bisacodyl (Dulcolax) 10 mg RECTAL DAILY PRN PRN Reason: Constipation Carbidopa/Levodopa (Sinemet 25-100 Mg) 2.5 tab PO ,,17,20 [facility] Last Admin: 01/27/20 21:35 Dose: 2.5 tab Ceftriaxone Sodium (Rocephin) 1 gm IVPUSH Q24H [facility] Last Admin: 01/27/20 12:35 Dose: 1 gm Clonazepam (Klonopin) 1 mg PO BEDTIME [facility] Last Admin: 01/27/20 21:39 Dose: 1 mg Divalproex Sodium (Depakote Sprinkle) 375 mg PO ,,,20 [facility] Last Admin: 01/27/20 21:35 Dose: 375 mg Enoxaparin Sodium (Lovenox) 40 mg SUBCUT Q24H [facility] Last Admin: 01/27/20 14:09 Dose: 40 mg Sodium Chloride (Normal Saline) 1,000 mls @ 100 mls/hr IV ASDIRECTED [facility] Last Admin: 01/28/20 06:05 Dose: 100 mls/hr Azithromycin 250 mg/ Sodium (Chloride) 250 mls @ 250 mls/hr IV Q24H [facility] Stop: 01/31/20 13:29 Levothyroxine Sodium (Levothyroxine) 75 mcg PO BEDTIME [facility] Last Admin: 01/27/20 21:36 Dose: 75 mcg Mirtazapine (Remeron) 7.5 mg PO 1800 [facility] Last Admin: 01/27/20 18:18 Dose: 7.5 mg (Multivitamin With Iron [Daily Nery With Iron] 1 Tab) * Ptom 1 tab PO DAILY [facility] (Omeprazole [ Omeprazole] 20 Mg) * Ptom 20 mg PO DAILY@0600 [facility] Last Admin: 01/28/20 05:58 Dose: 20 mg (Petrolatum,White [ Vaseline White Petroleum] 1 Applic) 1 applic TOP DAILY PRN PRN Reason: Other (Vitamin E [Vitamin (E] 400 Units) *Ptom) 400 units PO DAILY [facility] Nystatin (Nystatin Crm) 0 gm TOP BID PRN PRN Reason: RASH Polyethylene Glycol (Miralax) 17 gm PO DAILY [facility] Senna/Docusate Sodium (Senna Plus) 1 tab PO DAILY [facility] Sodium Chloride (Saline Flush) 10 ml FLUSH ASDIRECTED PRN PRN Reason: Keep Vein Open Discontinued Medications Azithromycin 500 mg/ Sodium (Chloride) 250 mls @ 250 mls/hr IV ONETIME ONE Stop: 01/27/20 12:59 Azithromycin 500 mg/ Sodium (Chloride) 250 mls @ 250 mls/hr IV ONETIME ONE Stop: 01/27/20 12:59 Last Admin: 01/27/20 12:38 Dose: 250 mls/hr - Exam Quality Assessment: Supplemental Oxygen General: No Acute Distress, Other (sleeping) Lungs: Normal Respiratory Effort, Decreased Breath Sounds. No: Wheezing Cardiovascular: Regular Rate, Regular Rhythm GI/Abdominal Exam: Normal Bowel Sounds, Soft, Non-Tender (no grimaces during exam) Extremities: Pedal Edema (1+ Bilateral feet, SCDs in place.) Skin: Warm Psy/Mental Status: Other (Nonverbal) Sepsis Event Note - Evaluation Sepsis Screening Result: No Definite Risk - Focused Exam Vital Signs: Vital Signs Temp Pulse Resp BP Pulse Ox 01/28/20 03:37 98.1 F 87 16 127/43 L 100 01/28/20 00:00 98.4 F 90 16 99/69 92 L Respiratory Effort Without Exertion: Shallow Heart Sounds: Other (see below) (Normal S1, S2) Capillary Refill, Detail: Less than/Equal to (</=) 2 Seconds Pulse Description: 2+ Normal Peripheral Pulse Location: Radial Skin Exam (Focused Sepsis): Normal Turgor Date Exam was Performed: 01/28/20 Time Exam was Performed: 09:02 - Bedside Monitoring Passive Leg Raise/Fluid Bolus: Not Performed Date Bedside Monitoring was Performed: 01/28/20 Time Bedside Monitoring was Performed: 09:03 - Problem List & Annotations (1) Sepsis SNOMED Code(s): 20082442 Code(s): A41.9 - SEPSIS, UNSPECIFIED ORGANISM Status: Acute Current Visit : Yes Qualifiers: Sepsis type: sepsis due to unspecified organism Sepsis acute organ dysfunction status: without acute organ dysfunction Qualified Code(s): A41.9 - Sepsis, unspecified organism Annotation/Comment:: early, hypotensive, febrile, elevated WBC with bands, elevated lactic acid. BC pending. (2) Pneumonia SNOMED Code(s): 541545131 Code(s): J18.9 - PNEUMONIA, UNSPECIFIED ORGANISM Status: Acute Current Visit: No Qualifiers: Laterality: left Lung location: lower lobe of lung (3) Vomiting SNOMED Code(s): 724610189 Code(s): R11.10 - VOMITING, UNSPECIFIED Status: Acute Current Visit: Yes (4) Dehydration SNOMED Code(s): 25012063 Code(s): E86.0 - DEHYDRATION Status: Acute Current Visit: No (5) Decreased level of consciousness SNOMED Code(s): 376733598 Code(s): R40.4 - TRANSIENT ALTERATION OF AWARENESS Status: Acute Current Visit: Yes (6) DNI (do not intubate) SNOMED Code(s): 597601655 Code(s): Z78.9 - OTHER SPECIFIED HEALTH STATUS Status: Chronic Current Visit: No (7) Intermittent explosive disorder SNOMED Code(s): 96450517 Code(s): SPI8338 - Status: Chronic Current Visit: No (8) Lives in assisted SNOMED Code(s): 763895218 Code(s): Z59.3 - PROBLEMS RELATED TO LIVING IN RESIDENTIAL INSTITUTION Status: Chronic Current Visit: No (9) Mental retardation SNOMED Code(s): 615381656 Code(s): F79 - UNSPECIFIED INTELLECTUAL DISABILITIES Status: Chronic Current Visit: No Annotation/Comment:: Precautions. (10) Parkinson's disease SNOMED Code(s): 97564232 Code(s): G20 - PARKINSON'S DISEASE Status: Chronic Current Visit: No (11) Seizure disorder SNOMED Code(s): 014555939 Code(s): G40.909 - EPILEPSY, UNSP, NOT INTRACTABLE, WITHOUT STATUS EPILEPTICUS Status: Chronic Current Visit: No Annotation/Comment:: (12) Hypothyroidism SNOMED Code(s): 73788875 Code(s): E03.9 - HYPOTHYROIDISM, UNSPECIFIED Status: Chronic Current Visit: No Annotation/Comment:: Continue home meds as able to take PO. - Problem List Review Problem List Initiated/Reviewed/Updated: Yes - Plan Plan:: 1. CXR showed LLL pneumonia, WBC came down to normal. Lactic acid was elevated at 3.0 came down to 1.2(normal). Day 2 Rocephin and Zithromax IV. Meets criteria for early sepsis given her fever , elevated WBC and lactic acid as well as hypotension. BC pending. 2. Clear liquids 3. Up in chair 4. IV fluids normal saline decreased to 75 ml/hr, weight is up 7 lbs, peripheral edema. 5. Oxygen to keep sats greater than 90%. 6. Change her to inpatient status.
[2020-01-28] MEDS: Polyethylene Glycol 3350 Powder 17 GM Packet PO SCH (09:31)
[2020-01-28] MEDS: Divalproex Sodium Delayed-Release 125 MG Cap.Sprink PO SCH ×4 (09:34→20:24)
[2020-01-28] MEDS: Carbidopa/Levodopa 25-100 MG Tab PO SCH ×4 (09:35→20:24)
[2020-01-28] MEDS: cefTRIAXone 1 GM Vial IVPUSH SCH (12:21)
[2020-01-28] MEDS: Enoxaparin 40 MG/0.4 ML Syringe SUBCUT SCH (12:25)
[2020-01-28] MEDS ORDERED: Azithromycin 250 MG in Sodium Chloride 0.9% 250 ML IV SCH (12:30)
[2020-01-28] MEDS ORDERED: Ondansetron 4 MG/2 ML SDV IVPUSH PRN (15:55)
[2020-01-28] MEDS: Piperacillin/Tazobactam 4.5 GM in Sodium Chloride 0.9% 100 ML IV SCH ×2 (16:46→22:14)
[2020-01-28] MEDS ORDERED: Sodium Chloride 0.9% 1,000 ML IV SCH (18:34)
[2020-01-28] MEDS: Saccharomyces Boulardii (Probiotic) 250 MG Cap PO SCH (20:25)
[2020-01-28] MEDS: ClonazePAM 1 MG Tab PO SCH (20:25)
[2020-01-28] MEDS: Levothyroxine 75 MCG Tab PO SCH (20:25)
[2020-01-29] MEDS: Piperacillin/Tazobactam 4.5 GM in Sodium Chloride 0.9% 100 ML IV SCH ×4 (03:56→21:58)
[2020-01-29] MEDS: Pantoprazole 40 MG Tab.CR PO SCH (05:58)
[2020-01-29] MEDS: Saccharomyces Boulardii (Probiotic) 250 MG Cap PO SCH ×2 (08:26→20:48)
[2020-01-29] MEDS: Multivitamins with Iron/Calcium/Folic Acid/Minerals Tab PO SCH (08:27)
[2020-01-29] MEDS: Vitamin E (dl-alpha-tocopherol acetate) 400 Unit Cap PO SCH (08:27)
[2020-01-29] MEDS: Polyethylene Glycol 3350 Powder 17 GM Packet PO SCH (08:28)
[2020-01-29] MEDS: Carbidopa/Levodopa 25-100 MG Tab PO SCH ×4 (09:29→20:47)
[2020-01-29] MEDS: Divalproex Sodium Delayed-Release 125 MG Cap.Sprink PO SCH ×4 (09:29→20:48)
--- NOTE | 2020-01-29 09:38 | PCM.PN ---
- General Info Date of Service: 01/29/20 Subjective Update: Liane is more alert this morning, having coughing spells with meds and breakfast, liquids are runnier than expected for honey thickened. Nurses added more thickener. Weight is down 2 lbs from yesterday. Still having edema in legs. Had emesis yesterday, added Zofran. Changed Rocephin & Azithromycin to Zosyn to cover for aspiration. Spoke with correction, states she is on home oxygen do the numerous episodes of aspiration pneumonia she's had, with scarring. Also discontinued Mirtazapine as she is very sleepy, getting sedating medications for parkinsons and seizures during day, was on a low dose so spoke with pharmacy, no need to taper off at 7.5 mg dose. - Patient Data Vitals - Most Recent: Last Vital Signs Temp 96.5 F L 01/29/20 04:00 Pulse 80 01/29/20 04:00 Resp 16 01/29/20 04:00 BP 103/51 L 01/29/20 04:00 Pulse Ox 100 01/29/20 04:00 Weight - Most Recent: 152 lb 9 oz I&O - Last 24 Hours: Intake & Output 01/28/20 01/29/20 01/29/20 22:59 06:59 14:59 Intake Total 150 672 120 Balance 150 672 120 Lab Results Last 24 Hours: Laboratory Results - last 24 hr 01/28/20 01/29/20 01/29/20 Range/Units 14:46 06:15 06:15 WBC 9.5 (4.5-12.0) X10-3/uL RBC 3.67 (3.23-5.20) x10(6)uL Hgb 11.1 L (11.5-15.5) g/dL Hct 33.7 (30.0-51.3) % MCV 91.9 (80-96) fL MCH 30.3 (27.7-33.6) pg MCHC 33.0 (32.2-35.4) g/dL RDW 13.1 (11.5-15.5) % Plt Count 207 (125-369) X10(3)uL MPV 7.2 L (7.4-10.4) fL Neut % (Auto) 79.0 (46-82) % Lymph % (Auto) 7.9 L (13-37) % [place] % (Auto) 11.9 (4-12) % Eos % (Auto) 1 (1.0-5.0) % Baso % (Auto) 0 (0-2) % Neut # (Auto) 7.5 (1.6-8.3) # Lymph # (Auto) 0.8 (0.6-5.0) # [place] # (Auto) 1.1 (0.0-1.3) # Eos # (Auto) 0.1 (0.0-0.8) # Baso # (Auto) 0.0 (0.0-0.2) # Sodium 132 L (135-145) mmol/L Potassium 3.8 (3.5-5.3) mmol/L Chloride 96 L (100-110) mmol/L Carbon Dioxide 34 H (21-32) mmol/L BUN 7 (7-18) mg/dL Creatinine 0.4 L (0.55-1.02) mg/dL Est Cr Clr Drug Dosing TNP Estimated GFR (MDRD) > 60 (>60) BUN/Creatinine Ratio 17.5 (9-20) Glucose 78 L (80-116) mg/dL POC Glucose 74 L (80-116) mg/dL Calcium 8.2 L (8.6-10.2) mg/dL Willie Results Last 24 Hours: Microbiology 01/27/20 12:15 Aerobic Blood Culture - Preliminary Blood NO GROWTH AFTER 1 DAY Anaerobic Blood Culture - Preliminary NO GROWTH AFTER 1 DAY 01/27/20 12:10 Aerobic Blood Culture - Preliminary Blood NO GROWTH AFTER 1 DAY Anaerobic Blood Culture - Preliminary NO GROWTH AFTER 1 DAY Med Orders - Current: Current Medications Albuterol (Proventil Neb Soln) 2.5 mg INH QID PRN PRN Reason: SOB/WHEEZING/COUGH Bisacodyl (Dulcolax) 10 mg RECTAL DAILY PRN PRN Reason: Constipation Carbidopa/Levodopa (Sinemet 25-100 Mg) 2.5 tab PO ,,17,20 [facility] Last Admin: 01/29/20 09:29 Dose: 2.5 tab Clonazepam (Klonopin) 1 mg PO BEDTIME [facility] Last Admin: 01/28/20 20:25 Dose: 1 mg Divalproex Sodium (Depakote Sprinkle) 375 mg PO 10,,,20 [facility] Last Admin: 01/29/20 09:29 Dose: 375 mg Enoxaparin Sodium (Lovenox) 40 mg SUBCUT Q24H [facility] Last Admin: 01/28/20 12:25 Dose: 40 mg Piperacillin Sod/Tazobactam (Sod 4.5 gm/ Sodium Chloride) 100 mls @ 200 mls/hr IV Q6H [facility] Last Admin: 01/29/20 03:56 Dose: 200 mls/hr Dextrose/Lactated Ringer's (Dextrose 5%-Lactated Ringers) 1,000 mls @ 75 mls/ hr IV ASDIRECTED [facility] Levothyroxine Sodium (Levothyroxine) 75 mcg PO BEDTIME [facility] Last Admin: 01/28/20 20:25 Dose: 75 mcg Multivitamins/Minerals (Thera M Plus) 1 tab PO DAILY [facility] Last Admin: 01/29/20 08:27 Dose: 1 tab (Petrolatum,White [ Vaseline White Petroleum] 1 Applic) 1 applic TOP DAILY PRN PRN Reason: Other Nystatin (Nystatin Crm) 0 gm TOP BID PRN PRN Reason: RASH Ondansetron HCl (Zofran) 4 mg IVPUSH Q6H PRN PRN Reason: Nausea/Vomiting Last Admin: 01/28/20 16:09 Dose: 4 mg Pantoprazole Sodium (Protonix) 40 mg PO DAILY@0600 [facility] Last Admin: 01/29/20 05:58 Dose: 40 mg Polyethylene Glycol (Miralax) 17 gm PO DAILY [facility] Last Admin: 01/29/20 08:28 Dose: 17 gm Saccharomyces Boulardii (Florastor) 250 mg PO BID [facility] Last Admin: 01/29/20 08:26 Dose: 250 mg Senna/Docusate Sodium (Senna Plus) 1 tab PO DAILY [facility] Last Admin: 01/29/20 08:27 Dose: 1 tab Sodium Chloride (Saline Flush) 10 ml FLUSH ASDIRECTED PRN PRN Reason: Keep Vein Open Vitamin E (Vitamin E) 400 units PO DAILY [facility] Last Admin: 01/29/20 08:27 Dose: 400 units Discontinued Medications Ceftriaxone Sodium (Rocephin) 1 gm IVPUSH Q24H [facility] Last Admin: 01/28/20 12:21 Dose: 1 gm Azithromycin 500 mg/ Sodium (Chloride) 250 mls @ 250 mls/hr IV ONETIME ONE Stop: 01/27/20 12:59 Azithromycin 500 mg/ Sodium (Chloride) 250 mls @ 250 mls/hr IV ONETIME ONE Stop: 01/27/20 12:59 Last Admin: 01/27/20 12:38 Dose: 250 mls/hr Sodium Chloride (Normal Saline) 1,000 mls @ 100 mls/hr IV ASDIRECTED [facility] Last Infusion: 01/28/20 18:35 Dose: 75 mls/hr Azithromycin 250 mg/ Sodium (Chloride) 250 mls @ 250 mls/hr IV Q24H [facility] Stop: 01/31/20 13:29 Last Admin: 01/28/20 12:25 Dose: 250 mls/hr Sodium Chloride (Normal Saline) 1,000 mls @ 75 mls/hr IV ASDIRECTED [facility] Last Admin: 01/29/20 07:08 Dose: 75 mls/hr Mirtazapine (Remeron) 7.5 mg PO 1800 [facility] Last Admin: 01/27/20 18:18 Dose: 7.5 mg (Multivitamin With Iron [Daily Nery With Iron] 1 Tab) * Ptom 1 tab PO DAILY [facility] Last Admin: 01/28/20 09:33 Dose: 1 tab (Omeprazole [ Omeprazole] 20 Mg) * Ptom 20 mg PO DAILY@0600 [facility] Last Admin: 01/28/20 05:58 Dose: 20 mg (Vitamin E [Vitamin (E] 400 Units) *Ptom) 400 units PO DAILY [facility] Last Admin: 01/28/20 09:32 Dose: 400 units - Exam General: Alert, Cooperative, No Acute Distress, Other (Nonverbal) Neck: Trachea Midline Lungs: Normal Respiratory Effort, Decreased Breath Sounds, Crackles (LLL), Wheezing (throughout) Cardiovascular: Regular Rate, Regular Rhythm GI/Abdominal Exam: Normal Bowel Sounds, Soft, Non-Tender, No Distention Extremities: Pedal Edema (2+ BLE, Bilateral SCDs in place.) Sepsis Event Note - Evaluation Sepsis Screening Result: No Definite Risk - Focused Exam Vital Signs: Vital Signs Temp Pulse Resp BP Pulse Ox Pulse Ox 01/29/20 04:00 96.5 F L 80 16 103/51 L 100 01/29/20 00:00 96 F L 78 16 112/61 100 100 Date Exam was Performed: 01/29/20 Time Exam was Performed: 09:32 - Problem List & Annotations (1) Sepsis SNOMED Code(s): 70409371 Code(s): A41.9 - SEPSIS, UNSPECIFIED ORGANISM Status: Resolved Current Visit: Yes Qualifiers: Sepsis type: sepsis due to unspecified organism Sepsis acute organ dysfunction status: without acute organ dysfunction Qualified Code(s): A41.9 - Sepsis, unspecified organism Annotation/Comment:: early, hypotensive, febrile, elevated WBC with bands, elevated lactic acid. BC pending. (2) Pneumonia SNOMED Code(s): 075261307 Code(s): J18.9 - PNEUMONIA, UNSPECIFIED ORGANISM Status: Acute Current Visit: No Qualifiers: Laterality: left Lung location: lower lobe of lung (3) Hyponatremia SNOMED Code(s): 85484970 Code(s): E87.1 - HYPO-OSMOLALITY AND HYPONATREMIA Status: Acute Current Visit: No (4) Vomiting SNOMED Code(s): 408913763 Code(s): R11.10 - VOMITING, UNSPECIFIED Status: Acute Current Visit: Yes (5) Dehydration SNOMED Code(s): 55833083 Code(s): E86.0 - DEHYDRATION Status: Resolved Current Visit: No (6) Decreased level of consciousness SNOMED Code(s): 253811738 Code(s): R40.4 - TRANSIENT ALTERATION OF AWARENESS Status: Resolved Current Visit: Yes (7) DNI (do not intubate) SNOMED Code(s): 729130364 Code(s): Z78.9 - OTHER SPECIFIED HEALTH STATUS Status: Chronic Current Visit: No (8) Intermittent explosive disorder SNOMED Code(s): 00868436 Code(s): IKD4226 - Status: Chronic Current Visit: No (9) Lives in correction SNOMED Code(s): 716794414 Code(s): Z59.3 - PROBLEMS RELATED TO LIVING IN RESIDENTIAL INSTITUTION Status: Chronic Current Visit: No (10) Mental retardation SNOMED Code(s): 884225992 Code(s): F79 - UNSPECIFIED INTELLECTUAL DISABILITIES Status: Chronic Current Visit: No Annotation/Comment:: Precautions. (11) Parkinson's disease SNOMED Code(s): 06792067 Code(s): G20 - PARKINSON'S DISEASE Status: Chronic Current Visit: No (12) Seizure disorder SNOMED Code(s): 220701059 Code(s): G40.909 - EPILEPSY, UNSP, NOT INTRACTABLE, WITHOUT STATUS EPILEPTICUS Status: Chronic Current Visit: No Annotation/Comment:: (13) Hypothyroidism SNOMED Code(s): 02384961 Code(s): E03.9 - HYPOTHYROIDISM, UNSPECIFIED Status: Chronic Current Visit: No - Problem List Review Problem List Initiated/Reviewed/Updated: Yes - My Orders Last 24 Hours: My Active Orders 01/28/20 09:27 Patient Status [ADT] Routine 01/28/20 15:55 Ondansetron [Zofran] 4 mg IVPUSH Q6H PRN 01/28/20 16:30 Piperacillin/Tazobactam [Zosyn] 4.5 gm Sodium Chloride 0.9% [Normal Saline] 100 ml IV Q6H 01/28/20 21:00 Saccharomyces Boulardii [Florastor] 250 mg PO BID 01/29/20 08:15 Dextrose 5%-Lactated Ringers 1,000 ml IV ASDIRECTED 01/30/20 06:00 COMPREHENSIVE METABOLIC PN,CMP [CHEM] Routine - Plan Plan:: 1. CXR showed LLL pneumonia, WBC came down to normal. Day 2 Zosyn switched from Rocephin(2 doses and Zithromax 1 dose). Sepsis symptoms have resolved. BC no growth to date. 2. Clear liquids, honey thickened. Will see how she does with lunch, if no emesis will switch to her home diet of pureed foods. 3. Up in chair 4. IV fluids changed to D5LR to correct her sodium and glucose at 75 ml/hr, weight down 2 pounds, continue to monitor. Repeat labs tomorrow. 5. Oxygen to keep sats greater than 90%.
[2020-01-29] MEDS: Dextrose 5%-Lactated Ringers 1,000 ML IV SCH (11:16)
[2020-01-29] MEDS: Enoxaparin 40 MG/0.4 ML Syringe SUBCUT SCH (12:17)
[2020-01-29] MEDS: Sodium Chloride 0.9% 10 ML Syringe FLUSH PRN ×4 (16:49→22:30)
[2020-01-29] MEDS: ClonazePAM 1 MG Tab PO SCH (20:48)
[2020-01-29] MEDS: Levothyroxine 75 MCG Tab PO SCH (20:49)
[2020-01-30] MEDS: Dextrose 5%-Lactated Ringers 1,000 ML IV SCH ×2 (00:41→19:57)
[2020-01-30] MEDS: Sodium Chloride 0.9% 10 ML Syringe FLUSH PRN ×8 (04:14→22:30)
[2020-01-30] MEDS: Piperacillin/Tazobactam 4.5 GM in Sodium Chloride 0.9% 100 ML IV SCH ×4 (04:15→22:00)
[2020-01-30] MEDS: Pantoprazole 40 MG Tab.CR PO SCH (05:06)
[2020-01-30] MEDS ORDERED: Furosemide 20 MG/2 ML VIAL IVPUSH ONE (10:32)
[2020-01-30] MEDS: Divalproex Sodium Delayed-Release 125 MG Cap.Sprink PO SCH ×4 (10:41→20:06)
[2020-01-30] MEDS: Saccharomyces Boulardii (Probiotic) 250 MG Cap PO SCH ×2 (10:42→21:19)
[2020-01-30] MEDS: Polyethylene Glycol 3350 Powder 17 GM Packet PO SCH (10:42)
[2020-01-30] MEDS: Multivitamins with Iron/Calcium/Folic Acid/Minerals Tab PO SCH (10:43)
[2020-01-30] MEDS: Vitamin E (dl-alpha-tocopherol acetate) 400 Unit Cap PO SCH (10:44)
[2020-01-30] MEDS: Carbidopa/Levodopa 25-100 MG Tab PO SCH ×4 (10:45→20:06)
[2020-01-30] MEDS: Enoxaparin 40 MG/0.4 ML Syringe SUBCUT SCH (13:42)
--- NOTE | 2020-01-30 14:26 | PCM.PN ---
- General Info Date of Service: 01/30/20 Subjective Update: Liane is more sleepy today, coughing and gagging more. Haven't been able to do pureed foods or honey thickened liquids. No fevers and vitals are stable. No respiratory distress. Weight is up 1 lb to 153. Sodium improved. Blood cultures still negative. Having smears as far as stool. Edema worse. Delia from [facility] came up to see and stated she is not usually like this, she gags sometime but not like this. Delia tried feeding her honey thickened liquids and she gagged with just spoon touching her lips. Spoke to Jules her brother, who is her guardian and was agreeable to do CT of chest to reassess her pneumonia. - Patient Data Vitals - Most Recent: Last Vital Signs Temp 96.7 F L 01/30/20 12:00 Pulse 72 01/30/20 07:38 Resp 16 01/30/20 12:00 BP 147/73 H 01/30/20 12:00 Pulse Ox 94 L 01/30/20 12:00 Weight - Most Recent: 153 lb 6 oz I&O - Last 24 Hours: Intake & Output 01/29/20 01/30/20 01/30/20 22:59 06:59 14:59 Intake Total 898 368 Balance 898 368 Lab Results Last 24 Hours: Laboratory Results - last 24 hr 01/30/20 Range/Units 06:40 Sodium 134 L (135-145) mmol/L Potassium 3.6 (3.5-5.3) mmol/L Chloride 97 L (100-110) mmol/L Carbon Dioxide 38 H (21-32) mmol/L BUN 3 L (7-18) mg/dL Creatinine 0.4 L (0.55-1.02) mg/dL Est Cr Clr Drug Dosing TNP Estimated GFR (MDRD) > 60 (>60) BUN/Creatinine Ratio 7.5 L (9-20) Glucose 106 (80-116) mg/dL Calcium 8.4 L (8.6-10.2) mg/dL Total Bilirubin 0.2 (0.1-1.3) mg/dL AST 18 D (5-25) IU/L ALT 6 L D (12-36) U/L Alkaline Phosphatase 89 (56-112) IU/L Total Protein 5.8 L (6.0-8.0) g/dL Albumin 2.0 L (3.2-4.6) g/dL Globulin 3.8 g/dL Albumin/Globulin Ratio 0.5 Willie Results Last 24 Hours: Microbiology 01/27/20 12:10 Aerobic Blood Culture - Preliminary Blood NO GROWTH AFTER 3 DAYS Anaerobic Blood Culture - Preliminary NO GROWTH AFTER 3 DAYS 01/27/20 12:15 Aerobic Blood Culture - Preliminary Blood NO GROWTH AFTER 3 DAYS Anaerobic Blood Culture - Preliminary NO GROWTH AFTER 3 DAYS Med Orders - Current: Current Medications Albuterol (Proventil Neb Soln) 2.5 mg INH QID PRN PRN Reason: SOB/WHEEZING/COUGH Bisacodyl (Dulcolax) 10 mg RECTAL DAILY PRN PRN Reason: Constipation Carbidopa/Levodopa (Sinemet 25-100 Mg) 2.5 tab PO ,,,20 [facility] Last Admin: 01/30/20 13:42 Dose: 2.5 tab Clonazepam (Klonopin) 1 mg PO BEDTIME [facility] Last Admin: 01/29/20 20:48 Dose: 1 mg Divalproex Sodium (Depakote Sprinkle) 375 mg PO ,,,20 [facility] Last Admin: 01/30/20 13:41 Dose: 375 mg Enoxaparin Sodium (Lovenox) 40 mg SUBCUT Q24H [facility] Last Admin: 01/30/20 13:42 Dose: 40 mg Piperacillin Sod/Tazobactam (Sod 4.5 gm/ Sodium Chloride) 100 mls @ 200 mls/hr IV Q6H [facility] Last Admin: 01/30/20 09:52 Dose: 200 mls/hr Dextrose/Lactated Ringer's (Dextrose 5%-Lactated Ringers) 1,000 mls @ 40 mls/ hr IV ASDIRECTED [facility] Last Infusion: 01/30/20 10:39 Dose: 40 mls/hr Levothyroxine Sodium (Levothyroxine) 75 mcg PO BEDTIME [facility] Last Admin: 01/29/20 20:49 Dose: 75 mcg Multivitamins/Minerals (Thera M Plus) 1 tab PO DAILY [facility] Last Admin: 01/30/20 10:43 Dose: Not Given (Petrolatum,White [ Vaseline White Petroleum] 1 Applic) 1 applic TOP DAILY PRN PRN Reason: Other Nystatin (Nystatin Crm) 0 gm TOP BID PRN PRN Reason: RASH Ondansetron HCl (Zofran) 4 mg IVPUSH Q6H PRN PRN Reason: Nausea/Vomiting Last Admin: 01/28/20 16:09 Dose: 4 mg Pantoprazole Sodium (Protonix) 40 mg PO DAILY@0600 [facility] Last Admin: 01/30/20 05:06 Dose: 40 mg Polyethylene Glycol (Miralax) 17 gm PO DAILY [facility] Last Admin: 01/30/20 10:42 Dose: Not Given Saccharomyces Boulardii (Florastor) 250 mg PO BID [facility] Last Admin: 01/30/20 10:42 Dose: Not Given Senna/Docusate Sodium (Senna Plus) 1 tab PO DAILY [facility] Last Admin: 01/30/20 10:43 Dose: 1 tab Sodium Chloride (Saline Flush) 10 ml FLUSH ASDIRECTED PRN PRN Reason: Keep Vein Open Last Admin: 01/30/20 10:27 Dose: 10 ml Vitamin E (Vitamin E) 400 units PO DAILY [facility] Last Admin: 01/30/20 10:44 Dose: Not Given Discontinued Medications Ceftriaxone Sodium (Rocephin) 1 gm IVPUSH Q24H [facility] Last Admin: 01/28/20 12:21 Dose: 1 gm Furosemide (Lasix) 20 mg IVPUSH NOW ONE Stop: 01/30/20 10:33 Last Admin: 01/30/20 11:09 Dose: 20 mg Azithromycin 500 mg/ Sodium (Chloride) 250 mls @ 250 mls/hr IV ONETIME ONE Stop: 01/27/20 12:59 Azithromycin 500 mg/ Sodium (Chloride) 250 mls @ 250 mls/hr IV ONETIME ONE Stop: 01/27/20 12:59 Last Admin: 01/27/20 12:38 Dose: 250 mls/hr Sodium Chloride (Normal Saline) 1,000 mls @ 100 mls/hr IV ASDIRECTED [facility] Last Infusion: 01/28/20 18:35 Dose: 75 mls/hr Azithromycin 250 mg/ Sodium (Chloride) 250 mls @ 250 mls/hr IV Q24H [facility] Stop: 01/31/20 13:29 Last Admin: 01/28/20 12:25 Dose: 250 mls/hr Sodium Chloride (Normal Saline) 1,000 mls @ 75 mls/hr IV ASDIRECTED [facility] Last Admin: 01/29/20 07:08 Dose: 75 mls/hr Mirtazapine (Remeron) 7.5 mg PO 1800 [facility] Last Admin: 01/27/20 18:18 Dose: 7.5 mg (Multivitamin With Iron [Daily Nery With Iron] 1 Tab) * Ptom 1 tab PO DAILY [facility] Last Admin: 01/28/20 09:33 Dose: 1 tab (Omeprazole [ Omeprazole] 20 Mg) * Ptom 20 mg PO DAILY@0600 [facility] Last Admin: 01/28/20 05:58 Dose: 20 mg (Vitamin E [Vitamin (E] 400 Units) *Ptom) 400 units PO DAILY [facility] Last Admin: 01/28/20 09:32 Dose: 400 units - Exam Quality Assessment: Supplemental Oxygen General: Cooperative, No Acute Distress, Lethargic Lungs: Decreased Breath Sounds, Crackles (bases, middle lobe, bilateral.). No: Wheezing Cardiovascular: Regular Rate, Regular Rhythm GI/Abdominal Exam: Soft, Non-Tender, No Distention, Abnormal Bowel Sounds ( hypoactive) Extremities: Pedal Edema (3+) Sepsis Event Note - Evaluation Sepsis Screening Result: No Definite Risk - Focused Exam Vital Signs: Vital Signs Temp Pulse Resp BP Pulse Ox Pulse Ox 01/30/20 12:00 96.7 F L 16 147/73 H 95 94 L 01/30/20 07:38 97.5 F 72 20 100/54 L 97 01/30/20 04:00 96.9 F 73 16 107/53 L 99 Date Exam was Performed: 01/30/20 Time Exam was Performed: 14:21 - Problem List & Annotations (1) Sepsis SNOMED Code(s): 88003906 Code(s): A41.9 - SEPSIS, UNSPECIFIED ORGANISM Status: Resolved Current Visit: Yes Qualifiers: Sepsis type: sepsis due to unspecified organism Sepsis acute organ dysfunction status: without acute organ dysfunction Qualified Code(s): A41.9 - Sepsis, unspecified organism Annotation/Comment:: early, hypotensive, febrile, elevated WBC with bands, elevated lactic acid. BC pending. (2) Pneumonia SNOMED Code(s): 518309376 Code(s): J18.9 - PNEUMONIA, UNSPECIFIED ORGANISM Status: Acute Current Visit: No Qualifiers: Pneumonia type: aspiration pneumonia Laterality: left Lung location: lower lobe of lung (3) Hyponatremia SNOMED Code(s): 36264848 Code(s): E87.1 - HYPO-OSMOLALITY AND HYPONATREMIA Status: Acute Current Visit: No Annotation/Comment:: improving (4) Vomiting SNOMED Code(s): 667078897 Code(s): R11.10 - VOMITING, UNSPECIFIED Status: Acute Current Visit: Yes Annotation/Comment:: gagging/drooling no large emesis (5) Dehydration SNOMED Code(s): 59303089 Code(s): E86.0 - DEHYDRATION Status: Resolved Current Visit: No (6) Decreased level of consciousness SNOMED Code(s): 264593352 Code(s): R40.4 - TRANSIENT ALTERATION OF AWARENESS Status: Resolved Current Visit: Yes (7) DNI (do not intubate) SNOMED Code(s): 492205397 Code(s): Z78.9 - OTHER SPECIFIED HEALTH STATUS Status: Chronic Current Visit: No (8) Intermittent explosive disorder SNOMED Code(s): 88238554 Code(s): DTM5866 - Status: Chronic Current Visit: No (9) Lives in [facility] SNOMED Code(s): 776635412 Code(s): Z59.3 - PROBLEMS RELATED TO LIVING IN RESIDENTIAL INSTITUTION Status: Chronic Current Visit: No (10) Mental retardation SNOMED Code(s): 929958822 Code(s): F79 - UNSPECIFIED INTELLECTUAL DISABILITIES Status: Chronic Current Visit: No Annotation/Comment:: Precautions. (11) Parkinson's disease SNOMED Code(s): 68206048 Code(s): G20 - PARKINSON'S DISEASE Status: Chronic Current Visit: No (12) Seizure disorder SNOMED Code(s): 990132826 Code(s): G40.909 - EPILEPSY, UNSP, NOT INTRACTABLE, WITHOUT STATUS EPILEPTICUS Status: Chronic Current Visit: No Annotation/Comment:: (13) Hypothyroidism SNOMED Code(s): 19346768 Code(s): E03.9 - HYPOTHYROIDISM, UNSPECIFIED Status: Chronic Current Visit: No - Problem List Review Problem List Initiated/Reviewed/Updated: Yes - My Orders Last 24 Hours: My Active Orders 01/29/20 Dinner Pureed Diet [DIET] 01/30/20 12:35 Chest wo Cont [CT] Routine 01/31/20 06:00 BASIC METABOLIC PANEL,BMP [CHEM] Routine CBC WITH AUTO DIFF [HEME] Routine - Plan Plan:: 1. Aspiration pneumonia. Day 3 Zosyn switched from Rocephin(2 doses and Zithromax 1 dose). BC no growth to date. Worsening, likely fluid overload. Decrease fluids down to 40 ml/hr and give Lasix 20 mg IV, repeat labs tomorrow and get CT chest without contrast. 2. Pureed diet, honey thickened liquids. 3. Coughing up thick sputum, sputum culture ordered. 4. Adjust treatments as necessary.
[2020-01-30] MEDS: Levothyroxine 75 MCG Tab PO SCH (20:57)
[2020-01-30] MEDS: ClonazePAM 1 MG Tab PO SCH (20:57)
[2020-01-31] MEDS: Sodium Chloride 0.9% 10 ML Syringe FLUSH PRN ×3 (03:51→22:08)
[2020-01-31] MEDS: Piperacillin/Tazobactam 4.5 GM in Sodium Chloride 0.9% 100 ML IV SCH ×3 (03:52→18:43)
[2020-01-31] MEDS: Pantoprazole 40 MG Tab.CR PO SCH (05:44)
[2020-01-31] MEDS ORDERED: acetaZOLAMIDE 500 MG Cap.ER PO ONE (07:30)
[2020-01-31] MEDS: Fluconazole/Normal Saline 400 MG in Premix Bag 1 BAG IV SCH (09:47)
[2020-01-31] MEDS: Polyethylene Glycol 3350 Powder 17 GM Packet PO SCH (09:48)
[2020-01-31] MEDS: Saccharomyces Boulardii (Probiotic) 250 MG Cap PO SCH ×2 (09:48→21:38)
[2020-01-31] MEDS: Vitamin E (dl-alpha-tocopherol acetate) 400 Unit Cap PO SCH (09:49)
[2020-01-31] MEDS: Multivitamins with Iron/Calcium/Folic Acid/Minerals Tab PO SCH (09:49)
[2020-01-31] MEDS: Carbidopa/Levodopa 25-100 MG Tab PO SCH ×4 (11:32→21:36)
[2020-01-31] MEDS: Divalproex Sodium Delayed-Release 125 MG Cap.Sprink PO SCH ×4 (11:38→21:35)
[2020-01-31] MEDS: Enoxaparin 40 MG/0.4 ML Syringe SUBCUT SCH (13:26)
--- NOTE | 2020-01-31 14:24 | PCM.PN ---
- General Info Date of Service: 01/31/20 Subjective Update: Liane coughed up some thick sputum yesterday, and was suctioned. More awake in the evening, was up in the chair and took medications orally. Labs are improving except CO2 is up to 43, she's not in acute distress. Pharmacy commented that it could be secondary to Zosyn. She more alert today. Lot of wet incontinent briefs, down 1 lb from yesterday. Blood cultures still negative. Gram stain shows yeast and few gram positive cocci. White count is normal. - Patient Data Vitals - Most Recent: Last Vital Signs Temp 97.2 F 01/31/20 04:00 Pulse 62 01/31/20 04:00 Resp 16 01/31/20 04:00 BP 116/62 01/31/20 04:00 Pulse Ox 97 01/31/20 04:00 Weight - Most Recent: 152 lb 2 oz I&O - Last 24 Hours: Intake & Output 01/30/20 01/31/20 01/31/20 22:59 06:59 14:59 Intake Total 266 386 Balance 266 386 Lab Results Last 24 Hours: Laboratory Results - last 24 hr 01/31/20 01/31/20 Range/Units 06:15 06:15 WBC 6.0 (4.5-12.0) X10-3/uL RBC 3.54 (3.23-5.20) x10(6)uL Hgb 10.9 L (11.5-15.5) g/dL Hct 32.8 (30.0-51.3) % MCV 92.6 (80-96) fL MCH 30.9 (27.7-33.6) pg MCHC 33.4 (32.2-35.4) g/dL RDW 13.2 (11.5-15.5) % Plt Count 237 (125-369) X10(3)uL MPV 7.3 L (7.4-10.4) fL Neut % (Auto) 67.1 (46-82) % Lymph % (Auto) 18.6 (13-37) % Elk % (Auto) 12.9 H (4-12) % Eos % (Auto) 1 (1.0-5.0) % Baso % (Auto) 1 (0-2) % Neut # (Auto) 4.0 (1.6-8.3) # Lymph # (Auto) 1.1 (0.6-5.0) # Elk # (Auto) 0.8 (0.0-1.3) # Eos # (Auto) 0.1 (0.0-0.8) # Baso # (Auto) 0.0 (0.0-0.2) # Sodium 141 (135-145) mmol/L Potassium 3.4 L (3.5-5.3) mmol/L Chloride 97 L (100-110) mmol/L Carbon Dioxide 43 H* (21-32) mmol/L BUN 3 L (7-18) mg/dL Creatinine 0.4 L (0.55-1.02) mg/dL Est Cr Clr Drug Dosing TNP Estimated GFR (MDRD) > 60 (>60) BUN/Creatinine Ratio 7.5 L (9-20) Glucose 84 (80-116) mg/dL Calcium 8.5 L (8.6-10.2) mg/dL Willie Results Last 24 Hours: Microbiology 01/27/20 12:15 Aerobic Blood Culture - Preliminary Blood NO GROWTH AFTER 4 DAYS Anaerobic Blood Culture - Preliminary NO GROWTH AFTER 4 DAYS 01/27/20 12:10 Aerobic Blood Culture - Preliminary Blood NO GROWTH AFTER 4 DAYS Anaerobic Blood Culture - Preliminary NO GROWTH AFTER 4 DAYS 01/30/20 16:50 Gram Stain - Final Sputum - Expectorated Med Orders - Current: Current Medications Albuterol (Proventil Neb Soln) 2.5 mg INH QID PRN PRN Reason: SOB/WHEEZING/COUGH Bisacodyl (Dulcolax) 10 mg RECTAL DAILY PRN PRN Reason: Constipation Carbidopa/Levodopa (Sinemet 25-100 Mg) 2.5 tab PO 10,,17,20 [facility] Last Admin: 01/31/20 11:32 Dose: 2.5 tab Clonazepam (Klonopin) 1 mg PO BEDTIME [facility] Last Admin: 01/30/20 20:57 Dose: 1 mg Divalproex Sodium (Depakote Sprinkle) 375 mg PO 10,,17,20 [facility] Last Admin: 01/31/20 11:38 Dose: 375 mg Enoxaparin Sodium (Lovenox) 40 mg SUBCUT Q24H [facility] Last Admin: 01/31/20 13:26 Dose: 40 mg Dextrose/Lactated Ringer's (Dextrose 5%-Lactated Ringers) 1,000 mls @ 40 mls/ hr IV ASDIRECTED [facility] Last Admin: 01/30/20 19:57 Dose: 40 mls/hr Fluconazole/Sodium Chloride (400 mg/ Premix) 200 mls @ 100 mls/hr IV Q24H [facility] Last Admin: 01/31/20 09:47 Dose: 100 mls/hr Piperacillin Sod/Tazobactam (Sod 4.5 gm/ Sodium Chloride) 100 mls @ 200 mls/hr IV Q6H [facility] Last Admin: 01/31/20 13:25 Dose: 200 mls/hr Levothyroxine Sodium (Levothyroxine) 75 mcg PO BEDTIME [facility] Last Admin: 01/30/20 20:57 Dose: 75 mcg Multivitamins/Minerals (Thera M Plus) 1 tab PO DAILY [facility] Last Admin: 01/31/20 09:49 Dose: Not Given (Petrolatum,White [ Vaseline White Petroleum] 1 Applic) 1 applic TOP DAILY PRN PRN Reason: Other Nystatin (Nystatin Crm) 0 gm TOP BID PRN PRN Reason: RASH Ondansetron HCl (Zofran) 4 mg IVPUSH Q6H PRN PRN Reason: Nausea/Vomiting Last Admin: 01/28/20 16:09 Dose: 4 mg Pantoprazole Sodium (Protonix) 40 mg PO DAILY@0600 [facility] Last Admin: 01/31/20 05:44 Dose: 40 mg Polyethylene Glycol (Miralax) 17 gm PO DAILY [facility] Last Admin: 01/31/20 09:48 Dose: Not Given Saccharomyces Boulardii (Florastor) 250 mg PO BID [facility] Last Admin: 01/31/20 09:48 Dose: Not Given Senna/Docusate Sodium (Senna Plus) 1 tab PO DAILY [facility] Last Admin: 01/31/20 09:49 Dose: Not Given Sodium Chloride (Saline Flush) 10 ml FLUSH ASDIRECTED PRN PRN Reason: Keep Vein Open Last Admin: 01/31/20 03:51 Dose: 10 ml Vitamin E (Vitamin E) 400 units PO DAILY [facility] Last Admin: 01/31/20 09:49 Dose: Not Given Discontinued Medications Acetazolamide (Diamox Sequels) 500 mg PO ONETIME ONE Stop: 03/16/20 07:31 Last Admin: 01/31/20 08:42 Dose: 500 mg Ceftriaxone Sodium (Rocephin) 1 gm IVPUSH Q24H [facility] Last Admin: 01/28/20 12:21 Dose: 1 gm Furosemide (Lasix) 20 mg IVPUSH NOW ONE Stop: 01/30/20 10:33 Last Admin: 01/30/20 11:09 Dose: 20 mg Azithromycin 500 mg/ Sodium (Chloride) 250 mls @ 250 mls/hr IV ONETIME ONE Stop: 01/27/20 12:59 Azithromycin 500 mg/ Sodium (Chloride) 250 mls @ 250 mls/hr IV ONETIME ONE Stop: 01/27/20 12:59 Last Admin: 01/27/20 12:38 Dose: 250 mls/hr Sodium Chloride (Normal Saline) 1,000 mls @ 100 mls/hr IV ASDIRECTED [facility] Last Infusion: 01/28/20 18:35 Dose: 75 mls/hr Azithromycin 250 mg/ Sodium (Chloride) 250 mls @ 250 mls/hr IV Q24H [facility] Stop: 01/31/20 13:29 Last Admin: 01/28/20 12:25 Dose: 250 mls/hr Piperacillin Sod/Tazobactam (Sod 4.5 gm/ Sodium Chloride) 100 mls @ 200 mls/hr IV Q6H [facility] Last Admin: 01/31/20 03:52 Dose: 200 mls/hr Sodium Chloride (Normal Saline) 1,000 mls @ 75 mls/hr IV ASDIRECTED [facility] Last Admin: 01/29/20 07:08 Dose: 75 mls/hr Mirtazapine (Remeron) 7.5 mg PO 1800 [facility] Last Admin: 01/27/20 18:18 Dose: 7.5 mg (Multivitamin With Iron [Daily Nery With Iron] 1 Tab) * Ptom 1 tab PO DAILY [facility] Last Admin: 01/28/20 09:33 Dose: 1 tab (Omeprazole [ Omeprazole] 20 Mg) * Ptom 20 mg PO DAILY@0600 [facility] Last Admin: 01/28/20 05:58 Dose: 20 mg (Vitamin E [Vitamin (E] 400 Units) *Ptom) 400 units PO DAILY [facility] Last Admin: 01/28/20 09:32 Dose: 400 units - Exam Quality Assessment: Supplemental Oxygen General: Cooperative, No Acute Distress, Other (Sleeping early this morning. ) Lungs: Normal Respiratory Effort, Decreased Breath Sounds (Bibasilar), Crackles (RML, RLL), Rhonchi (RML). No: Wheezing Cardiovascular: Regular Rate, Regular Rhythm GI/Abdominal Exam: Normal Bowel Sounds, Soft, Non-Tender, No Distention Extremities: Pedal Edema (1+ BLE) Sepsis Event Note - Evaluation Sepsis Screening Result: No Definite Risk - Focused Exam Vital Signs: Vital Signs Temp Pulse Resp BP Pulse Ox 01/31/20 04:00 97.2 F 62 16 116/62 97 Date Exam was Performed: 01/31/20 Time Exam was Performed: 14:19 - Problem List & Annotations (1) Sepsis SNOMED Code(s): 68133662 Code(s): A41.9 - SEPSIS, UNSPECIFIED ORGANISM Status: Resolved Current Visit: Yes Qualifiers: Sepsis type: sepsis due to unspecified organism Sepsis acute organ dysfunction status: without acute organ dysfunction Qualified Code(s): A41.9 - Sepsis, unspecified organism Annotation/Comment:: early, hypotensive, febrile, elevated WBC with bands, elevated lactic acid. BC pending. (2) Pneumonia SNOMED Code(s): 861859850 Code(s): J18.9 - PNEUMONIA, UNSPECIFIED ORGANISM Status: Acute Current Visit: No Qualifiers: Pneumonia type: aspiration pneumonia Laterality: bilateral Lung location : unspecified part of lung Annotation/Comment:: Right middle, right lower and left lower lobes (3) Hyponatremia SNOMED Code(s): 85639818 Code(s): E87.1 - HYPO-OSMOLALITY AND HYPONATREMIA Status: Resolved Current Visit: No Annotation/Comment:: improving (4) Vomiting SNOMED Code(s): 947728552 Code(s): R11.10 - VOMITING, UNSPECIFIED Status: Resolved Current Visit: Yes Annotation/Comment:: gagging/drooling no large emesis (5) Dehydration SNOMED Code(s): 44437278 Code(s): E86.0 - DEHYDRATION Status: Resolved Current Visit: No (6) Decreased level of consciousness SNOMED Code(s): 872607577 Code(s): R40.4 - TRANSIENT ALTERATION OF AWARENESS Status: Resolved Current Visit: Yes (7) DNI (do not intubate) SNOMED Code(s): 918486216 Code(s): Z78.9 - OTHER SPECIFIED HEALTH STATUS Status: Chronic Current Visit: No (8) Intermittent explosive disorder SNOMED Code(s): 72045030 Code(s): GDC2634 - Status: Chronic Current Visit: No (9) Lives in [facility] SNOMED Code(s): 335230502 Code(s): Z59.3 - PROBLEMS RELATED TO LIVING IN RESIDENTIAL INSTITUTION Status: Chronic Current Visit: No (10) Mental retardation SNOMED Code(s): 139219005 Code(s): F79 - UNSPECIFIED INTELLECTUAL DISABILITIES Status: Chronic Current Visit: No Annotation/Comment:: Precautions. (11) Parkinson's disease SNOMED Code(s): 89508697 Code(s): G20 - PARKINSON'S DISEASE Status: Chronic Current Visit: No (12) Seizure disorder SNOMED Code(s): 315313119 Code(s): G40.909 - EPILEPSY, UNSP, NOT INTRACTABLE, WITHOUT STATUS EPILEPTICUS Status: Chronic Current Visit: No Annotation/Comment:: (13) Hypothyroidism SNOMED Code(s): 24851546 Code(s): E03.9 - HYPOTHYROIDISM, UNSPECIFIED Status: Chronic Current Visit: No - Problem List Review Problem List Initiated/Reviewed/Updated: Yes - My Orders Last 24 Hours: My Active Orders 01/30/20 16:50 CULTURE SPUTUM + SMEAR [RM] Routine 01/31/20 09:00 Fluconazole/Normal Saline [Diflucan in NS 200 MG/100 ML] 400 mg Premix Bag 1 bag IV Q24H 01/31/20 12:00 Piperacillin/Tazobactam [Zosyn] 4.5 gm Sodium Chloride 0.9% [Normal Saline] 100 ml IV Q6H 02/01/20 06:00 BASIC METABOLIC PANEL,BMP [CHEM] Routine - Plan Plan:: 1. Aspiration pneumonia. Day 4 Zosyn. BC no growth to date. CT chest showed Right middle & right lower lobe pneumonia consistent with aspiration, left lower lobe, possible mucus plugging, sputum collected: gram stain was good sample with yeast and few gram positive cocci, ID pending. Fluconazole 400 mg IV daily started for yeast. 2. Pureed diet, honey thickened liquids. 3. Improving but due to extent of pneumonia would need to be transferred to swing bed possible tomorrow for continued IV antibiotics and antifungal medications. At this point switching to orals to send back to [facility] would put her at risk of readmission or worsening of pneumonia.
[2020-01-31] MEDS: Levothyroxine 75 MCG Tab PO SCH (21:39)
[2020-01-31] MEDS: ClonazePAM 1 MG Tab PO SCH (21:43)
[2020-01-31] MEDS ORDERED: Sodium Chloride 0.9% 250 ML IV SCH (22:00)
[2020-02-01] MEDS: Piperacillin/Tazobactam 4.5 GM in Sodium Chloride 0.9% 100 ML IV SCH ×2 (00:05→05:27)
[2020-02-01] MEDS: Sodium Chloride 0.9% 10 ML Syringe FLUSH PRN ×2 (00:40→09:49)
[2020-02-01] MEDS: Pantoprazole 40 MG Tab.CR PO SCH (05:30)
[2020-02-01] MEDS ORDERED: Potassium Chloride 20 MEQ Tab.ER PO SCH (09:00)
[2020-02-01] MEDS: Divalproex Sodium Delayed-Release 125 MG Cap.Sprink PO SCH (09:43)
[2020-02-01] MEDS: Saccharomyces Boulardii (Probiotic) 250 MG Cap PO SCH (09:43)
[2020-02-01] MEDS: Vitamin E (dl-alpha-tocopherol acetate) 400 Unit Cap PO SCH (09:43)
[2020-02-01] MEDS: Multivitamins with Iron/Calcium/Folic Acid/Minerals Tab PO SCH (09:43)
[2020-02-01] MEDS: Carbidopa/Levodopa 25-100 MG Tab PO SCH (09:44)
[2020-02-01] MEDS: Fluconazole/Normal Saline 400 MG in Premix Bag 1 BAG IV SCH (09:45)
[2020-02-01 10:44] VITALS: BP 136/82; PULSE 108
[2020-02-01] MEDS: Polyethylene Glycol 3350 Powder 17 GM Packet PO SCH (11:23)
--- NOTE | 2020-02-01 11:26 | PCM.DCSUM1 ---
Discharge Summary - Hospital Course HPI Initial Comments: This is a 64-year-old shelter patient was normally nonverbal came to see Kanwal Bacon because she is very sleepy, not responsive started vomiting last night and have a fever. They don't report any diarrhea, belly pain, runny nose or cough. She's had many admissions for pneumonia. Someone else in the shelter just was hospitalized for pneumonia which presented as abdominal pain and vomiting. Patient cannot give me any history. Diagnosis: Stroke: No - Discharge Data Discharge Date: 02/01/20 Discharge Disposition: DC/Tfer W/I Hosp To Swing [facility] Condition: Fair - Referral to Home Health Primary Care Physician: Mitesh Degroot MD - Discharge Diagnosis/Problem(s) (1) Sepsis SNOMED Code(s): 40073601 ICD Code: A41.9 - SEPSIS, UNSPECIFIED ORGANISM Status: Resolved Current Visit: Yes Problem Details: early, hypotensive, febrile, elevated WBC with bands, elevated lactic acid. BC pending. Qualifiers: Sepsis type: sepsis due to unspecified organism Sepsis acute organ dysfunction status: without acute organ dysfunction Qualified Code(s): A41.9 - Sepsis, unspecified organism (2) Pneumonia SNOMED Code(s): 021040540 ICD Code: J18.9 - PNEUMONIA, UNSPECIFIED ORGANISM Status: Acute Current Visit: No Problem Details: Right middle, right lower and left lower lobes Qualifiers: Pneumonia type: aspiration pneumonia Laterality: bilateral Lung location : unspecified part of lung (3) Hyponatremia SNOMED Code(s): 43899745 ICD Code: E87.1 - HYPO-OSMOLALITY AND HYPONATREMIA Status: Resolved Current Visit: No Problem Details: improving (4) Vomiting SNOMED Code(s): 320488963 ICD Code: R11.10 - VOMITING, UNSPECIFIED Status: Resolved Current Visit: Yes Problem Details: gagging/drooling no large emesis (5) Dehydration SNOMED Code(s): 01840663 ICD Code: E86.0 - DEHYDRATION Status: Resolved Current Visit: No (6) Decreased level of consciousness SNOMED Code(s): 000303011 ICD Code: R40.4 - TRANSIENT ALTERATION OF AWARENESS Status: Resolved Current Visit: Yes (7) DNI (do not intubate) SNOMED Code(s): 909006868 ICD Code: Z78.9 - OTHER SPECIFIED HEALTH STATUS Status: Chronic Current Visit: No (8) Intermittent explosive disorder SNOMED Code(s): 91058592 ICD Code: [id number] - Status: Chronic Current Visit: No (9) Lives in shelter SNOMED Code(s): 402787351 ICD Code: Z59.3 - PROBLEMS RELATED TO LIVING IN RESIDENTIAL INSTITUTION Status: Chronic Current Visit: No (10) Mental retardation SNOMED Code(s): 066182177 ICD Code: F79 - UNSPECIFIED INTELLECTUAL DISABILITIES Status: Chronic Current Visit: No Problem Details: Precautions. (11) Parkinson's disease SNOMED Code(s): 44581985 ICD Code: G20 - PARKINSON'S DISEASE Status: Chronic Current Visit: No (12) Seizure disorder SNOMED Code(s): 260352282 ICD Code: G40.909 - EPILEPSY, UNSP, NOT INTRACTABLE, WITHOUT STATUS EPILEPTICUS Status: Chronic Current Visit: No Problem Details: (13) Hypothyroidism SNOMED Code(s): 27097309 ICD Code: E03.9 - HYPOTHYROIDISM, UNSPECIFIED Status: Chronic Current Visit: No - Patient Summary/Data Hospital Course: Patient was started on Rocephin & Azithromycin, received 2 doses before being switched to Zosyn on , starting 5th day of Zosyn today. Was able to get sputum culture on Friday that has grown yeast, so Fluconazole 400 mg IV daily started yesterday. She was eating ok on Friday, worse on Friday then improved yesterday. Sodium was low but has corrected, potassium low and supplementation given. CT chest was done on Friday as she was doing worse clinically, showed pneumonia in Right middle, right lower and left lower lobes involved, possible mucus plug on left. She was suctioned Friday afternoon as she had gotten up a large sputum but wasn't able to collect it for culture. Mirtazapine was held due to her sleeping all day, difficulty getting her pills in, last night was more agitated and didn't sleep until early this morning so Mirtazapine restarted. She had some crackles on Friday as well so received Lasix 20 mg IV x 1 along with decrease of her fluids. Weight came up with IV fluids as she was having such poor intake, intake has improved so now Saline locked. CO2 jumped up to 43, possible side effect of Zosyn, acetazolamide x 1 given and CO2 down to 34. Patient will need 5 more days of Zosyn as poor candidate for oral therapy. Fluconazole will be for 6 days then can switch to oral fluconazole for 7 more days for total 2 weeks treatment. Will transfer her to swing bed for IV therapies, will also do PT/OT consults for restorative therapies. - Patient Instructions Diet: Pureed Diet, Other: honey thickened liquids Other/Special Instructions: transfer to swing bed for IV Zosyn & Fluconazole. - Discharge Plan *PRESCRIPTION DRUG MONITORING PROGRAM REVIEWED*: No *COPY OF PRESCRIPTION DRUG MONITORING REPORT IN PATIENT FELIPE: No Home Medications: Home Meds Divalproex Sodium [Depakote Sprinkle] 375 mg PO 10,,17,20 12/11/15 [History] Levothyroxine 75 mcg PO BEDTIME 12/11/15 [History] Multivitamin with Iron [Daily Nery with Iron] 1 tab PO DAILY 12/11/15 [History] Omeprazole 20 mg PO ACBREAKFAST 12/11/15 [History] Vitamin E 400 units PO DAILY 12/11/15 [History] Carbidopa/Levodopa [Carbidopa-Levodopa 25-100 Tab] 2.5 tab PO 10,13,17,20 [History] Nystatin [Nystatin Crm] 1 applic TOP BID 09/28/17 [History] Mirtazapine 7.5 mg PO 1800 09/05/18 [History] Polyethylene Glycol 3350 [Laxaclear] 17 gm PO DAILY 09/05/18 [History] Sennosides/Docusate Sodium [Senna Laxative Tablet] 1 tab PO DAILY 09/05/18 [ History] Albuterol [Proventil Neb Soln] 2.5 mg INH QID PRN 03/16/19 [History] bisacodyL [Dulcolax] 10 mg RC DAILY PRN 03/16/19 [History] clonazePAM [Klonopin] 1 mg PO BEDTIME 03/16/19 [History] Furosemide [Lasix] 20 mg PO DAILY #30 tab 03/22/19 [Rx] Petrolatum,White [Vaseline White Petroleum] 1 applic TOP DAILY PRN 01/27/20 [ History] Petrolatum,White/Zinc Oxide [Sensi-Care Protective Ointment] 1 applic TOP DAILY 01/27/20 [History] Enoxaparin [Lovenox] 40 mg SUBCUT Q24H syringe 02/01/20 [Rx] Fluconazole/Normal Saline [Diflucan in NS 200 MG/100 ML] 400 mg IV Q24H bag [Rx] Ondansetron [Zofran] 4 mg IVPUSH Q6H PRN vial 02/01/20 [Rx] Piperacillin/Tazobactam [Zosyn] 4.5 gm IV Q6H vial 02/01/20 [Rx] Potassium Chloride [Klor-Con M20] 20 meq PO TID tab.er 02/01/20 [Rx] Saccharomyces Boulardii [Florastor] 250 mg PO BID cap 02/01/20 [Rx] Oxygen Therapy Mode: Nasal Cannula Oxygen Flow Rate (L/min): 2 - Discharge Summary/Plan Comment DC Time >30 min.: Yes - General Info Date of Service: 02/01/20 Subjective Update: Sleeping comfortably this morning. Patient more agitated yesterday evening and night, more awake, up in the chair. halfway brought her arm braces up last night. She took all her pills by mouth and had more to drink last night. Pudding like stools yesterday. NO fevers. - Patient Data Vitals - Most Recent: Last Vital Signs Temp 98.8 F 02/01/20 08:00 Pulse 108 H 02/01/20 08:00 Resp 20 02/01/20 08:00 BP 136/82 02/01/20 08:00 Pulse Ox 89 L 02/01/20 08:00 Weight - Most Recent: 144 lb 4.8 oz I&O - Last 24 hours: Intake & Output 01/31/20 02/01/20 02/01/20 22:59 06:59 14:59 Intake Total 657 400 Balance 657 400 Lab Results - Last 24 hrs: Laboratory Results - last 24 hr 02/01/20 Range/Units 06:00 Sodium 142 (135-145) mmol/L Potassium 2.9 L (3.5-5.3) mmol/L Chloride 102 D (100-110) mmol/L Carbon Dioxide 34 H (21-32) mmol/L BUN 3 L (7-18) mg/dL Creatinine 0.5 L (0.55-1.02) mg/dL Est Cr Clr Drug Dosing TNP Estimated GFR (MDRD) > 60 (>60) BUN/Creatinine Ratio 6.0 L (9-20) Glucose 84 (80-116) mg/dL Calcium 8.4 L (8.6-10.2) mg/dL [facility] Results - Last 24 hrs: Microbiology 01/30/20 16:50 Gram Stain - Final Sputum - Expectorated Sputum Culture - Preliminary Yeast Isolated 01/27/20 12:15 Aerobic Blood Culture - Preliminary Blood NO GROWTH AFTER 4 DAYS Anaerobic Blood Culture - Preliminary NO GROWTH AFTER 4 DAYS 01/27/20 12:10 Aerobic Blood Culture - Preliminary Blood NO GROWTH AFTER 4 DAYS Anaerobic Blood Culture - Preliminary NO GROWTH AFTER 4 DAYS Med Orders - Current: Current Medications Albuterol (Proventil Neb Soln) 2.5 mg INH QID PRN PRN Reason: SOB/WHEEZING/COUGH Bisacodyl (Dulcolax) 10 mg RECTAL DAILY PRN PRN Reason: Constipation Carbidopa/Levodopa (Sinemet 25-100 Mg) 2.5 tab PO ,,, [facility] Last Admin: 02/01/20 09:44 Dose: 2.5 tab Clonazepam (Klonopin) 1 mg PO BEDTIME [facility] Last Admin: 01/31/20 21:43 Dose: 1 mg Divalproex Sodium (Depakote Sprinkle) 375 mg PO ,,, [facility] Last Admin: 02/01/20 09:43 Dose: 375 mg Enoxaparin Sodium (Lovenox) 40 mg SUBCUT Q24H [facility] Last Admin: 01/31/20 13:26 Dose: 40 mg Fluconazole/Sodium Chloride (400 mg/ Premix) 200 mls @ 100 mls/hr IV Q24H [facility] Last Admin: 02/01/20 09:45 Dose: 100 mls/hr Piperacillin Sod/Tazobactam (Sod 4.5 gm/ Sodium Chloride) 100 mls @ 200 mls/hr IV Q6H [facility] Last Admin: 02/01/20 05:27 Dose: 200 mls/hr Levothyroxine Sodium (Levothyroxine) 75 mcg PO BEDTIME [facility] Last Admin: 01/31/20 21:39 Dose: 75 mcg Mirtazapine (Remeron) 7.5 mg PO BEDTIME [facility] Multivitamins/Minerals (Thera M Plus) 1 tab PO DAILY [facility] Last Admin: 02/01/20 09:43 Dose: 1 tab (Petrolatum,White [ Vaseline White Petroleum] 1 Applic) 1 applic TOP DAILY PRN PRN Reason: Other Nystatin (Nystatin Crm) 0 gm TOP BID PRN PRN Reason: RASH Ondansetron HCl (Zofran) 4 mg IVPUSH Q6H PRN PRN Reason: Nausea/Vomiting Last Admin: 01/28/20 16:09 Dose: 4 mg Pantoprazole Sodium (Protonix) 40 mg PO DAILY@0600 [facility] Last Admin: 02/01/20 05:30 Dose: 40 mg Polyethylene Glycol (Miralax) 17 gm PO DAILY [facility] Last Admin: 01/31/20 09:48 Dose: Not Given Potassium Chloride (Klor-Con M20) 20 meq PO TID [facility] Last Admin: 02/01/20 09:43 Dose: 20 meq Saccharomyces Boulardii (Florastor) 250 mg PO BID [facility] Last Admin: 02/01/20 09:43 Dose: 250 mg Senna/Docusate Sodium (Senna Plus) 1 tab PO DAILY [facility] Last Admin: 02/01/20 09:43 Dose: 1 tab Sodium Chloride (Saline Flush) 10 ml FLUSH ASDIRECTED PRN PRN Reason: Keep Vein Open Last Admin: 02/01/20 09:49 Dose: 10 ml Vitamin E (Vitamin E) 400 units PO DAILY [facility] Last Admin: 02/01/20 09:43 Dose: 400 units Discontinued Medications Acetazolamide (Diamox Sequels) 500 mg PO ONETIME ONE Stop: 01/31/20 07:31 Last Admin: 01/31/20 08:42 Dose: 500 mg Ceftriaxone Sodium (Rocephin) 1 gm IVPUSH Q24H [facility] Last Admin: 01/28/20 12:21 Dose: 1 gm Furosemide (Lasix) 20 mg IVPUSH NOW ONE Stop: 01/30/20 10:33 Last Admin: 01/30/20 11:09 Dose: 20 mg Azithromycin 500 mg/ Sodium (Chloride) 250 mls @ 250 mls/hr IV ONETIME ONE Stop: 01/27/20 12:59 Azithromycin 500 mg/ Sodium (Chloride) 250 mls @ 250 mls/hr IV ONETIME ONE Stop: 01/27/20 12:59 Last Admin: 01/27/20 12:38 Dose: 250 mls/hr Sodium Chloride (Normal Saline) 1,000 mls @ 100 mls/hr IV ASDIRECTED [facility] Last Infusion: 01/28/20 18:35 Dose: 75 mls/hr Azithromycin 250 mg/ Sodium (Chloride) 250 mls @ 250 mls/hr IV Q24H [facility] Stop: 01/31/20 13:29 Last Admin: 01/28/20 12:25 Dose: 250 mls/hr Piperacillin Sod/Tazobactam (Sod 4.5 gm/ Sodium Chloride) 100 mls @ 200 mls/hr IV Q6H [facility] Last Admin: 01/31/20 03:52 Dose: 200 mls/hr Sodium Chloride (Normal Saline) 1,000 mls @ 75 mls/hr IV ASDIRECTED [facility] Last Admin: 01/29/20 07:08 Dose: 75 mls/hr Dextrose/Lactated Ringer's (Dextrose 5%-Lactated Ringers) 1,000 mls @ 40 mls/ hr IV ASDIRECTED [facility] Last Admin: 01/30/20 19:57 Dose: 40 mls/hr Sodium Chloride (Normal Saline) 250 mls @ 0 mls/hr IV ASDIRECTED [facility] Last Admin: 02/01/20 00:08 Dose: 30 mls/hr Mirtazapine (Remeron) 7.5 mg PO 1800 [facility] Last Admin: 01/27/20 18:18 Dose: 7.5 mg (Multivitamin With Iron [Daily Nery With Iron] 1 Tab) * Ptom 1 tab PO DAILY [facility] Last Admin: 01/28/20 09:33 Dose: 1 tab (Omeprazole [ Omeprazole] 20 Mg) * Ptom 20 mg PO DAILY@0600 [facility] Last Admin: 01/28/20 05:58 Dose: 20 mg (Vitamin E [Vitamin (E] 400 Units) *Ptom) 400 units PO DAILY [facility] Last Admin: 01/28/20 09:32 Dose: 400 units - Exam General: Reports: No Acute Distress Lungs: Reports: Decreased Breath Sounds, Crackles (RML, RLL, LLL). Denies: Wheezing Cardiovascular: Reports: Regular Rate, Regular Rhythm GI/Abdominal Exam: Normal Bowel Sounds, Soft, Non-Tender, No Distention Extremities: Pedal Edema (1+ Bilateral feet.)
[2020-02-01] MEDS ORDERED: Mirtazapine 15 MG Tab PO SCH (21:00)
== END 2020-02-01 10:59 | disposition swing bed (61) | DRG 871 ==
LOC: FB.MS 09:27 → OBSVTOIN 01-28 09:27
PROVIDERS: ADMIT Family Medicine; ATTEND Family Medicine
DX: A41.9 Sepsis, unspecified organism (principal); J69.0 Pneumonitis due to inhalation of food and vomit; J18.9 Pneumonia, unspecified organism; R11.10 Vomiting, unspecified; E87.1 Hypo-osmolality and hyponatremia; G40.209 Localization-related (focal) (partial) symptomatic epilepsy and epileptic syndromes with complex partial seizures, not intractable, without status epilepticus; H54.7 Unspecified visual loss; K21.9 Gastro-esophageal reflux disease without esophagitis; M41.9 Scoliosis, unspecified; F91.9 Conduct disorder, unspecified; Z87.01 Personal history of pneumonia (recurrent); F06.30 Mood disorder due to known physiological condition, unspecified; R32 Unspecified urinary incontinence; Z87.440 Personal history of urinary (tract) infections; E03.9 Hypothyroidism, unspecified; G40.909 Epilepsy, unspecified, not intractable, without status epilepticus; H26.9 Unspecified cataract; G47.20 Circadian rhythm sleep disorder, unspecified type; M24.542 Contracture, left hand; M24.541 Contracture, right hand; M24.575 Contracture, left foot; M24.574 Contracture, right foot; E86.0 Dehydration; R15.9 Full incontinence of feces; Z51.5 Encounter for palliative care; F79 Unspecified intellectual disabilities; R40.4 Transient alteration of awareness; Z66 Do not resuscitate; G20 Parkinson's disease; F63.81 Intermittent explosive disorder; Z99.81 Dependence on supplemental oxygen; Z79.51 Long term (current) use of inhaled steroids; Z79.899 Other long term (current) drug therapy; Z79.890 Hormone replacement therapy
CPT/HCPCS: 36415; 71046; 71250; 80048; 80053; 81001; 82962; 83605; 85025; 87040; 87070; 87205; 87804; 87804-59; 94760; 96361; 96372; 96374; A9270-GY; G0378; J0456; J0696; J1450; J1650; J1940; J2405; J2543; J7030; J7050; J7121

== ENCOUNTER 2020-02-01 11:00 | Inpatient (IN) | payer MEDICARE, MEDICAID ==
[2020-02-01] MEDS ORDERED: Ondansetron 4 MG/2 ML SDV IV PRN (12:03)
[2020-02-01] MEDS ORDERED: Nystatin Crm 15 GM Tube TOP PRN (12:08)
[2020-02-01] MEDS ORDERED: PETROLATUM WHITE TOP PRN (12:08)
[2020-02-01] MEDS ORDERED: Bisacodyl 10 MG Supp RECTAL PRN (12:08)
[2020-02-01] MEDS ORDERED: Ondansetron 4 MG/2 ML SDV IVPUSH PRN (12:08)
[2020-02-01] MEDS ORDERED: Albuterol 0.083% 2.5 MG/3 ML Neb Soln INH PRN (12:08)
[2020-02-01] MEDS ORDERED: NORMAL SALINE IV SCH (12:15)
[2020-02-01] MEDS ORDERED: Piperacillin/Tazobactam 4.5 GM Vial IV SCH (12:15)
[2020-02-01] MEDS ORDERED: FLUCONAZOLE IV SCH (12:15)
[2020-02-01] MEDS ORDERED: Fluconazole/Normal Saline 400 MG in Premix Bag 1 BAG IV SCH (13:00)
[2020-02-01] MEDS: Piperacillin/Tazobactam 4.5 GM in Sodium Chloride 0.9% 100 ML IV SCH ×2 (13:18→18:57)
[2020-02-01] MEDS: Divalproex Sodium Delayed-Release 125 MG Cap.Sprink PO SCH ×3 (13:19→20:06)
[2020-02-01] MEDS: Enoxaparin 40 MG/0.4 ML Syringe SUBCUT SCH (13:19)
[2020-02-01] MEDS: Carbidopa/Levodopa 25-100 MG Tab PO SCH ×3 (13:19→20:06)
[2020-02-01] MEDS: Potassium Chloride 20 MEQ Tab.ER PO SCH ×2 (13:20→20:06)
--- NOTE | 2020-02-01 14:26 | PCM.HP.2 ---
H&P History of Present Illness - General Date of Service: 02/01/20 Admit Problem/Dx: Admission Diagnosis/Problem Admission Diagnosis/Problem Pneumonia Source of Information: Old Records, Provider - History of Present Illness Initial Comments - Free Text/Narative: Acute admission HPI: Liane is a 64-year-old correction patient was normally nonverbal came to see Kanwal Bacon because she is very sleepy, not responsive started vomiting last night and have a fever. They don't report any diarrhea, belly pain, runny nose or cough. She's had many admissions for pneumonia. Someone else in the correction just was hospitalized for pneumonia which presented as abdominal pain and vomiting. Patient cannot give me any history. Hospital course: Patient was started on Rocephin & Azithromycin, received 2 doses before being switched to Zosyn on , starting 5th day of Zosyn today. Was able to get sputum culture on Friday that has grown yeast, so Fluconazole 400 mg IV daily started yesterday. She was eating ok on Friday, worse on Friday then improved yesterday. Sodium was low but has corrected, potassium low and supplementation given. CT chest was done on Friday as she was doing worse clinically, showed pneumonia in Right middle, right lower and left lower lobes involved, possible mucus plug on left. She was suctioned Friday afternoon as she had gotten up a large sputum but wasn't able to collect it for culture. Mirtazapine was held due to her sleeping all day, difficulty getting her pills in, last night was more agitated and didn't sleep until early this morning so Mirtazapine restarted. She had some crackles on Friday as well so received Lasix 20 mg IV x 1 along with decrease of her fluids. Weight came up with IV fluids as she was having such poor intake, intake has improved so now Saline locked. CO2 jumped up to 43, possible side effect of Zosyn, acetazolamide x 1 given and CO2 down to 34. Patient will need 5 more days of Zosyn as poor candidate for oral therapy. Fluconazole will be for 6 days then can switch to oral fluconazole for 7 more days for total 2 weeks treatment. Will transfer her to swing bed for IV therapies, will also do PT/OT consults for restorative therapies. - Related Data Allergies/Adverse Reactions: Allergies Allergy/AdvReac Type Severity Reaction Status Date / Time No Known Allergies Allergy Verified 02/01/20 14:20 Home Medications: Home Meds Divalproex Sodium [Depakote Sprinkle] 375 mg PO 10,,17,20 12/11/15 [History] Levothyroxine 75 mcg PO BEDTIME 12/11/15 [History] Multivitamin with Iron [Daily Nery with Iron] 1 tab PO DAILY 12/11/15 [History] Omeprazole 20 mg PO ACBREAKFAST 12/11/15 [History] Vitamin E 400 units PO DAILY 12/11/15 [History] Carbidopa/Levodopa [Carbidopa-Levodopa 25-100 Tab] 2.5 tab PO 10,,,20 [History] Nystatin [Nystatin Crm] 1 applic TOP BID 09/28/17 [History] Mirtazapine 7.5 mg PO 1800 09/05/18 [History] Polyethylene Glycol 3350 [Laxaclear] 17 gm PO DAILY 09/05/18 [History] Sennosides/Docusate Sodium [Senna Laxative Tablet] 1 tab PO DAILY 09/05/18 [ History] Albuterol [Proventil Neb Soln] 2.5 mg INH QID PRN 03/16/19 [History] bisacodyL [Dulcolax] 10 mg RC DAILY PRN 03/16/19 [History] clonazePAM [Klonopin] 1 mg PO BEDTIME 03/16/19 [History] Furosemide [Lasix] 20 mg PO DAILY #30 tab 03/22/19 [Rx] Petrolatum,White [Vaseline White Petroleum] 1 applic TOP DAILY PRN 01/27/20 [ History] Petrolatum,White/Zinc Oxide [Sensi-Care Protective Ointment] 1 applic TOP DAILY 01/27/20 [History] Enoxaparin [Lovenox] 40 mg SUBCUT Q24H syringe 02/01/20 [Rx] Fluconazole/Normal Saline [Diflucan in NS 200 MG/100 ML] 400 mg IV Q24H bag [Rx] Ondansetron [Zofran] 4 mg IVPUSH Q6H PRN vial 02/01/20 [Rx] Piperacillin/Tazobactam [Zosyn] 4.5 gm IV Q6H vial 02/01/20 [Rx] Potassium Chloride [Klor-Con M20] 20 meq PO TID tab.er 02/01/20 [Rx] Saccharomyces Boulardii [Florastor] 250 mg PO BID cap 02/01/20 [Rx] Past Medical History HEENT History: Reports: Allergic Rhinitis, Cataract, Other (See Below) Other HEENT History: Functionally blind with cataracts. Mild perioral dematitis. Gingivitis. Cardiovascular History: Reports: Other (See Below) Other Cardiovascular History: Stasis edema legs. Respiratory History: Reports: Pneumonia, Recurrent, Other (See Below) Other Respiratory History: History of aspiration pneumonia. Gastrointestinal History: Reports: GERD, Other (See Below) Other Gastrointestinal History: History of positive stool guaiac, septic shock, possible small bowl obstruction, GI bleed, mild duodenitis, possible small bowel obstruction. Genitourinary History: Reports: Urinary Incontinence, UTI, Recurrent PHARMACOGENETICIST History: Reports: Other (See Below) Other OB/BYN History: Post menopausal. Musculoskeletal History: Reports: Other (See Below) Other Musculoskeletal History: Kyphoscoliosis. Right thoracic scoliosis. 1/4 inch right leg discrepency. Mild pes planus. Progressive Flexic C-Spine. Flexic contractures of hands and feet. S/P left hand fracture. 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 Mild microcephaly. Endocrine/Metabolic History: Reports: Hypothyroidism Hematologic History: Reports: Other (See Below) Other Hematologic History: Mild leukocytosis. Dermatologic History: Reports: Other (See Below) Other Dermatologic History: Seborrheic keratosis right cheek. Acne. - Infectious Disease History Infectious Disease History: Reports: Mumps Other Infectious Disease History: respiratory care assistant does not have this info - Past Surgical History HEENT Surgical History: Reports: Oral Surgery, Other (See Below) Social & Family History - Family History Family Medical History: Unobtainable HEENT: Reports: None Cardiac: Reports: None Respiratory: Reports: None GI: Reports: None : Reports: None OBGYN: Reports: None Musculoskeletal: Reports: None Neurological: Reports: None Psychiatric: Reports: Learning Disability, Other (See Below) Other Psychiatric Family History: Seizure disorder. Endocrine/Metabolic: Reports: Hypothyroidism Hematologic: Reports: None Immunologic: Reports: None Dermatologic: Reports: None Other Dermatologic Family History: home resident, nonverbalgroup Oncologic: Reports: None - Caffeine Use Caffeine Use: Reports: Coffee H&P Review of Systems - Review of Systems: Review Of Systems: Unable To Obtain Reason Not Obtained: nonverbal Exam - Exam Exam: See Below - Vital Signs Weight: 114 lb 4.8 oz - Exam General: Cooperative. No: Mild Distress Lungs: Normal Respiratory Effort, Decreased Breath Sounds, Crackles (RML, RLL, LLL). No: Wheezing Cardiovascular: Regular Rate, Regular Rhythm GI/Abdominal Exam: Normal Bowel Sounds, Soft, Non-Tender, No Distention Extremities: Pedal Edema (1+ Bilateral feet. SCDs in place.) - Problem List (1) Aspiration pneumonia SNOMED Code(s): 755766536 ICD Code: J69.0 - PNEUMONITIS DUE TO INHALATION OF FOOD AND VOMIT Status: Acute Current Visit: No Problem Details: Right middle, right lower & left lower lobes, isolated yeast on sputum culture(of note this was collected 3 days into antibiotics). Qualifiers: Laterality: bilateral Lung location: unspecified part of lung (2) Candidiasis of lung SNOMED Code(s): 2124472 ICD Code: B37.1 - PULMONARY CANDIDIASIS Status: Acute Current Visit: Yes (3) Hypokalemia SNOMED Code(s): 98591602 ICD Code: E87.6 - HYPOKALEMIA Status: Acute Current Visit: Yes (4) Hypothyroidism SNOMED Code(s): 87943208 ICD Code: E03.9 - HYPOTHYROIDISM, UNSPECIFIED Status: Chronic Current Visit: No (5) Intermittent explosive disorder SNOMED Code(s): 24004725 ICD Code: [id number] - Status: Chronic Current Visit: No (6) Lives in correction SNOMED Code(s): 340939958 ICD Code: Z59.3 - PROBLEMS RELATED TO LIVING IN RESIDENTIAL INSTITUTION Status: Chronic Current Visit: No (7) Mental retardation SNOMED Code(s): 596256359 ICD Code: F79 - UNSPECIFIED INTELLECTUAL DISABILITIES Status: Chronic Current Visit: No Problem Details: Precautions. (8) Parkinson's disease SNOMED Code(s): 27953988 ICD Code: G20 - PARKINSON'S DISEASE Status: Chronic Current Visit: No (9) Seizure disorder SNOMED Code(s): 906378885 ICD Code: G40.909 - EPILEPSY, UNSP, NOT INTRACTABLE, WITHOUT STATUS EPILEPTICUS Status: Chronic Current Visit: No Problem Details: (10) GERD (gastroesophageal reflux disease) SNOMED Code(s): 302913396 ICD Code: K21.9 - GASTRO-ESOPHAGEAL REFLUX DISEASE WITHOUT ESOPHAGITIS Status: Chronic Current Visit: No Qualifiers: (11) Palliative care status SNOMED Code(s): 819523897 ICD Code: Z51.5 - ENCOUNTER FOR PALLIATIVE CARE Status: Acute Current Visit: No (12) DNI (do not intubate) SNOMED Code(s): 363624530 ICD Code: Z78.9 - OTHER SPECIFIED HEALTH STATUS Status: Chronic Current Visit: No (13) DNR (do not resuscitate) Status: Chronic Current Visit: No Problem List Initiated/Reviewed/Updated: Yes Orders Last 24hrs: Active Orders 24 hr Category Date Time Status Patient Status [ADT] Routine ADT 02/01/20 12:03 Active Antiembolic Devices [RC] .Routine Care 02/01/20 12:03 Active Height and Weight [RC] WEEKLY Care 02/01/20 12:03 Active Intake and Output [RC] QSHIFT Care 02/01/20 12:05 Active Oxygen Therapy [RC] PRN Care 02/01/20 12:03 Active Up to Chair [RC] ASDIRECTED Care 02/01/20 12:03 Active VTE/DVT Education [RC] Per Unit Routine Care 02/01/20 12:03 Active Vital Signs [RC] 08 Care 02/01/20 12:03 Active OT Evaluation and Treatment [CONS] Routine Cons 02/01/20 12:03 Active PT Evaluation and Treatment [CONS] Routine Cons 02/01/20 12:03 Active Pureed Diet [DIET] Diet 02/01/20 Dinner Active Thickened Liquids [DIET] Diet 02/01/20 Dinner Active Albuterol [Proventil Neb Soln] Med 02/01/20 12:08 Active 2.5 mg INH QID PRN Carbidopa/Levodopa [Sinemet 25-100 mg] Med 02/01/20 13:00 Active 2.5 tab PO 10,13,17,20 ClonazePAM [KlonoPIN] Med 02/01/20 21:00 Active 1 mg PO BEDTIME Divalproex Sodium [Depakote Sprinkle] Med 02/01/20 13:00 Active 375 mg PO 10,13,17,20 Docusate Sodium/Sennosides [Senna Plus] Med 02/02/20 09:00 Active 1 tab PO DAILY Enoxaparin [Lovenox] Med 02/01/20 13:00 Active 40 mg SUBCUT Q24H Fluconazole/Normal Saline [Diflucan in NS 200 MG/100 ML Med 02/02/20 10:00 Active ] 400 mg Premix Bag 1 bag IV Q24H Furosemide [Lasix] Med 02/02/20 09:00 Active 20 mg PO DAILY Levothyroxine Med 02/01/20 21:00 Active 75 mcg PO BEDTIME Mirtazapine [Remeron] Med 02/01/20 18:00 Active 7.5 mg PO 1800 Multivitamins w-Iron/Ca/FA/Min [Thera M Plus] Med 02/02/20 09:00 Active 1 tab PO DAILY Nystatin [Nystatin Crm] Med 02/01/20 12:08 Active 0 gm TOP BID PRN Ondansetron [Zofran] Med 02/01/20 12:08 Active 4 mg IVPUSH Q6H PRN Pantoprazole [ProTONIX] Med 02/02/20 06:00 Active 40 mg PO DAILY@0600 Petrolatum,White [Vaseline White Petroleum] Med 02/01/20 12:08 Active 1 applic TOP DAILY PRN Petrolatum,White/Zinc Oxide [Sensi-Care Protective Med 02/02/20 09:00 Ordered Ointment] 1 applic TOP DAILY Piperacillin/Tazobactam [Zosyn] 4.5 gm Med 02/01/20 12:45 Active Sodium Chloride 0.9% [Normal Saline] 100 ml IV Q6H Potassium Chloride [Klor-Con M20] Med 02/01/20 14:00 Active 20 meq PO TID Saccharomyces Boulardii [Florastor] Med 02/01/20 21:00 Active 250 mg PO BID Sodium Chloride 0.9% [Saline Flush] Med 02/01/20 12:03 Active 10 ml FLUSH ASDIRECTED PRN Vitamin E (dl, acetate) [Vitamin E] Med 02/02/20 09:00 Active 400 units PO DAILY bisacodyL [Dulcolax] Med 02/01/20 12:08 Active 10 mg RECTAL DAILY PRN polyethylene glycoL 3350 [MiraLAX] Med 02/02/20 09:00 Active 17 gm PO DAILY Saline Lock Insert [OM.PC] Routine Oth 02/01/20 12:03 Ordered Sequential Compression Device [OM.PC] Per Unit Routine Oth 02/01/20 12:05 Ordered Resuscitation Status Routine Resus Stat 02/01/20 12:03 Ordered Medication Orders Albuterol (Proventil Neb Soln) 2.5 mg INH QID PRN PRN Reason: SOB/WHEEZING/COUGH Bisacodyl (Dulcolax) 10 mg RECTAL DAILY PRN PRN Reason: Constipation Carbidopa/Levodopa (Sinemet 25-100 Mg) 2.5 tab PO ,,,20 [facility] Last Admin: 02/01/20 13:19 Dose: 2.5 tab Clonazepam (Klonopin) 1 mg PO BEDTIME [facility] Divalproex Sodium (Depakote Sprinkle) 375 mg PO ,,,20 [facility] Last Admin: 02/01/20 13:19 Dose: 375 mg Enoxaparin Sodium (Lovenox) 40 mg SUBCUT Q24H [facility] Last Admin: 02/01/20 13:19 Dose: 40 mg Furosemide (Lasix) 20 mg PO DAILY [facility] Piperacillin Sod/Tazobactam (Sod 4.5 gm/ Sodium Chloride) 100 mls @ 200 mls/hr IV Q6H [facility] Last Admin: 02/01/20 13:18 Dose: 200 mls/hr Fluconazole/Sodium Chloride (400 mg/ Premix) 200 mls @ 100 mls/hr IV Q24H [facility] Levothyroxine Sodium (Levothyroxine) 75 mcg PO BEDTIME [facility] Mirtazapine (Remeron) 7.5 mg PO 1800 [facility] Multivitamins/Minerals (Thera M Plus) 1 tab PO DAILY [facility] Non-Formulary Medication (Petrolatum,White [Vaseline White Petroleum]) 1 applic TOP DAILY PRN PRN Reason: Other Non-Formulary Medication (Petrolatum,White/Zinc Oxide [Sensi-Care Protective Ointment]) 1 applic TOP DAILY [facility] Nystatin (Nystatin Crm) 0 gm TOP BID PRN PRN Reason: Rash Ondansetron HCl (Zofran) 4 mg IVPUSH Q6H PRN PRN Reason: Nausea/Vomiting Pantoprazole Sodium (Protonix) 40 mg PO DAILY@0600 [facility] Polyethylene Glycol (Miralax) 17 gm PO DAILY [facility] Potassium Chloride (Klor-Con M20) 20 meq PO TID [facility] Last Admin: 02/01/20 13:20 Dose: 20 meq Saccharomyces Boulardii (Florastor) 250 mg PO BID [facility] Senna/Docusate Sodium (Senna Plus) 1 tab PO DAILY [facility] Sodium Chloride (Saline Flush) 10 ml FLUSH ASDIRECTED PRN PRN Reason: Keep Vein Open Vitamin E (Vitamin E) 400 units PO DAILY [facility] Assessment/Plan Comment:: 1. Admit to swing bed for IV Zosyn for 5 more days, IV fluconazole for 5 more days switching to oral fluconazole step down therapy for 7 days. 2. Continue home medications. 3. Pureed diet with honey-thickened liquids. 4. DVT prophylaxis: Lovenox 40 mg SQ daily. 5. PT/OT consulted, evaulated and she does not need any services, recommended passive range of motion exercises that can be done by aides/nurses. 6. DNR/DNI - Mortality Measure Prognosis:: Poor
[2020-02-01] MEDS ORDERED: Hydrocortisone 2.5% Crm 30 GM Tube TOP PRN (17:12)
[2020-02-01] MEDS: Mirtazapine 15 MG Tab PO SCH (17:14)
[2020-02-01] MEDS: Sodium Chloride 0.9% 10 ML Syringe FLUSH PRN (19:36)
[2020-02-01] MEDS: Saccharomyces Boulardii (Probiotic) 250 MG Cap PO SCH (20:06)
[2020-02-01] MEDS: Levothyroxine 75 MCG Tab PO SCH (20:06)
[2020-02-01] MEDS: ClonazePAM 1 MG Tab PO SCH (20:06)
[2020-02-02] MEDS: Sodium Chloride 0.9% 10 ML Syringe FLUSH PRN ×6 (00:09→19:05)
[2020-02-02] MEDS: Piperacillin/Tazobactam 4.5 GM in Sodium Chloride 0.9% 100 ML IV SCH ×4 (00:09→18:28)
[2020-02-02] MEDS: Pantoprazole 40 MG Tab.CR PO SCH (06:21)
[2020-02-02] MEDS: Saccharomyces Boulardii (Probiotic) 250 MG Cap PO SCH ×2 (08:57→20:37)
[2020-02-02] MEDS: Potassium Chloride 20 MEQ Tab.ER PO SCH (08:58)
[2020-02-02] MEDS: Furosemide 20 MG Tab PO SCH (08:59)
[2020-02-02] MEDS ORDERED: ZINC OXIDE TOP SCH (09:00)
[2020-02-02] MEDS: Polyethylene Glycol 3350 Powder 17 GM Packet PO SCH (09:00)
[2020-02-02] MEDS ORDERED: PETROLATUM WHITE TOP SCH (09:00)
[2020-02-02] MEDS ORDERED: [UNRECOGNIZED DRUG - OTHER] TOP SCH (09:00)
[2020-02-02] MEDS: Multivitamins with Iron/Calcium/Folic Acid/Minerals Tab PO SCH (09:01)
[2020-02-02] MEDS: Vitamin E (dl-alpha-tocopherol acetate) 400 Unit Cap PO SCH (09:02)
[2020-02-02] MEDS: Divalproex Sodium Delayed-Release 125 MG Cap.Sprink PO SCH ×4 (09:03→20:38)
[2020-02-02] MEDS: Carbidopa/Levodopa 25-100 MG Tab PO SCH ×4 (09:04→20:38)
[2020-02-02] MEDS ORDERED: Fluconazole/Normal Saline 400 MG in Premix Bag 1 BAG IV SCH (10:00)
[2020-02-02] MEDS: Hydrocortisone 2.5% Crm 30 GM Tube TOP SCH ×2 (10:34→20:37)
--- NOTE | 2020-02-02 11:10 | PCM.PN ---
- General Info Date of Service: 02/02/20 Subjective Update: Liane is more alert and hungry this morning, eating has improved. Incontinent of urine and stool, no diarrhea. Remains afebrile. Care conference today, her brother Jules will be attending via phone. Functional Status: Reports: Tolerating Diet - Patient Data Vitals - Most Recent: Last Vital Signs Temp 97.4 F 02/02/20 07:29 Pulse 99 02/02/20 07:29 Resp 18 02/02/20 07:29 BP 117/70 02/02/20 07:29 Pulse Ox 99 02/02/20 07:29 Weight - Most Recent: 114 lb 4.8 oz I&O - Last 24 Hours: Intake & Output 02/01/20 02/02/20 02/02/20 22:59 06:59 14:59 Intake Total 120 200 Balance 120 200 Lab Results Last 24 Hours: Laboratory Results - last 24 hr 02/02/20 Range/Units 08:50 Sodium 146 H (135-145) mmol/L Potassium 4.7 D (3.5-5.3) mmol/L Chloride 108 D (100-110) mmol/L Carbon Dioxide 35 H (21-32) mmol/L BUN 6 L (7-18) mg/dL Creatinine 0.5 L (0.55-1.02) mg/dL Est Cr Clr Drug Dosing TNP Estimated GFR (MDRD) > 60 (>60) BUN/Creatinine Ratio 12.0 (9-20) Glucose 93 (80-116) mg/dL Calcium 8.9 (8.6-10.2) mg/dL Med Orders - Current: Current Medications Albuterol (Proventil Neb Soln) 2.5 mg INH QID PRN PRN Reason: SOB/WHEEZING/COUGH Bisacodyl (Dulcolax) 10 mg RECTAL DAILY PRN PRN Reason: Constipation Carbidopa/Levodopa (Sinemet 25-100 Mg) 2.5 tab PO 10,,17,20 [facility] Last Admin: 02/02/20 09:04 Dose: 2.5 tab Clonazepam (Klonopin) 1 mg PO BEDTIME [facility] Last Admin: 02/01/20 20:06 Dose: 1 mg Divalproex Sodium (Depakote Sprinkle) 375 mg PO ,,17,20 [facility] Last Admin: 02/02/20 09:03 Dose: 375 mg Enoxaparin Sodium (Lovenox) 40 mg SUBCUT Q24H [facility] Last Admin: 02/01/20 13:19 Dose: 40 mg Fluconazole (Diflucan) 400 mg PO DAILY [facility] Stop: 02/13/20 09:01 Furosemide (Lasix) 20 mg PO DAILY [facility] Last Admin: 02/02/20 08:59 Dose: 20 mg Hydrocortisone (Hydrocortisone 2.5% Crm) 0 gm TOP BID [facility] Stop: 02/09/20 10:16 Last Admin: 02/02/20 10:34 Dose: 1 applic Piperacillin Sod/Tazobactam (Sod 4.5 gm/ Sodium Chloride) 100 mls @ 200 mls/hr IV Q6H [facility] Stop: 02/06/20 23:59 Last Admin: 02/02/20 05:47 Dose: 200 mls/hr Fluconazole/Sodium Chloride (400 mg/ Premix) 200 mls @ 100 mls/hr IV Q24H [facility] Stop: 02/13/20 16:00 Last Admin: 02/02/20 09:50 Dose: 100 mls/hr Levothyroxine Sodium (Levothyroxine) 75 mcg PO BEDTIME [facility] Last Admin: 02/01/20 20:06 Dose: 75 mcg Mirtazapine (Remeron) 7.5 mg PO 1800 [facility] Last Admin: 02/01/20 17:14 Dose: 7.5 mg Multivitamins/Minerals (Thera M Plus) 1 tab PO DAILY [facility] Last Admin: 02/02/20 09:01 Dose: 1 tab Non-Formulary Medication (Petrolatum,White [Vaseline White Petroleum]) 1 applic TOP DAILY PRN PRN Reason: Other Last Admin: 02/02/20 10:35 Dose: 1 applic Nystatin (Nystatin Crm) 0 gm TOP BID PRN PRN Reason: Rash Ondansetron HCl (Zofran) 4 mg IVPUSH Q6H PRN PRN Reason: Nausea/Vomiting Pantoprazole Sodium (Protonix) 40 mg PO DAILY@0600 [facility] Last Admin: 02/02/20 06:21 Dose: 40 mg Polyethylene Glycol (Miralax) 17 gm PO DAILY [facility] Last Admin: 02/02/20 09:00 Dose: 17 gm Saccharomyces Boulardii (Florastor) 250 mg PO BID [facility] Last Admin: 02/02/20 08:57 Dose: 250 mg Senna/Docusate Sodium (Senna Plus) 1 tab PO DAILY [facility] Last Admin: 02/02/20 09:00 Dose: 1 tab Sodium Chloride (Saline Flush) 10 ml FLUSH ASDIRECTED PRN PRN Reason: Keep Vein Open Last Admin: 02/02/20 10:50 Dose: 10 ml Vitamin E (Vitamin E) 400 units PO DAILY [facility] Last Admin: 02/02/20 09:02 Dose: 400 units Discontinued Medications Hydrocortisone (Hydrocortisone 2.5% Crm) 0 gm TOP BID PRN PRN Reason: Rash Last Admin: 02/01/20 21:00 Dose: 1 applic Fluconazole/Sodium Chloride (400 mg/ Premix) 200 mls @ 100 mls/hr IV Q24H [facility] Ondansetron HCl (Zofran) 4 mg IV Q6H PRN PRN Reason: Nausea/Vomiting Piperacillin Sod/Tazobactam Sod (Zosyn) 4.5 gm IV Q6H [facility] Last Admin: 02/01/20 13:58 Dose: Not Given Potassium Chloride (Klor-Con M20) 20 meq PO TID [facility] Last Admin: 02/02/20 08:58 Dose: 20 meq - Exam Quality Assessment: Supplemental Oxygen General: Alert, Cooperative, No Acute Distress Lungs: Normal Respiratory Effort, Decreased Breath Sounds (bases), Crackles ( bases) GI/Abdominal Exam: Normal Bowel Sounds, Soft, Non-Tender, No Distention Extremities: Pedal Edema (1+ BLE) Peripheral Pulses: 2+: Radial (L), Radial (R) Skin: Other (abrasion on left upper thigh) Sepsis Event Note - Evaluation Sepsis Screening Result: No Definite Risk - Focused Exam Vital Signs: Vital Signs Temp Pulse Resp BP Pulse Ox 02/02/20 07:29 97.4 F 99 18 117/70 99 Date Exam was Performed: 02/02/20 Time Exam was Performed: 11:05 - Problem List & Annotations (1) Aspiration pneumonia SNOMED Code(s): 033629449 Code(s): J69.0 - PNEUMONITIS DUE TO INHALATION OF FOOD AND VOMIT Status: Acute Current Visit: No Qualifiers: Laterality: bilateral Lung location: unspecified part of lung Annotation/Comment:: Right middle, right lower & left lower lobes, isolated yeast on sputum culture(of note this was collected 3 days into antibiotics). (2) Candidiasis of lung SNOMED Code(s): 9575698 Code(s): B37.1 - PULMONARY CANDIDIASIS Status: Acute Current Visit: Yes (3) Hypokalemia SNOMED Code(s): 28722193 Code(s): E87.6 - HYPOKALEMIA Status: Resolved Current Visit: Yes (4) Hypothyroidism SNOMED Code(s): 38257079 Code(s): E03.9 - HYPOTHYROIDISM, UNSPECIFIED Status: Chronic Current Visit: No (5) Intermittent explosive disorder SNOMED Code(s): 37437901 Code(s): OFY8917 - Status: Chronic Current Visit: No (6) Lives in retirement SNOMED Code(s): 369810930 Code(s): Z59.3 - PROBLEMS RELATED TO LIVING IN RESIDENTIAL INSTITUTION Status: Chronic Current Visit: No (7) Mental retardation SNOMED Code(s): 242700716 Code(s): F79 - UNSPECIFIED INTELLECTUAL DISABILITIES Status: Chronic Current Visit: No Annotation/Comment:: Precautions. (8) Parkinson's disease SNOMED Code(s): 94402681 Code(s): G20 - PARKINSON'S DISEASE Status: Chronic Current Visit: No (9) Seizure disorder SNOMED Code(s): 750912240 Code(s): G40.909 - EPILEPSY, UNSP, NOT INTRACTABLE, WITHOUT STATUS EPILEPTICUS Status: Chronic Current Visit: No Annotation/Comment:: (10) GERD (gastroesophageal reflux disease) SNOMED Code(s): 148337069 Code(s): K21.9 - GASTRO-ESOPHAGEAL REFLUX DISEASE WITHOUT ESOPHAGITIS Status: Chronic Current Visit: No Qualifiers: (11) Palliative care status SNOMED Code(s): 589179553 Code(s): Z51.5 - ENCOUNTER FOR PALLIATIVE CARE Status: Acute Current Visit: No (12) DNI (do not intubate) SNOMED Code(s): 407164826 Code(s): Z78.9 - OTHER SPECIFIED HEALTH STATUS Status: Chronic Current Visit: No (13) DNR (do not resuscitate) Status: Chronic Current Visit: No - Problem List Review Problem List Initiated/Reviewed/Updated: Yes - My Orders Last 24 Hours: My Active Orders 02/01/20 12:03 Patient Status [ADT] Routine Antiembolic Devices [RC] .Routine Height and Weight [RC] WEEKLY Oxygen Therapy [RC] PRN Up to Chair [RC] ASDIRECTED VTE/DVT Education [RC] Per Unit Routine Vital Signs [RC] 08 OT Evaluation and Treatment [CONS] Routine PT Evaluation and Treatment [CONS] Routine Sodium Chloride 0.9% [Saline Flush] 10 ml FLUSH ASDIRECTED PRN Saline Lock Insert [OM.PC] Routine Resuscitation Status Routine 02/01/20 12:05 Intake and Output [RC] QSHIFT Sequential Compression Device [OM.PC] Per Unit Routine 02/01/20 12:08 Albuterol [Proventil Neb Soln] 2.5 mg INH QID PRN Nystatin [Nystatin Crm] 0 gm TOP BID PRN Ondansetron [Zofran] 4 mg IVPUSH Q6H PRN Petrolatum,White [Vaseline White Petroleum] 1 applic TOP DAILY PRN bisacodyL [Dulcolax] 10 mg RECTAL DAILY PRN 02/01/20 12:45 Piperacillin/Tazobactam [Zosyn] 4.5 gm Sodium Chloride 0.9% [Normal Saline] 100 ml IV Q6H 02/01/20 13:00 Carbidopa/Levodopa [Sinemet 25-100 mg] 2.5 tab PO 10,13,17,20 Divalproex Sodium [Depakote Sprinkle] 375 mg PO 10,13,17,20 Enoxaparin [Lovenox] 40 mg SUBCUT Q24H 02/01/20 18:00 Mirtazapine [Remeron] 7.5 mg PO 1800 02/01/20 21:00 ClonazePAM [KlonoPIN] 1 mg PO BEDTIME Levothyroxine 75 mcg PO BEDTIME Saccharomyces Boulardii [Florastor] 250 mg PO BID 02/01/20 Dinner Pureed Diet [DIET] Thickened Liquids [DIET] 02/02/20 06:00 Pantoprazole [ProTONIX] 40 mg PO DAILY@0600 02/02/20 09:00 Docusate Sodium/Sennosides [Senna Plus] 1 tab PO DAILY Furosemide [Lasix] 20 mg PO DAILY Multivitamins w-Iron/Ca/FA/Min [Thera M Plus] 1 tab PO DAILY Vitamin E (dl, acetate) [Vitamin E] 400 units PO DAILY polyethylene glycoL 3350 [MiraLAX] 17 gm PO DAILY 02/02/20 10:00 Fluconazole/Normal Saline [Diflucan in NS 200 MG/100 ML] 400 mg Premix Bag 1 bag IV Q24H 02/02/20 10:15 Hydrocortisone [Hydrocortisone 2.5% Crm] 0 gm TOP BID 02/07/20 09:00 Fluconazole [Diflucan] 400 mg PO DAILY - Plan Plan:: 1. Aspiration pneumonia and candidiasis, IV Zosyn day 6, IV fluconazole day 3, switching to oral fluconazole on Friday for 7 days of oral. 2. Continue home medications. 3. Pureed diet with honey-thickened liquids. 4. DVT prophylaxis: Lovenox 40 mg SQ daily. 5. Hydrocortisone 2.5% apply to abrasion bid for 7 days. 6. DNR/DNI
[2020-02-02] MEDS: Enoxaparin 40 MG/0.4 ML Syringe SUBCUT SCH (12:24)
[2020-02-02] MEDS ORDERED: FLUCONAZOLE IV ONE (17:15)
[2020-02-02] MEDS ORDERED: SODIUM CHLORIDE IV ONE (17:15)
[2020-02-02] MEDS: Mirtazapine 15 MG Tab PO SCH (17:25)
[2020-02-02] MEDS: ClonazePAM 1 MG Tab PO SCH (20:37)
[2020-02-02] MEDS: Levothyroxine 75 MCG Tab PO SCH (20:37)
[2020-02-03] MEDS: Sodium Chloride 0.9% 10 ML Syringe FLUSH PRN ×4 (00:03→06:27)
[2020-02-03] MEDS: Piperacillin/Tazobactam 4.5 GM in Sodium Chloride 0.9% 100 ML IV SCH ×4 (00:03→19:45)
[2020-02-03] MEDS: Pantoprazole 40 MG Tab.CR PO SCH (05:54)
[2020-02-03] MEDS: Furosemide 20 MG Tab PO SCH (09:28)
[2020-02-03] MEDS: Carbidopa/Levodopa 25-100 MG Tab PO SCH ×4 (09:29→20:11)
[2020-02-03] MEDS: Divalproex Sodium Delayed-Release 125 MG Cap.Sprink PO SCH ×4 (09:29→20:11)
[2020-02-03] MEDS: Hydrocortisone 2.5% Crm 30 GM Tube TOP SCH ×2 (10:36→20:11)
[2020-02-03] MEDS: Saccharomyces Boulardii (Probiotic) 250 MG Cap PO SCH ×2 (12:15→20:11)
[2020-02-03] MEDS: Vitamin E (dl-alpha-tocopherol acetate) 400 Unit Cap PO SCH (12:15)
[2020-02-03] MEDS: Multivitamins with Iron/Calcium/Folic Acid/Minerals Tab PO SCH (12:15)
[2020-02-03] MEDS ORDERED: Sodium Chloride 0.9% 250 ML IV SCH (12:15)
[2020-02-03] MEDS: Polyethylene Glycol 3350 Powder 17 GM Packet PO SCH (13:12)
[2020-02-03] MEDS: Enoxaparin 40 MG/0.4 ML Syringe SUBCUT SCH (13:22)
[2020-02-03] MEDS: Fluconazole/Normal Saline 400 MG in Premix Bag 1 BAG IV SCH (15:57)
[2020-02-03] MEDS: Mirtazapine 15 MG Tab PO SCH (19:04)
[2020-02-03] MEDS: ClonazePAM 1 MG Tab PO SCH (20:11)
[2020-02-03] MEDS: Levothyroxine 75 MCG Tab PO SCH (20:17)
[2020-02-04] MEDS: Piperacillin/Tazobactam 4.5 GM in Sodium Chloride 0.9% 100 ML IV SCH ×4 (01:09→18:53)
[2020-02-04] MEDS: Pantoprazole 40 MG Tab.CR PO SCH (06:04)
[2020-02-04] MEDS: Saccharomyces Boulardii (Probiotic) 250 MG Cap PO SCH ×2 (08:52→20:30)
[2020-02-04] MEDS: Hydrocortisone 2.5% Crm 30 GM Tube TOP SCH ×2 (08:52→20:31)
[2020-02-04] MEDS: Polyethylene Glycol 3350 Powder 17 GM Packet PO SCH (08:52)
[2020-02-04] MEDS: Furosemide 20 MG Tab PO SCH (08:52)
[2020-02-04] MEDS: Multivitamins with Iron/Calcium/Folic Acid/Minerals Tab PO SCH (08:53)
[2020-02-04] MEDS: Divalproex Sodium Delayed-Release 125 MG Cap.Sprink PO SCH ×4 (10:11→20:33)
[2020-02-04] MEDS: Carbidopa/Levodopa 25-100 MG Tab PO SCH ×4 (10:11→20:32)
[2020-02-04] MEDS: Sodium Chloride 0.9% 10 ML Syringe FLUSH PRN (13:28)
[2020-02-04] MEDS: Enoxaparin 40 MG/0.4 ML Syringe SUBCUT SCH (13:28)
[2020-02-04] MEDS: Fluconazole/Normal Saline 400 MG in Premix Bag 1 BAG IV SCH (16:29)
[2020-02-04] MEDS: Mirtazapine 15 MG Tab PO SCH (17:35)
[2020-02-04] MEDS: ClonazePAM 1 MG Tab PO SCH (20:29)
[2020-02-04] MEDS: Levothyroxine 75 MCG Tab PO SCH (20:31)
[2020-02-05] MEDS: Piperacillin/Tazobactam 4.5 GM in Sodium Chloride 0.9% 100 ML IV SCH ×4 (00:55→19:01)
[2020-02-05] MEDS: Pantoprazole 40 MG Tab.CR PO SCH (05:41)
[2020-02-05] MEDS: Multivitamins with Iron/Calcium/Folic Acid/Minerals Tab PO SCH (08:28)
[2020-02-05] MEDS: Saccharomyces Boulardii (Probiotic) 250 MG Cap PO SCH ×2 (08:28→20:00)
[2020-02-05] MEDS: Hydrocortisone 2.5% Crm 30 GM Tube TOP SCH ×2 (08:29→19:59)
[2020-02-05] MEDS: Furosemide 20 MG Tab PO SCH (08:29)
[2020-02-05] MEDS: Polyethylene Glycol 3350 Powder 17 GM Packet PO SCH (10:14)
[2020-02-05] MEDS: Divalproex Sodium Delayed-Release 125 MG Cap.Sprink PO SCH ×4 (10:15→19:45)
[2020-02-05] MEDS: Carbidopa/Levodopa 25-100 MG Tab PO SCH ×4 (10:16→19:44)
[2020-02-05] MEDS: Sodium Chloride 0.9% 10 ML Syringe FLUSH PRN ×3 (13:20→23:45)
[2020-02-05] MEDS: Enoxaparin 40 MG/0.4 ML Syringe SUBCUT SCH (13:20)
[2020-02-05] MEDS: Fluconazole/Normal Saline 400 MG in Premix Bag 1 BAG IV SCH (16:04)
[2020-02-05] MEDS: Mirtazapine 15 MG Tab PO SCH (18:17)
[2020-02-05] MEDS: ClonazePAM 1 MG Tab PO SCH (20:00)
[2020-02-05] MEDS: Levothyroxine 75 MCG Tab PO SCH (20:01)
[2020-02-06] MEDS: Piperacillin/Tazobactam 4.5 GM in Sodium Chloride 0.9% 100 ML IV SCH ×4 (00:06→18:33)
[2020-02-06] MEDS: Pantoprazole 40 MG Tab.CR PO SCH (05:42)
[2020-02-06] MEDS: Hydrocortisone 2.5% Crm 30 GM Tube TOP SCH ×2 (08:55→21:11)
[2020-02-06] MEDS: Multivitamins with Iron/Calcium/Folic Acid/Minerals Tab PO SCH (08:56)
[2020-02-06] MEDS: Saccharomyces Boulardii (Probiotic) 250 MG Cap PO SCH ×2 (08:56→21:13)
[2020-02-06] MEDS: Furosemide 20 MG Tab PO SCH (08:56)
[2020-02-06] MEDS: Carbidopa/Levodopa 25-100 MG Tab PO SCH ×4 (10:10→21:13)
[2020-02-06] MEDS: Divalproex Sodium Delayed-Release 125 MG Cap.Sprink PO SCH ×4 (10:10→21:12)
[2020-02-06] MEDS: Polyethylene Glycol 3350 Powder 17 GM Packet PO SCH (10:10)
[2020-02-06] MEDS ORDERED: Acetylcysteine 20% 200 MG/ML 30 ML Nebulizer Soln SDV NEB ONE (13:01)
[2020-02-06] MEDS: Enoxaparin 40 MG/0.4 ML Syringe SUBCUT SCH (13:02)
[2020-02-06] MEDS: Sodium Chloride 0.9% 10 ML Syringe FLUSH PRN (13:03)
--- NOTE | 2020-02-06 13:07 | PCM.PN ---
- General Info Date of Service: 02/06/20 Subjective Update: Patient had large sputum production this morning, was suctioned last night through her nose and had some bleeding. Wasn't eating as well this morning so asked by nursing to reassess. No fevers. Oxygen is 90-91% on 2 L. - Patient Data Vitals - Most Recent: Last Vital Signs Temp 98.4 F 02/06/20 08:00 Pulse 75 02/06/20 08:00 Resp 20 02/06/20 08:00 BP 110/75 02/06/20 08:00 Pulse Ox 90 L 02/06/20 08:00 Weight - Most Recent: 146 lb 9.6 oz I&O - Last 24 Hours: Intake & Output 02/05/20 02/06/20 02/06/20 22:59 06:59 14:59 Intake Total 130 261 Balance 130 261 Med Orders - Current: Current Medications Albuterol (Proventil Neb Soln) 2.5 mg INH QID PRN PRN Reason: SOB/WHEEZING/COUGH Bisacodyl (Dulcolax) 10 mg RECTAL DAILY PRN PRN Reason: Constipation Carbidopa/Levodopa (Sinemet 25-100 Mg) 2.5 tab PO 10,,,20 [facility] Last Admin: 02/06/20 10:10 Dose: 2.5 tab Clonazepam (Klonopin) 1 mg PO BEDTIME [facility] Last Admin: 02/05/20 20:00 Dose: 1 mg Divalproex Sodium (Depakote Sprinkle) 375 mg PO 10,,17,20 [facility] Last Admin: 02/06/20 10:10 Dose: 375 mg Enoxaparin Sodium (Lovenox) 40 mg SUBCUT Q24H [facility] Last Admin: 02/05/20 13:20 Dose: 40 mg Fluconazole (Diflucan) 400 mg PO DAILY@1700 [facility] Stop: 02/13/20 17:01 Furosemide (Lasix) 20 mg PO DAILY [facility] Last Admin: 02/06/20 08:56 Dose: 20 mg Hydrocortisone (Hydrocortisone 2.5% Crm) 0 gm TOP BID [facility] Stop: 02/09/20 10:16 Last Admin: 02/06/20 08:55 Dose: 1 applic Piperacillin Sod/Tazobactam (Sod 4.5 gm/ Sodium Chloride) 100 mls @ 200 mls/hr IV Q6H [facility] Stop: 02/06/20 23:59 Last Admin: 02/06/20 05:44 Dose: 200 mls/hr Fluconazole/Sodium Chloride (400 mg/ Premix) 200 mls @ 100 mls/hr IV Q24H [facility] Stop: 02/06/20 16:01 Last Admin: 02/05/20 16:04 Dose: 100 mls/hr Sodium Chloride (Normal Saline) 250 mls @ 0 mls/hr IV ASDIRECTED [facility] Last Admin: 02/03/20 12:10 Dose: 30 mls/hr Levothyroxine Sodium (Levothyroxine) 75 mcg PO BEDTIME [facility] Last Admin: 02/05/20 20:01 Dose: 75 mcg Mirtazapine (Remeron) 7.5 mg PO 1800 [facility] Last Admin: 02/05/20 18:17 Dose: 7.5 mg Multivitamins/Minerals (Thera M Plus) 1 tab PO DAILY [facility] Last Admin: 02/06/20 08:56 Dose: 1 tab Non-Formulary Medication (Petrolatum,White [Vaseline White Petroleum]) 1 applic TOP DAILY PRN PRN Reason: Other Last Admin: 02/02/20 10:35 Dose: 1 applic Nystatin (Nystatin Crm) 0 gm TOP BID PRN PRN Reason: Rash Ondansetron HCl (Zofran) 4 mg IVPUSH Q6H PRN PRN Reason: Nausea/Vomiting Pantoprazole Sodium (Protonix) 40 mg PO DAILY@0600 [facility] Last Admin: 02/06/20 05:42 Dose: 40 mg Polyethylene Glycol (Miralax) 17 gm PO DAILY [facility] Last Admin: 02/06/20 10:10 Dose: Not Given Saccharomyces Boulardii (Florastor) 250 mg PO BID [facility] Last Admin: 02/06/20 08:56 Dose: 250 mg Senna/Docusate Sodium (Senna Plus) 1 tab PO DAILY [facility] Last Admin: 02/06/20 08:56 Dose: 1 tab Sodium Chloride (Saline Flush) 10 ml FLUSH ASDIRECTED PRN PRN Reason: Keep Vein Open Last Admin: 02/05/20 23:45 Dose: 10 ml Discontinued Medications Hydrocortisone (Hydrocortisone 2.5% Crm) 0 gm TOP BID PRN PRN Reason: Rash Last Admin: 02/01/20 21:00 Dose: 1 applic Fluconazole/Sodium Chloride (400 mg/ Premix) 200 mls @ 100 mls/hr IV Q24H [facility] Fluconazole/Sodium Chloride (400 mg/ Premix) 200 mls @ 100 mls/hr IV Q24H [facility] Stop: 02/13/20 16:00 Last Admin: 02/02/20 09:50 Dose: 100 mls/hr Fluconazole/Sodium Chloride (Diflucan In Ns 200 Mg/100 Ml) 100 mls @ 100 mls/ hr IV ONETIME ONE Stop: 02/02/20 18:14 Last Admin: 02/02/20 17:18 Dose: 100 mls/hr Ondansetron HCl (Zofran) 4 mg IV Q6H PRN PRN Reason: Nausea/Vomiting Piperacillin Sod/Tazobactam Sod (Zosyn) 4.5 gm IV Q6H [facility] Last Admin: 02/01/20 13:58 Dose: Not Given Potassium Chloride (Klor-Con M20) 20 meq PO TID [facility] Last Admin: 02/02/20 08:58 Dose: 20 meq Vitamin E (Vitamin E) 400 units PO DAILY [facility] Last Admin: 02/03/20 12:15 Dose: 400 units - Exam Quality Assessment: Supplemental Oxygen General: Alert, No Acute Distress Lungs: Normal Respiratory Effort, Decreased Breath Sounds, Crackles (fine in bibasilar & RML.). No: Rales, Rhonchi, Wheezing Cardiovascular: Regular Rate, Regular Rhythm GI/Abdominal Exam: Normal Bowel Sounds Skin: Rash (on left thigh improving.) Sepsis Event Note - Evaluation Sepsis Screening Result: No Definite Risk - Focused Exam Vital Signs: Vital Signs Temp Temp Pulse Resp BP Pulse Ox 02/06/20 08:00 98.4 F 75 20 110/75 90 L 02/06/20 06:30 99.1 F Date Exam was Performed: 02/06/20 Time Exam was Performed: 13:02 - Problem List & Annotations (1) Aspiration pneumonia SNOMED Code(s): 711211584 Code(s): J69.0 - PNEUMONITIS DUE TO INHALATION OF FOOD AND VOMIT Status: Acute Current Visit: No Qualifiers: Laterality: bilateral Lung location: unspecified part of lung Annotation/Comment:: Right middle, right lower & left lower lobes, isolated yeast on sputum culture(of note this was collected 3 days into antibiotics). (2) Candidiasis of lung SNOMED Code(s): 0788973 Code(s): B37.1 - PULMONARY CANDIDIASIS Status: Acute Current Visit: Yes (3) Hypokalemia SNOMED Code(s): 87397665 Code(s): E87.6 - HYPOKALEMIA Status: Resolved Current Visit: Yes (4) Hypothyroidism SNOMED Code(s): 79728074 Code(s): E03.9 - HYPOTHYROIDISM, UNSPECIFIED Status: Chronic Current Visit: No (5) Intermittent explosive disorder SNOMED Code(s): 80296485 Code(s): IJQ6819 - Status: Chronic Current Visit: No (6) Lives in assisted SNOMED Code(s): 204461466 Code(s): Z59.3 - PROBLEMS RELATED TO LIVING IN RESIDENTIAL INSTITUTION Status: Chronic Current Visit: No (7) Mental retardation SNOMED Code(s): 932537924 Code(s): F79 - UNSPECIFIED INTELLECTUAL DISABILITIES Status: Chronic Current Visit: No Annotation/Comment:: Precautions. (8) Parkinson's disease SNOMED Code(s): 95252486 Code(s): G20 - PARKINSON'S DISEASE Status: Chronic Current Visit: No (9) Seizure disorder SNOMED Code(s): 682877648 Code(s): G40.909 - EPILEPSY, UNSP, NOT INTRACTABLE, WITHOUT STATUS EPILEPTICUS Status: Chronic Current Visit: No Annotation/Comment:: (10) GERD (gastroesophageal reflux disease) SNOMED Code(s): 868298342 Code(s): K21.9 - GASTRO-ESOPHAGEAL REFLUX DISEASE WITHOUT ESOPHAGITIS Status: Chronic Current Visit: No Qualifiers: (11) Palliative care status SNOMED Code(s): 478627092 Code(s): Z51.5 - ENCOUNTER FOR PALLIATIVE CARE Status: Acute Current Visit: No (12) DNI (do not intubate) SNOMED Code(s): 724937429 Code(s): Z78.9 - OTHER SPECIFIED HEALTH STATUS Status: Chronic Current Visit: No (13) DNR (do not resuscitate) Status: Chronic Current Visit: No - Problem List Review Problem List Initiated/Reviewed/Updated: Yes - My Orders Last 24 Hours: My Active Orders 02/06/20 13:01 RT Aerosol Therapy [RC] ASDIRECTED Acetylcysteine [Mucomyst 20%] 1 mg NEB ONETIME ONE 02/07/20 17:00 Fluconazole [Diflucan] 400 mg PO DAILY@1700 - Plan Plan:: 1. Aspiration pneumonia and candidiasis, IV Zosyn day 10, IV fluconazole day 7, switching to oral fluconazole on Friday for 7 days of oral. Mucomyst neb x 1 to help mobilize secretions. 2. Continue home medications. 3. Pureed diet with honey-thickened liquids. 4. DVT prophylaxis: Lovenox 40 mg SQ daily. 5. Hydrocortisone 2.5% apply to abrasion bid for 7 days, improving. 6. DNR/DNI
[2020-02-06] MEDS: Fluconazole/Normal Saline 400 MG in Premix Bag 1 BAG IV SCH (16:03)
[2020-02-06] MEDS: Mirtazapine 15 MG Tab PO SCH (17:29)
[2020-02-06] MEDS: Levothyroxine 75 MCG Tab PO SCH (21:14)
[2020-02-06] MEDS: ClonazePAM 1 MG Tab PO SCH (21:37)
[2020-02-07] MEDS: Pantoprazole 40 MG Tab.CR PO SCH (05:55)
[2020-02-07] MEDS: Carbidopa/Levodopa 25-100 MG Tab PO SCH (09:07)
[2020-02-07] MEDS: Divalproex Sodium Delayed-Release 125 MG Cap.Sprink PO SCH (09:07)
[2020-02-07] MEDS: Hydrocortisone 2.5% Crm 30 GM Tube TOP SCH (09:08)
[2020-02-07] MEDS: Furosemide 20 MG Tab PO SCH (09:18)
--- NOTE | 2020-02-07 09:29 | PCM.DCSUM1 ---
Discharge Summary - Hospital Course HPI Initial Comments: Acute admission HPI: Liane is a 64-year-old fpc patient was normally nonverbal came to see Kanwal Bacon because she is very sleepy, not responsive started vomiting last night and have a fever. They don't report any diarrhea, belly pain, runny nose or cough. She's had many admissions for pneumonia. Someone else in the fpc just was hospitalized for pneumonia which presented as abdominal pain and vomiting. Patient cannot give me any history. Acute Hospital course: Patient was started on Rocephin & Azithromycin, received 2 doses before being switched to Zosyn on , starting 5th day of Zosyn today. Was able to get sputum culture on Friday that has grown yeast, so Fluconazole 400 mg IV daily started yesterday. She was eating ok on Friday, worse on Friday then improved yesterday. Sodium was low but has corrected, potassium low and supplementation given. CT chest was done on Friday as she was doing worse clinically, showed pneumonia in Right middle, right lower and left lower lobes involved, possible mucus plug on left. She was suctioned Friday afternoon as she had gotten up a large sputum but wasn't able to collect it for culture. Mirtazapine was held due to her sleeping all day, difficulty getting her pills in, last night was more agitated and didn't sleep until early this morning so Mirtazapine restarted. She had some crackles on Friday as well so received Lasix 20 mg IV x 1 along with decrease of her fluids. Weight came up with IV fluids as she was having such poor intake, intake has improved so now Saline locked. CO2 jumped up to 43, possible side effect of Zosyn, acetazolamide x 1 given and CO2 down to 34. Patient will need 5 more days of Zosyn as poor candidate for oral therapy. Fluconazole will be for 6 days then can switch to oral fluconazole for 7 more days for total 2 weeks treatment. Will transfer her to swing bed for IV therapies, will also do PT/OT consults for restorative therapies. Diagnosis: Stroke: No - Discharge Data Discharge Date: 02/07/20 Discharge Disposition: Home, W Home Health Agency 06 Condition: Fair - Referral to Home Health Date of Face to Face Encounter: 02/07/20 Reason for Homebound Status: fpc; wheelchair, full body lift Primary Care Physician: Mitesh Degroot MD Skilled Need: fpc; passive ROM exercises. - Discharge Diagnosis/Problem(s) (1) Aspiration pneumonia SNOMED Code(s): 989765310 ICD Code: J69.0 - PNEUMONITIS DUE TO INHALATION OF FOOD AND VOMIT Status: Acute Current Visit: No Problem Details: Right middle, right lower & left lower lobes, isolated yeast on sputum culture(of note this was collected 3 days into antibiotics). Qualifiers: Laterality: bilateral Lung location: unspecified part of lung (2) Candidiasis of lung SNOMED Code(s): 3131938 ICD Code: B37.1 - PULMONARY CANDIDIASIS Status: Acute Current Visit: Yes (3) Hypokalemia SNOMED Code(s): 31547231 ICD Code: E87.6 - HYPOKALEMIA Status: Resolved Current Visit: Yes (4) Hypothyroidism SNOMED Code(s): 59640671 ICD Code: E03.9 - HYPOTHYROIDISM, UNSPECIFIED Status: Chronic Current Visit: No (5) Intermittent explosive disorder SNOMED Code(s): 52623740 ICD Code: HOD2427 - Status: Chronic Current Visit: No (6) Lives in fpc SNOMED Code(s): 103811308 ICD Code: Z59.3 - PROBLEMS RELATED TO LIVING IN RESIDENTIAL INSTITUTION Status: Chronic Current Visit: No (7) Mental retardation SNOMED Code(s): 337834648 ICD Code: F79 - UNSPECIFIED INTELLECTUAL DISABILITIES Status: Chronic Current Visit: No Problem Details: Precautions. (8) Parkinson's disease SNOMED Code(s): 53168720 ICD Code: G20 - PARKINSON'S DISEASE Status: Chronic Current Visit: No (9) Seizure disorder SNOMED Code(s): 216641114 ICD Code: G40.909 - EPILEPSY, UNSP, NOT INTRACTABLE, WITHOUT STATUS EPILEPTICUS Status: Chronic Current Visit: No Problem Details: (10) GERD (gastroesophageal reflux disease) SNOMED Code(s): 487523069 ICD Code: K21.9 - GASTRO-ESOPHAGEAL REFLUX DISEASE WITHOUT ESOPHAGITIS Status: Chronic Current Visit: No Qualifiers: (11) Palliative care status SNOMED Code(s): 018540977 ICD Code: Z51.5 - ENCOUNTER FOR PALLIATIVE CARE Status: Acute Current Visit: No (12) DNI (do not intubate) SNOMED Code(s): 225648913 ICD Code: Z78.9 - OTHER SPECIFIED HEALTH STATUS Status: Chronic Current Visit: No (13) DNR (do not resuscitate) Status: Chronic Current Visit: No - Patient Summary/Data Consults: Consultations 02/01/20 12:03 OT Evaluation and Treatment [CONS] Routine Please Evaluate and Treat. OT Reason for Consult: Other (Type Response) Special Instructions: restorative therapies This query below is only for informational purposes and is not editable. PT Evaluation and Treatment [CONS] Routine Please Evaluate and Treat. PT Reason for Consult: Other (Type Response) Special Instructions: restorative This query below is only for informational purposes and is not editable. Hospital Course: Admitted to swing bed for continued IV therapies and passive ROM exercises. Completed 10 days of Zosyn and 7 days of Fluconazole. Her electrolytes corrected day after she was moved to swing bed, eating improved during stay except for Friday, she coughed up a large thick sputum. Gave Mucomyst x 1, oxygen came up from 91 to 94 after treatment. Slept most of the day on Friday. Alert this morning, took her pills. Examination yesterday and today has continued to improve. PT/OT gave more passive ROM exercises for staff to do with her. Also started Prafo heel supports to prevent pressure ulcers, will go back with these. Discharge back to fpc with 6 more days of Fluconazole. - Patient Instructions Diet: Pureed Diet, Other: Honey Thickened liquids Activity: As Tolerated Notify Provider of: Fever, Nausea and/or Vomiting Other/Special Instructions: Follow up with Dr Degroot via phone in 1 week. - Discharge Plan *PRESCRIPTION DRUG MONITORING PROGRAM REVIEWED*: Not Applicable *COPY OF PRESCRIPTION DRUG MONITORING REPORT IN PATIENT FELIPE: No Prescriptions/Med Rec: Fluconazole [Diflucan] 400 mg PO DAILY 6 Days #6 tablet Home Medications: Home Meds Divalproex Sodium [Depakote Sprinkle] 375 mg PO 10,,,20 12/11/15 [History] Levothyroxine 75 mcg PO BEDTIME 12/11/15 [History] Multivitamin with Iron [Daily Nery with Iron] 1 tab PO DAILY 12/11/15 [History] Omeprazole 20 mg PO ACBREAKFAST 12/11/15 [History] Vitamin E 400 units PO DAILY 12/11/15 [History] Carbidopa/Levodopa [Carbidopa-Levodopa 25-100 Tab] 2.5 tab PO ,,,20 [History] Nystatin [Nystatin Crm] 1 applic TOP BID 09/28/17 [History] Mirtazapine 7.5 mg PO 1800 09/05/18 [History] Polyethylene Glycol 3350 [Laxaclear] 17 gm PO DAILY 09/05/18 [History] Sennosides/Docusate Sodium [Senna Laxative Tablet] 1 tab PO DAILY 09/05/18 [ History] Albuterol [Proventil Neb Soln] 2.5 mg INH QID PRN 03/16/19 [History] bisacodyL [Dulcolax] 10 mg RC DAILY PRN 03/16/19 [History] clonazePAM [Klonopin] 1 mg PO BEDTIME 03/16/19 [History] Furosemide [Lasix] 20 mg PO DAILY #30 tab 03/22/19 [Rx] Petrolatum,White [Vaseline White Petroleum] 1 applic TOP DAILY PRN 01/27/20 [ History] Petrolatum,White/Zinc Oxide [Sensi-Care Protective Ointment] 1 applic TOP DAILY 01/27/20 [History] Fluconazole [Diflucan] 400 mg PO DAILY 6 Days #6 tablet 02/07/20 [Rx] Hydrocortisone [Hydrocortisone 2.5% Crm] 0 gm TOP BID tube 02/07/20 [Rx] Oxygen Therapy Mode: Nasal Cannula Oxygen Flow Rate (L/min): 2 Maintain SpO2% greater than: 90 Referrals: Mitesh Degroot MD [Primary Care Provider] - - Discharge Summary/Plan Comment DC Time >30 min.: Yes - General Info Date of Service: 02/07/20 Subjective Update: slept overnight, doing better this morning. Coughed up large sputum yesterday and had bath, wore her out a little bit. Took her pills fine this morning. Has completed her IV Zosyn and Fluconazole today. - Patient Data Vitals - Most Recent: Last Vital Signs Temp 98.4 F 02/06/20 08:00 Pulse 72 02/06/20 13:30 Resp 20 02/06/20 08:00 BP 110/75 02/06/20 08:00 Pulse Ox 90 L 02/06/20 08:00 Weight - Most Recent: 146 lb 9.6 oz I&O - Last 24 hours: Intake & Output 02/06/20 02/07/20 02/07/20 22:59 06:59 14:59 Intake Total 130 Balance 130 Med Orders - Current: Current Medications Albuterol (Proventil Neb Soln) 2.5 mg INH QID PRN PRN Reason: SOB/WHEEZING/COUGH Bisacodyl (Dulcolax) 10 mg RECTAL DAILY PRN PRN Reason: Constipation Carbidopa/Levodopa (Sinemet 25-100 Mg) 2.5 tab PO ,,,20 [facility] Last Admin: 02/07/20 09:07 Dose: 2.5 tab Clonazepam (Klonopin) 1 mg PO BEDTIME [facility] Last Admin: 02/06/20 21:37 Dose: Not Given Divalproex Sodium (Depakote Sprinkle) 375 mg PO ,,,20 [facility] Last Admin: 02/07/20 09:07 Dose: 375 mg Enoxaparin Sodium (Lovenox) 40 mg SUBCUT Q24H [facility] Last Admin: 02/06/20 13:02 Dose: 40 mg Fluconazole (Diflucan) 400 mg PO DAILY@1700 [facility] Stop: 02/13/20 17:01 Furosemide (Lasix) 20 mg PO DAILY [facility] Last Admin: 02/06/20 08:56 Dose: 20 mg Hydrocortisone (Hydrocortisone 2.5% Crm) 0 gm TOP BID [facility] Stop: 02/09/20 10:16 Last Admin: 02/07/20 09:08 Dose: 1 applic Sodium Chloride (Normal Saline) 250 mls @ 0 mls/hr IV ASDIRECTED [facility] Last Admin: 02/03/20 12:10 Dose: 30 mls/hr Levothyroxine Sodium (Levothyroxine) 75 mcg PO BEDTIME [facility] Last Admin: 02/06/20 21:14 Dose: 75 mcg Mirtazapine (Remeron) 7.5 mg PO 1800 [facility] Last Admin: 02/06/20 17:29 Dose: 7.5 mg Multivitamins/Minerals (Thera M Plus) 1 tab PO DAILY [facility] Last Admin: 02/06/20 08:56 Dose: 1 tab Non-Formulary Medication (Petrolatum,White [Vaseline White Petroleum]) 1 applic TOP DAILY PRN PRN Reason: Other Last Admin: 02/02/20 10:35 Dose: 1 applic Nystatin (Nystatin Crm) 0 gm TOP BID PRN PRN Reason: Rash Ondansetron HCl (Zofran) 4 mg IVPUSH Q6H PRN PRN Reason: Nausea/Vomiting Pantoprazole Sodium (Protonix) 40 mg PO DAILY@0600 [facility] Last Admin: 02/07/20 05:55 Dose: Not Given Polyethylene Glycol (Miralax) 17 gm PO DAILY [facility] Last Admin: 02/06/20 10:10 Dose: Not Given Saccharomyces Boulardii (Florastor) 250 mg PO BID [facility] Last Admin: 02/06/20 21:13 Dose: 250 mg Senna/Docusate Sodium (Senna Plus) 1 tab PO DAILY [facility] Last Admin: 02/06/20 08:56 Dose: 1 tab Sodium Chloride (Saline Flush) 10 ml FLUSH ASDIRECTED PRN PRN Reason: Keep Vein Open Last Admin: 02/06/20 13:03 Dose: 10 ml Discontinued Medications Acetylcysteine (Mucomyst 20%) 800 mg NEB ONETIME ONE Stop: 02/06/20 13:02 Last Admin: 02/06/20 13:15 Dose: 800 mg Hydrocortisone (Hydrocortisone 2.5% Crm) 0 gm TOP BID PRN PRN Reason: Rash Last Admin: 02/01/20 21:00 Dose: 1 applic Piperacillin Sod/Tazobactam (Sod 4.5 gm/ Sodium Chloride) 100 mls @ 200 mls/hr IV Q6H [facility] Stop: 02/06/20 23:59 Last Admin: 02/06/20 18:33 Dose: 200 mls/hr Fluconazole/Sodium Chloride (400 mg/ Premix) 200 mls @ 100 mls/hr IV Q24H [facility] Fluconazole/Sodium Chloride (400 mg/ Premix) 200 mls @ 100 mls/hr IV Q24H [facility] Stop: 02/13/20 16:00 Last Admin: 02/02/20 09:50 Dose: 100 mls/hr Fluconazole/Sodium Chloride (400 mg/ Premix) 200 mls @ 100 mls/hr IV Q24H [facility] Stop: 02/06/20 16:01 Last Admin: 02/06/20 16:03 Dose: 100 mls/hr Fluconazole/Sodium Chloride (Diflucan In Ns 200 Mg/100 Ml) 100 mls @ 100 mls/ hr IV ONETIME ONE Stop: 02/02/20 18:14 Last Admin: 02/02/20 17:18 Dose: 100 mls/hr Ondansetron HCl (Zofran) 4 mg IV Q6H PRN PRN Reason: Nausea/Vomiting Piperacillin Sod/Tazobactam Sod (Zosyn) 4.5 gm IV Q6H [facility] Last Admin: 02/01/20 13:58 Dose: Not Given Potassium Chloride (Klor-Con M20) 20 meq PO TID [facility] Last Admin: 02/02/20 08:58 Dose: 20 meq Vitamin E (Vitamin E) 400 units PO DAILY [facility] Last Admin: 02/03/20 12:15 Dose: 400 units - Exam General: Reports: Alert, No Acute Distress Lungs: Reports: Normal Respiratory Effort, Decreased Breath Sounds, Crackles ( few crackles bibasilar) Cardiovascular: Reports: Regular Rate, Regular Rhythm GI/Abdominal Exam: Normal Bowel Sounds, Soft, No Distention Extremities: Pedal Edema (trace)
[2020-02-07 11:26] VITALS: BP 109/93; PULSE 73
[2020-02-07] MEDS ORDERED: Fluconazole 100 MG Tab PO SCH (17:00)
== END 2020-02-07 11:05 | disposition home health service (06) | DRG 177 ==
LOC: FB.MS 11:00
PROVIDERS: ADMIT Family Medicine; ATTEND Family Medicine
DX: J69.0 Pneumonitis due to inhalation of food and vomit (principal); B37.1 Pulmonary candidiasis; E87.6 Hypokalemia; Z51.5 Encounter for palliative care; Z66 Do not resuscitate; E03.9 Hypothyroidism, unspecified; F79 Unspecified intellectual disabilities; G20 Parkinson's disease; G40.909 Epilepsy, unspecified, not intractable, without status epilepticus; K21.9 Gastro-esophageal reflux disease without esophagitis; R40.4 Transient alteration of awareness; Z79.890 Hormone replacement therapy; Z79.899 Other long term (current) drug therapy
CPT/HCPCS: 36415; 80048; 94760; 97165-GO; A9270-GY; J1450; J1650; J2543; J7050

== ENCOUNTER 2020-06-15 11:27 | Inpatient (IN) | payer MEDICARE, MEDICAID ==
[2020-06-15] MEDS ORDERED: Sodium Chloride 0.9% 500 ML IV ONE (11:38)
[2020-06-15] MEDS ORDERED: Naloxone 0.4 MG/ML SDV IVPUSH ONE ×2 (11:48→13:16)
[2020-06-15] MEDS: Sodium Chloride 0.9% 10 ML Syringe FLUSH PRN (11:50)
--- NOTE | 2020-06-15 11:56 | EDM.PDOC ---
ED HPI GENERAL MEDICAL PROBLEM - General Chief Complaint: Respiratory Problem Stated Complaint: BREATHING ISSUES Time Seen by Provider: 06/15/20 11:50 Source of Information: Reports: Other (Caregiver) History Limitations: Reports: Altered Mental Status - History of Present Illness INITIAL COMMENTS - FREE TEXT/NARRATIVE: Presents from the detention with lethargy and low 02 sats, onset today. 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 She has had frequent hospital admissions for aspiration pneumonia. Patient was treated for a shoulder fracture yesterday, which occurred while the patient was being moved by detention staff, she did not fall to the ground. She was placed in a shoulder immobilizer and prescribed Tylenol #3. Patient was also prescribed Zithromax due an elevated WBC count on CBC. She is a DNR/DNI per detention records. Onset: Today - Related Data Allergies Allergy/AdvReac Type Severity Reaction Status Date / Time No Known Allergies Allergy Verified 02/01/20 14:20 Home Meds: Home Meds Divalproex Sodium [Depakote Sprinkle] 375 mg PO ,,,20 12/11/15 [History] Levothyroxine 75 mcg PO BEDTIME 12/11/15 [History] Multivitamin with Iron [Daily Nery with Iron] 1 tab PO DAILY 12/11/15 [History] Omeprazole 20 mg PO ACBREAKFAST 12/11/15 [History] Vitamin E 400 units PO DAILY 12/11/15 [History] Carbidopa/Levodopa [Carbidopa-Levodopa 25-100 Tab] 2.5 tab PO ,,,20 [History] Nystatin [Nystatin Crm] 1 applic TOP BID 09/28/17 [History] Mirtazapine 7.5 mg PO 1800 09/05/18 [History] Sennosides/Docusate Sodium [Senna Laxative Tablet] 1 tab PO DAILY 09/05/18 [Hi story] polyethylene glycoL 3350 [Laxaclear] 17 gm PO DAILY 09/05/18 [History] Albuterol [Proventil Neb Soln] 2.5 mg INH QID PRN 03/16/19 [History] bisacodyL [Dulcolax] 10 mg RC DAILY PRN 03/16/19 [History] clonazePAM [Klonopin] 1 mg PO BEDTIME 03/16/19 [History] Furosemide [Lasix] 20 mg PO DAILY #30 tab 03/22/19 [Rx] Petrolatum,White [Vaseline White Petroleum] 1 applic TOP DAILY PRN 01/27/20 [History] Petrolatum,White/Zinc Oxide [Sensi-Care Protective Ointment] 1 applic TOP DAILY 01/27/20 [History] Acetaminophen with Codeine [Acetaminophen-Cod #3] 1 tab PO QID 06/15/20 [History] Naproxen Sodium 1 tab PO BID 06/15/20 [History] Past Medical History HEENT History: Reports: Allergic Rhinitis, Cataract, Other (See Below) Other HEENT History: Functionally blind with cataracts. Mild perioral dematitis. Gingivitis. Cardiovascular History: Reports: Other (See Below) Other Cardiovascular History: Stasis edema legs. Respiratory History: Reports: Pneumonia, Recurrent, Other (See Below) Other Respiratory History: History of aspiration pneumonia. Gastrointestinal History: Reports: GERD, Other (See Below) Other Gastrointestinal History: History of positive stool guaiac, septic shock, possible small bowl obstruction, GI bleed, mild duodenitis, possible small bowel obstruction. Genitourinary History: Reports: Urinary Incontinence, UTI, Recurrent TRAIN GATEMAN History: Reports: Other (See Below) Other TRAIN GATEMAN History: Post menopausal. Musculoskeletal History: Reports: Other (See Below) Other Musculoskeletal History: Kyphoscoliosis. Right thoracic scoliosis. 1/4 inch right leg discrepency. Mild pes planus. Progressive Flexic C-Spine. Flexic contractures of hands and feet. S/P left hand fracture. 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 Mild microcephaly. Endocrine/Metabolic History: Reports: Hypothyroidism Hematologic History: Reports: Other (See Below) Other Hematologic History: Mild leukocytosis. Dermatologic History: Reports: Other (See Below) Other Dermatologic History: Seborrheic keratosis right cheek. Acne. - Infectious Disease History Infectious Disease History: Reports: Mumps Other Infectious Disease History: home care administrator does not have this info - Past Surgical History HEENT Surgical History: Reports: Oral Surgery, Other (See Below) Social & Family History - Family History Family Medical History: Unobtainable HEENT: Reports: None Cardiac: Reports: None Respiratory: Reports: None GI: Reports: None : Reports: None OBGYN: Reports: None Musculoskeletal: Reports: None Neurological: Reports: None Psychiatric: Reports: Learning Disability, Other (See Below) Other Psychiatric Family History: Seizure disorder. Endocrine/Metabolic: Reports: Hypothyroidism Hematologic: Reports: None Immunologic: Reports: None Dermatologic: Reports: None Other Dermatologic Family History: home resident, nonverbalgroup Oncologic: Reports: None - Caffeine Use Caffeine Use: Reports: Coffee ED ROS GENERAL - Review of Systems Review Of Systems: Unable To Obtain Reason Not Obtained: minimally responsive ED EXAM, GENERAL - Physical Exam Exam: See Below Exam Limited By: Altered Mental Status General Appearance: Lethargic Eye Exam: Bilateral Eye: Other (pupils pinpoint) Throat/Mouth: No Airway Compromise Head: Atraumatic, Normocephalic Respiratory/Chest: No Respiratory Distress, Rhonchi Cardiovascular: Regular Rate, Rhythm, No Murmur GI/Abdominal: No Distention Extremities: No Pedal Edema Neurological: Other (GCS=8) Skin Exam: Intact EKG INTERPRETATION EKG Date: 06/15/20 Time: 11:40 Rhythm: NSR Rate (Beats/Min): 90 [place]: Normal P-Wave: Present QRS: Normal ST-T: Depressed (minimal diffuse) QT: Normal Course - Vital Signs Last Recorded V/S: Last Vital Signs Temp 36.2 C 06/15/20 11:30 Pulse 100 06/15/20 11:30 Resp 6 L 06/15/20 11:30 BP 90/49 L 06/15/20 11:30 Pulse Ox 67 L 06/15/20 11:30 - Orders/Labs/Meds Orders: Active Orders 24 hr Category Date Time Status Admission Status [Patient Status] [ADT] Routine ADT 06/15/20 13:05 Ordered EKG Documentation Completion [RC] ASDIRECTED Care 06/15/20 11:36 Active RT Aerosol Therapy [RC] ASDIRECTED Care 06/15/20 12:40 Active CXR [Chest 1V Frontal] [CR] Stat Exams 06/15/20 11:35 Taken CULTURE BLOOD [BC] Urgent Lab 06/15/20 12:00 Received Piperacillin/Tazobactam [Zosyn] 3.375 gm Med 06/15/20 13:00 Active Sodium Chloride 0.9% [Normal Saline] 50 ml IV Q6H Sodium Chloride 0.9% [Saline Flush] Med 06/15/20 11:38 Active 10 ml FLUSH ASDIRECTED PRN Blood Culture x2 Reflex Set [OM.PC] Urgent Oth 06/15/20 11:36 Ordered Saline Lock Insert [OM.PC] Routine Oth 06/15/20 11:38 Ordered EKG 12 Lead [EK] Stat Ther 06/15/20 11:35 Ordered Medication Orders Piperacillin Sod/Tazobactam (Sod 3.375 gm/ Sodium Chloride) 50 mls @ 100 mls/hr IV Q6H SARAI Sodium Chloride (Saline Flush) 10 ml FLUSH ASDIRECTED PRN PRN Reason: Keep Vein Open Last Admin: 06/15/20 11:50 Dose: 10 ml Documented by: RADHA Labs: Laboratory Tests 06/15/20 06/15/20 06/15/20 Range/Units 11:40 12:00 12:00 WBC 14.5 H (4.5-12.0) X10-3/uL RBC 3.70 (3.23-5.20) x10(6)uL Hgb 11.3 L (11.5-15.5) g/dL Hct 34.7 (30.0-51.3) % MCV 93.9 (80-96) fL MCH 30.5 (27.7-33.6) pg MCHC 32.5 (32.2-35.4) g/dL RDW 14.4 (11.5-15.5) % Plt Count 276 (125-369) X10(3)uL MPV 7.4 (7.4-10.4) fL Add Manual Diff Yes Neutrophils % (Manual) 75 (46-82) % Band Neutrophils % 3 (0-6) % Lymphocytes % (Manual) 15 (13-37) % Monocytes % (Manual) 6 (4-12) % Eosinophils % (Manual) 1 (0-5) % Sodium 138 (135-145) mmol/L Potassium 4.5 (3.5-5.3) mmol/L Chloride 96 L D (100-110) mmol/L Carbon Dioxide 41 H* (21-32) mmol/L BUN 30 H D (7-18) mg/dL Creatinine 1.7 H (0.55-1.02) mg/dL Est Cr Clr Drug Dosing TNP Estimated GFR (MDRD) 30 L (>60) BUN/Creatinine Ratio 17.6 (9-20) Glucose 109 (80-116) mg/dL Lactic Acid (0.4-2.0) mmol/L Calcium 9.1 (8.6-10.2) mg/dL Total Bilirubin 0.5 (0.1-1.3) mg/dL AST 43 H D (5-25) IU/L ALT 7 L D (12-36) U/L Alkaline Phosphatase 104 (56-112) IU/L Troponin I (4.0-60.3) pg/mL NT-Pro-B Natriuret Pep (<=125) pg/mL Total Protein 7.1 (6.0-8.0) g/dL Albumin 3.4 (3.2-4.6) g/dL Globulin 3.7 g/dL Albumin/Globulin Ratio 0.9 SARS Virus RNA (PCR) Negative (NEGATIVE) 06/15/20 06/15/20 Range/Units 12:00 12:00 WBC (4.5-12.0) X10-3/uL RBC (3.23-5.20) x10(6)uL Hgb (11.5-15.5) g/dL Hct (30.0-51.3) % MCV (80-96) fL MCH (27.7-33.6) pg MCHC (32.2-35.4) g/dL RDW (11.5-15.5) % Plt Count (125-369) X10(3)uL MPV (7.4-10.4) fL Add Manual Diff Neutrophils % (Manual) (46-82) % Band Neutrophils % (0-6) % Lymphocytes % (Manual) (13-37) % Monocytes % (Manual) (4-12) % Eosinophils % (Manual) (0-5) % Sodium (135-145) mmol/L Potassium (3.5-5.3) mmol/L Chloride (100-110) mmol/L Carbon Dioxide (21-32) mmol/L BUN (7-18) mg/dL Creatinine (0.55-1.02) mg/dL Est Cr Clr Drug Dosing Estimated GFR (MDRD) (>60) BUN/Creatinine Ratio (9-20) Glucose (80-116) mg/dL Lactic Acid 0.9 (0.4-2.0) mmol/L Calcium (8.6-10.2) mg/dL Total Bilirubin (0.1-1.3) mg/dL AST (5-25) IU/L ALT (12-36) U/L Alkaline Phosphatase (56-112) IU/L Troponin I 10.7 (4.0-60.3) pg/mL NT-Pro-B Natriuret Pep 554 H (<=125) pg/mL Total Protein (6.0-8.0) g/dL Albumin (3.2-4.6) g/dL Globulin g/dL Albumin/Globulin Ratio SARS Virus RNA (PCR) (NEGATIVE) Meds: Medications Generic Name Dose Route Start Last Admin Trade Name Freq PRN Reason Stop Dose Admin Piperacillin Sod/Tazobactam 50 mls @ 100 mls/hr 06/15/20 13:00 Sod 3.375 gm/ Sodium Chloride IV Q6H SARAI Sodium Chloride 10 ml 06/15/20 11:38 06/15/20 11:50 Saline Flush FLUSH 10 ml ASDIRECTED PRN Administration Keep Vein Open Discontinued Medications Generic Name Dose Route Start Last Admin Trade Name Freq PRN Reason Stop Dose Admin Albuterol/Ipratropium 3 ml 06/15/20 12:40 06/15/20 12:49 Duoneb 3.0-0.5 Mg/3 Ml NEB 06/15/20 12:41 3 ml ONETIME ONE Administration Sodium Chloride 500 mls @ 500 mls/hr 06/15/20 11:38 06/15/20 11:49 Normal Saline IV 06/15/20 12:37 500 mls/hr .BOLUS ONE Administration Naloxone HCl 0.4 mg 06/15/20 11:48 06/15/20 11:59 Narcan IVPUSH 06/15/20 11:49 0.4 mg ONETIME ONE Administration - Radiology Interpretation Free Text/Narrative:: CXR: right mid and lower lung field infiltrates. (per Dr. Saucedo) - Re-Assessments/Exams Free Text/Narrative Re-Assessment/Exam: 06/15/20 12:51 Mentation and respiratory rate improved after Narcan 0.4mg IV. Sa02 95% on 2L 02 NC. 06/15/20 13:07 Dr. Degroot agrees to admit patient. Departure - Departure Time of Disposition: 13:08 Disposition: Admitted As Inpatient 65 Condition: Fair Clinical Impression: At risk for respiratory depression due to opioid, DNI (do not intubate) Aspiration pneumonia Qualifiers: Aspiration pneumonia type: unspecified Laterality: right Lung location: lower lobe of lung Qualified Code(s): J69.0 - Pneumonitis due to inhalation of food and vomit - Discharge Information *PRESCRIPTION DRUG MONITORING PROGRAM REVIEWED*: Yes *COPY OF PRESCRIPTION DRUG MONITORING REPORT IN PATIENT FELIPE: No Referrals: PCP,None [Primary Care Provider] - Forms: ED Department Discharge Sepsis Event Note (ED) - Focused Exam Vital Signs: Vital Signs Temp Pulse Resp BP Pulse Ox 06/15/20 11:30 36.2 C 100 6 L 90/49 L 67 L - My Orders Last 24 Hours: My Active Orders 06/15/20 11:35 CXR [Chest 1V Frontal] [CR] Stat EKG 12 Lead [EK] Stat 06/15/20 11:36 EKG Documentation Completion [RC] ASDIRECTED Blood Culture x2 Reflex Set [OM.PC] Urgent 06/15/20 11:38 Sodium Chloride 0.9% [Saline Flush] 10 ml FLUSH ASDIRECTED PRN Saline Lock Insert [OM.PC] Routine 06/15/20 12:00 CULTURE BLOOD [BC] Urgent 06/15/20 12:40 RT Aerosol Therapy [RC] ASDIRECTED 06/15/20 13:00 Piperacillin/Tazobactam [Zosyn] 3.375 gm Sodium Chloride 0.9% [Normal Saline] 50 ml IV Q6H 06/15/20 13:05 Admission Status [Patient Status] [ADT] Routine - Assessment/Plan Last 24 Hours: My Active Orders 06/15/20 11:35 CXR [Chest 1V Frontal] [CR] Stat EKG 12 Lead [EK] Stat 06/15/20 11:36 EKG Documentation Completion [RC] ASDIRECTED Blood Culture x2 Reflex Set [OM.PC] Urgent 06/15/20 11:38 Sodium Chloride 0.9% [Saline Flush] 10 ml FLUSH ASDIRECTED PRN Saline Lock Insert [OM.PC] Routine 06/15/20 12:00 CULTURE BLOOD [BC] Urgent 06/15/20 12:40 RT Aerosol Therapy [RC] ASDIRECTED 06/15/20 13:00 Piperacillin/Tazobactam [Zosyn] 3.375 gm Sodium Chloride 0.9% [Normal Saline] 50 ml IV Q6H 06/15/20 13:05 Admission Status [Patient Status] [ADT] Routine
[2020-06-15] MEDS ORDERED: Albuterol/Ipratropium 3.0-0.5 MG/3 ML Neb Soln NEB ONE (12:40)
[2020-06-15] MEDS ORDERED: Piperacillin/Tazobactam 3.375 GM in Sodium Chloride 0.9% 50 ML IV SCH ×2 (13:00→13:45)
--- NOTE | 2020-06-15 13:12 | CR ---
INDICATION: Short of breath. CHEST ONE VIEW: An AP upright portable view of the chest 06/15/20 was compared with 01/27/20 and 03/16/19 again revealing severe dextroconvex scoliosis of the thoracic spine. Compared with previous studies, she has an appearance of some fluffy patchy infiltration in the right mid to lower lung field which may represent a process such as aspiration pneumonia, but should be correlated clinically. No other change or new acute process was suggested. Overlying EKG leads are noted. The heart is not grossly enlarged. There is some calcification suggested in the arch of the aorta. Comminuted fracture of the left proximal humerus is noted which is a new finding compared with 01/27/20, but is noted on a previous left shoulder x-ray from 06/14/20. [facility]
[2020-06-15] MEDS ORDERED: Ondansetron 4 MG/2 ML SDV IV PRN (13:20)
[2020-06-15] MEDS ORDERED: Bisacodyl 10 MG Supp RECTAL PRN (13:29)
[2020-06-15] MEDS ORDERED: Azithromycin 250 MG in Sodium Chloride 0.9% 250 ML IV SCH (14:00)
[2020-06-15] MEDS: Dextrose 5%-0.45% NaCl 1,000 ML IV SCH (14:24)
[2020-06-15] MEDS: Enoxaparin 30 MG/0.3 ML Syringe SUBCUT SCH (15:10)
[2020-06-15] MEDS: Albuterol/Ipratropium 3.0-0.5 MG/3 ML Neb Soln NEB SCH ×2 (16:30→20:55)
--- NOTE | 2020-06-15 17:18 | PCM.HP.2 ---
H&P History of Present Illness - General Date of Service: 06/15/20 Admit Problem/Dx: Admission Diagnosis/Problem Admission Diagnosis/Problem Aspiration pneumonia Source of Information: Old Records History Limitations: Reports: Altered Mental Status - History of Present Illness Initial Comments - Free Text/Narative: This is a 64-year-old patient. She recently fractured her left humerus. Apparently her transfer her to [facility]. She has had many admissions for aspiration pneumonia. She became more lethargic and nonresponsive today she is brought to the ER and found to be an aspiration pneumonia. The ER some Narcan which helped her. She's been getting Tylenol 3 for pain. This patient is nonverbal and not able to get more history. - Related Data Allergies/Adverse Reactions: Allergies Allergy/AdvReac Type Severity Reaction Status Date / Time No Known Allergies Allergy Verified 02/01/20 14:20 Home Medications: Home Meds Divalproex Sodium [Depakote Sprinkle] 375 mg PO 10,,,20 12/11/15 [History] Levothyroxine 75 mcg PO BEDTIME 12/11/15 [History] Multivitamin with Iron [Daily Nery with Iron] 1 tab PO DAILY 12/11/15 [History] Omeprazole 20 mg PO ACBREAKFAST 12/11/15 [History] Vitamin E 400 units PO DAILY 12/11/15 [History] Carbidopa/Levodopa [Carbidopa-Levodopa 25-100 Tab] 2.5 tab PO 10,,,20 02/04/16 [History] Nystatin [Nystatin Crm] 1 applic TOP BID PRN 09/28/17 [History] Mirtazapine 7.5 mg PO 1800 09/05/18 [History] Sennosides/Docusate Sodium [Senna Laxative Tablet] 1 tab PO DAILY 09/05/18 [History] polyethylene glycoL 3350 [Laxaclear] 17 gm PO DAILY 09/05/18 [History] Albuterol [Proventil Neb Soln] 2.5 mg INH QID PRN 03/16/19 [History] bisacodyL [Dulcolax] 10 mg RC DAILY PRN 03/16/19 [History] clonazePAM [Klonopin] 1 mg PO BEDTIME 03/16/19 [History] Furosemide [Lasix] 20 mg PO DAILY #30 tab 03/22/19 [Rx] Petrolatum,White [Vaseline White Petroleum] 1 applic TOP DAILY PRN 01/27/20 [History] Petrolatum,White/Zinc Oxide [Sensi-Care Protective Ointment] 1 applic TOP DAILY 01/27/20 [History] Acetaminophen [Tylenol] 650 mg PO Q4H PRN 06/15/20 [History] Acetaminophen with Codeine [Acetaminophen-Cod #3] 1 tab PO Q6H 06/15/20 [History] Azithromycin [Zithromax] 250 mg PO DAILY 06/15/20 [History] Bacitracin/Polymyxin B Sulfate [Polysporin Ointment] 1 applic TOP ASDIRECTED PRN 06/15/20 [History] Loratadine 10 mg PO DAILY 06/15/20 [History] Magnesium Hydroxide [Milk of Magnesia] 4 tbsp PO DAILY PRN 06/15/20 [History] Naproxen Sodium 220 mg PO BID 06/15/20 [History] Petrolatum,White/Zinc Oxide [Sensi-Care Protective Ointment] 1 applic TOP ASDIRECTED PRN 06/15/20 [History] Pseudoephedrine [Sudogest] 60 mg PO Q4H PRN 06/15/20 [History] Past Medical History HEENT History: Reports: Allergic Rhinitis, Cataract, Other (See Below) Other HEENT History: Functionally blind with cataracts. Mild perioral carson titis. Gingivitis. Cardiovascular History: Reports: Other (See Below) Other Cardiovascular History: Stasis edema legs. Respiratory History: Reports: Pneumonia, Recurrent, Other (See Below) Other Respiratory History: History of aspiration pneumonia. Gastrointestinal History: Reports: GERD, Other (See Below) Other Gastrointestinal History: History of positive stool guaiac, septic shock, possible small bowl obstruction, GI bleed, mild duodenitis, possible small bowel obstruction. 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 Musculoskeletal History: Reports: Other (See Below) Other Musculoskeletal History: Kyphoscoliosis. Right thoracic scoliosis. 1/4 inch right leg discrepency. Mild pes planus. Progressive Flexic C-Spine. Flexic contractures of hands and feet. S/P left hand fracture. 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 Mild micr ocephaly. Endocrine/Metabolic History: Reports: Hypothyroidism Hematologic History: Reports: Other (See Below) Other Hematologic History: Mild leukocytosis. Dermatologic History: Reports: Other (See Below) Other Dermatologic History: Seborrheic keratosis right cheek. Acne. - Infectious Disease History Infectious Disease History: Reports: Mumps Other Infectious Disease History: healthcare translator does not have this info - Past Surgical History HEENT Surgical History: Reports: Oral Surgery, Other (See Below) Social & Family History - Family History Family Medical History: Unobtainable HEENT: Reports: None Cardiac: Reports: None Respiratory: Reports: None GI: Reports: None : Reports: None OBGYN: Reports: None Musculoskeletal: Reports: None Neurological: Reports: None Psychiatric: Reports: Learning Disability, Other (See Below) Other Psychiatric Family History: Seizure disorder. Endocrine/Metabolic: Reports: Hypothyroidism Hematologic: Reports: None Immunologic: Reports: None Dermatologic: Reports: None Other Dermatologic Family History: home resident, nonverbalgroup Oncologic: Reports: None - Tobacco Use Smoking Status *Q: Never Smoker - Caffeine Use Caffeine Use: Reports: Coffee H&P Review of Systems - Review of Systems: Review Of Systems: Unable To Obtain Reason Not Obtained: Severe mental retardation Exam - Exam Exam: See Below - Vital Signs Vital Signs: Last Vital Signs Temp 98.1 F 06/15/20 16:00 Pulse 85 06/15/20 16:00 Resp 12 06/15/20 16:00 BP 95/58 L 06/15/20 16:00 Pulse Ox 91 L 06/15/20 16:00 Weight: 137 lb 9 oz - Exam General: Alert. No: Oriented, Cooperative HEENT: Posterior Pharynx Clear, TMs Clear Neck: Supple, Trachea Midline Lungs: Normal Respiratory Effort, Rhonchi Cardiovascular: Regular Rate, Regular Rhythm, Normal S1, Normal S2. No: Bradycardia, Tachycardia, Systolic Murmur GI/Abdominal Exam: Normal Bowel Sounds, Soft, Non-Tender, No Abnormal Bruit Extremities: No Pedal Edema, Other (Left arm in a sling) Neuro Extensive - Mental Status: No: Alert, Oriented x3, Normal Cognition Neuro Extensive - Motor, Sensory, Reflexes: No: Normal Gait - Patient Data Lab Results Last 24 hrs: Laboratory Results - last 24 hr 06/15/20 06/15/20 06/15/20 Range/Units 11:40 12:00 12:00 WBC 14.5 H (4.5-12.0) X10-3/uL RBC 3.70 (3.23-5.20) x10(6)uL Hgb 11.3 L (11.5-15.5) g/dL Hct 34.7 (30.0-51.3) % MCV 93.9 (80-96) fL MCH 30.5 (27.7-33.6) pg MCHC 32.5 (32.2-35.4) g/dL RDW 14.4 (11.5-15.5) % Plt Count 276 (125-369) X10(3)uL MPV 7.4 (7.4-10.4) fL Add Manual Diff Yes Neutrophils % (Manual) 75 (46-82) % Band Neutrophils % 3 (0-6) % Lymphocytes % (Manual) 15 (13-37) % Monocytes % (Manual) 6 (4-12) % Eosinophils % (Manual) 1 (0-5) % Sodium 138 (135-145) mmol/L Potassium 4.5 (3.5-5.3) mmol/L Chloride 96 L D (100-110) mmol/L Carbon Dioxide 41 H* (21-32) mmol/L BUN 30 H D (7-18) mg/dL Creatinine 1.7 H (0.55-1.02) mg/dL Est Cr Clr Drug Dosing TNP Estimated GFR (MDRD) 30 L (>60) BUN/Creatinine Ratio 17.6 (9-20) Glucose 109 (80-116) mg/dL Lactic Acid (0.4-2.0) mmol/L Calcium 9.1 (8.6-10.2) mg/dL Total Bilirubin 0.5 (0.1-1.3) mg/dL AST 43 H D (5-25) IU/L ALT 7 L D (12-36) U/L Alkaline Phosphatase 104 (56-112) IU/L Troponin I (4.0-60.3) pg/mL NT-Pro-B Natriuret Pep (<=125) pg/mL Total Protein 7.1 (6.0-8.0) g/dL Albumin 3.4 (3.2-4.6) g/dL Globulin 3.7 g/dL Albumin/Globulin Ratio 0.9 SARS Virus RNA (PCR) Negative (NEGATIVE) 06/15/20 06/15/20 Range/Units 12:00 12:00 WBC (4.5-12.0) X10-3/uL RBC (3.23-5.20) x10(6)uL Hgb (11.5-15.5) g/dL Hct (30.0-51.3) % MCV (80-96) fL MCH (27.7-33.6) pg MCHC (32.2-35.4) g/dL RDW (11.5-15.5) % Plt Count (125-369) X10(3)uL MPV (7.4-10.4) fL Add Manual Diff Neutrophils % (Manual) (46-82) % Band Neutrophils % (0-6) % Lymphocytes % (Manual) (13-37) % Monocytes % (Manual) (4-12) % Eosinophils % (Manual) (0-5) % Sodium (135-145) mmol/L Potassium (3.5-5.3) mmol/L Chloride (100-110) mmol/L Carbon Dioxide (21-32) mmol/L BUN (7-18) mg/dL Creatinine (0.55-1.02) mg/dL Est Cr Clr Drug Dosing Estimated GFR (MDRD) (>60) BUN/Creatinine Ratio (9-20) Glucose (80-116) mg/dL Lactic Acid 0.9 (0.4-2.0) mmol/L Calcium (8.6-10.2) mg/dL Total Bilirubin (0.1-1.3) mg/dL AST (5-25) IU/L ALT (12-36) U/L Alkaline Phosphatase (56-112) IU/L Troponin I 10.7 (4.0-60.3) pg/mL NT-Pro-B Natriuret Pep 554 H (<=125) pg/mL Total Protein (6.0-8.0) g/dL Albumin (3.2-4.6) g/dL Globulin g/dL Albumin/Globulin Ratio SARS Virus RNA (PCR) (NEGATIVE) Result Diagrams: 06/15/20 12:00 06/15/20 12:00 Sepsis Event Note - Evaluation Sepsis Screening Result: No Definite Risk - Focused Exam Vital Signs: Vital Signs Temp Temp Pulse Resp BP Pulse Ox Pulse Ox 06/15/20 16:00 98.1 F 85 12 95/58 L 91 L 06/15/20 15:00 88 14 101/50 L 93 L 06/15/20 13:20 98.2 F 104 H 14 129/70 91 L 91 L 06/15/20 11:30 97.2 F 100 6 L 90/49 L 67 L 06/15/20 11:27 98.8 F 91 7 L 91/47 L 78 L Date Exam was Performed: 06/15/20 Time Exam was Performed: 17:13 - Problem List (1) Left humeral fracture SNOMED Code(s): 09506236 ICD Code: S42.302A - UNSP FRACTURE OF SHAFT OF HUMERUS, LEFT ARM, INIT Status: Acute Current Visit: Yes (2) Aspiration pneumonia SNOMED Code(s): 199738687 ICD Code: J69.0 - PNEUMONITIS DUE TO INHALATION OF FOOD AND VOMIT Status: Acute Current Visit: Yes Problem Details: Right middle, right lower & left lower lobes, isolated yeast on sputum culture(of note this was collected 3 days into antibiotics). Qualifiers: Aspiration pneumonia type: unspecified Laterality: right Lung location: lower lobe of lung Qualified Code(s): J69.0 - Pneumonitis due to inhalation of food and vomit (3) Acute renal insufficiency SNOMED Code(s): 410851137 ICD Code: N28.9 - DISORDER OF KIDNEY AND URETER, UNSPECIFIED Status: Acute Current Visit: No (4) Decreased level of consciousness SNOMED Code(s): 141811063 ICD Code: R40.4 - TRANSIENT ALTERATION OF AWARENESS Status: Acute Current Visit: No (5) Palliative care status SNOMED Code(s): 882338326 ICD Code: Z51.5 - ENCOUNTER FOR PALLIATIVE CARE Status: Acute Current Visit: No (6) Mental retardation SNOMED Code(s): 050546349 ICD Code: F79 - UNSPECIFIED INTELLECTUAL DISABILITIES Status: Chronic Current Visit: No Problem Details: Precautions. Problem List Initiated/Reviewed/Updated: Yes Orders Last 24hrs: Active Orders 24 hr Category Date Time Status Admission Status [Patient Status] [ADT] Routine ADT 06/15/20 13:05 Active EKG Documentation Completion [RC] ASDIRECTED Care 06/15/20 11:36 Active Height and Weight [RC] DAILY Care 06/15/20 13:20 Active Intake and Output [RC] 06,14,22 Care 06/15/20 13:21 Active Notify Provider Vital Signs [RC] ASDIRECTED Care 06/15/20 13:21 Active Oxygen Therapy [RC] PRN Care 06/15/20 13:20 Active Pulse Oximetry [RC] CONTINUOUS Care 06/15/20 13:21 Active RT Aerosol Therapy [RC] ASDIRECTED Care 06/15/20 12:40 Active VTE/DVT Education [RC] Per Unit Routine Care 06/15/20 13:20 Active Vital Signs [RC] QSHIFT Care 06/15/20 13:20 Active BASIC METABOLIC PANEL,BMP [CHEM] AM Lab 06/16/20 05:11 Ordered CBC WITH AUTO DIFF [HEME] AM Lab 06/16/20 05:11 Ordered CULTURE BLOOD [BC] Urgent Lab 06/15/20 12:00 Received Acetaminophen [Tylenol] Med 06/15/20 13:20 Active 650 mg RECTAL Q4H PRN Albuterol/Ipratropium [DuoNeb 3.0-0.5 MG/3 ML] Med 06/15/20 16:00 Active 3 ml NEB QIDRT Azithromycin [Zithromax] 250 mg Med 06/15/20 17:00 Active Sodium Chloride 0.9% [Normal Saline] 250 ml IV Q24H Carbidopa/Levodopa [Sinemet 25-100 mg] Med 06/15/20 17:00 Active 2.5 tab PO 10,13,17,20 Dextrose 5%-0.45% NaCl [Dextrose 5%-1/2 NS] 1,000 ml Med 06/15/20 13:30 Active IV ASDIRECTED Divalproex Sodium [Depakote Sprinkle] Med 06/15/20 17:00 Active 375 mg PO 10,13,17,20 Docusate Sodium/Sennosides [Senna Plus] Med 06/16/20 09:00 Active 1 tab PO DAILY Enoxaparin [Lovenox] Med 06/15/20 14:30 Active 30 mg SUBCUT Q24H Levothyroxine Med 06/15/20 21:00 Active 75 mcg PO BEDTIME Mirtazapine [Remeron] Med 06/15/20 18:00 Active 7.5 mg PO 1800 Pantoprazole [ProTONIX] Med 06/16/20 06:00 Active 40 mg PO DAILY@0600 Piperacillin/Tazobactam [Zosyn] 3.375 gm Med 06/15/20 20:00 Active Sodium Chloride 0.9% [Normal Saline] 50 ml IV Q6H Sodium Chloride 0.9% [Saline Flush] Med 06/15/20 11:38 Active 10 ml FLUSH ASDIRECTED PRN bisacodyL [Dulcolax] Med 06/15/20 13:29 Active 10 mg RECTAL DAILY PRN polyethylene glycoL 3350 [MiraLAX] Med 06/16/20 09:00 Active 17 gm PO DAILY Blood Culture x2 Reflex Set [OM.PC] Urgent Oth 06/15/20 11:36 Ordered Saline Lock Insert [OM.PC] Routine Oth 06/15/20 11:38 Ordered Resuscitation Status Routine Resus Stat 06/15/20 13:20 Ordered EKG 12 Lead [EK] Stat Ther 06/15/20 11:35 Ordered Medication Orders Acetaminophen (Tylenol) 650 mg RECTAL Q4H PRN PRN Reason: Mild pain/fever Albuterol/Ipratropium (Duoneb 3.0-0.5 Mg/3 Ml) 3 ml NEB QIDRT SARAI Bisacodyl (Dulcolax) 10 mg RECTAL DAILY PRN PRN Reason: Constipation Carbidopa/Levodopa (Sinemet 25-100 Mg) 2.5 tab PO 10,13,17,20 SARAI Divalproex Sodium (Depakote Sprinkle) 375 mg PO 10,13,17,20 SARAI Enoxaparin Sodium (Lovenox) 30 mg SUBCUT Q24H SARAI Last Admin: 06/15/20 15:10 Dose: 30 mg Documented by: ANTON Dextrose/Sodium Chloride (Dextrose 5%-1/2 Ns) 1,000 mls @ 100 mls/hr IV ASDIRECTED SARAI Last Admin: 06/15/20 14:24 Dose: 100 mls/hr Documented by: KIELVIC Piperacillin Sod/Tazobactam (Sod 3.375 gm/ Sodium Chloride) 50 mls @ 100 mls/hr IV Q6H SARAI Azithromycin 250 mg/ Sodium (Chloride) 250 mls @ 250 mls/hr IV Q24H SARAI Levothyroxine Sodium (Levothyroxine) 75 mcg PO BEDTIME SARAI Mirtazapine (Remeron) 7.5 mg PO 1800 SARAI Pantoprazole Sodium (Protonix) 40 mg PO DAILY@0600 SARAI Polyethylene Glycol (Miralax) 17 gm PO DAILY SARAI Senna/Docusate Sodium (Senna Plus) 1 tab PO DAILY SARAI Sodium Chloride (Saline Flush) 10 ml FLUSH ASDIRECTED PRN PRN Reason: Keep Vein Open Last Admin: 06/15/20 11:50 Dose: 10 ml Documented by: RADHA Assessment/Plan Comment:: 1. Admit for IV antibiotics. 2. DNI DNR 3. Lovenox for DVT prophylaxis 4. Oxygen keep saturations greater than 90% 5. Sling on the left arm. 7. Regular diet 8. Up in chair when able. - Mortality Measure Prognosis:: Poor
[2020-06-15] MEDS: Azithromycin 250 MG in Sodium Chloride 0.9% 250 ML IV SCH (17:28)
[2020-06-15] MEDS: Carbidopa/Levodopa 25-100 MG Tab PO SCH ×2 (17:38→21:45)
[2020-06-15] MEDS: Divalproex Sodium Delayed-Release 125 MG Cap.Sprink PO SCH ×2 (17:38→21:45)
[2020-06-15] MEDS ORDERED: Mirtazapine 15 MG Tab PO SCH (18:00)
[2020-06-15] MEDS: Acetaminophen 650 MG Supp RECTAL PRN (18:33)
[2020-06-15] MEDS: Piperacillin/Tazobactam 3.375 GM in Sodium Chloride 0.9% 50 ML IV SCH (19:37)
[2020-06-15] MEDS ORDERED: Sodium Chloride 0.9% 1,000 ML IV ONE (20:30)
[2020-06-15] MEDS ORDERED: Levothyroxine 75 MCG Tab PO SCH (21:00)
[2020-06-16] MEDS: Piperacillin/Tazobactam 3.375 GM in Sodium Chloride 0.9% 50 ML IV SCH ×4 (01:33→19:33)
[2020-06-16] MEDS: Dextrose 5%-0.45% NaCl 1,000 ML IV SCH ×2 (03:50→14:23)
[2020-06-16] MEDS ORDERED: Pantoprazole 40 MG Tab.CR PO SCH (06:00)
[2020-06-16] MEDS: Albuterol/Ipratropium 3.0-0.5 MG/3 ML Neb Soln NEB SCH ×4 (06:00→20:20)
[2020-06-16] MEDS ORDERED: Polyethylene Glycol 3350 Powder 17 GM Packet PO SCH (09:00)
[2020-06-16] MEDS ORDERED: LORazepam 2 MG/ML SDV IVPUSH PRN (09:48)
[2020-06-16] MEDS: Divalproex Sodium Delayed-Release 125 MG Cap.Sprink SCH ×4 (10:40→20:12)
[2020-06-16] MEDS: Carbidopa/Levodopa 25-100 MG Tab SCH ×4 (10:41→20:12)
--- NOTE | 2020-06-16 11:03 | PCM.PN ---
- General Info Date of Service: 06/16/20 Admission Dx/Problem (Free Text): Liane is nonverbal so information obtained from nursing. She is more alert than yesterday, tried giving her some pills last night in pudding, had her sitting up for an hour afterward, had a good cough and was suctioned and there were some of her pills that got suctioned up so they did not get swallowed. She also had a bloody smear this morning, staff at [facility] had told nursing when she came in that she has been constipated for a few weeks. Urine output improved. Has [place] in place for I&Os, had not had much urine out yesterday, received bolus of IV fluids yesterday. Has bruising across her chest, was reported to nursing that this occurred when she fractured her arm. Staff at [facility] were pulling up her arm brace and heard a pop, it was not from a fall. It is non surgical, in arm sling. Functional Status: Denies: New Symptoms - Patient Data Vitals - Most Recent: Last Vital Signs Temp 98.2 F 06/16/20 08:00 Pulse 98 06/16/20 08:00 Resp 16 06/16/20 08:00 BP 94/44 L 06/16/20 08:00 Pulse Ox 97 06/16/20 08:00 Weight - Most Recent: 143 lb I&O - Last 24 Hours: Intake & Output 06/15/20 06/16/20 06/16/20 22:59 06:59 14:59 Intake Total 1187 786 Output Total 527 350 Balance 660 436 Lab Results Last 24 Hours: Laboratory Results - last 24 hr 06/15/20 06/15/20 06/15/20 Range/Units 11:40 12:00 12:00 WBC 14.5 H (4.5-12.0) X10-3/uL RBC 3.70 (3.23-5.20) x10(6)uL Hgb 11.3 L (11.5-15.5) g/dL Hct 34.7 (30.0-51.3) % MCV 93.9 (80-96) fL MCH 30.5 (27.7-33.6) pg MCHC 32.5 (32.2-35.4) g/dL RDW 14.4 (11.5-15.5) % Plt Count 276 (125-369) X10(3)uL MPV 7.4 (7.4-10.4) fL Neut % (Auto) (46-82) % Lymph % (Auto) (13-37) % Cass % (Auto) (4-12) % Eos % (Auto) (1.0-5.0) % Baso % (Auto) (0-2) % Neut # (Auto) (1.6-8.3) # Lymph # (Auto) (0.6-5.0) # Cass # (Auto) (0.0-1.3) # Eos # (Auto) (0.0-0.8) # Baso # (Auto) (0.0-0.2) # Add Manual Diff Yes Neutrophils % (Manual) 75 (46-82) % Band Neutrophils % 3 (0-6) % Lymphocytes % (Manual) 15 (13-37) % Monocytes % (Manual) 6 (4-12) % Eosinophils % (Manual) 1 (0-5) % Sodium 138 (135-145) mmol/L Potassium 4.5 (3.5-5.3) mmol/L Chloride 96 L D (100-110) mmol/L Carbon Dioxide 41 H* (21-32) mmol/L BUN 30 H D (7-18) mg/dL Creatinine 1.7 H (0.55-1.02) mg/dL Est Cr Clr Drug Dosing TNP Estimated GFR (MDRD) 30 L (>60) BUN/Creatinine Ratio 17.6 (9-20) Glucose 109 (80-116) mg/dL Lactic Acid (0.4-2.0) mmol/L Calcium 9.1 (8.6-10.2) mg/dL Total Bilirubin 0.5 (0.1-1.3) mg/dL AST 43 H D (5-25) IU/L ALT 7 L D (12-36) U/L Alkaline Phosphatase 104 (56-112) IU/L Troponin I (4.0-60.3) pg/mL NT-Pro-B Natriuret Pep (<=125) pg/mL Total Protein 7.1 (6.0-8.0) g/dL Albumin 3.4 (3.2-4.6) g/dL Globulin 3.7 g/dL Albumin/Globulin Ratio 0.9 Urine Color (YELLOW) Urine Appearance (CLEAR) Urine pH (5.0-6.5) Ur Specific [place] (1.010-1.025) Urine Protein (NEGATIVE) mg/dL Urine Glucose (UA) (NORMAL) mg/dL Urine Ketones (NEGATIVE) mg/dL Urine Occult Blood (NEGATIVE) Urine Nitrite (NEGATIVE) Urine Bilirubin (NEGATIVE) Urine Urobilinogen (NEGATIVE) mg/dL Ur Leukocyte Esterase (NEGATIVE) Urine RBC (0-5) Urine WBC (0-5) Ur Squamous Epith Cells (NS,R,O) Urine Bacteria (NS) Urine Yeast (NS) SARS Virus RNA (PCR) Negative (NEGATIVE) 06/15/20 06/15/20 06/15/20 Range/Units 12:00 12:00 20:42 WBC (4.5-12.0) X10-3/uL RBC (3.23-5.20) x10(6)uL Hgb (11.5-15.5) g/dL Hct (30.0-51.3) % MCV (80-96) fL MCH (27.7-33.6) pg MCHC (32.2-35.4) g/dL RDW (11.5-15.5) % Plt Count (125-369) X10(3)uL MPV (7.4-10.4) fL Neut % (Auto) (46-82) % Lymph % (Auto) (13-37) % Cass % (Auto) (4-12) % Eos % (Auto) (1.0-5.0) % Baso % (Auto) (0-2) % Neut # (Auto) (1.6-8.3) # Lymph # (Auto) (0.6-5.0) # Cass # (Auto) (0.0-1.3) # Eos # (Auto) (0.0-0.8) # Baso # (Auto) (0.0-0.2) # Add Manual Diff Neutrophils % (Manual) (46-82) % Band Neutrophils % (0-6) % Lymphocytes % (Manual) (13-37) % Monocytes % (Manual) (4-12) % Eosinophils % (Manual) (0-5) % Sodium (135-145) mmol/L Potassium (3.5-5.3) mmol/L Chloride (100-110) mmol/L Carbon Dioxide (21-32) mmol/L BUN (7-18) mg/dL Creatinine (0.55-1.02) mg/dL Est Cr Clr Drug Dosing Estimated GFR (MDRD) (>60) BUN/Creatinine Ratio (9-20) Glucose (80-116) mg/dL Lactic Acid 0.9 (0.4-2.0) mmol/L Calcium (8.6-10.2) mg/dL Total Bilirubin (0.1-1.3) mg/dL AST (5-25) IU/L ALT (12-36) U/L Alkaline Phosphatase (56-112) IU/L Troponin I 10.7 (4.0-60.3) pg/mL NT-Pro-B Natriuret Pep 554 H (<=125) pg/mL Total Protein (6.0-8.0) g/dL Albumin (3.2-4.6) g/dL Globulin g/dL Albumin/Globulin Ratio Urine Color Yellow (YELLOW) Urine Appearance Slightly cloudy (CLEAR) Urine pH 5.0 (5.0-6.5) Ur Specific [place] 1.020 (1.010-1.025) Urine Protein Negative (NEGATIVE) mg/dL Urine Glucose (UA) Normal (NORMAL) mg/dL Urine Ketones Negative (NEGATIVE) mg/dL Urine Occult Blood Large H (NEGATIVE) Urine Nitrite Negative (NEGATIVE) Urine Bilirubin Negative (NEGATIVE) Urine Urobilinogen Normal (NEGATIVE) mg/dL Ur Leukocyte Esterase Large H (NEGATIVE) Urine RBC 5-10 H (0-5) Urine WBC 30-40 H (0-5) Ur Squamous Epith Cells Occasional (NS,R,O) Urine Bacteria Moderate H (NS) Urine Yeast Rare H (NS) SARS Virus RNA (PCR) (NEGATIVE) 06/16/20 06/16/20 Range/Units 06:25 06:25 WBC 12.0 (4.5-12.0) X10-3/uL RBC 3.09 L (3.23-5.20) x10(6)uL Hgb 9.1 L (11.5-15.5) g/dL Hct 29.4 L (30.0-51.3) % MCV 95.1 (80-96) fL MCH 29.6 (27.7-33.6) pg MCHC 31.1 L (32.2-35.4) g/dL RDW 14.3 (11.5-15.5) % Plt Count 203 (125-369) X10(3)uL MPV 7.5 (7.4-10.4) fL Neut % (Auto) 85.1 H (46-82) % Lymph % (Auto) 7.2 L (13-37) % Cass % (Auto) 7.5 (4-12) % Eos % (Auto) 0 L (1.0-5.0) % Baso % (Auto) 0 (0-2) % Neut # (Auto) 10.2 H (1.6-8.3) # Lymph # (Auto) 0.9 (0.6-5.0) # Cass # (Auto) 0.9 (0.0-1.3) # Eos # (Auto) 0.0 (0.0-0.8) # Baso # (Auto) 0.0 (0.0-0.2) # Add Manual Diff Neutrophils % (Manual) (46-82) % Band Neutrophils % (0-6) % Lymphocytes % (Manual) (13-37) % Monocytes % (Manual) (4-12) % Eosinophils % (Manual) (0-5) % Sodium 138 (135-145) mmol/L Potassium 4.6 (3.5-5.3) mmol/L Chloride 100 (100-110) mmol/L Carbon Dioxide 35 H (21-32) mmol/L BUN 38 H (7-18) mg/dL Creatinine 1.2 H (0.55-1.02) mg/dL Est Cr Clr Drug Dosing 35.27 Estimated GFR (MDRD) 45 L (>60) BUN/Creatinine Ratio 31.7 H (9-20) Glucose 144 H (80-116) mg/dL Lactic Acid (0.4-2.0) mmol/L Calcium 7.7 L (8.6-10.2) mg/dL Total Bilirubin (0.1-1.3) mg/dL AST (5-25) IU/L ALT (12-36) U/L Alkaline Phosphatase (56-112) IU/L Troponin I (4.0-60.3) pg/mL NT-Pro-B Natriuret Pep (<=125) pg/mL Total Protein (6.0-8.0) g/dL Albumin (3.2-4.6) g/dL Globulin g/dL Albumin/Globulin Ratio Urine Color (YELLOW) Urine Appearance (CLEAR) Urine pH (5.0-6.5) Ur Specific [place] (1.010-1.025) Urine Protein (NEGATIVE) mg/dL Urine Glucose (UA) (NORMAL) mg/dL Urine Ketones (NEGATIVE) mg/dL Urine Occult Blood (NEGATIVE) Urine Nitrite (NEGATIVE) Urine Bilirubin (NEGATIVE) Urine Urobilinogen (NEGATIVE) mg/dL Ur Leukocyte Esterase (NEGATIVE) Urine RBC (0-5) Urine WBC (0-5) Ur Squamous Epith Cells (NS,R,O) Urine Bacteria (NS) Urine Yeast (NS) SARS Virus RNA (PCR) (NEGATIVE) Med Orders - Current: Current Medications Acetaminophen (Tylenol) 650 mg RECTAL Q4H PRN PRN Reason: Mild pain/fever Last Admin: 06/15/20 18:33 Dose: 650 mg Documented by: Albuterol/Ipratropium (Duoneb 3.0-0.5 Mg/3 Ml) 3 ml NEB QIDRT [facility], [facility] Last Admin: 06/16/20 06:00 Dose: 3 ml Documented by: Bisacodyl (Dulcolax) 10 mg RECTAL DAILY PRN PRN Reason: Constipation Carbidopa/Levodopa (Sinemet 25-100 Mg) 2.5 tab .XX 10,,17,20 [facility], [facility]–1983 Divalproex Sodium (Depakote Sprinkle) 375 mg .XX 10,13,17,20 [facility], [facility]–1983 Enoxaparin Sodium (Lovenox) 30 mg SUBCUT Q24H [facility], [facility]1983 Last Admin: 06/15/20 15:10 Dose: 30 mg Documented by: Dextrose/Sodium Chloride (Dextrose 5%-1/2 Ns) 1,000 mls @ 100 mls/hr IV ASDIRECTED [facility], [facility]–1983 Last Admin: 06/16/20 03:50 Dose: 100 mls/hr Documented by: Piperacillin Sod/Tazobactam (Sod 3.375 gm/ Sodium Chloride) 50 mls @ 100 mls/hr IV Q6H [facility], [facility]1983 Last Admin: 06/16/20 08:41 Dose: 100 mls/hr Documented by: Azithromycin 250 mg/ Sodium (Chloride) 250 mls @ 250 mls/hr IV Q24H [facility], [facility]1983 Last Admin: 06/15/20 17:28 Dose: 250 mls/hr Documented by: Levothyroxine Sodium (Levothyroxine) 75 mcg .XX BEDTIME SARAI Lorazepam (Ativan) 1 mg IVPUSH Q5M PRN PRN Reason: SEIZURES Mirtazapine (Remeron) 7.5 mg .XX 1800 SARAI Pantoprazole Sodium (Protonix) 40 mg .XX DAILY@0600 [facility], [facility] Senna/Docusate Sodium (Senna Plus) 1 tab PO .XX SARAI Sodium Chloride (Saline Flush) 10 ml FLUSH ASDIRECTED PRN PRN Reason: Keep Vein Open Last Admin: 06/15/20 11:50 Dose: 10 ml Documented by: Discontinued Medications Albuterol/Ipratropium (Duoneb 3.0-0.5 Mg/3 Ml) 3 ml NEB ONETIME ONE Stop: 06/15/20 12:41 Last Admin: 06/15/20 12:49 Dose: 3 ml Documented by: Carbidopa/Levodopa (Sinemet 25-100 Mg) 2.5 tab PO 10,,17,20 [facility], [facility] Last Admin: 06/15/20 21:45 Dose: 2.5 tab Documented by: Divalproex Sodium (Depakote Sprinkle) 375 mg PO 10,13,17,20 [facility], [facility]1983 Last Admin: 06/15/20 21:45 Dose: 375 mg Documented by: Sodium Chloride (Normal Saline) 500 mls @ 500 mls/hr IV .BOLUS ONE Stop: 06/15/20 12:37 Last Admin: 06/15/20 11:49 Dose: 500 mls/hr Documented by: Piperacillin Sod/Tazobactam (Sod 3.375 gm/ Sodium Chloride) 50 mls @ 100 mls/hr IV Q6H [facility], [facility]1983 Last Admin: 06/15/20 12:54 Dose: 100 mls/hr Documented by: Sodium Chloride (Normal Saline) 1,000 mls @ 500 mls/hr IV ONETIME ONE Stop: 06/15/20 22:29 Last Admin: 06/15/20 20:30 Dose: 500 mls/hr Documented by: Levothyroxine Sodium (Levothyroxine) 75 mcg PO BEDTIME [facility], [facility] Last Admin: 06/15/20 21:46 Dose: 75 mcg Documented by: Mirtazapine (Remeron) 7.5 mg PO 1800 [facility], [facility] Last Admin: 06/15/20 17:37 Dose: 7.5 mg Documented by: Naloxone HCl (Narcan) 0.4 mg IVPUSH ONETIME ONE Stop: 06/15/20 11:49 Last Admin: 06/15/20 11:59 Dose: 0.4 mg Documented by: Naloxone HCl (Narcan) 0.4 mg IVPUSH ONETIME ONE Stop: 06/15/20 13:17 Last Admin: 06/15/20 13:18 Dose: 0.4 mg Documented by: Ondansetron HCl (Zofran) 4 mg IV Q8H PRN PRN Reason: Nausea/Vomiting Pantoprazole Sodium (Protonix) 40 mg PO DAILY@0600 [facility], [facility] Last Admin: 06/16/20 05:53 Dose: 40 mg Documented by: Polyethylene Glycol (Miralax) 17 gm PO DAILY [facility], [facility] Senna/Docusate Sodium (Senna Plus) 1 tab PO DAILY [facility], [facility]1983 - Exam General: Alert, No Acute Distress, Other (Nonverbal) Lungs: Normal Respiratory Effort, Rales (throughout,), Wheezing Cardiovascular: Regular Rate, Regular Rhythm GI/Abdominal Exam: Normal Bowel Sounds, Soft, Non-Tender, No Distention Extremities: No Pedal Edema. No: Mottled, Pallor Peripheral Pulses: 2+: Radial (L), Radial (R) Skin: Ecchymosis (across chest), Other (in left arm sling) Sepsis Event Note - Evaluation Sepsis Screening Result: No Definite Risk - Focused Exam Vital Signs: Vital Signs Temp Temp Pulse Resp BP Pulse Ox Pulse Ox 06/16/20 08:00 98.2 F 98 16 94/44 L 97 06/16/20 06:00 97 10 L 113/53 L 94 L 98 06/16/20 04:00 97.6 F 92 10 L 102/46 L 90 L 06/16/20 00:00 97.4 F 83 8 L 84/41 L 97 97 Date Exam was Performed: 06/16/20 Time Exam was Performed: 11:09 - Problem List & Annotations (1) Aspiration pneumonia SNOMED Code(s): 443276622 Code(s): J69.0 - PNEUMONITIS DUE TO INHALATION OF FOOD AND VOMIT Status: Acute Current Visit: Yes Qualifiers: Aspiration pneumonia type: unspecified Laterality: right Lung location: lower lobe of lung Qualified Code(s): J69.0 - Pneumonitis due to inhalation of food and vomit Annotation/Comment:: RLL (2) Left humeral fracture SNOMED Code(s): 47034861 Code(s): S42.302A - UNSP FRACTURE OF SHAFT OF HUMERUS, LEFT ARM, INIT Status: Acute Current Visit: Yes Qualifiers: Encounter type: subsequent encounter Fracture type: closed (3) DVT prophylaxis SNOMED Code(s): 956145064, 397011673 Code(s): [id number] - Status: Acute Current Visit: No Annotation/Comment:: raul Souza. (4) GERD (gastroesophageal reflux disease) SNOMED Code(s): 899786564 Code(s): K21.9 - GASTRO-ESOPHAGEAL REFLUX DISEASE WITHOUT ESOPHAGITIS Status: Chronic Current Visit: No Qualifiers: (5) Hypothyroidism SNOMED Code(s): 16078466 Code(s): E03.9 - HYPOTHYROIDISM, UNSPECIFIED Status: Chronic Current Visit: No (6) Mental retardation SNOMED Code(s): 383511208 Code(s): F79 - UNSPECIFIED INTELLECTUAL DISABILITIES Status: Chronic Current Visit: No Annotation/Comment:: Precautions. (7) Parkinson's disease SNOMED Code(s): 79508309 Code(s): G20 - PARKINSON'S DISEASE Status: Chronic Current Visit: No (8) Seizure disorder SNOMED Code(s): 549388833 Code(s): G40.909 - EPILEPSY, UNSP, NOT INTRACTABLE, WITHOUT STATUS EPILEPTICUS Status: Chronic Current Visit: No Annotation/Comment:: (9) DNI (do not intubate) SNOMED Code(s): 509540268 Code(s): Z78.9 - OTHER SPECIFIED HEALTH STATUS Status: Chronic Current Visit: Yes (10) DNR (do not resuscitate) Status: Chronic Current Visit: No (11) Palliative care status SNOMED Code(s): 023810268 Code(s): Z51.5 - ENCOUNTER FOR PALLIATIVE CARE Status: Acute Current Visit: No - Problem List Review Problem List Initiated/Reviewed/Updated: Yes - My Orders Last 24 Hours: My Active Orders 06/16/20 09:48 LORazepam [Ativan] 1 mg IVPUSH Q5M PRN 06/17/20 06:00 BASIC METABOLIC PANEL,BMP [CHEM] Routine CBC WITH AUTO DIFF [HEME] Routine - Plan Plan:: 1. WBC down to 12 from 14.5, CO2 improved to 35. Zosyn & Azithromycin day 2, Blood cultures & urine culture pending. 2. Sling on the left arm, nonsurgical fracture. 3. Regular diet, as tolerated, currently has not swallowed her pills even in pudding(were suctioned over an hour after given pills), her medications switched to injectable, rectal or inhaled forms. Will resume oral pills once she is more able to participate in swallowing. 4. Up in chair when able. 5. Adjust treatments as necessary.
[2020-06-16] MEDS: Enoxaparin 30 MG/0.3 ML Syringe SUBCUT SCH (14:13)
--- NOTE | 2020-06-16 16:44 | CR ---
INDICATION: Follow up left humeral fracture. LEFT SHOULDER: Four views of the left shoulder were obtained. They were somewhat limited by the patient's inability to cooperate with the examination. Again noted is a comminuted fracture of the proximal humerus with moderate deformity appearing essentially unchanged from the previous examination. There does appear to be significant posterior and medial offset of the distal fracture fragment and posteromedial angulation at the fracture site. No interval progress in healing is expected at this time. IMPRESSION: Grossly stable fracture fragments with comminution and deformity proximal humerus. MTDD
[2020-06-16] MEDS: Azithromycin 250 MG in Sodium Chloride 0.9% 250 ML IV SCH (17:28)
[2020-06-16] MEDS: Mirtazapine 15 MG Tab SCH (17:33)
[2020-06-16] MEDS: Levothyroxine 75 MCG Tab SCH (20:13)
[2020-06-16] MEDS: Acetaminophen 650 MG Supp RECTAL PRN (23:26)
[2020-06-17] MEDS: Piperacillin/Tazobactam 3.375 GM in Sodium Chloride 0.9% 50 ML IV SCH ×4 (01:32→19:40)
[2020-06-17] MEDS: Sodium Chloride 0.9% 10 ML Syringe FLUSH PRN ×7 (02:05→20:19)
[2020-06-17] MEDS: Pantoprazole 40 MG Tab.CR SCH (05:09)
[2020-06-17] MEDS: Albuterol/Ipratropium 3.0-0.5 MG/3 ML Neb Soln NEB SCH ×4 (06:05→20:29)
[2020-06-17] MEDS: Carbidopa/Levodopa 25-100 MG Tab SCH ×4 (10:32→20:28)
[2020-06-17] MEDS: Divalproex Sodium Delayed-Release 125 MG Cap.Sprink SCH ×4 (10:33→20:28)
--- NOTE | 2020-06-17 10:53 | PCM.PN ---
- General Info Date of Service: 06/17/20 Admission Dx/Problem (Free Text): Liane showed signs of fluid overload overnight, IVF discontinued, saline locked. Oxygen 92% on High-flow nasal cannula at 8 L then switched back to non- rebreather mask at 12L overnight, saturations 90%. Urine output is 1200 ml today. Nursing noticed bruising under her right axilla as well as left goes up to left shoulder, in left envelope sling. Spoke with [facility] yesterday as they had ordered 4 view left shoulder x-ray, these were obtained, advised non-surgical conservative management, repeat x-rays in 2 weeks. Use envelope sling to immobilize, keep head of bed 30 degrees, do not lay flat, or can be in wheelchair, if she begins to move her arm too much in the sling then they advised to put in shoulder immobilizer. She uses her arms minimally, has arm braces on at [facility] to keep her from hurting herself so would not be nefit from PT/OT, continue passive range of motion exercises that she has done at the [facility]. No fevers today. - Patient Data Vitals - Most Recent: Last Vital Signs Temp 98.3 F 06/17/20 04:00 Pulse 102 H 06/17/20 06:05 Resp 14 06/17/20 04:00 BP 135/44 L 06/17/20 04:00 Pulse Ox 90 L 06/17/20 06:05 Weight - Most Recent: 145 lb 1 oz I&O - Last 24 Hours: Intake & Output 06/16/20 06/17/20 06/17/20 22:59 06:59 14:59 Intake Total 571 Output Total 375 425 Balance 196 -425 Lab Results Last 24 Hours: Laboratory Results - last 24 hr 06/17/20 06/17/20 Range/Units 06:20 06:20 WBC 17.7 H (4.5-12.0) X10-3/uL RBC 2.83 L (3.23-5.20) x10(6)uL Hgb 8.6 L (11.5-15.5) g/dL Hct 26.8 L (30.0-51.3) % MCV 94.5 (80-96) fL MCH 30.4 (27.7-33.6) pg MCHC 32.2 (32.2-35.4) g/dL RDW 14.5 (11.5-15.5) % Plt Count 187 (125-369) X10(3)uL MPV 7.7 (7.4-10.4) fL Add Manual Diff Yes Neutrophils % (Manual) 68 (46-82) % Band Neutrophils % 22 H* (0-6) % Lymphocytes % (Manual) 2 L (13-37) % Monocytes % (Manual) 3 L (4-12) % Metamyelocytes % 3 H (0-0) % Myelocytes % 2 H (0-0) % Toxic Granulation Moderate H (NOT SEEN) Sodium 141 (135-145) mmol/L Potassium 4.4 (3.5-5.3) mmol/L Chloride 103 (100-110) mmol/L Carbon Dioxide 38 H (21-32) mmol/L BUN 30 H (7-18) mg/dL Creatinine 0.5 L (0.55-1.02) mg/dL Est Cr Clr Drug Dosing 84.65 mL/min Estimated GFR (MDRD) > 60 (>60) BUN/Creatinine Ratio 60.0 H (9-20) Glucose 85 (80-116) mg/dL Calcium 8.9 (8.6-10.2) mg/dL Willie Results Last 24 Hours: Microbiology 06/15/20 12:00 Aerobic Blood Culture - Preliminary Blood - Venous NO GROWTH AFTER 1 DAY Anaerobic Blood Culture - Preliminary NO GROWTH AFTER 1 DAY Med Orders - Current: Current Medications Acetaminophen (Tylenol) 650 mg RECTAL Q4H PRN PRN Reason: Mild pain/fever Last Admin: 06/16/20 23:26 Dose: 650 mg Documented by: Albuterol/Ipratropium (Duoneb 3.0-0.5 Mg/3 Ml) 3 ml NEB QIDRT [facility] Last Admin: 06/17/20 10:32 Dose: 3 ml Documented by: Bisacodyl (Dulcolax) 10 mg RECTAL DAILY PRN PRN Reason: Constipation Last Admin: 06/17/20 02:27 Dose: 10 mg Documented by: Carbidopa/Levodopa (Sinemet 25-100 Mg) 2.5 tab .XX 10,13,17,20 [facility] Last Admin: 06/17/20 10:32 Dose: 2.5 tab Documented by: Divalproex Sodium (Depakote Sprinkle) 375 mg .XX 10,13,17,20 [facility] Last Admin: 06/17/20 10:33 Dose: 375 mg Documented by: Enoxaparin Sodium (Lovenox) 30 mg SUBCUT Q24H [facility] Last Admin: 06/16/20 14:13 Dose: 30 mg Documented by: Piperacillin Sod/Tazobactam (Sod 3.375 gm/ Sodium Chloride) 50 mls @ 100 mls/hr IV Q6H [facility] Last Admin: 06/17/20 07:41 Dose: 100 mls/hr Documented by: Azithromycin 250 mg/ Sodium (Chloride) 250 mls @ 250 mls/hr IV Q24H [facility] Last Admin: 06/16/20 17:28 Dose: 250 mls/hr Documented by: Levothyroxine Sodium (Levothyroxine) 75 mcg .XX BEDTIME [facility] Last Admin: 06/16/20 20:13 Dose: 75 mcg Documented by: Lorazepam (Ativan) 1 mg IVPUSH Q5M PRN PRN Reason: SEIZURES Mirtazapine (Remeron) 7.5 mg .XX 1800 [facility] Last Admin: 06/16/20 17:33 Dose: 7.5 mg Documented by: Pantoprazole Sodium (Protonix) 40 mg .XX DAILY@0600 [facility] Last Admin: 06/17/20 05:09 Dose: 40 mg Documented by: Senna/Docusate Sodium (Senna Plus) 1 tab .XX DAILY [facility] Last Admin: 06/17/20 08:21 Dose: 1 tab Documented by: Sodium Chloride (Saline Flush) 10 ml FLUSH ASDIRECTED PRN PRN Reason: Keep Vein Open Last Admin: 06/17/20 08:16 Dose: 10 ml Documented by: Discontinued Medications Albuterol/Ipratropium (Duoneb 3.0-0.5 Mg/3 Ml) 3 ml NEB ONETIME ONE Stop: 06/15/20 12:41 Last Admin: 06/15/20 12:49 Dose: 3 ml Documented by: Carbidopa/Levodopa (Sinemet 25-100 Mg) 2.5 tab PO 10,13,17,20 [facility] Last Admin: 06/15/20 21:45 Dose: 2.5 tab Documented by: Divalproex Sodium (Depakote Sprinkle) 375 mg PO 10,13,17,20 [facility] Last Admin: 06/15/20 21:45 Dose: 375 mg Documented by: Sodium Chloride (Normal Saline) 500 mls @ 500 mls/hr IV .BOLUS ONE Stop: 06/15/20 12:37 Last Admin: 06/15/20 11:49 Dose: 500 mls/hr Documented by: Piperacillin Sod/Tazobactam (Sod 3.375 gm/ Sodium Chloride) 50 mls @ 100 mls/hr IV Q6H [facility] Last Admin: 06/15/20 12:54 Dose: 100 mls/hr Documented by: Dextrose/Sodium Chloride (Dextrose 5%-1/2 Ns) 1,000 mls @ 100 mls/hr IV DIRECTED [facility] Last Admin: 06/16/20 14:23 Dose: 100 mls/hr Documented by: Sodium Chloride (Normal Saline) 1,000 mls @ 500 mls/hr IV ONETIME ONE Stop: 06/15/20 22:29 Last Admin: 06/15/20 20:30 Dose: 500 mls/hr Documented by: Levothyroxine Sodium (Levothyroxine) 75 mcg PO BEDTIME [facility] Last Admin: 06/15/20 21:46 Dose: 75 mcg Documented by: Mirtazapine (Remeron) 7.5 mg PO 1800 [facility] Last Admin: 06/15/20 17:37 Dose: 7.5 mg Documented by: Naloxone HCl (Narcan) 0.4 mg IVPUSH ONETIME ONE Stop: 06/15/20 11:49 Last Admin: 06/15/20 11:59 Dose: 0.4 mg Documented by: Naloxone HCl (Narcan) 0.4 mg IVPUSH ONETIME ONE Stop: 06/15/20 13:17 Last Admin: 06/15/20 13:18 Dose: 0.4 mg Documented by: Ondansetron HCl (Zofran) 4 mg IV Q8H PRN PRN Reason: Nausea/Vomiting Pantoprazole Sodium (Protonix) 40 mg PO DAILY@0600 [facility] Last Admin: 06/16/20 05:53 Dose: 40 mg Documented by: Polyethylene Glycol (Miralax) 17 gm PO DAILY [facility] Last Admin: 06/16/20 15:06 Dose: Not Given Documented by: Senna/Docusate Sodium (Senna Plus) 1 tab PO DAILY [facility] Last Admin: 06/16/20 15:10 Dose: Not Given Documented by: - Exam General: Alert, No Acute Distress Lungs: Normal Respiratory Effort (increased work of breathing), Rales, Wheezing, Other Cardiovascular: Regular Rate, Regular Rhythm GI/Abdominal Exam: Normal Bowel Sounds, Soft, Non-Tender, No Distention Extremities: Pedal Edema (1+ BLE) Peripheral Pulses: 2+: Radial (L), Radial (R) Psy/Mental Status: No: Agitated Sepsis Event Note - Evaluation Sepsis Screening Result: No Definite Risk - Focused Exam Vital Signs: Vital Signs Temp Pulse Resp BP Pulse Ox Pulse Ox Pulse Ox 06/17/20 06:05 102 H 90 L 06/17/20 04:00 98.3 F 95 14 135/44 L 91 L 06/17/20 00:00 97.4 F 93 14 132/50 L 94 L 94 L Date Exam was Performed: 06/17/20 Time Exam was Performed: 11:25 - Problem List & Annotations (1) Aspiration pneumonia SNOMED Code(s): 667167966 Code(s): J69.0 - PNEUMONITIS DUE TO INHALATION OF FOOD AND VOMIT Status: Acute Current Visit: Yes Qualifiers: Aspiration pneumonia type: unspecified Laterality: right Lung location: lower lobe of lung Qualified Code(s): J69.0 - Pneumonitis due to inhalation of food and vomit Annotation/Comment:: RLL (2) Left humeral fracture SNOMED Code(s): 82012585 Code(s): S42.302A - UNSP FRACTURE OF SHAFT OF HUMERUS, LEFT ARM, INIT Status: Acute Current Visit: Yes Qualifiers: Encounter type: subsequent encounter Fracture type: closed (3) DVT prophylaxis SNOMED Code(s): 805169739, 870262094 Code(s): XYQ6398 - Status: Acute Current Visit: No Annotation/Comment:: TEDfiliberto pisanox. (4) GERD (gastroesophageal reflux disease) SNOMED Code(s): 359434164 Code(s): K21.9 - GASTRO-ESOPHAGEAL REFLUX DISEASE WITHOUT ESOPHAGITIS Status: Chronic Current Visit: No Qualifiers: (5) Hypothyroidism SNOMED Code(s): 39666770 Code(s): E03.9 - HYPOTHYROIDISM, UNSPECIFIED Status: Chronic Current Visit: No (6) Mental retardation SNOMED Code(s): 337200508 Code(s): F79 - UNSPECIFIED INTELLECTUAL DISABILITIES Status: Chronic Current Visit: No Annotation/Comment:: Precautions. (7) Parkinson's disease SNOMED Code(s): 04208366 Code(s): G20 - PARKINSON'S DISEASE Status: Chronic Current Visit: No (8) Seizure disorder SNOMED Code(s): 599132777 Code(s): G40.909 - EPILEPSY, UNSP, NOT INTRACTABLE, WITHOUT STATUS EPILEPTICUS Status: Chronic Current Visit: No Annotation/Comment:: (9) DNI (do not intubate) SNOMED Code(s): 599348440 Code(s): Z78.9 - OTHER SPECIFIED HEALTH STATUS Status: Chronic Current Visit: Yes (10) DNR (do not resuscitate) Status: Chronic Current Visit: No (11) Palliative care status SNOMED Code(s): 558326488 Code(s): Z51.5 - ENCOUNTER FOR PALLIATIVE CARE Status: Acute Current Visit: No (12) UTI (urinary tract infection) SNOMED Code(s): 99809127 Code(s): N39.0 - URINARY TRACT INFECTION, SITE NOT SPECIFIED Status: Acute Current Visit: Yes Annotation/Comment:: E coli, sensitive to Zosyn. - Problem List Review Problem List Initiated/Reviewed/Updated: Yes - My Orders Last 24 Hours: My Active Orders 06/16/20 09:48 LORazepam [Ativan] 1 mg IVPUSH Q5M PRN 06/18/20 06:00 BASIC METABOLIC PANEL,BMP [CHEM] Routine CBC WITH AUTO DIFF [HEME] Routine - Plan Plan:: 1. WBC up to 17.7 from 12, bands 22% but neutrophils at 68%, Zosyn & Azithromycin day 3, Blood cultures no growth, & urine culture E coli, sensitive to Zosyn. Had fluid overload last night, give onetime Lasix dose. Will monitor and adjust throughout the day, adjust treatments as needed. She is a DNR/DNI. 2. Sling on the left arm, nonsurgical fracture, continue passive range of motion with other extremities as she was at the [place] [facility]. If she starts moving her arm more in the sling, then would need to do shoulder immobilizer. 3. Regular diet, as tolerated; continue to monitor her status and adjust as needed.
[2020-06-17] MEDS ORDERED: Furosemide 20 MG/2 ML VIAL IVPUSH ONE (11:30)
[2020-06-17] MEDS: Enoxaparin 30 MG/0.3 ML Syringe SUBCUT SCH (13:35)
[2020-06-17] MEDS: Azithromycin 250 MG in Sodium Chloride 0.9% 250 ML IV SCH (16:44)
[2020-06-17] MEDS: Acetaminophen 650 MG Supp RECTAL PRN ×2 (16:48→20:36)
[2020-06-17] MEDS: Mirtazapine 15 MG Tab SCH (16:59)
[2020-06-17] MEDS: Levothyroxine 75 MCG Tab SCH (20:29)
[2020-06-18] MEDS: Piperacillin/Tazobactam 3.375 GM in Sodium Chloride 0.9% 50 ML IV SCH ×4 (01:34→19:31)
[2020-06-18] MEDS: Sodium Chloride 0.9% 10 ML Syringe FLUSH PRN ×3 (02:06→14:28)
[2020-06-18] MEDS: Pantoprazole 40 MG Tab.CR SCH (05:50)
[2020-06-18] MEDS: Albuterol/Ipratropium 3.0-0.5 MG/3 ML Neb Soln NEB SCH ×2 (06:14→11:05)
[2020-06-18] MEDS ORDERED: Sodium Chloride 0.9% 1,000 ML IV SCH (09:15)
[2020-06-18] MEDS: Lactated Ringers 1,000 ML IV SCH (09:45)
[2020-06-18] MEDS: Carbidopa/Levodopa 25-100 MG Tab SCH ×4 (09:59→20:30)
[2020-06-18] MEDS: Divalproex Sodium Delayed-Release 125 MG Cap.Sprink SCH ×4 (09:59→20:29)
[2020-06-18] MEDS ORDERED: Albuterol/Ipratropium 3.0-0.5 MG/3 ML Neb Soln NEB PRN (11:04)
--- NOTE | 2020-06-18 11:53 | PCM.PN ---
- General Info Date of Service: 06/18/20 Subjective Update: Liane is worsening today, she had worked her mask off when I entered the room this morning, saturations had dropped to 77%, came up to 95% with mask resecured. She did not eat or drink anything yesterday. Had low grade fever overnight 100.2F, given Tylenol suppository, 98.9F this morning. Still edematous in her feet. Functional Status: Reports: Urinating. Denies: Tolerating Diet - Patient Data Vitals - Most Recent: Last Vital Signs Temp 97.8 F 06/18/20 07:50 Pulse 102 H 06/18/20 07:50 Resp 22 H 06/18/20 07:50 BP 146/62 H 06/18/20 07:50 Pulse Ox 95 06/18/20 07:50 Weight - Most Recent: 142 lb 7 oz I&O - Last 24 Hours: Intake & Output 06/17/20 06/18/20 06/18/20 22:59 06:59 14:59 Intake Total 300 50 Output Total 500 275 Balance -200 -225 Lab Results Last 24 Hours: Laboratory Results - last 24 hr 06/17/20 06/18/20 06/18/20 Range/Units 17:00 06:40 06:40 WBC 18.0 H (4.5-12.0) X10-3/uL RBC 3.04 L (3.23-5.20) x10(6)uL Hgb 9.5 L 9.2 L (11.5-15.5) g/dL Hct 29.1 L 28.4 L (30.0-51.3) % MCV 93.4 (80-96) fL MCH 30.1 (27.7-33.6) pg MCHC 32.3 (32.2-35.4) g/dL RDW 14.6 (11.5-15.5) % Plt Count 226 (125-369) X10(3)uL MPV 7.5 (7.4-10.4) fL Add Manual Diff Yes Neutrophils % (Manual) 70 (46-82) % Band Neutrophils % 13 H (0-6) % Lymphocytes % (Manual) 8 L (13-37) % Monocytes % (Manual) 6 (4-12) % Metamyelocytes % 2 H (0-0) % Myelocytes % 1 H (0-0) % POC VBG pH (7.31-7.41) POC VBG pCO2 (41-51) mmHG POC VBG Total CO2 (24-29) mmol/L POC VBG Base Excess (-2-3) mmol/L Sodium 147 H (135-145) mmol/L Potassium 3.8 (3.5-5.3) mmol/L Chloride 106 (100-110) mmol/L Carbon Dioxide 40 H* (21-32) mmol/L BUN 27 H (7-18) mg/dL Creatinine 0.5 L (0.55-1.02) mg/dL Est Cr Clr Drug Dosing 84.65 mL/min Estimated GFR (MDRD) > 60 (>60) BUN/Creatinine Ratio 54.0 H (9-20) Glucose 80 (80-116) mg/dL Calcium 9.2 (8.6-10.2) mg/dL 06/18/20 Range/Units 10:30 WBC (4.5-12.0) X10-3/uL RBC (3.23-5.20) x10(6)uL Hgb (11.5-15.5) g/dL Hct (30.0-51.3) % MCV (80-96) fL MCH (27.7-33.6) pg MCHC (32.2-35.4) g/dL RDW (11.5-15.5) % Plt Count (125-369) X10(3)uL MPV (7.4-10.4) fL Add Manual Diff Neutrophils % (Manual) (46-82) % Band Neutrophils % (0-6) % Lymphocytes % (Manual) (13-37) % Monocytes % (Manual) (4-12) % Metamyelocytes % (0-0) % Myelocytes % (0-0) % POC VBG pH 7.40 (7.31-7.41) POC VBG pCO2 74.1 H (41-51) mmHG POC VBG Total CO2 48 H (24-29) mmol/L POC VBG Base Excess 21 H (-2-3) mmol/L Sodium (135-145) mmol/L Potassium (3.5-5.3) mmol/L Chloride (100-110) mmol/L Carbon Dioxide (21-32) mmol/L BUN (7-18) mg/dL Creatinine (0.55-1.02) mg/dL Est Cr Clr Drug Dosing mL/min Estimated GFR (MDRD) (>60) BUN/Creatinine Ratio (9-20) Glucose (80-116) mg/dL Calcium (8.6-10.2) mg/dL Willie Results Last 24 Hours: Microbiology 06/15/20 12:00 Aerobic Blood Culture - Preliminary Blood - Venous NO GROWTH AFTER 2 DAYS Anaerobic Blood Culture - Preliminary NO GROWTH AFTER 2 DAYS 06/15/20 20:42 Urine Culture - Final Urine, Catheterized Escherichia Coli Med Orders - Current: Current Medications Acetaminophen (Tylenol) 650 mg RECTAL Q4H [facility] Albuterol/Ipratropium (Duoneb 3.0-0.5 Mg/3 Ml) 3 ml NEB QIDRT PRN PRN Reason: Shortness of Breath Bisacodyl (Dulcolax) 10 mg RECTAL DAILY PRN PRN Reason: Constipation Last Admin: 06/17/20 02:27 Dose: 10 mg Documented by: Carbidopa/Levodopa (Sinemet 25-100 Mg) 2.5 tab .XX ,,, [facility] Last Admin: 06/18/20 09:59 Dose: 2.5 tab Documented by: Divalproex Sodium (Depakote Sprinkle) 375 mg .XX ,,, [facility] Last Admin: 06/18/20 09:59 Dose: 375 mg Documented by: Enoxaparin Sodium (Lovenox) 30 mg SUBCUT Q24H [facility] Last Admin: 06/17/20 13:35 Dose: 30 mg Documented by: Piperacillin Sod/Tazobactam (Sod 3.375 gm/ Sodium Chloride) 50 mls @ 100 mls/hr IV Q6H [facility] Last Admin: 06/18/20 09:45 Dose: 100 mls/hr Documented by: Lactated Ringer's (Ringers, Lactated) 1,000 mls @ 75 mls/hr IV ASDIRECTED [facility] Last Admin: 06/18/20 09:45 Dose: 75 mls/hr Documented by: Doxycycline Hyclate 100 mg/ (Sodium Chloride) 100 mls @ 100 mls/hr IV Q12H [facility] Levothyroxine Sodium (Levothyroxine) 75 mcg .XX BEDTIME [facility] Last Admin: 06/17/20 20:29 Dose: 75 mcg Documented by: Lorazepam (Ativan) 1 mg IVPUSH Q5M PRN PRN Reason: SEIZURES Mirtazapine (Remeron) 7.5 mg .XX 1800 [facility] Last Admin: 06/17/20 16:59 Dose: 7.5 mg Documented by: Pantoprazole Sodium (Protonix) 40 mg .XX DAILY@0600 [facility] Last Admin: 06/18/20 05:50 Dose: 40 mg Documented by: Senna/Docusate Sodium (Senna Plus) 1 tab .XX DAILY [facility] Last Admin: 06/18/20 09:58 Dose: 1 tab Documented by: Sodium Chloride (Saline Flush) 10 ml FLUSH ASDIRECTED PRN PRN Reason: Keep Vein Open Last Admin: 06/18/20 09:45 Dose: 10 ml Documented by: Discontinued Medications Acetaminophen (Tylenol) 650 mg RECTAL Q4H PRN PRN Reason: Mild pain/fever Last Admin: 06/17/20 20:36 Dose: 650 mg Documented by: Albuterol/Ipratropium (Duoneb 3.0-0.5 Mg/3 Ml) 3 ml NEB ONETIME ONE Stop: 06/15/20 12:41 Last Admin: 06/15/20 12:49 Dose: 3 ml Documented by: Albuterol/Ipratropium (Duoneb 3.0-0.5 Mg/3 Ml) 3 ml NEB QIDRT [facility] Last Admin: 06/18/20 11:05 Dose: Not Given Documented by: Carbidopa/Levodopa (Sinemet 25-100 Mg) 2.5 tab PO 10,13,17,20 [facility] Last Admin: 06/15/20 21:45 Dose: 2.5 tab Documented by: Divalproex Sodium (Depakote Sprinkle) 375 mg PO 10,13,17,20 [facility] Last Admin: 06/15/20 21:45 Dose: 375 mg Documented by: Furosemide (Lasix) 20 mg IVPUSH NOW ONE Stop: 06/17/20 11:31 Last Admin: 06/17/20 12:56 Dose: 20 mg Documented by: Sodium Chloride (Normal Saline) 500 mls @ 500 mls/hr IV .BOLUS ONE Stop: 06/15/20 12:37 Last Admin: 06/15/20 11:49 Dose: 500 mls/hr Documented by: Piperacillin Sod/Tazobactam (Sod 3.375 gm/ Sodium Chloride) 50 mls @ 100 mls/hr IV Q6H [facility] Last Admin: 06/15/20 12:54 Dose: 100 mls/hr Documented by: Dextrose/Sodium Chloride (Dextrose 5%-1/2 Ns) 1,000 mls @ 100 mls/hr IV ASDIRECTED [facility] Last Admin: 06/16/20 14:23 Dose: 100 mls/hr Documented by: Azithromycin 250 mg/ Sodium (Chloride) 250 mls @ 250 mls/hr IV Q24H [facility] Last Admin: 06/17/20 16:44 Dose: 250 mls/hr Documented by: Sodium Chloride (Normal Saline) 1,000 mls @ 500 mls/hr IV ONETIME ONE Stop: 06/15/20 22:29 Last Admin: 06/15/20 20:30 Dose: 500 mls/hr Documented by: Sodium Chloride (Normal Saline) 1,000 mls @ 75 mls/hr IV ASDIRECTED [facility] Levothyroxine Sodium (Levothyroxine) 75 mcg PO BEDTIME [facility] Last Admin: 06/15/20 21:46 Dose: 75 mcg Documented by: Mirtazapine (Remeron) 7.5 mg PO 1800 [facility] Last Admin: 06/15/20 17:37 Dose: 7.5 mg Documented by: Naloxone HCl (Narcan) 0.4 mg IVPUSH ONETIME ONE Stop: 06/15/20 11:49 Last Admin: 06/15/20 11:59 Dose: 0.4 mg Documented by: Naloxone HCl (Narcan) 0.4 mg IVPUSH ONETIME ONE Stop: 06/15/20 13:17 Last Admin: 06/15/20 13:18 Dose: 0.4 mg Documented by: Ondansetron HCl (Zofran) 4 mg IV Q8H PRN PRN Reason: Nausea/Vomiting Pantoprazole Sodium (Protonix) 40 mg PO DAILY@0600 [facility] Last Admin: 06/16/20 05:53 Dose: 40 mg Documented by: Polyethylene Glycol (Miralax) 17 gm PO DAILY [facility] Last Admin: 06/16/20 15:06 Dose: Not Given Documented by: Senna/Docusate Sodium (Senna Plus) 1 tab PO DAILY [facility] Last Admin: 06/16/20 15:10 Dose: Not Given Documented by: - Exam Quality Assessment: Supplemental Oxygen, Urine Catheter General: Mild Distress, Obtunded Lungs: Decreased Breath Sounds (RLL, RML, RUL), Rhonchi (LLL), Other (Abdominal breathing). No: Wheezing Cardiovascular: Regular Rhythm, Tachycardia GI/Abdominal Exam: Normal Bowel Sounds, Soft, Non-Tender, No Distention Extremities: Pedal Edema (1+ BLE) Peripheral Pulses: 2+: Radial (L), Radial (R) Sepsis Event Note - Evaluation Sepsis Screening Result: No Definite Risk Possible Source of Sepsis: Pulmonary - Focused Exam Vital Signs: Vital Signs Temp Pulse Resp BP Pulse Ox Pulse Ox 06/18/20 07:50 97.8 F 102 H 22 H 146/62 H 95 06/18/20 06:14 90 98 06/18/20 06:00 98.9 F 99 16 159/61 H 99 06/18/20 00:00 97.9 F 88 16 142/63 H 100 100 Respiratory Effort Without Exertion: Abdominal Breathing, See Saw Heart Sounds: Distant Capillary Refill, Detail: Less than/Equal to (</=) 2 Seconds Pulse Description: 2+ Normal Peripheral Pulse Location: Radial Skin Exam (Focused Sepsis): Pale Date Exam was Performed: 06/18/20 Time Exam was Performed: 11:53 - Problem List & Annotations (1) Aspiration pneumonia SNOMED Code(s): 846389950 Code(s): J69.0 - PNEUMONITIS DUE TO INHALATION OF FOOD AND VOMIT Status: Acute Current Visit: Yes Qualifiers: Aspiration pneumonia type: unspecified Laterality: right Lung location: lower lobe of lung Qualified Code(s): J69.0 - Pneumonitis due to inhalation of food and vomit Annotation/Comment:: RLL (2) Left humeral fracture SNOMED Code(s): 45868962 Code(s): S42.302A - UNSP FRACTURE OF SHAFT OF HUMERUS, LEFT ARM, INIT Status: Acute Current Visit: Yes Qualifiers: Encounter type: subsequent encounter Fracture type: closed (3) DVT prophylaxis SNOMED Code(s): 410277005, 652567127 Code(s): JLQ7160 - Status: Acute Current Visit: No Annotation/Comment:: Harley filibertox. (4) GERD (gastroesophageal reflux disease) SNOMED Code(s): 832917716 Code(s): K21.9 - GASTRO-ESOPHAGEAL REFLUX DISEASE WITHOUT ESOPHAGITIS Statu s: Chronic Current Visit: No Qualifiers: (5) Hypothyroidism SNOMED Code(s): 34366862 Code(s): E03.9 - HYPOTHYROIDISM, UNSPECIFIED Status: Chronic Current Visit: No (6) Mental retardation SNOMED Code(s): 244714618 Code(s): F79 - UNSPECIFIED INTELLECTUAL DISABILITIES Status: Chronic Current Visit: No Annotation/Comment:: Precautions. (7) Parkinson's disease SNOMED Code(s): 93617137 Code(s): G20 - PARKINSON'S DISEASE Status: Chronic Current Visit: No (8) Seizure disorder SNOMED Code(s): 291112939 Code(s): G40.909 - EPILEPSY, UNSP, NOT INTRACTABLE, WITHOUT STATUS EPILEPTICUS Status: Chronic Current Visit: No Annotation/Comment:: (9) DNI (do not intubate) SNOMED Code(s): 240168230 Code(s): Z78.9 - OTHER SPECIFIED HEALTH STATUS Status: Chronic Current Visit: Yes (10) DNR (do not resuscitate) Status: Chronic Current Visit: No (11) Palliative care status SNOMED Code(s): 170357905 Code(s): Z51.5 - ENCOUNTER FOR PALLIATIVE CARE Status: Acute Current Visit: No (12) UTI (urinary tract infection) SNOMED Code(s): 06297084 Code(s): N39.0 - URINARY TRACT INFECTION, SITE NOT SPECIFIED Status: Acute Current Visit: Yes Annotation/Comment:: E coli, sensitive to Zosyn. - Problem List Review Problem List Initiated/Reviewed/Updated: Yes - My Orders Last 24 Hours: My Active Orders 06/18/20 08:52 CXR [Chest 1V Frontal] [CR] Routine 06/18/20 09:30 Lactated Ringers [Ringers, Lactated] 1,000 ml IV ASDIRECTED 06/18/20 10:30 ISTAT G3,VENOUS [POC] Routine 06/18/20 11:04 Albuterol/Ipratropium [DuoNeb 3.0-0.5 MG/3 ML] 3 ml NEB QIDRT PRN 06/18/20 11:05 BLOOD GAS VENOUS [BG] Routine 06/18/20 12:00 Acetaminophen [Tylenol] 650 mg RECTAL Q4H Doxycycline [Vibramycin] 100 mg Sodium Chloride 0.9% [Normal Saline] 100 ml IV Q12H 06/19/20 06:00 BASIC METABOLIC PANEL,BMP [CHEM] Routine CBC WITH AUTO DIFF [HEME] Routine - Plan Plan:: 1. WBC up to 18 from 17.7, bands went down to 13 from 22% but neutrophils at 70%, Zosyn day 4 & Azithromycin day 3, Blood cultures no growth, & urine culture E coli, sensitive to Zosyn. CXR repeated this morning shows worsening pneumonia on Right, discontinued Azithromycin and added Doxycycline to cover atypicals as well as MRSA(good coverage per our biogram). Unable to do Merrem, Vancomycin or Linezolid due to drug interactions with her seizure/Parkinson's medications(biogram is also decreased for Vancomycin for MRSA). 2. Sling on the left arm, nonsurgical fracture, continue passive range of motion with other extremities as she was at the residential. If she starts moving her arm more in the sling, then would need to do shoulder immobilizer. 3. Not eating, restarted IVF as she hasn't taken anything oral in since Friday. LR at 75 ml/hr. 4. Discussed her condition with her brother Jules, who is her guardian. She is a DNR/DNI, discussed BiPAP machine as it is noninvasive and get some CO2 blown off but we agreed that she most likely wouldn't keep it on. Will continue the non-breather mask, adjusted antibiotics as above. Her prognosis is poor, has had multiple aspiration pneumonia events and with her recent fracture, she may not recover from this. Jules voiced understanding of this, he is currently stuck in [place], his condition does not allow them to drive back or fly back. She is critical at this point, we will keep him posted on her condition.
[2020-06-18] MEDS: Acetaminophen 650 MG Supp RECTAL SCH ×3 (13:37→20:32)
[2020-06-18] MEDS: Enoxaparin 30 MG/0.3 ML Syringe SUBCUT SCH (13:38)
[2020-06-18] MEDS: Doxycycline 100 MG in Sodium Chloride 0.9% 100 ML IV SCH (14:38)
[2020-06-18] MEDS: Mirtazapine 15 MG Tab SCH (17:02)
[2020-06-18] MEDS: Levothyroxine 75 MCG Tab SCH (20:30)
[2020-06-19] MEDS: Doxycycline 100 MG in Sodium Chloride 0.9% 100 ML IV SCH ×2 (00:09→12:51)
[2020-06-19] MEDS: Acetaminophen 650 MG Supp RECTAL SCH ×6 (00:20→19:36)
[2020-06-19] MEDS: Lactated Ringers 1,000 ML IV SCH (00:21)
[2020-06-19] MEDS: Piperacillin/Tazobactam 3.375 GM in Sodium Chloride 0.9% 50 ML IV SCH ×4 (01:37→19:33)
[2020-06-19] MEDS: Pantoprazole 40 MG Tab.CR SCH (06:37)
[2020-06-19] MEDS: Dextrose 5% in Water 1,000 ML IV SCH (09:09)
[2020-06-19] MEDS: Divalproex Sodium Delayed-Release 125 MG Cap.Sprink SCH ×4 (09:21→19:35)
[2020-06-19] MEDS: Carbidopa/Levodopa 25-100 MG Tab SCH ×4 (09:24→19:35)
--- NOTE | 2020-06-19 11:43 | PCM.PN ---
- General Info Date of Service: 06/19/20 Subjective Update: Liane remains unchanged as far as her breathing, more sedated. Still see saw breathing. CO2 is up to 41, Sodium is 153, Chloride is 112. NO fevers overnight but she is on scheduled Tylenol for pain for her humeral fracture. She not had anything by mouth since Friday, restarted IV fluids with gentle hydration. Spoke with her brother & guardian Jules on her condition. Her white count has improved but clinically not better. He was in agreement of trying BiPAP to get her CO2 down and give her some more support than the non-rebreather mask. Functional Status: Reports: Urinating - Patient Data Vitals - Most Recent: Last Vital Signs Temp 97.5 F 06/19/20 00:00 Pulse 90 06/19/20 00:00 Resp 20 06/19/20 00:00 BP 156/66 H 06/19/20 00:00 Pulse Ox 95 06/19/20 06:00 Weight - Most Recent: 143 lb I&O - Last 24 Hours: Intake & Output 06/18/20 06/19/20 06/19/20 22:59 06:59 14:59 Intake Total 501 475 Output Total 250 570 Balance 251 -95 Lab Results Last 24 Hours: Laboratory Results - last 24 hr 06/18/20 06/19/20 06/19/20 Range/Units 10:30 06:55 06:55 WBC 15.2 H (4.5-12.0) X10-3/uL Corrected WBC 15.0 H (4.5-12.0) X10(3) RBC 3.00 L (3.23-5.20) x10(6)uL Hgb 9.0 L (11.5-15.5) g/dL Hct 28.2 L (30.0-51.3) % MCV 94.2 (80-96) fL MCH 30.0 (27.7-33.6) pg MCHC 31.9 L (32.2-35.4) g/dL RDW 15.0 (11.5-15.5) % Plt Count 229 (125-369) X10(3)uL MPV 7.4 (7.4-10.4) fL Add Manual Diff Yes Neutrophils % (Manual) 80 (46-82) % Band Neutrophils % 6 (0-6) % Lymphocytes % (Manual) 5 L (13-37) % Monocytes % (Manual) 3 L (4-12) % Eosinophils % (Manual) 1 (0-5) % Metamyelocytes % 3 H (0-0) % Myelocytes % 2 H (0-0) % Nucleated RBCs 1 H (0-0) /100WBC POC VBG pH 7.40 (7.31-7.41) POC VBG pCO2 74.1 H (41-51) mmHG POC VBG HCO3 45.8 H (23-28) mmol/L POC VBG Total CO2 48 H (24-29) mmol/L POC VBG Base Excess 21 H (-2-3) mmol/L Sodium 153 H (135-145) mmol/L Potassium 3.9 (3.5-5.3) mmol/L Chloride 112 H D (100-110) mmol/L Carbon Dioxide 41 H* (21-32) mmol/L BUN 24 H (7-18) mg/dL Creatinine 0.5 L (0.55-1.02) mg/dL Est Cr Clr Drug Dosing 84.65 mL/min Estimated GFR (MDRD) > 60 (>60) BUN/Creatinine Ratio 48.0 H (9-20) Glucose 68 L (80-116) mg/dL Calcium 9.4 (8.6-10.2) mg/dL Willie Results Last 24 Hours: Microbiology 06/15/20 12:00 Aerobic Blood Culture - Preliminary Blood - Venous NO GROWTH AFTER 3 DAYS Anaerobic Blood Culture - Preliminary NO GROWTH AFTER 3 DAYS Med Orders - Current: Current Medications Acetaminophen (Tylenol) 650 mg RECTAL Q4H [facility] Last Admin: 06/19/20 09:20 Dose: 650 mg Documented by: Albuterol/Ipratropium (Duoneb 3.0-0.5 Mg/3 Ml) 3 ml NEB QIDRT PRN PRN Reason: Shortness of Breath Bisacodyl (Dulcolax) 10 mg RECTAL DAILY PRN PRN Reason: Constipation Last Admin: 06/17/20 02:27 Dose: 10 mg Documented by: Carbidopa/Levodopa (Sinemet 25-100 Mg) 2.5 tab .XX 10,13,17,20 [facility] Last Admin: 06/19/20 09:24 Dose: 2.5 tab Documented by: Divalproex Sodium (Depakote Sprinkle) 375 mg .XX 10,13,17,20 [facility] Last Admin: 06/19/20 09:21 Dose: 375 mg Documented by: Enoxaparin Sodium (Lovenox) 30 mg SUBCUT Q24H [facility] Last Admin: 06/18/20 13:38 Dose: 30 mg Documented by: Piperacillin Sod/Tazobactam (Sod 3.375 gm/ Sodium Chloride) 50 mls @ 100 mls/hr IV Q6H [facility] Last Admin: 06/19/20 09:14 Dose: 100 mls/hr Documented by: Doxycycline Hyclate 100 mg/ (Sodium Chloride) 100 mls @ 100 mls/hr IV Q12H [facility] Last Admin: 06/19/20 00:09 Dose: 100 mls/hr Documented by: Dextrose/Water (Dextrose 5% In Water) 1,000 mls @ 75 mls/hr IV ASDIRECTED [facility] Last Admin: 06/19/20 09:09 Dose: 75 mls/hr Documented by: Levothyroxine Sodium (Levothyroxine) 75 mcg .XX BEDTIME [facility] Last Admin: 06/18/20 20:30 Dose: 75 mcg Documented by: Lorazepam (Ativan) 1 mg IVPUSH Q5M PRN PRN Reason: SEIZURES Mirtazapine (Remeron) 7.5 mg .XX 1700 [facility] Pantoprazole Sodium (Protonix) 40 mg .XX DAILY@0600 [facility] Last Admin: 06/19/20 06:37 Dose: 40 mg Documented by: Senna/Docusate Sodium (Senna Plus) 1 tab .XX DAILY [facility] Last Admin: 06/19/20 09:26 Dose: 1 tab Documented by: Sodium Chloride (Saline Flush) 10 ml FLUSH ASDIRECTED PRN PRN Reason: Keep Vein Open Last Admin: 06/18/20 14:28 Dose: 10 ml Documented by: Discontinued Medications Acetaminophen (Tylenol) 650 mg RECTAL Q4H PRN PRN Reason: Mild pain/fever Last Admin: 06/17/20 20:36 Dose: 650 mg Documented by: Albuterol/Ipratropium (Duoneb 3.0-0.5 Mg/3 Ml) 3 ml NEB ONETIME ONE Stop: 06/15/20 12:41 Last Admin: 06/15/20 12:49 Dose: 3 ml Documented by: Albuterol/Ipratropium (Duoneb 3.0-0.5 Mg/3 Ml) 3 ml NEB QIDRT [facility] Last Admin: 06/18/20 11:05 Dose: Not Given Documented by: Carbidopa/Levodopa (Sinemet 25-100 Mg) 2.5 tab PO 10,,17,20 [facility] Last Admin: 06/15/20 21:45 Dose: 2.5 tab Documented by: Divalproex Sodium (Depakote Sprinkle) 375 mg PO 10,13,17,20 [facility] Last Admin: 06/15/20 21:45 Dose: 375 mg Documented by: Furosemide (Lasix) 20 mg IVPUSH NOW ONE Stop: 06/17/20 11:31 Last Admin: 06/17/20 12:56 Dose: 20 mg Documented by: Sodium Chloride (Normal Saline) 500 mls @ 500 mls/hr IV .BOLUS ONE Stop: 06/15/20 12:37 Last Admin: 06/15/20 11:49 Dose: 500 mls/hr Documented by: Piperacillin Sod/Tazobactam (Sod 3.375 gm/ Sodium Chloride) 50 mls @ 100 mls/hr IV Q6H [facility] Last Admin: 06/15/20 12:54 Dose: 100 mls/hr Documented by: Dextrose/Sodium Chloride (Dextrose 5%-1/2 Ns) 1,000 mls @ 100 mls/hr IV ASDIRECTED [facility] Last Admin: 06/16/20 14:23 Dose: 100 mls/hr Documented by: Azithromycin 250 mg/ Sodium (Chloride) 250 mls @ 250 mls/hr IV Q24H [facility] Last Admin: 06/17/20 16:44 Dose: 250 mls/hr Documented by: Sodium Chloride (Normal Saline) 1,000 mls @ 500 mls/hr IV ONETIME ONE Stop: 06/15/20 22:29 Last Admin: 06/15/20 20:30 Dose: 500 mls/hr Documented by: Sodium Chloride (Normal Saline) 1,000 mls @ 75 mls/hr IV ASDIRECTED [facility] Lactated Ringer's (Ringers, Lactated) 1,000 mls @ 75 mls/hr IV ASDIRECTED [facility] Last Admin: 06/19/20 00:21 Dose: 75 mls/hr Documented by: Levothyroxine Sodium (Levothyroxine) 75 mcg PO BEDTIME [facility] Last Admin: 06/15/20 21:46 Dose: 75 mcg Documented by: Mirtazapine (Remeron) 7.5 mg PO 1800 [facility] Last Admin: 06/15/20 17:37 Dose: 7.5 mg Documented by: Mirtazapine (Remeron) 7.5 mg .XX 1800 [facility] Last Admin: 06/18/20 17:02 Dose: 7.5 mg Documented by: Naloxone HCl (Narcan) 0.4 mg IVPUSH ONETIME ONE Stop: 06/15/20 11:49 Last Admin: 06/15/20 11:59 Dose: 0.4 mg Documented by: Naloxone HCl (Narcan) 0.4 mg IVPUSH ONETIME ONE Stop: 06/15/20 13:17 Last Admin: 06/15/20 13:18 Dose: 0.4 mg Documented by: Ondansetron HCl (Zofran) 4 mg IV Q8H PRN PRN Reason: Nausea/Vomiting Pantoprazole Sodium (Protonix) 40 mg PO DAILY@0600 [facility] Last Admin: 06/16/20 05:53 Dose: 40 mg Documented by: Polyethylene Glycol (Miralax) 17 gm PO DAILY [facility] Last Admin: 06/16/20 15:06 Dose: Not Given Documented by: Senna/Docusate Sodium (Senna Plus) 1 tab PO DAILY [facility] Last Admin: 06/16/20 15:10 Dose: Not Given Documented by: - Exam General: Obtunded Lungs: Decreased Breath Sounds, Rales (RLL, RML, RUL, LLL, KULWINDER). No: Wheezing Cardiovascular: Regular Rate, Regular Rhythm GI/Abdominal Exam: Soft, No Distention, Abnormal Bowel Sounds (Hypoactive) Sepsis Event Note - Evaluation Sepsis Screening Result: No Definite Risk Possible Source of Sepsis: Pulmonary - Focused Exam Vital Signs: Vital Signs Temp Pulse Resp BP Pulse Ox Pulse Ox 06/19/20 06:00 95 06/19/20 00:00 97.5 F 90 20 156/66 H 98 98 Respiratory Effort Without Exertion: Abdominal Breathing, See Saw Heart Sounds: Distant Capillary Refill, Detail: Less than/Equal to (</=) 2 Seconds Skin Exam (Focused Sepsis): Pale Date Exam was Performed: 06/19/20 Time Exam was Performed: 14:38 - Problem List & Annotations (1) Aspiration pneumonia SNOMED Code(s): 289762137 Code(s): J69.0 - PNEUMONITIS DUE TO INHALATION OF FOOD AND VOMIT Status: Acute Current Visit: Yes Qualifiers: Aspiration pneumonia type: unspecified Laterality: bilateral Lung location: unspecified part of lung Qualified Code(s): J69.0 - Pneumonitis due to inhalation of food and vomit Annotation/Comment:: RLL (2) Left humeral fracture SNOMED Code(s): 78507528 Code(s): S42.302A - UNSP FRACTURE OF SHAFT OF HUMERUS, LEFT ARM, INIT Statu s: Acute Current Visit: Yes Qualifiers: Encounter type: subsequent encounter Fracture type: closed (3) DVT prophylaxis SNOMED Code(s): 034233536, 950516858 Code(s): LFT9970 - Status: Acute Current Visit: No Annotation/Comment:: TEDs, lovenox. (4) GERD (gastroesophageal reflux disease) SNOMED Code(s): 167819955 Code(s): K21.9 - GASTRO-ESOPHAGEAL REFLUX DISEASE WITHOUT ESOPHAGITIS Status: Chronic Current Visit: No Qualifiers: (5) Hypothyroidism SNOMED Code(s): 53152611 Code(s): E03.9 - HYPOTHYROIDISM, UNSPECIFIED Status: Chronic Current Visit: No (6) Mental retardation SNOMED Code(s): 950413249 Code(s): F79 - UNSPECIFIED INTELLECTUAL DISABILITIES Status: Chronic Current Visit: No Annotation/Comment:: Precautions. (7) Parkinson's disease SNOMED Code(s): 41875740 Code(s): G20 - PARKINSON'S DISEASE Status: Chronic Current Visit: No (8) Seizure disorder SNOMED Code(s): 465072905 Code(s): G40.909 - EPILEPSY, UNSP, NOT INTRACTABLE, WITHOUT STATUS EPILEPTICUS Status: Chronic Current Visit: No Annotation/Comment:: (9) DNI (do not intubate) SNOMED Code(s): 519686984 Code(s): Z78.9 - OTHER SPECIFIED HEALTH STATUS Status: Chronic Current Visit: Yes (10) DNR (do not resuscitate) Status: Chronic Current Visit: No (11) Palliative care status SNOMED Code(s): 249038808 Code(s): Z51.5 - ENCOUNTER FOR PALLIATIVE CARE Status: Acute Current Visit: No (12) UTI (urinary tract infection) SNOMED Code(s): 48816569 Code(s): N39.0 - URINARY TRACT INFECTION, SITE NOT SPECIFIED Status: Acute Current Visit: Yes Annotation/Comment:: E coli, sensitive to Zosyn. - Problem List Review Problem List Initiated/Reviewed/Updated: Yes - My Orders Last 24 Hours: My Active Orders 06/18/20 11:04 Albuterol/Ipratropium [DuoNeb 3.0-0.5 MG/3 ML] 3 ml NEB QIDRT PRN 06/18/20 12:00 Acetaminophen [Tylenol] 650 mg RECTAL Q4H Doxycycline [Vibramycin] 100 mg Sodium Chloride 0.9% [Normal Saline] 100 ml IV Q12H 06/19/20 08:20 LACTIC ACID [CHEM] Routine 06/19/20 08:30 Dextrose 5% in Water 1,000 ml IV ASDIRECTED 06/19/20 11:09 BIPAP [RT BiPAP/CPAP] [RC] ASDIRECTED 06/19/20 16:00 BASIC METABOLIC PANEL,BMP [CHEM] Routine 06/19/20 17:00 Mirtazapine [Remeron] 7.5 mg .XX 1700 06/20/20 06:00 BASIC METABOLIC PANEL,BMP [CHEM] Routine CBC WITH AUTO DIFF [HEME] Routine - Plan Plan:: 1. WBC up to 15 from 18, bands went down to 6% from 13% but neutrophils at 80%, Zosyn day 5 & Doxycycline day 2, Blood cultures no growth, & urine culture E coli, sensitive to Zosyn. CXR repeated yesterday shows worsening pneumonia on Right and now on left, discontinued Azithromycin and added Doxycycline to cover atypicals as well as MRSA. BiPAP started, will get ABG once she has been on for hour. 2. Sling on the left arm, nonsurgical fracture, continue passive range of motion with other extremities as she was at the retirement. If she starts moving her arm more in the sling, then would need to do shoulder immobilizer. 3. Not eating, restarted IVF as she hasn't taken anything oral in since Friday. Sodium & chloride up so switched to D5W at 75 ml/hr 4. Discussed her condition with her brother Jules, who is her guardian. She is a DNR/DNI, discussed BiPAP machine again, as it is noninvasive and get some CO2 blown off as she is more somnulent and CO2 worse today. He agreed to try BiPAP to see if she will turn around. Understands that we are doing all we can do and not intubate her. Prognosis is poor. Adjust treatments as necessary.
[2020-06-19] MEDS: Enoxaparin 30 MG/0.3 ML Syringe SUBCUT SCH (13:57)
[2020-06-19] MEDS ORDERED: Mirtazapine 15 MG Tab SCH (17:00)
[2020-06-19] MEDS: Levothyroxine 75 MCG Tab SCH (21:49)
[2020-06-20] MEDS: Dextrose 5% in Water 1,000 ML IV SCH ×2 (00:11→18:32)
[2020-06-20] MEDS: Acetaminophen 650 MG Supp RECTAL SCH ×3 (00:13→08:08)
[2020-06-20] MEDS: Doxycycline 100 MG in Sodium Chloride 0.9% 100 ML IV SCH ×3 (00:13→23:40)
[2020-06-20] MEDS: Piperacillin/Tazobactam 3.375 GM in Sodium Chloride 0.9% 50 ML IV SCH ×4 (02:03→19:41)
[2020-06-20] MEDS: Pantoprazole 40 MG Tab.CR SCH (05:37)
[2020-06-20] MEDS: Divalproex Sodium Delayed-Release 125 MG Cap.Sprink SCH (09:05)
[2020-06-20] MEDS: Carbidopa/Levodopa 25-100 MG Tab SCH (09:05)
[2020-06-20] MEDS ORDERED: Ketorolac 30 MG/ML SDV IVPUSH SCH (10:45)
[2020-06-20] MEDS: Ketorolac 30 MG/ML SDV IVPUSH SCH ×2 (13:14→18:32)
--- NOTE | 2020-06-20 14:14 | PCM.PN ---
- General Info Date of Service: 06/20/20 Subjective Update: Liane about the same as far as breathing, maintaining her saturations on non- rebreather mask, but her CO2 continues to climb. Last night was serum CO2 44 with pCO2 on ABG 94 with pHCO3 46, BiPAP was discontinued and switched back to the non-rebreather mask. She is more obtunded, not responding to stimuli even from group burner machine that has cared for her for the past 3 years. Has opened her eyes but not focusing on anything in particular. - Patient Data Vitals - Most Recent: Last Vital Signs Temp 100.1 F 06/20/20 08:00 Pulse 94 06/20/20 08:00 Resp 21 H 06/20/20 08:00 BP 168/67 H 06/20/20 08:00 Pulse Ox 94 L 06/20/20 03:44 Weight - Most Recent: 142 lb 6 oz I&O - Last 24 Hours: Intake & Output 06/19/20 06/20/20 06/20/20 22:59 06:59 14:59 Intake Total 645 747 Output Total 325 270 Balance 320 477 Lab Results Last 24 Hours: Laboratory Results - last 24 hr 06/19/20 06/19/20 06/19/20 Range/Units 14:25 16:52 16:52 WBC (4.5-12.0) X10-3/uL RBC (3.23-5.20) x10(6)uL Hgb (11.5-15.5) g/dL Hct (30.0-51.3) % MCV (80-96) fL MCH (27.7-33.6) pg MCHC (32.2-35.4) g/dL RDW (11.5-15.5) % Plt Count (125-369) X10(3)uL MPV (7.4-10.4) fL Neut % (Auto) (46-82) % Lymph % (Auto) (13-37) % Lasalle % (Auto) (4-12) % Eos % (Auto) (1.0-5.0) % Baso % (Auto) (0-2) % Neut # (Auto) (1.6-8.3) # Lymph # (Auto) (0.6-5.0) # Lasalle # (Auto) (0.0-1.3) # Eos # (Auto) (0.0-0.8) # Baso # (Auto) (0.0-0.2) # ABG pH 7.33 L (7.35-7.45) ABG pCO2 87 H* (35-45) mmHg ABG pO2 183 H (83-108) mmHg ABG HCO3 44 H (22-26) mmol/L ABG O2 Saturation 99 H (96-97) % ABG Base Excess 15.6 H (-2-2) Alexandr Test N/a O2 Delivery Device Bipap Sodium 153 H (135-145) mmol/L Potassium 3.7 (3.5-5.3) mmol/L Chloride 113 H (100-110) mmol/L Carbon Dioxide 44 H* (21-32) mmol/L BUN 20 H (7-18) mg/dL Creatinine 0.6 (0.55-1.02) mg/dL Est Cr Clr Drug Dosing 70.54 mL/min Estimated GFR (MDRD) > 60 (>60) BUN/Creatinine Ratio 33.3 H (9-20) Glucose 104 (80-116) mg/dL Lactic Acid 0.7 (0.4-2.0) mmol/L Calcium 9.1 (8.6-10.2) mg/dL 06/19/20 06/20/20 06/20/20 Range/Units 17:00 06:25 06:25 WBC 12.6 H (4.5-12.0) X10-3/uL RBC 3.12 L (3.23-5.20) x10(6)uL Hgb 9.0 L (11.5-15.5) g/dL Hct 29.7 L (30.0-51.3) % MCV 95.3 (80-96) fL MCH 28.7 (27.7-33.6) pg MCHC 30.1 L (32.2-35.4) g/dL RDW 14.7 (11.5-15.5) % Plt Count 252 (125-369) X10(3)uL MPV 7.4 (7.4-10.4) fL Neut % (Auto) 72.6 (46-82) % Lymph % (Auto) 13.3 (13-37) % Lasalle % (Auto) 11.1 (4-12) % Eos % (Auto) 3 (1.0-5.0) % Baso % (Auto) 0 (0-2) % Neut # (Auto) 9.2 H (1.6-8.3) # Lymph # (Auto) 1.7 (0.6-5.0) # Lasalle # (Auto) 1.4 H (0.0-1.3) # Eos # (Auto) 0.3 (0.0-0.8) # Baso # (Auto) 0.0 (0.0-0.2) # ABG pH 7.31 L (7.35-7.45) ABG pCO2 94 H* (35-45) mmHg ABG pO2 204 H (83-108) mmHg ABG HCO3 46 H (22-26) mmol/L ABG O2 Saturation 100 H (96-97) % ABG Base Excess 16.5 H (-2-2) Alexandr Test Passed O2 Delivery Device Bipap Sodium 153 H (135-145) mmol/L Potassium 3.7 (3.5-5.3) mmol/L Chloride 109 (100-110) mmol/L Carbon Dioxide 46 H* (21-32) mmol/L BUN 14 (7-18) mg/dL Creatinine 0.5 L (0.55-1.02) mg/dL Est Cr Clr Drug Dosing 84.65 mL/min Estimated GFR (MDRD) > 60 (>60) BUN/Creatinine Ratio 28.0 H (9-20) Glucose 129 H (80-116) mg/dL Lactic Acid (0.4-2.0) mmol/L Calcium 9.3 (8.6-10.2) mg/dL Willie Results Last 24 Hours: Microbiology 06/15/20 12:00 Aerobic Blood Culture - Final Blood - Venous NO GROWTH AFTER 5 DAYS Anaerobic Blood Culture - Final NO GROWTH AFTER 5 DAYS Med Orders - Current: Current Medications Albuterol/Ipratropium (Duoneb 3.0-0.5 Mg/3 Ml) 3 ml NEB QIDRT PRN PRN Reason: Shortness of Breath Piperacillin Sod/Tazobactam (Sod 3.375 gm/ Sodium Chloride) 50 mls @ 100 mls/hr IV Q6H [facility] Last Admin: 06/20/20 08:08 Dose: 100 mls/hr Documented by: Doxycycline Hyclate 100 mg/ (Sodium Chloride) 100 mls @ 100 mls/hr IV Q12H [facility] Last Admin: 06/20/20 13:09 Dose: 100 mls/hr Documented by: Dextrose/Water (Dextrose 5% In Water) 1,000 mls @ 50 mls/hr IV ASDIRECTED [facility] Last Admin: 06/20/20 00:11 Dose: 75 mls/hr Documented by: Ketorolac Tromethamine (Toradol) 30 mg IVPUSH Q6H [facility] Stop: 06/25/20 12:00 Last Admin: 06/20/20 13:14 Dose: 30 mg Documented by: Lorazepam (Ativan) 1 mg IVPUSH Q5M PRN PRN Reason: SEIZURES Sodium Chloride (Saline Flush) 10 ml FLUSH ASDIRECTED PRN PRN Reason: Keep Vein Open Last Admin: 06/18/20 14:28 Dose: 10 ml Documented by: Discontinued Medications Acetaminophen (Tylenol) 650 mg RECTAL Q4H PRN PRN Reason: Mild pain/fever Last Admin: 06/17/20 20:36 Dose: 650 mg Documented by: Acetaminophen (Tylenol) 650 mg RECTAL Q4H [facility] Last Admin: 06/20/20 08:08 Dose: 650 mg Documented by: Albuterol/Ipratropium (Duoneb 3.0-0.5 Mg/3 Ml) 3 ml NEB ONETIME ONE Stop: 06/15/20 12:41 Last Admin: 06/15/20 12:49 Dose: 3 ml Documented by: Albuterol/Ipratropium (Duoneb 3.0-0.5 Mg/3 Ml) 3 ml NEB QIDRT [facility] Last Admin: 06/18/20 11:05 Dose: Not Given Documented by: Bisacodyl (Dulcolax) 10 mg RECTAL DAILY PRN PRN Reason: Constipation Last Admin: 06/17/20 02:27 Dose: 10 mg Documented by: Carbidopa/Levodopa (Sinemet 25-100 Mg) 2.5 tab PO 10,13,17,20 [facility] Last Admin: 06/15/20 21:45 Dose: 2.5 tab Documented by: Carbidopa/Levodopa (Sinemet 25-100 Mg) 2.5 tab .XX 10,13,,20 [facility] Last Admin: 06/20/20 09:05 Dose: 2.5 tab Documented by: Divalproex Sodium (Depakote Sprinkle) 375 mg PO 10,,,20 [facility] Last Admin: 06/15/20 21:45 Dose: 375 mg Documented by: Divalproex Sodium (Depakote Sprinkle) 375 mg .XX 10,,,20 [facility] Last Admin: 06/20/20 09:05 Dose: 375 mg Documented by: Enoxaparin Sodium (Lovenox) 30 mg SUBCUT Q24H [facility] Last Admin: 06/19/20 13:57 Dose: 30 mg Documented by: Furosemide (Lasix) 20 mg IVPUSH NOW ONE Stop: 06/17/20 11:31 Last Admin: 06/17/20 12:56 Dose: 20 mg Documented by: Sodium Chloride (Normal Saline) 500 mls @ 500 mls/hr IV .BOLUS ONE Stop: 06/15/20 12:37 Last Admin: 06/15/20 11:49 Dose: 500 mls/hr Documented by: Piperacillin Sod/Tazobactam (Sod 3.375 gm/ Sodium Chloride) 50 mls @ 100 mls/hr IV Q6H [facility] Last Admin: 06/15/20 12:54 Dose: 100 mls/hr Documented by: Dextrose/Sodium Chloride (Dextrose 5%-1/2 Ns) 1,000 mls @ 100 mls/hr IV ASDIRECTED [facility] Last Admin: 06/16/20 14:23 Dose: 100 mls/hr Documented by: Azithromycin 250 mg/ Sodium (Chloride) 250 mls @ 250 mls/hr IV Q24H [facility] Last Admin: 06/17/20 16:44 Dose: 250 mls/hr Documented by: Sodium Chloride (Normal Saline) 1,000 mls @ 500 mls/hr IV ONETIME ONE Stop: 06/15/20 22:29 Last Admin: 06/15/20 20:30 Dose: 500 mls/hr Documented by: Sodium Chloride (Normal Saline) 1,000 mls @ 75 mls/hr IV ASDIRECTED [facility] Lactated Ringer's (Ringers, Lactated) 1,000 mls @ 75 mls/hr IV ASDIRECTED [facility] Last Admin: 06/19/20 00:21 Dose: 75 mls/hr Documented by: Levothyroxine Sodium (Levothyroxine) 75 mcg PO BEDTIME [facility] Last Admin: 06/15/20 21:46 Dose: 75 mcg Documented by: Levothyroxine Sodium (Levothyroxine) 75 mcg .XX BEDTIME [facility] Last Admin: 06/19/20 21:49 Dose: 75 mcg Documented by: Mirtazapine (Remeron) 7.5 mg PO 1800 [facility] Last Admin: 06/15/20 17:37 Dose: 7.5 mg Documented by: Mirtazapine (Remeron) 7.5 mg .XX 1800 [facility] Last Admin: 06/18/20 17:02 Dose: 7.5 mg Documented by: Mirtazapine (Remeron) 7.5 mg .XX 1700 [facility] Last Admin: 06/19/20 17:35 Dose: 7.5 mg Documented by: Naloxone HCl (Narcan) 0.4 mg IVPUSH ONETIME ONE Stop: 06/15/20 11:49 Last Admin: 06/15/20 11:59 Dose: 0.4 mg Documented by: Naloxone HCl (Narcan) 0.4 mg IVPUSH ONETIME ONE Stop: 06/15/20 13:17 Last Admin: 06/15/20 13:18 Dose: 0.4 mg Documented by: Ondansetron HCl (Zofran) 4 mg IV Q8H PRN PRN Reason: Nausea/Vomiting Pantoprazole Sodium (Protonix) 40 mg PO DAILY@0600 [facility] Last Admin: 06/16/20 05:53 Dose: 40 mg Documented by: Pantoprazole Sodium (Protonix) 40 mg .XX DAILY@0600 [facility] Last Admin: 06/20/20 05:37 Dose: 40 mg Documented by: Polyethylene Glycol (Miralax) 17 gm PO DAILY [facility] Last Admin: 06/16/20 15:06 Dose: Not Given Documented by: Senna/Docusate Sodium (Senna Plus) 1 tab PO DAILY [facility] Last Admin: 06/16/20 15:10 Dose: Not Given Documented by: Senna/Docusate Sodium (Senna Plus) 1 tab .XX DAILY [facility] Last Admin: 06/20/20 08:09 Dose: 1 tab Documented by: - Exam General: Obtunded Lungs: Decreased Breath Sounds, Rales (throughout all lung barbosa, see saw breathing). No: Wheezing Cardiovascular: Regular Rate, Regular Rhythm GI/Abdominal Exam: Soft, Non-Tender, No Distention, Abnormal Bowel Sounds (hypoactive) Extremities: Pallor. No: Mottled Sepsis Event Note - Evaluation Sepsis Screening Result: Sepsis Risk Possible Source of Sepsis: Pulmonary - Focused Exam Vital Signs: Vital Signs Temp Pulse Resp BP Pulse Ox 06/20/20 08:00 100.1 F 94 21 H 168/67 H 06/20/20 03:44 94 L Respiratory Effort Without Exertion: Abdominal Breathing, See Saw Heart Sounds: Distant Skin Exam (Focused Sepsis): Pale Date Exam was Performed: 06/20/20 Time Exam was Performed: 14:14 - Problem List & Annotations (1) Aspiration pneumonia SNOMED Code(s): 764216406 Code(s): J69.0 - PNEUMONITIS DUE TO INHALATION OF FOOD AND VOMIT Status: Acute Current Visit: Yes Qualifiers: Aspiration pneumonia type: unspecified Laterality: bilateral Lung location: unspecified part of lung Qualified Code(s): J69.0 - Pneumonitis due to inhalation of food and vomit Annotation/Comment:: RLL (2) Hypercapnia SNOMED Code(s): 18761529 Code(s): R06.89 - OTHER ABNORMALITIES OF BREATHING Status: Acute Current Visit: Yes (3) Left humeral fracture SNOMED Code(s): 01641004 Code(s): S42.302A - UNSP FRACTURE OF SHAFT OF HUMERUS, LEFT ARM, INIT Status: Acute Current Visit: Yes Qualifiers: Encounter type: subsequent encounter Fracture type: closed (4) DVT prophylaxis SNOMED Code(s): 282113151, 364691437 Code(s): TBH1721 - Status: Acute Current Visit: No Annotation/Comment :: TEDs, lovenox. (5) GERD (gastroesophageal reflux disease) SNOMED Code(s): 394667082 Code(s): K21.9 - GASTRO-ESOPHAGEAL REFLUX DISEASE WITHOUT ESOPHAGITIS Status: Chronic Current Visit: No Qualifiers: (6) Hypothyroidism SNOMED Code(s): 49107463 Code(s): E03.9 - HYPOTHYROIDISM, UNSPECIFIED Status: Chronic Current Visit: No (7) Mental retardation SNOMED Code(s): 594031342 Code(s): F79 - UNSPECIFIED INTELLECTUAL DISABILITIES Status: Chronic Current Visit: No Annotation/Comment:: Precautions. (8) Parkinson's disease SNOMED Code(s): 84904877 Code(s): G20 - PARKINSON'S DISEASE Status: Chronic Current Visit: No (9) Seizure disorder SNOMED Code(s): 922244190 Code(s): G40.909 - EPILEPSY, UNSP, NOT INTRACTABLE, WITHOUT STATUS EPILEPTICUS Status: Chronic Current Visit: No Annotation/Comment:: (10) DNI (do not intubate) SNOMED Code(s): 634134446 Code(s): Z78.9 - OTHER SPECIFIED HEALTH STATUS Status: Chronic Current Visit: Yes (11) DNR (do not resuscitate) Status: Chronic Current Visit: No (12) Palliative care status SNOMED Code(s): 465660678 Code(s): Z51.5 - ENCOUNTER FOR PALLIATIVE CARE Status: Acute Current Visit: No (13) UTI (urinary tract infection) SNOMED Code(s): 91870088 Code(s): N39.0 - URINARY TRACT INFECTION, SITE NOT SPECIFIED Status: Acute Current Visit: Yes Annotation/Comment:: E coli, sensitive to Zosyn. - Problem List Review Problem List Initiated/Reviewed/Updated: Yes - My Orders Last 24 Hours: My Active Orders 06/20/20 13:00 Ketorolac [Toradol] 30 mg IVPUSH Q6H 06/21/20 06:00 BASIC METABOLIC PANEL,BMP [CHEM] Routine CBC WITH AUTO DIFF [HEME] Routine - Plan Plan:: 1. WBC up to 12.6 from 15, Zosyn day 6 & Doxycycline day 3, Blood cultures no growth, & urine culture E coli, sensitive to Zosyn. Trial of BiPAP worsened her CO2 rather than improved it, back on non-rebreather. 2. Sling on the left arm, nonsurgical fracture. 3. D5W at 50 ml/hr 4. Discussed her condition with her brother Jules, who is her guardian. She is a DNR/DNI, discussed continuing treatments vs modifying treatments vs comfort measures; Jules would like to continue antibiotics, IV fluids but stop all rectal medications and if able change medications to IV forms. Her last seizure per Alf was in 2010, pharmacy stated we do have Valproic acid IV, but if she is not eating or drinking it is not recommended to give. So we will just keep Ativan 1 mg IV q5min as needed seizures. Discontinue Tylenol suppository and start Toradol 30 mg IV q6h for pain, we can use this for 5 days if needed. Poor prognosis with her hypercapnia.
[2020-06-21] MEDS: Sodium Chloride 0.9% 10 ML Syringe FLUSH PRN ×2 (00:38→06:26)
[2020-06-21] MEDS: Ketorolac 30 MG/ML SDV IVPUSH SCH ×4 (00:40→18:13)
[2020-06-21] MEDS: Piperacillin/Tazobactam 3.375 GM in Sodium Chloride 0.9% 50 ML IV SCH ×4 (01:24→19:48)
[2020-06-21] MEDS ORDERED: Scopolamine 1.5 MG Transdermal Patch TOP SCH (09:45)
[2020-06-21] MEDS: Acetaminophen 650 MG Supp RECTAL SCH ×3 (10:25→21:45)
[2020-06-21] MEDS: LORazepam 2 MG/ML SDV IVPUSH PRN (10:57)
[2020-06-21] MEDS: Doxycycline 100 MG in Sodium Chloride 0.9% 100 ML IV SCH (11:35)
--- NOTE | 2020-06-21 15:57 | PCM.PN ---
- General Info Date of Service: 06/21/20 Subjective Update: Liane more agitated today, calms once Toradol given, respirations 20-22. CO2 up to 49, is DNR/DNI, failed BiPAP treatment. Family had switched her to IV/neb treatments only but did not want to fully switch to comfort measures at this time. Since she is not eating and drinking, Valproic acid was not started as her last seizure was in 2010. Ativan ordered as needed for seizures. - Patient Data Vitals - Most Recent: Last Vital Signs Temp 99 F 06/21/20 11:35 Pulse 100 06/21/20 11:35 Resp 22 H 06/21/20 11:35 BP 134/57 L 06/21/20 11:35 Pulse Ox 98 06/21/20 12:00 Weight - Most Recent: 143 lb 11.2 oz I&O - Last 24 Hours: Intake & Output 06/21/20 06/21/20 06/21/20 06:59 14:59 22:59 Intake Total 523 499 Output Total 250 250 Balance 273 249 Lab Results Last 24 Hours: Laboratory Results - last 24 hr 06/21/20 06/21/20 Range/Units 06:50 06:50 WBC 10.3 (4.5-12.0) X10-3/uL RBC 2.97 L (3.23-5.20) x10(6)uL Hgb 8.8 L (11.5-15.5) g/dL Hct 28.4 L (30.0-51.3) % MCV 95.6 (80-96) fL MCH 29.5 (27.7-33.6) pg MCHC 30.9 L (32.2-35.4) g/dL RDW 14.6 (11.5-15.5) % Plt Count 245 (125-369) X10(3)uL MPV 7.1 L (7.4-10.4) fL Neut % (Auto) 63.3 (46-82) % Lymph % (Auto) 18.0 (13-37) % Ray % (Auto) 13.7 H (4-12) % Eos % (Auto) 5 (1.0-5.0) % Baso % (Auto) 0 (0-2) % Neut # (Auto) 6.5 (1.6-8.3) # Lymph # (Auto) 1.9 (0.6-5.0) # Ray # (Auto) 1.4 H (0.0-1.3) # Eos # (Auto) 0.5 (0.0-0.8) # Baso # (Auto) 0.0 (0.0-0.2) # Sodium 151 H (135-145) mmol/L Potassium 3.7 (3.5-5.3) mmol/L Chloride 110 (100-110) mmol/L Carbon Dioxide 49 H* (21-32) mmol/L BUN 13 (7-18) mg/dL Creatinine 0.6 (0.55-1.02) mg/dL Est Cr Clr Drug Dosing 70.54 mL/min Estimated GFR (MDRD) > 60 (>60) BUN/Creatinine Ratio 21.7 H (9-20) Glucose 115 (80-116) mg/dL Calcium 9.2 (8.6-10.2) mg/dL Willie Results Last 24 Hours: Microbiology 06/15/20 12:00 Aerobic Blood Culture - Final Blood - Venous NO GROWTH AFTER 5 DAYS Anaerobic Blood Culture - Final NO GROWTH AFTER 5 DAYS Med Orders - Current: Current Medications Acetaminophen (Tylenol) 650 mg RECTAL Q6H [facility] Last Admin: 06/21/20 10:25 Dose: 650 mg Documented by: Albuterol/Ipratropium (Duoneb 3.0-0.5 Mg/3 Ml) 3 ml NEB QIDRT PRN PRN Reason: Shortness of Breath Piperacillin Sod/Tazobactam (Sod 3.375 gm/ Sodium Chloride) 50 mls @ 100 mls/hr IV Q6H [facility] Last Admin: 06/21/20 14:15 Dose: 100 mls/hr Documented by: Doxycycline Hyclate 100 mg/ (Sodium Chloride) 100 mls @ 100 mls/hr IV Q12H [facility] Last Admin: 06/21/20 11:35 Dose: 100 mls/hr Documented by: Dextrose/Water (Dextrose 5% In Water) 1,000 mls @ 50 mls/hr IV ASDIRECTED [facility] Last Admin: 06/20/20 18:32 Dose: 75 mls/hr Documented by: Ketorolac Tromethamine (Toradol) 30 mg IVPUSH Q6H [facility] Stop: 06/25/20 12:00 Last Admin: 06/21/20 13:24 Dose: 30 mg Documented by: Lorazepam (Ativan) 1 mg IVPUSH Q5M PRN PRN Reason: SEIZURES Lorazepam (Ativan) 0.5 mg IVPUSH Q2H PRN PRN Reason: AGITATION Last Admin: 06/21/20 10:57 Dose: 0.5 mg Documented by: Scopolamine (Transderm-Scop) 1.5 mg TOP Q72H [facility] Last Admin: 06/21/20 10:24 Dose: 1.5 mg Documented by: Sodium Chloride (Saline Flush) 10 ml FLUSH ASDIRECTED PRN PRN Reason: Keep Vein Open Last Admin: 06/21/20 06:26 Dose: 10 ml Documented by: Discontinued Medications Acetaminophen (Tylenol) 650 mg RECTAL Q4H PRN PRN Reason: Mild pain/fever Last Admin: 06/17/20 20:36 Dose: 650 mg Documented by: Acetaminophen (Tylenol) 650 mg RECTAL Q4H [facility] Last Admin: 06/20/20 08:08 Dose: 650 mg Documented by: Albuterol/Ipratropium (Duoneb 3.0-0.5 Mg/3 Ml) 3 ml NEB ONETIME ONE Stop: 06/15/20 12:41 Last Admin: 06/15/20 12:49 Dose: 3 ml Documented by: Albuterol/Ipratropium (Duoneb 3.0-0.5 Mg/3 Ml) 3 ml NEB QIDRT [facility] Last Admin: 06/18/20 11:05 Dose: Not Given Documented by: Bisacodyl (Dulcolax) 10 mg RECTAL DAILY PRN PRN Reason: Constipation Last Admin: 06/17/20 02:27 Dose: 10 mg Documented by: Carbidopa/Levodopa (Sinemet 25-100 Mg) 2.5 tab PO ,,,20 [facility] Last Admin: 06/15/20 21:45 Dose: 2.5 tab Documented by: Carbidopa/Levodopa (Sinemet 25-100 Mg) 2.5 tab .XX ,,,20 [facility] Last Admin: 06/20/20 09:05 Dose: 2.5 tab Documented by: Divalproex Sodium (Depakote Sprinkle) 375 mg PO 10,,17,20 [facility] Last Admin: 06/15/20 21:45 Dose: 375 mg Documented by: Divalproex Sodium (Depakote Sprinkle) 375 mg .XX 10,,,20 [facility] Last Admin: 06/20/20 09:05 Dose: 375 mg Documented by: Enoxaparin Sodium (Lovenox) 30 mg SUBCUT Q24H [facility] Last Admin: 06/19/20 13:57 Dose: 30 mg Documented by: Furosemide (Lasix) 20 mg IVPUSH NOW ONE Stop: 06/17/20 11:31 Last Admin: 06/17/20 12:56 Dose: 20 mg Documented by: Sodium Chloride (Normal Saline) 500 mls @ 500 mls/hr IV .BOLUS ONE Stop: 06/15/20 12:37 Last Admin: 06/15/20 11:49 Dose: 500 mls/hr Documented by: Piperacillin Sod/Tazobactam (Sod 3.375 gm/ Sodium Chloride) 50 mls @ 100 mls/hr IV Q6H [facility] Last Admin: 06/15/20 12:54 Dose: 100 mls/hr Documented by: Dextrose/Sodium Chloride (Dextrose 5%-1/2 Ns) 1,000 mls @ 100 mls/hr IV ASDIRECTED [facility] Last Admin: 06/16/20 14:23 Dose: 100 mls/hr Documented by: Azithromycin 250 mg/ Sodium (Chloride) 250 mls @ 250 mls/hr IV Q24H [facility] Last Admin: 06/17/20 16:44 Dose: 250 mls/hr Documented by: Sodium Chloride (Normal Saline) 1,000 mls @ 500 mls/hr IV ONETIME ONE Stop: 06/15/20 22:29 Last Admin: 06/15/20 20:30 Dose: 500 mls/hr Documented by: Sodium Chloride (Normal Saline) 1,000 mls @ 75 mls/hr IV ASDIRECTED [facility] Lactated Ringer's (Ringers, Lactated) 1,000 mls @ 75 mls/hr IV ASDIRECTED [facility] Last Admin: 06/19/20 00:21 Dose: 75 mls/hr Documented by: Levothyroxine Sodium (Levothyroxine) 75 mcg PO BEDTIME [facility] Last Admin: 06/15/20 21:46 Dose: 75 mcg Documented by: Levothyroxine Sodium (Levothyroxine) 75 mcg .XX BEDTIME [facility] Last Admin: 06/19/20 21:49 Dose: 75 mcg Documented by: Mirtazapine (Remeron) 7.5 mg PO 1800 [facility] Last Admin: 06/15/20 17:37 Dose: 7.5 mg Documented by: Mirtazapine (Remeron) 7.5 mg .XX 1800 [facility] Last Admin: 06/18/20 17:02 Dose: 7.5 mg Documented by: Mirtazapine (Remeron) 7.5 mg .XX 1700 [facility] Last Admin: 06/19/20 17:35 Dose: 7.5 mg Documented by: Naloxone HCl (Narcan) 0.4 mg IVPUSH ONETIME ONE Stop: 06/15/20 11:49 Last Admin: 06/15/20 11:59 Dose: 0.4 mg Documented by: Naloxone HCl (Narcan) 0.4 mg IVPUSH ONETIME ONE Stop: 06/15/20 13:17 Last Admin: 06/15/20 13:18 Dose: 0.4 mg Documented by: Ondansetron HCl (Zofran) 4 mg IV Q8H PRN PRN Reason: Nausea/Vomiting Pantoprazole Sodium (Protonix) 40 mg PO DAILY@0600 [facility] Last Admin: 06/16/20 05:53 Dose: 40 mg Documented by: Pantoprazole Sodium (Protonix) 40 mg .XX DAILY@0600 [facility] Last Admin: 06/20/20 05:37 Dose: 40 mg Documented by: Polyethylene Glycol (Miralax) 17 gm PO DAILY [facility] Last Admin: 06/16/20 15:06 Dose: Not Given Documented by: Senna/Docusate Sodium (Senna Plus) 1 tab PO DAILY [facility] Last Admin: 06/16/20 15:10 Dose: Not Given Documented by: Senna/Docusate Sodium (Senna Plus) 1 tab .XX DAILY [facility] Last Admin: 06/20/20 08:09 Dose: 1 tab Documented by: - Exam Quality Assessment: Supplemental Oxygen, Urine Catheter, DVT Prophylaxis General: Mild Distress, Obtunded Lungs: Rales (throughout, seesaw & abdominal breathing). No: Wheezing Cardiovascular: Regular Rhythm, Tachycardia GI/Abdominal Exam: Soft, Non-Tender, No Distention, Abnormal Bowel Sounds (hypoactive) Extremities: Pallor, Other (left arm sling in place). No: Mottled Peripheral Pulses: 2+: Radial (L), Radial (R) Skin: Ecchymosis (under bilateral axilla & left shoulder, healing.) Sepsis Event Note - Evaluation Sepsis Screening Result: No Definite Risk - Focused Exam Vital Signs: Vital Signs Temp Temp Pulse Resp BP Pulse Ox 06/21/20 12:00 98 06/21/20 11:35 99 F 100 22 H 134/57 L 98 06/21/20 08:00 100 06/21/20 07:15 98.9 F 102 H 22 H 161/67 H 100 06/21/20 05:19 95 Date Exam was Performed: 06/21/20 Time Exam was Performed: 15:50 - Problem List & Annotations (1) Aspiration pneumonia SNOMED Code(s): 839129016 Code(s): J69.0 - PNEUMONITIS DUE TO INHALATION OF FOOD AND VOMIT Status: Acute Current Visit: Yes Qualifiers: Aspiration pneumonia type: unspecified Laterality: bilateral Lung location: unspecified part of lung Qualified Code(s): J69.0 - Pneumonitis due to inhalation of food and vomit Annotation/Comment:: RLL (2) Hypercapnia SNOMED Code(s): 45605933 Code(s): R06.89 - OTHER ABNORMALITIES OF BREATHING Status: Acute Current Visit: Yes (3) Left humeral fracture SNOMED Code(s): 84047908 Code(s): S42.302A - UNSP FRACTURE OF SHAFT OF HUMERUS, LEFT ARM, INIT Status: Acute Current Visit: Yes Qualifiers: Encounter type: subsequent encounter Fracture type: closed (4) DVT prophylaxis SNOMED Code(s): 384267305, 344779284 Code(s): YRJ4244 - Status: Acute Current Visit: No Annotation/Comment:: TEDs, lovenox. (5) GERD (gastroesophageal reflux disease) SNOMED Code(s): 536628187 Code(s): K21.9 - GASTRO-ESOPHAGEAL REFLUX DISEASE WITHOUT ESOPHAGITIS Status: Chronic Current Visit: No Qualifiers: (6) Hypothyroidism SNOMED Code(s): 95475181 Code(s): E03.9 - HYPOTHYROIDISM, UNSPECIFIED Status: Chronic Current Visit: No (7) Mental retardation SNOMED Code(s): 893264983 Code(s): F79 - UNSPECIFIED INTELLECTUAL DISABILITIES Status: Chronic Current Visit: No Annotation/Comment:: Precautions. (8) Parkinson's disease SNOMED Code(s): 65935158 Code(s): G20 - PARKINSON'S DISEASE Status: Chronic Current Visit: No (9) Seizure disorder SNOMED Code(s): 202381624 Code(s): G40.909 - EPILEPSY, UNSP, NOT INTRACTABLE, WITHOUT STATUS EPILEPTICUS Status: Chronic Current Visit: No Annotation/Comment:: (10) DNI (do not intubate) SNOMED Code(s): 845879816 Code(s): Z78.9 - OTHER SPECIFIED HEALTH STATUS Status: Chronic Current Visit: Yes (11) DNR (do not resuscitate) Status: Chronic Current Visit: No (12) Palliative care status SNOMED Code(s): 214544116 Code(s): Z51.5 - ENCOUNTER FOR PALLIATIVE CARE Status: Acute Current Visit: No (13) UTI (urinary tract infection) SNOMED Code(s): 25368095 Code(s): N39.0 - URINARY TRACT INFECTION, SITE NOT SPECIFIED Status: Acute Current Visit: Yes Annotation/Comment:: E coli, sensitive to Zosyn. - Problem List Review Problem List Initiated/Reviewed/Updated: Yes - My Orders Last 24 Hours: My Active Orders 06/21/20 09:34 LORazepam [Ativan] 0.5 mg IVPUSH Q2H PRN 06/21/20 09:45 Scopolamine [Transderm-Scop] 1.5 mg TOP Q72H 06/21/20 10:00 Acetaminophen [Tylenol] 650 mg RECTAL Q6H 06/22/20 06:00 BASIC METABOLIC PANEL,BMP [CHEM] Routine CBC WITH AUTO DIFF [HEME] Routine - Plan Plan:: 1. WBC down to 10.3 from 12.6, Zosyn day 7 & Doxycycline day 4, Blood cultures no growth, & urine culture E coli, sensitive to Zosyn. Failed trial of BiPAP worsened her CO2 rather than improved it, back on non-rebreather. 2. Sling on the left arm, nonsurgical fracture. 3. D5W at 50 ml/hr 4. Jules her guardian/brother would like to continue antibiotics, IV fluids. Restarted Tylenol suppository scheduled alternating with Toradol 30 mg IV q6h for pain. Ativan 0.5 mg IV q2h as needed agitation. Ativan 1 mg IV q5 min as needed seizures. Poor prognosis with her hypercapnia.
[2020-06-21] MEDS: Dextrose 5% in Water 1,000 ML IV SCH (18:13)
[2020-06-22] MEDS: Ketorolac 30 MG/ML SDV IVPUSH SCH ×2 (00:20→06:25)
[2020-06-22] MEDS: Doxycycline 100 MG in Sodium Chloride 0.9% 100 ML IV SCH (00:45)
[2020-06-22] MEDS: Piperacillin/Tazobactam 3.375 GM in Sodium Chloride 0.9% 50 ML IV SCH ×2 (02:02→07:54)
[2020-06-22] MEDS: Acetaminophen 650 MG Supp RECTAL SCH ×4 (03:58→21:12)
[2020-06-22] MEDS: LORazepam 2 MG/ML SDV IVPUSH PRN (07:55)
[2020-06-22] MEDS: Sodium Chloride 0.9% 10 ML Syringe FLUSH PRN (08:00)
[2020-06-22] MEDS ORDERED: Morphine 2 MG/ML SYRINGE IVPUSH PRN (09:04)
[2020-06-22] MEDS: LORazepam 0.5 MG Tab PRN ×5 (13:22→23:52)
--- NOTE | 2020-06-22 13:45 | PCM.PN ---
- General Info Date of Service: 06/22/20 Subjective Update: Liane continues to decline, now edematous in her hands and feet, IV infiltrated today, urine output is down. Discussed with Jules, her brother/guardian, her labs, clinical declining in spite of all treatments, recommended comfort measures. Jules was in agreement with this, he did not want her to go back to jail with hospice which I'm in agreement with as I think the transfer would be more harmful and distressing to her as she gets agitated when the n urses have to turn her. - Patient Data Vitals - Most Recent: Last Vital Signs Temp 97.7 F 06/22/20 07:40 Pulse 108 H 06/22/20 07:40 Resp 18 06/22/20 07:40 BP 123/75 06/22/20 07:40 Pulse Ox 96 06/22/20 07:40 Weight - Most Recent: 141 lb 4.8 oz I&O - Last 24 Hours: Intake & Output 06/21/20 06/22/20 06/22/20 22:59 06:59 14:59 Intake Total 375 515 Output Total 225 225 Balance 150 290 Lab Results Last 24 Hours: Laboratory Results - last 24 hr 06/22/20 06/22/20 Range/Units 06:35 06:35 WBC 8.7 (4.5-12.0) X10-3/uL RBC 2.93 L (3.23-5.20) x10(6)uL Hgb 8.8 L (11.5-15.5) g/dL Hct 28.0 L (30.0-51.3) % MCV 95.5 (80-96) fL MCH 30.0 (27.7-33.6) pg MCHC 31.5 L (32.2-35.4) g/dL RDW 14.8 (11.5-15.5) % Plt Count 257 (125-369) X10(3)uL MPV 7.2 L (7.4-10.4) fL Add Manual Diff Yes Neutrophils % (Manual) 66 (46-82) % Band Neutrophils % 1 (0-6) % Lymphocytes % (Manual) 20 (13-37) % Monocytes % (Manual) 10 (4-12) % Eosinophils % (Manual) 3 (0-5) % Nucleated RBCs 1 H (0-0) /100WBC Sodium 153 H (135-145) mmol/L Potassium 3.3 L (3.5-5.3) mmol/L Chloride 109 (100-110) mmol/L Carbon Dioxide 50 H* (21-32) mmol/L BUN 14 (7-18) mg/dL Creatinine 0.6 (0.55-1.02) mg/dL Est Cr Clr Drug Dosing 70.54 mL/min Estimated GFR (MDRD) > 60 (>60) BUN/Creatinine Ratio 23.3 H (9-20) Glucose 117 H (80-116) mg/dL Calcium 8.8 (8.6-10.2) mg/dL Med Orders - Current: Current Medications Acetaminophen (Tylenol) 650 mg RECTAL Q6H [facility] Last Admin: 06/22/20 09:57 Dose: 650 mg Documented by: Lorazepam (Ativan) 0.5 mg .XX Q2H PRN PRN Reason: Other Last Admin: 06/22/20 13:22 Dose: 0.5 mg Documented by: Morphine Sulfate (Morphine 10 Mg/0.5 Ml Oral Syringe) 5 mg SL Q30M PRN PRN Reason: PAIN/SHORTNESS OF BREATH Scopolamine (Transderm-Scop) 1.5 mg TOP Q72H [facility] Last Admin: 06/21/20 10:24 Dose: 1.5 mg Documented by: Discontinued Medications Acetaminophen (Tylenol) 650 mg RECTAL Q4H PRN PRN Reason: Mild pain/fever Last Admin: 06/17/20 20:36 Dose: 650 mg Documented by: Acetaminophen (Tylenol) 650 mg RECTAL Q4H [facility] Last Admin: 06/20/20 08:08 Dose: 650 mg Documented by: Albuterol/Ipratropium (Duoneb 3.0-0.5 Mg/3 Ml) 3 ml NEB ONETIME ONE Stop: 06/15/20 12:41 Last Admin: 06/15/20 12:49 Dose: 3 ml Documented by: Albuterol/Ipratropium (Duoneb 3.0-0.5 Mg/3 Ml) 3 ml NEB QIDRT [facility] Last Admin: 06/18/20 11:05 Dose: Not Given Documented by: Albuterol/Ipratropium (Duoneb 3.0-0.5 Mg/3 Ml) 3 ml NEB QIDRT PRN PRN Reason: Shortness of Breath Bisacodyl (Dulcolax) 10 mg RECTAL DAILY PRN PRN Reason: Constipation Last Admin: 06/17/20 02:27 Dose: 10 mg Documented by: Carbidopa/Levodopa (Sinemet 25-100 Mg) 2.5 tab PO 10,,17,20 [facility] Last Admin: 06/15/20 21:45 Dose: 2.5 tab Documented by: Carbidopa/Levodopa (Sinemet 25-100 Mg) 2.5 tab .XX 10,,17,20 [facility] Last Admin: 06/20/20 09:05 Dose: 2.5 tab Documented by: Divalproex Sodium (Depakote Sprinkle) 375 mg PO 10,,,20 [facility] Last Admin: 06/15/20 21:45 Dose: 375 mg Documented by: Divalproex Sodium (Depakote Sprinkle) 375 mg .XX ,,,20 [facility] Last Admin: 06/20/20 09:05 Dose: 375 mg Documented by: Enoxaparin Sodium (Lovenox) 30 mg SUBCUT Q24H [facility] Last Admin: 06/19/20 13:57 Dose: 30 mg Documented by: Furosemide (Lasix) 20 mg IVPUSH NOW ONE Stop: 06/17/20 11:31 Last Admin: 06/17/20 12:56 Dose: 20 mg Documented by: Sodium Chloride (Normal Saline) 500 mls @ 500 mls/hr IV .BOLUS ONE Stop: 06/15/20 12:37 Last Admin: 06/15/20 11:49 Dose: 500 mls/hr Documented by: Piperacillin Sod/Tazobactam (Sod 3.375 gm/ Sodium Chloride) 50 mls @ 100 mls/hr IV Q6H [facility] Last Admin: 06/15/20 12:54 Dose: 100 mls/hr Documented by: Dextrose/Sodium Chloride (Dextrose 5%-1/2 Ns) 1,000 mls @ 100 mls/hr IV ASDIRECTED [facility] Last Admin: 06/16/20 14:23 Dose: 100 mls/hr Documented by: Piperacillin Sod/Tazobactam (Sod 3.375 gm/ Sodium Chloride) 50 mls @ 100 mls/hr IV Q6H [facility] Last Admin: 06/22/20 07:54 Dose: 100 mls/hr Documented by: Azithromycin 250 mg/ Sodium (Chloride) 250 mls @ 250 mls/hr IV Q24H [facility] Last Admin: 06/17/20 16:44 Dose: 250 mls/hr Documented by: Sodium Chloride (Normal Saline) 1,000 mls @ 500 mls/hr IV ONETIME ONE Stop: 06/15/20 22:29 Last Admin: 06/15/20 20:30 Dose: 500 mls/hr Documented by: Sodium Chloride (Normal Saline) 1,000 mls @ 75 mls/hr IV ASDIRECTED [facility] Lactated Ringer's (Ringers, Lactated) 1,000 mls @ 75 mls/hr IV ASDIRECTED [facility] Last Admin: 06/19/20 00:21 Dose: 75 mls/hr Documented by: Doxycycline Hyclate 100 mg/ (Sodium Chloride) 100 mls @ 100 mls/hr IV Q12H [facility] Last Admin: 06/22/20 00:45 Dose: 100 mls/hr Documented by: Dextrose/Water (Dextrose 5% In Water) 1,000 mls @ 50 mls/hr IV ASDIRECTED [facility] Last Admin: 06/21/20 18:13 Dose: 75 mls/hr Documented by: Ketorolac Tromethamine (Toradol) 30 mg IVPUSH Q6H [facility] Stop: 06/25/20 12:00 Last Admin: 06/22/20 06:25 Dose: 30 mg Documented by: Levothyroxine Sodium (Levothyroxine) 75 mcg PO BEDTIME [facility] Last Admin: 06/15/20 21:46 Dose: 75 mcg Documented by: Levothyroxine Sodium (Levothyroxine) 75 mcg .XX BEDTIME [facility] Last Admin: 06/19/20 21:49 Dose: 75 mcg Documented by: Lorazepam (Ativan) 1 mg IVPUSH Q5M PRN PRN Reason: SEIZURES Lorazepam (Ativan) 0.5 mg IVPUSH Q2H PRN PRN Reason: AGITATION Last Admin: 06/22/20 07:55 Dose: 0.5 mg Documented by: Mirtazapine (Remeron) 7.5 mg PO 1800 [facility] Last Admin: 06/15/20 17:37 Dose: 7.5 mg Documented by: Mirtazapine (Remeron) 7.5 mg .XX 1800 [facility] Last Admin: 06/18/20 17:02 Dose: 7.5 mg Documented by: Mirtazapine (Remeron) 7.5 mg .XX 1700 [facility] Last Admin: 06/19/20 17:35 Dose: 7.5 mg Documented by: Morphine Sulfate (Morphine) 1 mg IVPUSH Q1H PRN PRN Reason: Dyspnea Naloxone HCl (Narcan) 0.4 mg IVPUSH ONETIME ONE Stop: 06/15/20 11:49 Last Admin: 06/15/20 11:59 Dose: 0.4 mg Documented by: Naloxone HCl (Narcan) 0.4 mg IVPUSH ONETIME ONE Stop: 06/15/20 13:17 Last Admin: 06/15/20 13:18 Dose: 0.4 mg Documented by: Ondansetron HCl (Zofran) 4 mg IV Q8H PRN PRN Reason: Nausea/Vomiting Pantoprazole Sodium (Protonix) 40 mg PO DAILY@0600 [facility] Last Admin: 06/16/20 05:53 Dose: 40 mg Documented by: Pantoprazole Sodium (Protonix) 40 mg .XX DAILY@0600 [facility] Last Admin: 06/20/20 05:37 Dose: 40 mg Documented by: Polyethylene Glycol (Miralax) 17 gm PO DAILY [facility] Last Admin: 06/16/20 15:06 Dose: Not Given Documented by: Senna/Docusate Sodium (Senna Plus) 1 tab PO DAILY [facility] Last Admin: 06/16/20 15:10 Dose: Not Given Documented by: Senna/Docusate Sodium (Senna Plus) 1 tab .XX DAILY [facility] Last Admin: 06/20/20 08:09 Dose: 1 tab Documented by: Sodium Chloride (Saline Flush) 10 ml FLUSH ASDIRECTED PRN PRN Reason: Keep Vein Open Last Admin: 06/22/20 08:00 Dose: 10 ml Documented by: - Exam General: Obtunded Lungs: Rales (throughout all lung barbosa, abdominal & seesaw breathing) Cardiovascular: Tachycardia (distant) GI/Abdominal Exam: Soft, No Distention, Abnormal Bowel Sounds Extremities: Pedal Edema (hands, feet), Pallor, Other (facial edema). No: Mottled Sepsis Event Note - Evaluation Sepsis Screening Result: No Definite Risk - Focused Exam Vital Signs: Vital Signs Temp Pulse Resp BP Pulse Ox 06/22/20 07:40 97.7 F 108 H 18 123/75 96 06/22/20 04:00 98.9 F 104 H 22 H 159/60 H 92 L Date Exam was Performed: 06/22/20 Time Exam was Performed: 13:40 - Problem List & Annotations (1) Comfort measures only status SNOMED Code(s): 03249605909855 Code(s): Z51.5 - ENCOUNTER FOR PALLIATIVE CARE Status: Acute Current Visit: Yes (2) Aspiration pneumonia SNOMED Code(s): 455585170 Code(s): J69.0 - PNEUMONITIS DUE TO INHALATION OF FOOD AND VOMIT Status: Acute Current Visit: Yes Qualifiers: Aspiration pneumonia type: unspecified Laterality: bilateral Lung location: unspecified part of lung Qualified Code(s): J69.0 - Pneumonitis due to inhalation of food and vomit Annotation/Comment:: RLL (3) Hypercapnia SNOMED Code(s): 85863445 Code(s): R06.89 - OTHER ABNORMALITIES OF BREATHING Status: Acute Current Visit: Yes (4) Left humeral fracture SNOMED Code(s): 91209075 Code(s): S42.302A - UNSP FRACTURE OF SHAFT OF HUMERUS, LEFT ARM, INIT Status: Acute Current Visit: Yes Qualifiers: Encounter type: subsequent encounter Fracture type: closed (5) DVT prophylaxis SNOMED Code(s): 549640657, 352025278 Code(s): PEW2836 - Status: Acute Current Visit: No Annotation/Comment:: TEDs, lovenox. (6) GERD (gastroesophageal reflux disease) SNOMED Code(s): 882310404 Code(s): K21.9 - GASTRO-ESOPHAGEAL REFLUX DISEASE WITHOUT ESOPHAGITIS Status: Chronic Current Visit: No Qualifiers: (7) Hypothyroidism SNOMED Code(s): 35404649 Code(s): E03.9 - HYPOTHYROIDISM, UNSPECIFIED Status: Chronic Current Visit: No (8) Mental retardation SNOMED Code(s): 695201810 Code(s): F79 - UNSPECIFIED INTELLECTUAL DISABILITIES Status: Chronic Current Visit: No Annotation/Comment:: Precautions. (9) Parkinson's disease SNOMED Code(s): 78587752 Code(s): G20 - PARKINSON'S DISEASE Status: Chronic Current Visit: No (10) Seizure disorder SNOMED Code(s): 818542637 Code(s): G40.909 - EPILEPSY, UNSP, NOT INTRACTABLE, WITHOUT STATUS EPILEPTICUS Status: Chronic Current Visit: No Annotation/Comment:: (11) DNI (do not intubate) SNOMED Code(s): 675013592 Code(s): Z78.9 - OTHER SPECIFIED HEALTH STATUS Status: Chronic Current Visit: Yes (12) DNR (do not resuscitate) Status: Chronic Current Visit: No (13) Palliative care status SNOMED Code(s): 578146702 Code(s): Z51.5 - ENCOUNTER FOR PALLIATIVE CARE Status: Acute Current Visit: No (14) UTI (urinary tract infection) SNOMED Code(s): 43126429 Code(s): N39.0 - URINARY TRACT INFECTION, SITE NOT SPECIFIED Status: Acute Current Visit: Yes Annotation/Comment:: E coli, sensitive to Zosyn. - Problem List Review Problem List Initiated/Reviewed/Updated: Yes - My Orders Last 24 Hours: My Active Orders 06/22/20 10:45 Comfort Measures [OM.PC] Routine 06/22/20 10:51 LORazepam [Ativan] 0.5 mg .XX Q2H PRN 06/22/20 10:53 Oral Care [OM.PC] Routine 06/22/20 10:54 Discontinue Saline Lock [Peripheral IV Discontinue] [OM.PC] Routine Code Status [Resuscitation Status] Routine 06/22/20 10:58 Morphine [Morphine 10 MG/0.5 ML Oral Syringe] 5 mg SL Q30M PRN - Plan Plan:: 1. WBC down to 8.2, Zosyn 7 days & Doxycycline 4 days, Blood cultures no growth, & urine culture E coli, sensitive to Zosyn. Failed trial of BiPAP worsened her CO2 rather than improved it, on non-rebreather. IV antibiotics discontinued. 2. Sling on the left arm, nonsurgical fracture. 3. IV fluids discontinued. 4. Jules her guardian/brother in agreement with change her to comfort measures only. Keep Tylenol suppository scheduled, with Morphine 5 mg SL q30m for pain. Ativan 0.5 mg SL q2h as needed agitation. Scopolamine patch for secretions. Will keep her inpatient today, if she makes it through the night, then will move to swing bed status tomorrow for comfort measures.
[2020-06-22] MEDS ORDERED: LORazepam 2 MG/ML SDV IM PRN (15:57)
[2020-06-22] MEDS: Morphine 10 MG/0.5 ML Oral Syringe SL PRN ×5 (17:44→23:53)
[2020-06-23] MEDS: Morphine 10 MG/0.5 ML Oral Syringe SL PRN ×7 (00:59→23:56)
[2020-06-23] MEDS: LORazepam 0.5 MG Tab PRN ×6 (03:37→23:54)
[2020-06-23] MEDS: Acetaminophen 650 MG Supp RECTAL SCH ×2 (03:37→10:35)
[2020-06-23 11:31] VITALS: BP 152/48; PULSE 85
--- NOTE | 2020-06-23 15:01 | PCM.PN ---
- General Info Date of Service: 06/23/20 Subjective Update: Liane been more agitated with the mask so switched her to nasal cannula, vitals only in am, oxygen to keep comfortable. Ativan and Morphine are helping with her agitation and pain. Urine output decreasing, becoming darker. No mottling as yet. - Patient Data Vitals - Most Recent: Last Vital Signs Temp 98.6 F 06/23/20 08:00 Pulse 85 06/23/20 08:00 Resp 22 H 06/23/20 08:00 BP 152/48 H 06/23/20 08:00 Pulse Ox 92 L 06/23/20 09:00 Weight - Most Recent: 141 lb 4.8 oz I&O - Last 24 Hours: Intake & Output 06/22/20 06/23/20 06/23/20 22:59 06:59 14:59 Output Total 50 200 Balance -50 -200 Med Orders - Current: Current Medications Acetaminophen (Tylenol) 650 mg RECTAL Q6H COUNT INCLUDES THE [facility] Last Admin: 06/23/20 10:35 Dose: 650 mg Documented by: Lorazepam (Ativan) 0.5 mg .XX Q2H PRN PRN Reason: Other Last Admin: 06/23/20 13:40 Dose: 0.5 mg Documented by: Lorazepam (Ativan) 2 mg IM Q5M PRN PRN Reason: SEIZURES Morphine Sulfate (Morphine 10 Mg/0.5 Ml Oral Syringe) 5 mg SL Q30M PRN PRN Reason: PAIN/SHORTNESS OF BREATH Last Admin: 06/23/20 13:38 Dose: 5 mg Documented by: Scopolamine (Transderm-Scop) 1.5 mg TOP Q72H COUNT INCLUDES THE [facility] Last Admin: 06/21/20 10:24 Dose: 1.5 mg Documented by: Discontinued Medications Acetaminophen (Tylenol) 650 mg RECTAL Q4H PRN PRN Reason: Mild pain/fever Last Admin: 06/17/20 20:36 Dose: 650 mg Documented by: Acetaminophen (Tylenol) 650 mg RECTAL Q4H COUNT INCLUDES THE [facility] Last Admin: 06/20/20 08:08 Dose: 650 mg Documented by: Albuterol/Ipratropium (Duoneb 3.0-0.5 Mg/3 Ml) 3 ml NEB ONETIME ONE Stop: 06/15/20 12:41 Last Admin: 06/15/20 12:49 Dose: 3 ml Documented by: Albuterol/Ipratropium (Duoneb 3.0-0.5 Mg/3 Ml) 3 ml NEB QIDRT COUNT INCLUDES THE [facility] Last Admin: 06/18/20 11:05 Dose: Not Given Documented by: Albuterol/Ipratropium (Duoneb 3.0-0.5 Mg/3 Ml) 3 ml NEB QIDRT PRN PRN Reason: Shortness of Breath Bisacodyl (Dulcolax) 10 mg RECTAL DAILY PRN PRN Reason: Constipation Last Admin: 06/17/20 02:27 Dose: 10 mg Documented by: Carbidopa/Levodopa (Sinemet 25-100 Mg) 2.5 tab PO 10,,,20 COUNT INCLUDES THE [facility] Last Admin: 06/15/20 21:45 Dose: 2.5 tab Documented by: Carbidopa/Levodopa (Sinemet 25-100 Mg) 2.5 tab .XX 10,,,20 COUNT INCLUDES THE [facility] Last Admin: 06/20/20 09:05 Dose: 2.5 tab Documented by: Divalproex Sodium (Depakote Sprinkle) 375 mg PO 10,,,20 COUNT INCLUDES THE [facility] Last Admin: 06/15/20 21:45 Dose: 375 mg Documented by: Divalproex Sodium (Depakote Sprinkle) 375 mg .XX ,,,20 COUNT INCLUDES THE [facility] Last Admin: 06/20/20 09:05 Dose: 375 mg Documented by: Enoxaparin Sodium (Lovenox) 30 mg SUBCUT Q24H COUNT INCLUDES THE [facility] Last Admin: 06/19/20 13:57 Dose: 30 mg Documented by: Furosemide (Lasix) 20 mg IVPUSH NOW ONE Stop: 06/17/20 11:31 Last Admin: 06/17/20 12:56 Dose: 20 mg Documented by: Sodium Chloride (Normal Saline) 500 mls @ 500 mls/hr IV .BOLUS ONE Stop: 06/15/20 12:37 Last Admin: 06/15/20 11:49 Dose: 500 mls/hr Documented by: Piperacillin Sod/Tazobactam (Sod 3.375 gm/ Sodium Chloride) 50 mls @ 100 mls/hr IV Q6H COUNT INCLUDES THE [facility] Last Admin: 06/15/20 12:54 Dose: 100 mls/hr Documented by: Dextrose/Sodium Chloride (Dextrose 5%-1/2 Ns) 1,000 mls @ 100 mls/hr IV ASDIRECTED COUNT INCLUDES THE [facility] Last Admin: 06/16/20 14:23 Dose: 100 mls/hr Documented by: Piperacillin Sod/Tazobactam (Sod 3.375 gm/ Sodium Chloride) 50 mls @ 100 mls/hr IV Q6H COUNT INCLUDES THE [facility] Last Admin: 06/22/20 07:54 Dose: 100 mls/hr Documented by: Azithromycin 250 mg/ Sodium (Chloride) 250 mls @ 250 mls/hr IV Q24H COUNT INCLUDES THE [facility] Last Admin: 06/17/20 16:44 Dose: 250 mls/hr Documented by: Sodium Chloride (Normal Saline) 1,000 mls @ 500 mls/hr IV ONETIME ONE Stop: 06/15/20 22:29 Last Admin: 06/15/20 20:30 Dose: 500 mls/hr Documented by: Sodium Chloride (Normal Saline) 1,000 mls @ 75 mls/hr IV ASDIRECTED COUNT INCLUDES THE [facility] Lactated Ringer's (Ringers, Lactated) 1,000 mls @ 75 mls/hr IV ASDIRECTED COUNT INCLUDES THE [facility] Last Admin: 06/19/20 00:21 Dose: 75 mls/hr Documented by: Doxycycline Hyclate 100 mg/ (Sodium Chloride) 100 mls @ 100 mls/hr IV Q12H COUNT INCLUDES THE [facility] Last Admin: 06/22/20 00:45 Dose: 100 mls/hr Documented by: Dextrose/Water (Dextrose 5% In Water) 1,000 mls @ 50 mls/hr IV ASDIRECTED COUNT INCLUDES THE [facility] Last Admin: 06/21/20 18:13 Dose: 75 mls/hr Documented by: Ketorolac Tromethamine (Toradol) 30 mg IVPUSH Q6H COUNT INCLUDES THE [facility] Stop: 06/25/20 12:00 Last Admin: 06/22/20 06:25 Dose: 30 mg Documented by: Levothyroxine Sodium (Levothyroxine) 75 mcg PO BEDTIME COUNT INCLUDES THE [facility] Last Admin: 06/15/20 21:46 Dose: 75 mcg Documented by: Levothyroxine Sodium (Levothyroxine) 75 mcg .XX BEDTIME COUNT INCLUDES THE [facility] Last Admin: 06/19/20 21:49 Dose: 75 mcg Documented by: Lorazepam (Ativan) 1 mg IVPUSH Q5M PRN PRN Reason: SEIZURES Lorazepam (Ativan) 0.5 mg IVPUSH Q2H PRN PRN Reason: AGITATION Last Admin: 06/22/20 07:55 Dose: 0.5 mg Documented by: Mirtazapine (Remeron) 7.5 mg PO 1800 COUNT INCLUDES THE [facility] Last Admin: 06/15/20 17:37 Dose: 7.5 mg Documented by: Mirtazapine (Remeron) 7.5 mg .XX 1800 COUNT INCLUDES THE [facility] Last Admin: 06/18/20 17:02 Dose: 7.5 mg Documented by: Mirtazapine (Remeron) 7.5 mg .XX 1700 COUNT INCLUDES THE [facility] Last Admin: 06/19/20 17:35 Dose: 7.5 mg Documented by: Morphine Sulfate (Morphine) 1 mg IVPUSH Q1H PRN PRN Reason: Dyspnea Naloxone HCl (Narcan) 0.4 mg IVPUSH ONETIME ONE Stop: 06/15/20 11:49 Last Admin: 06/15/20 11:59 Dose: 0.4 mg Documented by: Naloxone HCl (Narcan) 0.4 mg IVPUSH ONETIME ONE Stop: 06/15/20 13:17 Last Admin: 06/15/20 13:18 Dose: 0.4 mg Documented by: Ondansetron HCl (Zofran) 4 mg IV Q8H PRN PRN Reason: Nausea/Vomiting Pantoprazole Sodium (Protonix) 40 mg PO DAILY@0600 COUNT INCLUDES THE [facility] Last Admin: 06/16/20 05:53 Dose: 40 mg Documented by: Pantoprazole Sodium (Protonix) 40 mg .XX DAILY@0600 COUNT INCLUDES THE [facility] Last Admin: 06/20/20 05:37 Dose: 40 mg Documented by: Polyethylene Glycol (Miralax) 17 gm PO DAILY COUNT INCLUDES THE [facility] Last Admin: 06/16/20 15:06 Dose: Not Given Documented by: Senna/Docusate Sodium (Senna Plus) 1 tab PO DAILY COUNT INCLUDES THE [facility] Last Admin: 06/16/20 15:10 Dose: Not Given Documented by: Senna/Docusate Sodium (Senna Plus) 1 tab .XX DAILY COUNT INCLUDES THE [facility] Last Admin: 06/20/20 08:09 Dose: 1 tab Documented by: Sodium Chloride (Saline Flush) 10 ml FLUSH ASDIRECTED PRN PRN Reason: Keep Vein Open Last Admin: 06/22/20 08:00 Dose: 10 ml Documented by: - Exam General: Obtunded Lungs: Rales (throughout, seesaw/abdominal breathing) Cardiovascular: Tachycardia GI/Abdominal Exam: Soft, No Distention, Abnormal Bowel Sounds (hypoactive) Extremities: Pedal Edema (2+ BLE), Pallor. No: Mottled Peripheral Pulses: 2+: Radial (L), Radial (R) Sepsis Event Note - Evaluation Sepsis Screening Result: No Definite Risk - Focused Exam Vital Signs: Vital Signs Temp Pulse Resp BP Pulse Ox Pulse Ox Pulse Ox 06/23/20 09:00 92 L 06/23/20 08:30 94 L 06/23/20 08:05 92 L 06/23/20 08:00 98.6 F 85 22 H 152/48 H 92 L Date Exam was Performed: 06/23/20 Time Exam was Performed: 14:56 - Problem List & Annotations (1) Comfort measures only status SNOMED Code(s): 78888158913390 Code(s): Z51.5 - ENCOUNTER FOR PALLIATIVE CARE Status: Acute Current Visit: Yes (2) Aspiration pneumonia SNOMED Code(s): 233864771 Code(s): J69.0 - PNEUMONITIS DUE TO INHALATION OF FOOD AND VOMIT Status: Acute Current Visit: Yes Qualifiers: Aspiration pneumonia type: unspecified Laterality: bilateral Lung location: unspecified part of lung Qualified Code(s): J69.0 - Pneumonitis due to inhalation of food and vomit Annotation/Comment:: RLL (3) Hypercapnia SNOMED Code(s): 77644746 Code(s): R06.89 - OTHER ABNORMALITIES OF BREATHING Status: Acute Current Visit: Yes (4) Left humeral fracture SNOMED Code(s): 34753781 Code(s): S42.302A - UNSP FRACTURE OF SHAFT OF HUMERUS, LEFT ARM, INIT Status: Acute Current Visit: Yes Qualifiers: Encounter type: subsequent encounter Fracture type: closed (5) DVT prophylaxis SNOMED Code(s): 696250798, 586212173 Code(s): NOG3309 - Status: Acute Current Visit: No Annotation/Comment:: raul Souza. (6) GERD (gastroesophageal reflux disease) SNOMED Code(s): 546664476 Code(s): K21.9 - GASTRO-ESOPHAGEAL REFLUX DISEASE WITHOUT ESOPHAGITIS Status: Chronic Current Visit: No Qualifiers: (7) Hypothyroidism SNOMED Code(s): 85958034 Code(s): E03.9 - HYPOTHYROIDISM, UNSPECIFIED Status: Chronic Current Visit: No (8) Mental retardation SNOMED Code(s): 897312629 Code(s): F79 - UNSPECIFIED INTELLECTUAL DISABILITIES Status: Chronic Current Visit: No Annotation/Comment:: Precautions. (9) Parkinson's disease SNOMED Code(s): 93458293 Code(s): G20 - PARKINSON'S DISEASE Status: Chronic Current Visit: No (10) Seizure disorder SNOMED Code(s): 513015995 Code(s): G40.909 - EPILEPSY, UNSP, NOT INTRACTABLE, WITHOUT STATUS EPILEPTICUS Status: Chronic Current Visit: No Annotation/Comment:: (11) DNI (do not intubate) SNOMED Code(s): 460971173 Code(s): Z78.9 - OTHER SPECIFIED HEALTH STATUS Status: Chronic Current Visit: Yes (12) DNR (do not resuscitate) Status: Chronic Current Visit: No (13) Palliative care status SNOMED Code(s): 437890564 Code(s): Z51.5 - ENCOUNTER FOR PALLIATIVE CARE Status: Acute Current Visit: No (14) UTI (urinary tract infection) SNOMED Code(s): 29995990 Code(s): N39.0 - URINARY TRACT INFECTION, SITE NOT SPECIFIED Status: Acute Current Visit: Yes Annotation/Comment:: E coli, sensitive to Zosyn. - Problem List Review Problem List Initiated/Reviewed/Updated: Yes - My Orders Last 24 Hours: My Active Orders 06/22/20 15:57 LORazepam [Ativan] 2 mg IM Q5M PRN 06/23/20 08:05 Oxygen Therapy Adult [Oxygen Therapy] [RC] ASDIRECTED - Plan Plan:: 1. Comfort measures only. Keep Tylenol suppository scheduled, with Morphine 5 mg SL q30m for pain. Ativan 0.5 mg SL q2h as needed agitation. Scopolamine patch for secretions. With her insurances she would require screening for swing bed, discussed with Gris Rivera, utilization review/discharge planning, will keep her inpatient over the weekend as the screenings would not come back to put in swing bed today.
[2020-06-23] MEDS: Acetaminophen 650 MG Supp RECTAL PRN (18:27)
[2020-06-24] MEDS: Morphine 10 MG/0.5 ML Oral Syringe SL PRN (01:33)
[2020-06-24] MEDS: Acetaminophen 650 MG Supp RECTAL PRN (01:33)
--- NOTE | 2020-06-24 11:12 | PCM.DCSUM1 ---
Discharge Summary - Hospital Course HPI Initial Comments: This is a 64-year-old patient. She had sustained a left humeral fracture, on 06/14 when long term staff were adjusting her arm brace and heard a pop. She was seen in clinic, given Tylenol 3 and was due to see Kenroy Shipley today but had an apneic event at long term and they brought her to the ER, found to have an aspiration pneumonia. The ER some Narcan which helped her. She has had many admissions for aspiration pneumonia. This patient is nonverbal and not able to get more history. Diagnosis: Stroke: No - Discharge Data Discharge Date: 06/24/20 Discharge Disposition: Preliminary Cause of *Q: Multi System Organ Failure Event(s) Leading to Patient's *Q: Left humeral fracture, aspiration p neumonia, hypercapnia, multiorgan failure. history of recurrent aspiration pneumonia, cerebral palsy, developmental delay, long term resident since age 3, seizures, parkinsons. Condition: - Referral to Home Health Primary Care Physician: Kanwal Bacon NP - Discharge Diagnosis/Problem(s) (1) Comfort measures only status SNOMED Code(s): 68123498913370 ICD Code: Z51.5 - ENCOUNTER FOR PALLIATIVE CARE Status: Acute (2) Aspiration pneumonia SNOMED Code(s): 981470217 ICD Code: J69.0 - PNEUMONITIS DUE TO INHALATION OF FOOD AND VOMIT Status: Acute Problem Details: RLL Qualifiers: Aspiration pneumonia type: unspecified Laterality: bilateral Lung location: unspecified part of lung Qualified Code(s): J69.0 - Pneumonitis due to inhalation of food and vomit (3) Hypercapnia SNOMED Code(s): 90711989 ICD Code: R06.89 - OTHER ABNORMALITIES OF BREATHING Status: Acute (4) Left humeral fracture SNOMED Code(s): 46749081 ICD Code: S42.302A - UNSP FRACTURE OF SHAFT OF HUMERUS, LEFT ARM, INIT Status: Acute Qualifiers: Encounter type: subsequent encounter Fracture type: closed (5) DVT prophylaxis SNOMED Code(s): 531072103, 912181669 ICD Code: HTF2860 - Status: Acute Problem Details: TEDs, lovenox. (6) GERD (gastroesophageal reflux disease) SNOMED Code(s): 959742834 ICD Code: K21.9 - GASTRO-ESOPHAGEAL REFLUX DISEASE WITHOUT ESOPHAGITIS Status: Chronic Qualifiers: (7) Hypothyroidism SNOMED Code(s): 08463624 ICD Code: E03.9 - HYPOTHYROIDISM, UNSPECIFIED Status: Chronic (8) Mental retardation SNOMED Code(s): 364194456 ICD Code: F79 - UNSPECIFIED INTELLECTUAL DISABILITIES Status: Chronic Problem Details: Precautions. (9) Parkinson's disease SNOMED Code(s): 17032312 ICD Code: G20 - PARKINSON'S DISEASE Status: Chronic (10) Seizure disorder SNOMED Code(s): 933790911 ICD Code: G40.909 - EPILEPSY, UNSP, NOT INTRACTABLE, WITHOUT STATUS EPILEPTICUS Status: Chronic Problem Details: (11) DNI (do not intubate) SNOMED Code(s): 222730436 ICD Code: Z78.9 - OTHER SPECIFIED HEALTH STATUS Status: Chronic (12) DNR (do not resuscitate) Status: Chronic (13) Palliative care status SNOMED Code(s): 413417227 ICD Code: Z51.5 - ENCOUNTER FOR PALLIATIVE CARE Status: Acute (14) UTI (urinary tract infection) SNOMED Code(s): 21320480 ICD Code: N39.0 - URINARY TRACT INFECTION, SITE NOT SPECIFIED Status: Acute Problem Details: E coli, sensitive to Zosyn. - Patient Summary/Data Hospital Course: Liane was admitted for aspiration pneumonia, unresponsive in ER, given Narcan which she responded to. She had left proximal displaced humeral fracture on 06/14, [facility] requested 4 view shoulder x-rays on 06/16 which were done and sent via PACS to [place]. They were reviewed, I spoke with Orthopedic sponsorship manager, non-surgical fracture, advised envelope sling or shoulder immobilizer if she would not keep arm still, with repeat x-rays in 2 weeks. Initially had been s tarted on Zosyn and Azithromycin, respirations 06/16 were down to 6, improved the next day and WBC had come down but then started climbing over the weekend 06/17 & 06/18 to 18.0. Azithromycin was discontinued and Doxycycline to help cover MRSA was added, her WBC started to improve and eventually were back to normal but clinically she was not improving, lung exam had rhonchi throughout all lung barbosa. Lactic acid was normal at 0.7. She progressively became more hypercapnic, trial of BiPAP was done which failed, made the CO2 worse, more apneic episodes, was switched back to non-rebreather mask. She would not take anything by mouth since evening of 06/16, IVF were switched from LR to D5W as her sodium was going up. Her pain initially had been controlled with Tylenol suppositories scheduled. Had add Toradol IV when rectal medications were stopped(due to increased agitation with turning to administer, also at request of family). Her brother/guardian Jules was updated daily or twice daily on her condition, wanted to continue antibiotics and IVF and her seizures medications. Her CO2 continued to climb, she was a DNR/DNI, Jules did not want her transferred or intubated. 06/22 Jules was in agreement with making her comfort measures. Ativan SL, Morphine SL and Scopolamine patch were ordered, Tylenol suppository scheduled was changed to as needed because she was more agitated with movement. Liane at 0335 morning of Jun 24, Jules and long term were notified. She was not a candidate for donation, released to local home at 0747. - Discharge Plan *PRESCRIPTION DRUG MONITORING PROGRAM REVIEWED*: Not Applicable *COPY OF PRESCRIPTION DRUG MONITORING REPORT IN PATIENT FELIPE: Not Applicable Home Medications: Home Meds Divalproex Sodium [Depakote Sprinkle] 375 mg PO 10,,,20 12/11/15 [History] Levothyroxine 75 mcg PO BEDTIME 12/11/15 [History] Multivitamin with Iron [Daily Nery with Iron] 1 tab PO DAILY 12/11/15 [History] Omeprazole 20 mg PO ACBREAKFAST 12/11/15 [History] Vitamin E 400 units PO DAILY 12/11/15 [History] Carbidopa/Levodopa [Carbidopa-Levodopa 25-100 Tab] 2.5 tab PO ,,,20 02/04/16 [History] Nystatin [Nystatin Crm] 1 applic TOP BID PRN 09/28/17 [History] Mirtazapine 7.5 mg PO 1800 09/05/18 [History] Sennosides/Docusate Sodium [Senna Laxative Tablet] 1 tab PO DAILY 09/05/18 [History] polyethylene glycoL 3350 [Laxaclear] 17 gm PO DAILY 09/05/18 [History] Albuterol [Proventil Neb Soln] 2.5 mg INH QID PRN 03/16/19 [History] bisacodyL [Dulcolax] 10 mg RC DAILY PRN 03/16/19 [History] clonazePAM [Klonopin] 1 mg PO BEDTIME 03/16/19 [History] Furosemide [Lasix] 20 mg PO DAILY #30 tab 03/22/19 [Rx] Petrolatum,White [Vaseline White Petroleum] 1 applic TOP DAILY PRN 01/27/20 [History] Petrolatum,White/Zinc Oxide [Sensi-Care Protective Ointment] 1 applic TOP DAILY 01/27/20 [History] Acetaminophen [Tylenol] 650 mg PO Q4H PRN 06/15/20 [History] Acetaminophen with Codeine [Acetaminophen-Cod #3] 1 tab PO Q6H 06/15/20 [History] Azithromycin [Zithromax] 250 mg PO DAILY 06/15/20 [History] Bacitracin/Polymyxin B Sulfate [Polysporin Ointment] 1 applic TOP ASDIRECTED PRN 06/15/20 [History] Loratadine 10 mg PO DAILY 06/15/20 [History] Magnesium Hydroxide [Milk of Magnesia] 4 tbsp PO DAILY PRN 06/15/20 [History] Naproxen Sodium 220 mg PO BID 06/15/20 [History] Petrolatum,White/Zinc Oxide [Sensi-Care Protective Ointment] 1 applic TOP ASDIRECTED PRN 06/15/20 [History] Pseudoephedrine [Sudogest] 60 mg PO Q4H PRN 06/15/20 [History] Forms: ED Department Discharge Referrals: PCP,None [Ordering Only Provider] - - Discharge Summary/Plan Comment DC Time >30 min.: Yes - Patient Data Vitals - Most Recent: Last Vital Signs Temp 102.1 F H 06/24/20 01:33 Pulse 85 06/23/20 08:00 Resp 22 H 06/23/20 08:00 BP 152/48 H 06/23/20 08:00 Pulse Ox 92 L 06/23/20 09:00 Weight - Most Recent: 141 lb 4.8 oz Med Orders - Current: Current Medications Discontinued Medications Acetaminophen (Tylenol) 650 mg RECTAL Q4H PRN PRN Reason: Mild pain/fever Last Admin: 06/17/20 20:36 Dose: 650 mg Documented by: Acetaminophen (Tylenol) 650 mg RECTAL Q4H [facility] Last Admin: 06/20/20 08:08 Dose: 650 mg Documented by: Acetaminophen (Tylenol) 650 mg RECTAL Q6H [facility] Last Admin: 06/23/20 10:35 Dose: 650 mg Documented by: Acetaminophen (Tylenol) 650 mg RECTAL Q6H PRN PRN Reason: Pain/Fever Last Admin: 06/24/20 01:33 Dose: 650 mg Documented by: Albuterol/Ipratropium (Duoneb 3.0-0.5 Mg/3 Ml) 3 ml NEB ONETIME ONE Stop: 06/15/20 12:41 Last Admin: 06/15/20 12:49 Dose: 3 ml Documented by: Albuterol/Ipratropium (Duoneb 3.0-0.5 Mg/3 Ml) 3 ml NEB QIDRT [facility] Last Admin: 06/18/20 11:05 Dose: Not Given Documented by: Albuterol/Ipratropium (Duoneb 3.0-0.5 Mg/3 Ml) 3 ml NEB QIDRT PRN PRN Reason: Shortness of Breath Bisacodyl (Dulcolax) 10 mg RECTAL DAILY PRN PRN Reason: Constipation Last Admin: 06/17/20 02:27 Dose: 10 mg Documented by: Carbidopa/Levodopa (Sinemet 25-100 Mg) 2.5 tab PO 10,,17,20 [facility] Last Admin: 06/15/20 21:45 Dose: 2.5 tab Documented by: Carbidopa/Levodopa (Sinemet 25-100 Mg) 2.5 tab .XX ,,,20 [facility] Last Admin: 06/20/20 09:05 Dose: 2.5 tab Documented by: Divalproex Sodium (Depakote Sprinkle) 375 mg PO 10,,,20 [facility] Last Admin: 06/15/20 21:45 Dose: 375 mg Documented by: Divalproex Sodium (Depakote Sprinkle) 375 mg .XX ,,17,20 [facility] Last Admin: 06/20/20 09:05 Dose: 375 mg Documented by: Enoxaparin Sodium (Lovenox) 30 mg SUBCUT Q24H [facility] Last Admin: 06/19/20 13:57 Dose: 30 mg Documented by: Furosemide (Lasix) 20 mg IVPUSH NOW ONE Stop: 06/17/20 11:31 Last Admin: 06/17/20 12:56 Dose: 20 mg Documented by: Sodium Chloride (Normal Saline) 500 mls @ 500 mls/hr IV .BOLUS ONE Stop: 06/15/20 12:37 Last Admin: 06/15/20 11:49 Dose: 500 mls/hr Documented by: Piperacillin Sod/Tazobactam (Sod 3.375 gm/ Sodium Chloride) 50 mls @ 100 mls/hr IV Q6H [facility] Last Admin: 06/15/20 12:54 Dose: 100 mls/hr Documented by: Dextrose/Sodium Chloride (Dextrose 5%-1/2 Ns) 1,000 mls @ 100 mls/hr IV ASDIRECTED [facility] Last Admin: 06/16/20 14:23 Dose: 100 mls/hr Documented by: Piperacillin Sod/Tazobactam (Sod 3.375 gm/ Sodium Chloride) 50 mls @ 100 mls/hr IV Q6H [facility] Last Admin: 06/22/20 07:54 Dose: 100 mls/hr Documented by: Azithromycin 250 mg/ Sodium (Chloride) 250 mls @ 250 mls/hr IV Q24H [facility] Last Admin: 06/17/20 16:44 Dose: 250 mls/hr Documented by: Sodium Chloride (Normal Saline) 1,000 mls @ 500 mls/hr IV ONETIME ONE Stop: 06/15/20 22:29 Last Admin: 06/15/20 20:30 Dose: 500 mls/hr Documented by: Sodium Chloride (Normal Saline) 1,000 mls @ 75 mls/hr IV ASDIRECTED [facility] Lactated Ringer's (Ringers, Lactated) 1,000 mls @ 75 mls/hr IV ASDIRECTED [facility] Last Admin: 06/19/20 00:21 Dose: 75 mls/hr Documented by: Doxycycline Hyclate 100 mg/ (Sodium Chloride) 100 mls @ 100 mls/hr IV Q12H [facility] Last Admin: 06/22/20 00:45 Dose: 100 mls/hr Documented by: Dextrose/Water (Dextrose 5% In Water) 1,000 mls @ 50 mls/hr IV ASDIRECTED [facility] Last Admin: 06/21/20 18:13 Dose: 75 mls/hr Documented by: Ketorolac Tromethamine (Toradol) 30 mg IVPUSH Q6H [facility] Stop: 06/25/20 12:00 Last Admin: 06/22/20 06:25 Dose: 30 mg Documented by: Levothyroxine Sodium (Levothyroxine) 75 mcg PO BEDTIME [facility] Last Admin: 06/15/20 21:46 Dose: 75 mcg Documented by: Levothyroxine Sodium (Levothyroxine) 75 mcg .XX BEDTIME [facility] Last Admin: 06/19/20 21:49 Dose: 75 mcg Documented by: Lorazepam (Ativan) 1 mg IVPUSH Q5M PRN PRN Reason: SEIZURES Lorazepam (Ativan) 0.5 mg IVPUSH Q2H PRN PRN Reason: AGITATION Last Admin: 06/22/20 07:55 Dose: 0.5 mg Documented by: Lorazepam (Ativan) 0.5 mg .XX Q2H PRN PRN Reason: Other Last Admin: 06/23/20 23:54 Dose: 0.5 mg Documented by: Lorazepam (Ativan) 2 mg IM Q5M PRN PRN Reason: SEIZURES Mirtazapine (Remeron) 7.5 mg PO 1800 [facility] Last Admin: 06/15/20 17:37 Dose: 7.5 mg Documented by: Mirtazapine (Remeron) 7.5 mg .XX 1800 [facility] Last Admin: 06/18/20 17:02 Dose: 7.5 mg Documented by: Mirtazapine (Remeron) 7.5 mg .XX 1700 [facility] Last Admin: 06/19/20 17:35 Dose: 7.5 mg Documented by: Morphine Sulfate (Morphine) 1 mg IVPUSH Q1H PRN PRN Reason: Dyspnea Morphine Sulfate (Morphine 10 Mg/0.5 Ml Oral Syringe) 5 mg SL Q30M PRN PRN Reason: PAIN/SHORTNESS OF BREATH Last Admin: 06/24/20 01:33 Dose: 5 mg Documented by: Naloxone HCl (Narcan) 0.4 mg IVPUSH ONETIME ONE Stop: 06/15/20 11:49 Last Admin: 06/15/20 11:59 Dose: 0.4 mg Documented by: Naloxone HCl (Narcan) 0.4 mg IVPUSH ONETIME ONE Stop: 06/15/20 13:17 Last Admin: 06/15/20 13:18 Dose: 0.4 mg Documented by: Ondansetron HCl (Zofran) 4 mg IV Q8H PRN PRN Reason: Nausea/Vomiting Pantoprazole Sodium (Protonix) 40 mg PO DAILY@0600 [facility] Last Admin: 06/16/20 05:53 Dose: 40 mg Documented by: Pantoprazole Sodium (Protonix) 40 mg .XX DAILY@0600 [facility] Last Admin: 06/20/20 05:37 Dose: 40 mg Documented by: Polyethylene Glycol (Miralax) 17 gm PO DAILY [facility] Last Admin: 06/16/20 15:06 Dose: Not Given Documented by: Scopolamine (Transderm-Scop) 1.5 mg TOP Q72H [facility] Last Admin: 06/21/20 10:24 Dose: 1.5 mg Documented by: Senna/Docusate Sodium (Senna Plus) 1 tab PO DAILY [facility] Last Admin: 06/16/20 15:10 Dose: Not Given Documented by: Senna/Docusate Sodium (Senna Plus) 1 tab .XX DAILY [facility] Last Admin: 06/20/20 08:09 Dose: 1 tab Documented by: Sodium Chloride (Saline Flush) 10 ml FLUSH ASDIRECTED PRN PRN Reason: Keep Vein Open Last Admin: 06/22/20 08:00 Dose: 10 ml Documented by:
== END 2020-06-24 03:35 | disposition expired | DRG 177 ==
LOC: FB.ED 11:27 → FB.MS 13:05
PROVIDERS: ADMIT Family Medicine; ATTEND Family Medicine
PROC: 5A09357 Assistance with Respiratory Ventilation, Less than 24 Consecutive Hours, Continuous Positive Airway Pressure (ICD-10-PCS; principal; 2020-06-19)
DX: J69.0 Pneumonitis due to inhalation of food and vomit (principal); J96.02 Acute respiratory failure with hypercapnia; N39.0 Urinary tract infection, site not specified; F73 Profound intellectual disabilities; R32 Unspecified urinary incontinence; Z51.5 Encounter for palliative care; Z66 Do not resuscitate; Z20.828 Contact with and (suspected) exposure to other viral communicable diseases; S42.302D Unspecified fracture of shaft of humerus, left arm, subsequent encounter for fracture with routine healing; K21.9 Gastro-esophageal reflux disease without esophagitis; S42.90XD Fracture of unspecified shoulder girdle, part unspecified, subsequent encounter for fracture with routine healing; X58.XXXD Exposure to other specified factors, subsequent encounter; R62.50 Unspecified lack of expected normal physiological development in childhood; J18.9 Pneumonia, unspecified organism; E03.9 Hypothyroidism, unspecified; G80.9 Cerebral palsy, unspecified; G20 Parkinson's disease; R41.82 Altered mental status, unspecified; G40.909 Epilepsy, unspecified, not intractable, without status epilepticus; I87.303 Chronic venous hypertension (idiopathic) without complications of bilateral lower extremity; F79 Unspecified intellectual disabilities; F71 Moderate intellectual disabilities; B96.20 Unspecified Escherichia coli [E. coli] as the cause of diseases classified elsewhere; J30.9 Allergic rhinitis, unspecified; H54.7 Unspecified visual loss; M41.9 Scoliosis, unspecified; H26.9 Unspecified cataract; N28.9 Disorder of kidney and ureter, unspecified; R40.4 Transient alteration of awareness; R45.1 Restlessness and agitation; Z79.890 Hormone replacement therapy; Z79.899 Other long term (current) drug therapy; Z79.51 Long term (current) use of inhaled steroids; Z87.01 Personal history of pneumonia (recurrent); Z87.440 Personal history of urinary (tract) infections; Z98.890 Other specified postprocedural states; Z83.49 Family history of other endocrine, nutritional and metabolic diseases; Z99.81 Dependence on supplemental oxygen
CPT/HCPCS: 36415; 71045; 80053; 83605; 83880; 84484; 85025; 87040; 93005; 96361; 96374; 96375; 99285 ×2; J2310; J2543; J7040; J7050; U0002; 36600; 51702; 73030-LT; 80048; 81001; 82803; 85014; 85018; 87086; 87186; 94640; 94660; A9270-GY; J0456; J1650; J1885; J1940; J2060; J3490; J7030; J7042; J7060; J7120; J7620-GY